=== PATIENT | female | born 1935 | race Caucasian/White ===

== ENCOUNTER → 2016-11-03 | Outpatient (CLI) | payer MEDICARE, OTHER ==
[~2016-11-03] MED LIST: /WARF2TA OR; /WARF2TA PO; ABIL2TAB PO; ABIL5TAB OR; ABIL5TAB5 PO; ACET65TA PO; ALLO100T PO; ALLO10TA PO; AMLO10TA2 PO; AMOX875T2 PO; ATEN100T PO; ATEN25TA PO; AZIT250T3 PO; CLAR5CHW PO; COLA100C2 OR; COLA100C2 PO; COLC0.6T PO; COUM2TAB10 PO; DEME300T OR; DICY10CA13 PO; DIGO0.12 PO; DIGO0.257 OR; FERR325T PO; GLUC500T PO; LEVA750T OR; LEVO25TA5 PO; LISI10TA4 OR; LISI10TA4 PO; LOPR50TA OR; MAGN250T2 PO; MAGN500T2 OR; MEGA40SU OR; MELO15TA4 PO; METF500T PO; MILKSUS OR; MUCI600T34 PO; NEPHTA PO; NITR4TASL SL; OMEP20CA3 PO; PARO20TA2 PO; PAXI20TA PO; SENO8.6T5 OR; SIMV20TA2 PO; SITA50TAB PO; SODIUM CHLORIDE TAB PO; SYNT100T PO; TENO100T OR; VITA-130 PO; VITA500T53 PO; WARF-58 PO; ZANT150T PO; ZOCO40TA PO; ZYLO100T OR; [UNRECOGNIZED DRUG - OTHER]; [UNRECOGNIZED DRUG - OTHER] TOP; citrucel PO
--- NOTE | 2016-11-04 11:23 | REP ---
PA and lateral chest: Comparisons are the portable chest of 09/30/2016. Portable chest of 07/01/2011. There is cardiomegaly, unchanged from 09/30/2016. There is a dual-chamber pacemaker, unchanged from both prior studies. Lung redmond are clear. The tamara, mediastinum, bony thorax are unremarkable. Impression: Cardiomegaly. Signed by Jac Telles MD 11/03/2016 02:53 P
== END ==
LOC: M LRY 14:21
PROVIDERS: ATTEND Nurse Practitioner Family
DX: I51.7 Cardiomegaly (principal)

== ENCOUNTER 2016-12-31 10:48 | Emergency (ER) | payer MEDICARE, OTHER ==
[~2016-12-31] VITALS: Ht 157.5 cm; Wt 54.9 kg
[2016-12-31 10:48] VITALS: BP 156/70
[~2016-12-31 10:48] MED LIST changes: -PARO20TA2 PO; +PARO20TA3 PO
[2016-12-31] MEDS ORDERED: COUM1TAB19 PO (11:17)
[2016-12-31] MEDS ORDERED: VALA500T PO (11:17)
[2016-12-31] MEDS ORDERED: NORCO, ANEXSIA 5/325MG TABLET (HYDROcodone/ACETAMINOPHEN) PO ONE (12:00)
[2016-12-31] MEDS ORDERED: VICO5TAB16 PO (12:03)
== END 2016-12-31 12:25 | disposition home or self-care (01) ==
LOC: M ED 11:42
DX: B34.9 Viral infection, unspecified (principal); B02.9 Zoster without complications; I10 Essential (primary) hypertension; E03.9 Hypothyroidism, unspecified; E11.9 Type 2 diabetes mellitus without complications; M54.30 Sciatica, unspecified side; K58.9 Irritable bowel syndrome, unspecified; Z95.0 Presence of cardiac pacemaker; Z79.899 Other long term (current) drug therapy; Z79.84 Long term (current) use of oral hypoglycemic drugs; Z79.01 Long term (current) use of anticoagulants

== ENCOUNTER 2017-01-07 11:20 | Emergency (ER) | payer MEDICARE, OTHER ==
[~2017-01-07] VITALS: Ht 152.4 cm; Wt 45.4 kg
[~2017-01-07 11:20] MED LIST changes: +COUM1TAB19 PO; +VALA500T PO; +VICO5TAB16 PO
[2017-01-07] MEDS ORDERED: NS 500 ML IV ONE (13:45)
[2017-01-07 14:50] LABS: BASO % 0.2 % (0.0-1.0); EOS # 0.1 K/mm3 (0.0-0.50); EOS % 1.8 % (0.0-3.0); LARGE UNSTAINED CELL # 0.1 K/mm3 (0.0-0.4); LARGE UNSTAINED CELL % 1.1 % (0.0-4.0); LYMPH # 1.2 K/mm3 (1.5-4.5); LYMPH % 14.3 % (24.0-44.0); MEAN CORPUSCULAR HEMOGLOBIN 28.2 pg (27.0-33.0); MEAN CORPUSCULAR HGB CONC 32.6 g/dl (32.0-36.5); MEAN CORPUSCULAR VOLUME 86.4 fl (80.0-96.0); MONO # 0.5 K/mm3 (0.0-0.8); MONO % 6.1 % (0.0-5.0); NEUTROPHILS # 5.8 K/mm3 (1.8-7.7); NEUTROPHILS % 76.6 % (36.0-66.0); PLATELET COUNT, AUTOMATED 286 k/mm3 (150-450); RED CELL DISTRIBUTION WIDTH 16.8 % (11.5-14.5); WHITE BLOOD COUNT 7.6 K/mm3 (4.0-10.0)
[2017-01-07 14:51] LABS: INR 2.78
[2017-01-07] MEDS: MORPHINE 2 MG/ML 1ML SYRINGE IV PRN ×2 (15:04→16:50)
[2017-01-07 15:07] LABS: ERYTHROCYTE SEDIMENTATION RATE 69 mm/hr (0-30)
[2017-01-07 15:12] LABS: ALBUMIN 3.3 GM/DL (3.2-5.2); ALBUMIN/GLOBULIN RATIO 0.77 (1.00-1.93); ALKALINE PHOSPHATASE 83 U/L (45-117); ALT/SGPT 62 U/L (12-78); ANION GAP 5 MEQ/L (8-16); AST/SGOT 38 U/L (15-37); BILIRUBIN,DIRECT < 0.1 MG/DL (0.0-0.2); BILIRUBIN,TOTAL 0.1 MG/DL (0.2-1.0); BLOOD UREA NITROGEN 18 MG/DL (7-18); CALCIUM LEVEL 8.8 MG/DL (8.8-10.2); CARBON DIOXIDE LEVEL 28 MEQ/L (21-32); CHLORIDE LEVEL 98 MEQ/L (98-107); CREATININE FOR GFR 0.97 MG/DL (0.55-1.02); GLOMERULAR FILTRATION RATE 58.4 (>32); GLUCOSE, FASTING 120 MG/DL (83-110); POTASSIUM SERUM 4.5 MEQ/L (3.5-5.1); SODIUM LEVEL 131 MEQ/L (136-145); TOTAL PROTEIN 7.6 GM/DL (6.4-8.2)
[2017-01-07] MEDS ORDERED: MACR100C3 PO (17:10)
[2017-01-07] MEDS ORDERED: LIDO5DIS36 TD (17:10)
[2017-01-07] MEDS ORDERED: ACET-71 PO ×2 (17:10→17:11)
[2017-01-07] MEDS ORDERED: ACETAMINOPH W/CODEINE #3 TAB UD PO ONE (18:00)
[2017-01-07 18:09] VITALS: BP 122/77
--- NOTE | 2017-01-08 21:37 | ECGEPIP ---
Stationary ECG Study 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
--- NOTE | 2017-01-08 21:40 | ECGEPIP ---
Stationary ECG Study [facility] - ED Test Date: 2017-01-07 Pat Name: TREVOR HERNÁNDEZ Department: Room: - Gender: F Poster: bennett BENITOB: 1935 Requested By: Cesar Davis PA-C Order Number: [id number] Reading MD: Estela Gar Measurements Intervals [place] Rate: 61 P: [place]: 0 QRS: 19 QRSD: 89 T: -60 QT: 424 QTc: 430 Interpretive Statements ATRIAL FIBRILLATION ST DEVIATION AND MODERATE T-WAVE ABNORMALITY, CONSIDER ANTEROLATERAL ISCHEMIA SIMILAR 01/07/17 13:55 Electronically Signed On 01-08-2017 21:40:53 EDT by Estela Gar
== END 2017-01-07 19:08 | disposition home or self-care (01) ==
LOC: M ED 14:16
DX: B02.29 Other postherpetic nervous system involvement (principal); R07.9 Chest pain, unspecified; M54.2 Cervicalgia; I48.91 Unspecified atrial fibrillation; R94.31 Abnormal electrocardiogram [ECG] [EKG]; Z79.899 Other long term (current) drug therapy; Z79.01 Long term (current) use of anticoagulants; Z79.84 Long term (current) use of oral hypoglycemic drugs

== ENCOUNTER → 2017-03-31 | Outpatient (CLI) | payer MEDICARE, OTHER ==
[~2017-03-31] MED LIST changes: +ACET-71 PO; +LIDO5DIS36 TD; +MACR100C3 PO
[2017-03-31 16:30] LABS: INR 2.36
== END ==
LOC: M LAB 16:01
PROVIDERS: ATTEND Family Medicine
DX: Z79.01 Long term (current) use of anticoagulants (principal); I48.2 Chronic atrial fibrillation

== ENCOUNTER → 2017-04-14 | Outpatient (CLI) | payer MEDICARE, OTHER ==
[~2017-04-14] MED LIST changes: +ABIL1TAB11 PO; -ABIL5TAB5 PO; -ACET-71 PO; +ACET1TAB16 PO; +AZIT-12 PO; -AZIT250T3 PO; -COUM2TAB10 PO; +COUM2TAB22 PO; +FERR1TAB8 PO; -FERR325T PO; -LIDO5DIS36 TD; +LIDO5DIS41 TD; -MACR100C3 PO; +MACR100C43 PO; -MAGN250T2 PO; +MAGN250T7 PO; -METF500T PO; +METF500T13 PO; -MUCI600T34 PO; +MUCI600T37 PO; -VALA500T PO; +VALA500T2 PO; -VITA-130 PO; +VITA500T PO
[2017-04-14 12:46] LABS: INR 1.72
== END ==
LOC: M LAB 11:39
PROVIDERS: ATTEND Family Medicine
DX: Z79.01 Long term (current) use of anticoagulants (principal); I48.2 Chronic atrial fibrillation

== ENCOUNTER → 2017-04-21 | Outpatient (CLI) | payer MEDICARE, OTHER ==
[2017-04-21 15:03] LABS: INR 2.43
== END ==
LOC: M LAB 14:06
PROVIDERS: ATTEND Family Medicine
DX: Z79.01 Long term (current) use of anticoagulants (principal); I48.2 Chronic atrial fibrillation

== ENCOUNTER → 2017-04-28 | Outpatient (CLI) | payer MEDICARE, OTHER ==
[2017-04-28 13:04] LABS: INR 2.39
== END ==
LOC: M LAB 11:54
PROVIDERS: ATTEND Family Medicine
DX: Z79.01 Long term (current) use of anticoagulants (principal); I48.2 Chronic atrial fibrillation

== ENCOUNTER → 2017-05-12 | Outpatient (CLI) | payer OTHER ==
[2017-05-12 13:16] LABS: INR 2.33
== END ==
LOC: M LAB 12:03
PROVIDERS: ATTEND Family Medicine
DX: Z51.81 Encounter for therapeutic drug level monitoring (principal); Z79.01 Long term (current) use of anticoagulants

== ENCOUNTER → 2017-05-26 | Outpatient (CLI) | payer OTHER ==
[2017-05-26 13:24] LABS: INR 1.99
== END ==
LOC: M LAB 12:37
PROVIDERS: ATTEND Family Medicine
DX: Z79.01 Long term (current) use of anticoagulants (principal)

== ENCOUNTER → 2017-06-02 | Outpatient (CLI) | payer OTHER ==
[2017-06-02 15:40] LABS: INR 2.35
== END ==
LOC: M LAB 15:05
PROVIDERS: ATTEND Family Medicine
DX: Z79.01 Long term (current) use of anticoagulants (principal)

== ENCOUNTER → 2017-06-16 | Outpatient (CLI) | payer OTHER ==
[2017-06-16 14:10] LABS: INR 1.84
== END ==
LOC: M LAB 13:20
PROVIDERS: ATTEND Family Medicine
DX: Z79.01 Long term (current) use of anticoagulants (principal); I48.1 Persistent atrial fibrillation

== ENCOUNTER → 2017-06-23 | Outpatient (CLI) | payer OTHER ==
[2017-06-23 15:41] LABS: INR 2.63
== END ==
LOC: M LAB 15:02
PROVIDERS: ATTEND Family Medicine
DX: Z79.01 Long term (current) use of anticoagulants (principal)

== ENCOUNTER → 2017-07-08 | Outpatient (CLI) | payer OTHER | LOC: M LAB 14:36 | PROVIDERS: ATTEND Family Medicine | DX: Z79.01 Long term (current) use of anticoagulants (principal); I48.2 Chronic atrial fibrillation ==

== ENCOUNTER → 2017-07-15 | Outpatient (CLI) | payer OTHER ==
[2017-07-15 15:32] LABS: INR 2.51
== END ==
LOC: M LAB 14:57
PROVIDERS: ATTEND Family Medicine
DX: Z79.01 Long term (current) use of anticoagulants (principal)

== ENCOUNTER → 2017-07-29 | Outpatient (CLI) | payer OTHER ==
[2017-07-29 14:08] LABS: INR 2.05
== END ==
LOC: M LAB 12:45
PROVIDERS: ATTEND Family Medicine
DX: Z79.01 Long term (current) use of anticoagulants (principal)

== ENCOUNTER → 2017-08-13 | Outpatient (CLI) | payer OTHER ==
[2017-08-13 14:24] LABS: INR 1.42
== END ==
LOC: M LAB 13:08
PROVIDERS: ATTEND Family Medicine
DX: Z51.81 Encounter for therapeutic drug level monitoring (principal); Z79.01 Long term (current) use of anticoagulants; I48.91 Unspecified atrial fibrillation

== ENCOUNTER → 2017-08-19 | Outpatient (CLI) | payer OTHER ==
[2017-08-19 16:47] LABS: INR 1.9
== END ==
LOC: M LAB 15:50
PROVIDERS: ATTEND Family Medicine
DX: Z79.01 Long term (current) use of anticoagulants (principal)

== ENCOUNTER → 2017-08-26 | Outpatient (CLI) | payer OTHER ==
[2017-08-26 15:19] LABS: INR 2.59
== END ==
LOC: M LAB 14:32
PROVIDERS: ATTEND Family Medicine
DX: I48.91 Unspecified atrial fibrillation (principal); Z79.01 Long term (current) use of anticoagulants

== ENCOUNTER → 2017-09-02 | Outpatient (CLI) | payer OTHER ==
[2017-09-02 16:51] LABS: INR 2.16
== END ==
LOC: M LAB 15:28
PROVIDERS: ATTEND Family Medicine
DX: Z79.01 Long term (current) use of anticoagulants (principal); I48.91 Unspecified atrial fibrillation

== ENCOUNTER → 2017-09-15 | Outpatient (CLI) | payer OTHER ==
[2017-09-15 11:57] LABS: BASO % 0.1 % (0.0-1.0); EOS # 0.2 10^3/uL (0.0-0.50); IMMATURE GRANULOCYTE % 0.5 % (0-0); LYMPH # 1.2 10^3/uL (1.5-4.5); LYMPH % 14.5 % (24.0-44.0); MEAN CORPUSCULAR HGB CONC 31.3 g/dl (32.0-36.5); MEAN CORPUSCULAR VOLUME 82.9 fl (80.0-96.0); MONO # 0.6 10^3/uL (0.0-0.8); MONO % 7.4 % (0.0-5.0); NEUTROPHILS # 6.2 10^3/uL (1.8-7.7); NEUTROPHILS % 75.5 % (36.0-66.0); PLATELET COUNT, AUTOMATED 287 10^3/uL (150-450); RED CELL DISTRIBUTION WIDTH 16.4 % (11.5-14.5); WHITE BLOOD COUNT 8.2 10^3/uL (4.0-10.0)
[2017-09-15 12:11] LABS: INR 1.87
[2017-09-15 12:36] LABS: ALBUMIN 3.3 GM/DL (3.2-5.2); ALKALINE PHOSPHATASE 74 U/L (45-117); ALT/SGPT 40 U/L (12-78); ANION GAP 9 MEQ/L (8-16); AST/SGOT 26 U/L (7-37); BILIRUBIN,TOTAL 0.2 MG/DL (0.2-1.0); BLOOD UREA NITROGEN 23 MG/DL (7-18); CALCIUM LEVEL 9.4 MG/DL (8.8-10.2); CARBON DIOXIDE LEVEL 27 MEQ/L (21-32); CHLORIDE LEVEL 102 MEQ/L (98-107); CHOLESTEROL LEVEL 110 MG/DL (<200); CREATININE FOR GFR 0.99 MG/DL (0.55-1.02); FREE T4 0.91 NG/DL (0.76-1.46); GLOMERULAR FILTRATION RATE 56.9 (>32); GLUCOSE, FASTING 191 MG/DL (83-110); POTASSIUM SERUM 4.1 MEQ/L (3.5-5.1); SODIUM LEVEL 138 MEQ/L (136-145); TOTAL PROTEIN 7.4 GM/DL (6.4-8.2); TRIGLYCERIDES LEVEL 228 MG/DL (<150)
[2017-09-15 12:45] LABS: VITAMIN B12 LEVEL > 2000 PG/ML (247-911)
[2017-09-15 12:46] LABS: FOLATE > 24.0 NG/ML (>5.4)
== END ==
LOC: M LAB 11:26
PROVIDERS: ATTEND Family Medicine
DX: E11.9 Type 2 diabetes mellitus without complications (principal); E03.9 Hypothyroidism, unspecified; E78.5 Hyperlipidemia, unspecified; D64.9 Anemia, unspecified; I48.91 Unspecified atrial fibrillation

== ENCOUNTER → 2017-09-22 | Outpatient (CLI) | payer OTHER ==
[2017-09-22 11:36] LABS: INR 2.26
== END ==
LOC: M LAB 10:59
PROVIDERS: ATTEND Family Medicine
DX: Z51.81 Encounter for therapeutic drug level monitoring (principal); Z79.01 Long term (current) use of anticoagulants; I48.91 Unspecified atrial fibrillation

== ENCOUNTER → 2017-09-30 | Outpatient (CLI) | payer OTHER ==
[2017-09-30 11:50] LABS: INR 2.8
== END ==
LOC: M LAB 11:12
PROVIDERS: ATTEND Family Medicine
DX: Z79.01 Long term (current) use of anticoagulants (principal); I48.91 Unspecified atrial fibrillation

== ENCOUNTER → 2017-10-07 | Outpatient (CLI) | payer OTHER ==
[2017-10-07 11:09] LABS: INR 1.86
== END ==
LOC: M LAB 10:25
DX: Z51.81 Encounter for therapeutic drug level monitoring (principal); Z79.01 Long term (current) use of anticoagulants; I48.91 Unspecified atrial fibrillation
CPT/HCPCS: 85610

== ENCOUNTER → 2017-10-13 | Outpatient (CLI) | payer OTHER ==
[2017-10-13 13:05] LABS: INR 2.12; PROTHROMBIN TIME 24.5 SECONDS (12.4-14.5)
== END ==
LOC: M LAB 11:43
DX: Z79.01 Long term (current) use of anticoagulants (principal)
CPT/HCPCS: 85610

== ENCOUNTER → 2017-10-20 | Outpatient (CLI) | payer OTHER ==
[2017-10-20 14:01] LABS: INR 2.02; PROTHROMBIN TIME 23.6 SECONDS (12.4-14.5)
== END ==
LOC: M LAB 13:10
DX: Z51.81 Encounter for therapeutic drug level monitoring (principal); Z79.01 Long term (current) use of anticoagulants; I48.91 Unspecified atrial fibrillation
CPT/HCPCS: 85610

== ENCOUNTER → 2017-10-28 | Outpatient (CLI) | payer OTHER ==
[2017-10-28 14:13] LABS: INR 2.17
== END ==
LOC: M LAB 13:22
DX: Z51.81 Encounter for therapeutic drug level monitoring (principal); Z79.01 Long term (current) use of anticoagulants; I48.91 Unspecified atrial fibrillation
CPT/HCPCS: 85610

== ENCOUNTER → 2017-11-05 | Outpatient (CLI) | payer OTHER ==
[2017-11-05 13:30] LABS: INR 2.14; PROTHROMBIN TIME 24.7 SECONDS (12.4-14.5)
== END ==
LOC: M LAB 12:13
DX: I48.91 Unspecified atrial fibrillation (principal)
CPT/HCPCS: 85610

== ENCOUNTER → 2017-11-18 | Outpatient (CLI) | payer OTHER ==
[2017-11-18 14:44] LABS: INR 2.39
== END ==
LOC: M LAB 14:03
DX: Z79.01 Long term (current) use of anticoagulants (principal)
CPT/HCPCS: 85610

== ENCOUNTER → 2017-12-02 | Outpatient (CLI) | payer OTHER ==
[2017-12-02 10:52] LABS: INR 3.13; PROTHROMBIN TIME 33.6 SECONDS (12.4-14.5)
== END ==
LOC: M LAB 10:25
DX: I48.91 Unspecified atrial fibrillation (principal)
CPT/HCPCS: 85610

== ENCOUNTER → 2017-12-10 | Outpatient (CLI) | payer OTHER ==
[2017-12-10 11:05] LABS: INR 2.02; PROTHROMBIN TIME 23.6 SECONDS (12.4-14.5)
[2017-12-10 11:35] LABS: FREE T4 1.04 NG/DL (0.76-1.46)
== END ==
LOC: M LAB 10:31
DX: I48.91 Unspecified atrial fibrillation (principal)
CPT/HCPCS: 84443

== ENCOUNTER → 2017-12-18 | Outpatient (CLI) | payer OTHER ==
[2017-12-18 17:12] LABS: INR 2.33; PROTHROMBIN TIME 26.5 SECONDS (12.4-14.5)
== END ==
LOC: M LAB 16:23
DX: Z51.81 Encounter for therapeutic drug level monitoring (principal); Z79.01 Long term (current) use of anticoagulants; I48.91 Unspecified atrial fibrillation
CPT/HCPCS: 85610

== ENCOUNTER → 2017-12-24 | Outpatient (CLI) | payer OTHER ==
[2017-12-24 16:08] LABS: PROTHROMBIN TIME 28.9 SECONDS (12.4-14.5)
== END ==
LOC: M LAB 15:19
DX: Z51.81 Encounter for therapeutic drug level monitoring (principal); Z79.01 Long term (current) use of anticoagulants; I48.91 Unspecified atrial fibrillation
CPT/HCPCS: 85610

== ENCOUNTER → 2018-01-05 | Outpatient (CLI) | payer OTHER ==
[2018-01-05 11:15] LABS: INR 2.21; PROTHROMBIN TIME 25.3 SECONDS (12.4-14.5)
== END ==
LOC: M LAB 10:26
DX: Z51.81 Encounter for therapeutic drug level monitoring (principal); Z79.01 Long term (current) use of anticoagulants; I48.91 Unspecified atrial fibrillation
CPT/HCPCS: 85610

== ENCOUNTER → 2018-01-20 | Outpatient (CLI) | payer OTHER ==
[2018-01-20 12:52] LABS: INR 2.05; PROTHROMBIN TIME 23.8 SECONDS (12.4-14.5)
== END ==
LOC: M LAB 12:03
DX: Z51.81 Encounter for therapeutic drug level monitoring (principal); Z79.01 Long term (current) use of anticoagulants; I48.91 Unspecified atrial fibrillation
CPT/HCPCS: 85610

== ENCOUNTER 2018-01-27 10:23 | Emergency (ER) | payer OTHER ==
[2018-01-27 12:38] LABS: BASO % 0.2 % (0.0-1.0); EOS # 0.1 10^3/uL (0.0-0.50); EOS % 1.6 % (0.0-3.0); HEMATOCRIT 30.9 % (36.0-47.0); HEMOGLOBIN 9.6 g/dl (12.0-15.5); IMMATURE GRANULOCYTE % 0.6 % (0-3.0); LYMPH # 0.9 10^3/uL (1.5-4.5); LYMPH % 11.7 % (24.0-44.0); MEAN CORPUSCULAR HEMOGLOBIN 25.9 pg (27.0-33.0); MEAN CORPUSCULAR HGB CONC 31.1 g/dl (32.0-36.5); MEAN CORPUSCULAR VOLUME 83.3 fl (80.0-96.0); MONO # 0.6 10^3/uL (0.0-0.8); MONO % 7.7 % (0.0-5.0); NEUTROPHILS # 6.3 10^3/uL (1.8-7.7); NEUTROPHILS % 78.2 % (36.0-66.0); PLATELET COUNT, AUTOMATED 280 10^3/uL (150-450); RED BLOOD COUNT 3.71 10^6/uL (4.00-5.40); RED CELL DISTRIBUTION WIDTH 18.6 % (11.5-14.5); WHITE BLOOD COUNT 8.1 10^3/uL (4.0-10.0)
[2018-01-27 12:49] LABS: ALBUMIN 3.4 GM/DL (3.2-5.2); ALBUMIN/GLOBULIN RATIO 0.69 (1.00-1.93); ALKALINE PHOSPHATASE 59 U/L (45-117); ALT/SGPT 22 U/L (12-78); ANION GAP 8 MEQ/L (8-16); AST/SGOT 16 U/L (7-37); BILIRUBIN,DIRECT < 0.1 MG/DL (0.0-0.2); BILIRUBIN,TOTAL 0.2 MG/DL (0.2-1.0); BLOOD UREA NITROGEN 27 MG/DL (7-18); CALCIUM LEVEL 9.1 MG/DL (8.8-10.2); CARBON DIOXIDE LEVEL 24 MEQ/L (21-32); CHLORIDE LEVEL 107 MEQ/L (98-107); CK-MB VALUE MASS 1.2 NG/ML (<3.6); CPK CREATINE PHOSPHOKINASE 58 U/L (26-192); GLOMERULAR FILTRATION RATE 50.4 (>32); GLUCOSE, FASTING 149 MG/DL (70-100); MB/CK RELATIVE INDEX 2.06 (< OR =4); POTASSIUM SERUM 4.1 MEQ/L (3.5-5.1); SODIUM LEVEL 139 MEQ/L (136-145); TOTAL PROTEIN 8.3 GM/DL (6.4-8.2); TROPONIN I 0.02 NG/ML (< 0.10)
[2018-01-27 14:15] LABS: AMMONIA 31 uMOL/L (<32)
[2018-01-27 14:27] LABS: LACTIC ACID SEPSIS PROTOCOL 2.3 MMOL/L (0.4-2.0)
[2018-01-27] MEDS: NS 500 ML IV (14:45)
[2018-01-27 16:15] LABS: KETONE, URINE AUTO RFX NEGATIVE (NEGATIVE); MUCUS, URINE RFX SMALL (NEGATIVE); NITRITE, URINE AUTO RFX NEGATIVE (NEGATIVE); RBC, URINE AUTO RFX 2 /HPF (0-3); SPECIFIC GRAVITY UR AUTO RFX 1.017 (1.002-1.035); SQUAM EPITHELIAL CELL UR AURFX 5 /HPF (0-6)
[2018-01-27 16:16] LABS: LEUKOCYTE ESTERASE UR AUTO RFX 2+ (NEGATIVE); WBC, URINE AUTO RFX 19 /HPF (0-3)
[2018-01-27] MEDS: NITROFURANTOIN (MACROBID) 100 MG CAP PO (17:11)
== END 2018-01-27 17:44 | disposition home or self-care (01) ==
LOC: M ED 10:23
DX: N39.0 Urinary tract infection, site not specified (principal); R53.1 Weakness; I48.91 Unspecified atrial fibrillation; Z51.81 Encounter for therapeutic drug level monitoring; Z79.01 Long term (current) use of anticoagulants; Z95.0 Presence of cardiac pacemaker; E11.9 Type 2 diabetes mellitus without complications; I10 Essential (primary) hypertension; E78.5 Hyperlipidemia, unspecified; F03.90 Unspecified dementia, unspecified severity, without behavioral disturbance, psychotic disturbance, mood disturbance, and anxiety; K21.9 Gastro-esophageal reflux disease without esophagitis; E03.9 Hypothyroidism, unspecified; K57.90 Diverticulosis of intestine, part unspecified, without perforation or abscess without bleeding; M54.30 Sciatica, unspecified side; G43.909 Migraine, unspecified, not intractable, without status migrainosus; F20.9 Schizophrenia, unspecified; F41.9 Anxiety disorder, unspecified; F32.9 Major depressive disorder, single episode, unspecified; Z87.891 Personal history of nicotine dependence; Z87.01 Personal history of pneumonia (recurrent); I51.7 Cardiomegaly; Z79.899 Other long term (current) drug therapy
CPT/HCPCS: 71045

== ENCOUNTER → 2018-01-27 | Outpatient (CLI) | payer OTHER ==
[2018-01-27 10:52] LABS: INR 2.28
== END ==
LOC: M LAB 09:58
DX: I48.91 Unspecified atrial fibrillation (principal); Z51.81 Encounter for therapeutic drug level monitoring; Z79.01 Long term (current) use of anticoagulants

== ENCOUNTER → 2018-02-12 | Outpatient (CLI) | payer OTHER ==
[2018-02-12 11:11] LABS: INR 1.85; PROTHROMBIN TIME 21.9 SECONDS (12.4-14.5)
== END ==
LOC: M LAB 10:11
DX: Z51.81 Encounter for therapeutic drug level monitoring (principal); Z79.01 Long term (current) use of anticoagulants; I48.91 Unspecified atrial fibrillation
CPT/HCPCS: 85610

== ENCOUNTER → 2018-02-26 | Outpatient (CLI) | payer OTHER ==
[2018-02-26 13:56] LABS: INR 2.24; PROTHROMBIN TIME 25.6 SECONDS (12.4-14.5)
[2018-02-26 13:57] LABS: PARTIAL THROMBOPLASTIN TIME 43.4 SECONDS (26.8-37.9)
== END ==
LOC: M LAB 13:21
DX: I48.91 Unspecified atrial fibrillation (principal)
CPT/HCPCS: 85610

== ENCOUNTER → 2018-03-26 | Outpatient (CLI) | payer OTHER ==
[2018-03-26 11:33] LABS: INR 2.25; PROTHROMBIN TIME 25.7 SECONDS (12.4-14.5)
[2018-03-26 11:34] LABS: PARTIAL THROMBOPLASTIN TIME 45.2 SECONDS (26.8-37.9)
== END ==
LOC: M LAB 10:36
DX: I48.91 Unspecified atrial fibrillation (principal)
CPT/HCPCS: 85610

== ENCOUNTER → 2018-04-09 | Outpatient (CLI) | payer OTHER ==
[2018-04-09 14:10] LABS: INR 1.85; PROTHROMBIN TIME 21.7 SECONDS (12.1-14.4)
[2018-04-09 14:11] LABS: PARTIAL THROMBOPLASTIN TIME 38.5 SECONDS (25.4-37.6)
== END ==
LOC: M LAB 12:40
DX: I48.91 Unspecified atrial fibrillation (principal)
CPT/HCPCS: 85610

== ENCOUNTER → 2018-04-16 | Outpatient (CLI) | payer OTHER ==
[2018-04-16 11:21] LABS: INR 1.67
== END ==
LOC: M LAB 10:24
DX: I48.91 Unspecified atrial fibrillation (principal)
CPT/HCPCS: 85610

== ENCOUNTER → 2018-04-23 | Outpatient (CLI) | payer OTHER ==
[2018-04-23 13:52] LABS: INR 1.72; PROTHROMBIN TIME 20.5 SECONDS (12.1-14.4)
[2018-04-23 13:53] LABS: PARTIAL THROMBOPLASTIN TIME 34.8 SECONDS (25.4-37.6)
== END ==
LOC: M LAB 13:00
DX: I48.91 Unspecified atrial fibrillation (principal)
CPT/HCPCS: 85610

== ENCOUNTER → 2018-04-30 | Outpatient (CLI) | payer OTHER ==
[2018-04-30 14:48] LABS: INR 2.28; PROTHROMBIN TIME 25.6 SECONDS (12.1-14.4)
[2018-04-30 14:49] LABS: PARTIAL THROMBOPLASTIN TIME 49.2 SECONDS (25.4-37.6)
== END ==
LOC: M LAB 13:56
DX: I48.91 Unspecified atrial fibrillation (principal)
CPT/HCPCS: 85610

== ENCOUNTER → 2018-05-18 | Outpatient (CLI) | payer OTHER ==
[2018-05-18 15:37] LABS: PARTIAL THROMBOPLASTIN TIME 46.1 SECONDS (25.4-37.6); PROTHROMBIN TIME 27.5 SECONDS (12.1-14.4)
== END ==
LOC: M LAB 14:39
DX: I48.91 Unspecified atrial fibrillation (principal)
CPT/HCPCS: 85610

== ENCOUNTER → 2018-06-01 | Outpatient (CLI) | payer OTHER ==
[2018-06-01 16:47] LABS: PROTHROMBIN TIME 25.4 SECONDS (12.1-14.4)
[2018-06-01 16:48] LABS: PARTIAL THROMBOPLASTIN TIME 44.9 SECONDS (25.4-37.6)
[2018-06-01 16:49] LABS: INR 2.26
== END ==
LOC: M LAB 15:12
DX: I48.91 Unspecified atrial fibrillation (principal)
CPT/HCPCS: 85610

== ENCOUNTER → 2018-06-16 | Outpatient (CLI) | payer OTHER ==
[2018-06-16 14:19] LABS: INR 1.62; PARTIAL THROMBOPLASTIN TIME 35.4 SECONDS (25.4-37.6); PROTHROMBIN TIME 19.5 SECONDS (12.1-14.4)
== END ==
LOC: M LAB 13:16
DX: I48.91 Unspecified atrial fibrillation (principal)
CPT/HCPCS: 85610

== ENCOUNTER → 2018-06-25 | Outpatient (CLI) | payer OTHER ==
[2018-06-25 11:26] LABS: PARTIAL THROMBOPLASTIN TIME 51.3 SECONDS (25.4-37.6)
[2018-06-25 11:54] LABS: INR 2.71; PROTHROMBIN TIME 29.4 SECONDS (12.1-14.4)
== END ==
LOC: M LAB 10:30
DX: I48.91 Unspecified atrial fibrillation (principal)
CPT/HCPCS: 85610

== ENCOUNTER → 2018-07-02 | Outpatient (CLI) | payer OTHER ==
[2018-07-02 16:01] LABS: INR 2.29; PROTHROMBIN TIME 25.7 SECONDS (12.1-14.4)
[2018-07-02 16:02] LABS: PARTIAL THROMBOPLASTIN TIME 47.3 SECONDS (25.4-37.6)
== END ==
LOC: M LAB 15:12
DX: I48.91 Unspecified atrial fibrillation (principal)
CPT/HCPCS: 85610

== ENCOUNTER → 2018-07-09 | Outpatient (CLI) | payer OTHER ==
[2018-07-09 11:32] LABS: INR 2.14; PROTHROMBIN TIME 24.3 SECONDS (12.1-14.4)
[2018-07-09 11:33] LABS: PARTIAL THROMBOPLASTIN TIME 41.4 SECONDS (25.4-37.6)
== END ==
LOC: M LAB 10:48
DX: I48.91 Unspecified atrial fibrillation (principal)
CPT/HCPCS: 85610

== ENCOUNTER → 2018-07-16 | Outpatient (CLI) | payer OTHER ==
[2018-07-16 11:03] LABS: INR 2.42; PROTHROMBIN TIME 26.8 SECONDS (12.1-14.4)
== END ==
LOC: M LAB 10:13
DX: I48.91 Unspecified atrial fibrillation (principal)
CPT/HCPCS: 85610

== ENCOUNTER → 2018-07-23 | Outpatient (CLI) | payer OTHER ==
[2018-07-23 13:21] LABS: INR 2.94; PROTHROMBIN TIME 31.3 SECONDS (12.1-14.4)
[2018-07-23 13:22] LABS: PARTIAL THROMBOPLASTIN TIME 58.7 SECONDS (25.4-37.6)
== END ==
LOC: M LAB 11:58
DX: I48.91 Unspecified atrial fibrillation (principal)
CPT/HCPCS: 85610

== ENCOUNTER → 2018-07-30 | Outpatient (CLI) | payer OTHER ==
[2018-07-30 13:56] LABS: INR 2.82; PROTHROMBIN TIME 30.3 SECONDS (12.1-14.4)
[2018-07-30 13:57] LABS: PARTIAL THROMBOPLASTIN TIME 53.8 SECONDS (25.4-37.6)
== END ==
LOC: M LAB 13:23
DX: I48.91 Unspecified atrial fibrillation (principal)
CPT/HCPCS: 85610

== ENCOUNTER → 2018-08-06 | Outpatient (CLI) | payer OTHER ==
[2018-08-06 11:43] LABS: INR 2.85; PROTHROMBIN TIME 30.6 SECONDS (12.1-14.4)
== END ==
LOC: M LAB 10:38
DX: I48.91 Unspecified atrial fibrillation (principal); Z51.81 Encounter for therapeutic drug level monitoring; Z79.01 Long term (current) use of anticoagulants
CPT/HCPCS: 85610

== ENCOUNTER → 2018-08-13 | Outpatient (CLI) | payer OTHER ==
[2018-08-13 15:49] LABS: PARTIAL THROMBOPLASTIN TIME 35.5 SECONDS (25.4-37.6)
[2018-08-13 15:59] LABS: INR 2.02; PROTHROMBIN TIME 23.2 SECONDS (12.1-14.4)
== END ==
LOC: M LAB 15:17
DX: I48.91 Unspecified atrial fibrillation (principal)
CPT/HCPCS: 85610

== ENCOUNTER → 2018-08-20 | Outpatient (CLI) | payer OTHER ==
[2018-08-20 11:17] LABS: INR 2.03; PROTHROMBIN TIME 23.4 SECONDS (12.1-14.4)
[2018-08-20 11:18] LABS: PARTIAL THROMBOPLASTIN TIME 38.8 SECONDS (25.4-37.6)
== END ==
LOC: M LAB 10:31
DX: I48.91 Unspecified atrial fibrillation (principal)
CPT/HCPCS: 85610

== ENCOUNTER → 2018-09-03 | Outpatient (CLI) | payer OTHER ==
[2018-09-03 12:16] LABS: INR 2.85; PROTHROMBIN TIME 30.6 SECONDS (12.1-14.4)
== END ==
LOC: M LAB 11:06
DX: I48.91 Unspecified atrial fibrillation (principal)
CPT/HCPCS: 85610

== ENCOUNTER → 2018-09-16 | Outpatient (CLI) | payer OTHER ==
[2018-09-16 10:15] LABS: APPEARANCE, URINE HAZY (CLEAR); BACTERIA, URINE AUTO NEGATIVE (NEGATIVE); BILIRUBIN, URINE AUTO NEGATIVE (NEGATIVE); BLOOD, URINE BLOOD NEGATIVE (NEGATIVE); COLOR, URINE YELLOW (YELLOW); GLUCOSE, URINE (UA) AUTO NEGATIVE (NEGATIVE); KETONE, URINE AUTO NEGATIVE (NEGATIVE); LEUKOCYTE ESTERASE, URINE AUTO 1+ (NEGATIVE); NITRITE, URINE AUTO NEGATIVE (NEGATIVE); PROTEIN, URINE AUTO NEGATIVE (NEGATIVE); RBC, URINE AUTO 4 /HPF (0-3); SPECIFIC GRAVITY URINE AUTO 1.014 (1.002-1.035); SQUAMOUS EPITHELIAL CELL UR AU 1 /HPF (0-6); UROBILINOGEN, URINE AUTO 0.2 mg/dL (0.0-2.0); WBC, URINE AUTO 4 /HPF (0-3)
[2018-09-16 10:17] LABS: BASO % 0.3 % (0.0-1.0); EOS # 0.2 10^3/uL (0.0-0.50); EOS % 3.4 % (0.0-3.0); IMMATURE GRANULOCYTE % 0.5 % (0-3.0); LYMPH # 1.4 10^3/uL (1.5-4.5); LYMPH % 21.3 % (24.0-44.0); MEAN CORPUSCULAR HEMOGLOBIN 25.6 pg (27.0-33.0); MEAN CORPUSCULAR VOLUME 82.6 fl (80.0-96.0); MONO # 0.5 10^3/uL (0.0-0.8); MONO % 8.3 % (0.0-5.0); NEUTROPHILS # 4.2 10^3/uL (1.8-7.7); NEUTROPHILS % 66.2 % (36.0-66.0); PLATELET COUNT, AUTOMATED 274 10^3/uL (150-450); RED BLOOD COUNT 3.51 10^6/uL (4.00-5.40); RED CELL DISTRIBUTION WIDTH 18.1 % (11.5-14.5); WHITE BLOOD COUNT 6.4 10^3/uL (4.0-10.0)
[2018-09-16 10:30] LABS: INR 3.21; PROTHROMBIN TIME 33.5 SECONDS (12.1-14.4)
[2018-09-16 10:31] LABS: PARTIAL THROMBOPLASTIN TIME 52.8 SECONDS (25.4-37.6)
[2018-09-16 10:57] LABS: ALBUMIN 3.1 GM/DL (3.2-5.2); ALBUMIN/GLOBULIN RATIO 0.72 (1.00-1.93); ALKALINE PHOSPHATASE 70 U/L (45-117); ALT/SGPT 24 U/L (12-78); ANION GAP 9 MEQ/L (8-16); AST/SGOT 16 U/L (7-37); BILIRUBIN,TOTAL 0.2 MG/DL (0.2-1.0); BLOOD UREA NITROGEN 20 MG/DL (7-18); CALCIUM LEVEL 8.6 MG/DL (8.8-10.2); CARBON DIOXIDE LEVEL 23 MEQ/L (21-32); CHLORIDE LEVEL 108 MEQ/L (98-107); CHOLESTEROL LEVEL 100 MG/DL (<200); CHOLESTEROL RISK RATIO 2.127 (<5); CREATININE FOR GFR 0.95 MG/DL (0.55-1.30); GLOMERULAR FILTRATION RATE 59.5 (>32); GLUCOSE, FASTING 83 MG/DL (70-100); HDL CHOLESTEROL 47 MG/DL (>40); LDL CHOLESTEROL 23 MG/DL (<100); NON-HDL-C 53 MG/DL; POTASSIUM SERUM 4.5 MEQ/L (3.5-5.1); SODIUM LEVEL 140 MEQ/L (136-145); TOTAL PROTEIN 7.4 GM/DL (6.4-8.2); TRIGLYCERIDES LEVEL 148 MG/DL (<150)
[2018-09-16 11:01] LABS: MALB URINE SIEMENS 19.2 MG/L; MAU/CREAT RATIO 19.7 MCG/MG (0.0-30.0)
[2018-09-16 17:31] LABS: ESTIMATED AVERAGE GLUCOSE 146 MG/DL (60-110); HEMOGLOBIN A1c 6.7 %
== END ==
LOC: M LAB 09:37
DX: E11.9 Type 2 diabetes mellitus without complications (principal); I10 Essential (primary) hypertension; E03.9 Hypothyroidism, unspecified; E78.5 Hyperlipidemia, unspecified; D64.9 Anemia, unspecified; I48.91 Unspecified atrial fibrillation; Z51.81 Encounter for therapeutic drug level monitoring; Z79.01 Long term (current) use of anticoagulants
CPT/HCPCS: 84443

== ENCOUNTER → 2018-09-21 | Outpatient (CLI) | payer OTHER ==
[~2018-09-21] MED LIST changes: -AMLO10TA2 PO; +AMLO10TA4 PO; +MELO15TA28 PO; -MELO15TA4 PO; -VALA500T2 PO; +VALA500T4 PO
[2018-09-21 12:57] LABS: BASO % 0.1 % (0.0-1.0); EOS # 0.3 10^3/uL (0.0-0.50); EOS % 3.8 % (0.0-3.0); HEMATOCRIT 26.6 % (36.0-47.0); HEMOGLOBIN 8.3 g/dl (12.0-15.5); LYMPH # 1.5 10^3/uL (1.5-4.5); LYMPH % 21.8 % (24.0-44.0); MEAN CORPUSCULAR HEMOGLOBIN 25.9 pg (27.0-33.0); MEAN CORPUSCULAR HGB CONC 31.2 g/dl (32.0-36.5); MEAN CORPUSCULAR VOLUME 83.1 fl (80.0-96.0); MONO # 0.5 10^3/uL (0.0-0.8); MONO % 7.6 % (0.0-5.0); NEUTROPHILS # 4.5 10^3/uL (1.8-7.7); NEUTROPHILS % 66.3 % (36.0-66.0); PLATELET COUNT, AUTOMATED 257 10^3/uL (150-450); WHITE BLOOD COUNT 6.8 10^3/uL (4.0-10.0)
[2018-09-21 13:10] LABS: INR 2.39; PROTHROMBIN TIME 26.6 SECONDS (12.1-14.4)
== END ==
LOC: M LAB 12:30
PROVIDERS: ATTEND Family Medicine
DX: D64.9 Anemia, unspecified (principal); Z79.01 Long term (current) use of anticoagulants

== ENCOUNTER → 2018-09-28 | Outpatient (CLI) | payer OTHER ==
[~2018-09-28] MED LIST changes: -AMLO10TA4 PO; +AMLO10TA5 PO; -VALA500T4 PO; +VALA500T5 PO
[2018-09-28 15:25] LABS: BASO % 0.1 % (0.0-1.0); EOS # 0.3 10^3/uL (0.0-0.50); EOS % 3.2 % (0.0-3.0); HEMATOCRIT 28.2 % (36.0-47.0); HEMOGLOBIN 8.8 g/dl (12.0-15.5); LYMPH # 1.7 10^3/uL (1.5-4.5); LYMPH % 22.3 % (24.0-44.0); MEAN CORPUSCULAR HGB CONC 31.2 g/dl (32.0-36.5); MEAN CORPUSCULAR VOLUME 83.4 fl (80.0-96.0); MONO # 0.6 10^3/uL (0.0-0.8); MONO % 7.5 % (0.0-5.0); NEUTROPHILS # 5.2 10^3/uL (1.8-7.7); NEUTROPHILS % 66.4 % (36.0-66.0); PLATELET COUNT, AUTOMATED 284 10^3/uL (150-450); RED BLOOD COUNT 3.38 10^6/uL (4.00-5.40); WHITE BLOOD COUNT 7.8 10^3/uL (4.0-10.0)
[2018-09-28 15:37] LABS: INR 2.6; PROTHROMBIN TIME 28.4 SECONDS (12.1-14.4)
== END ==
LOC: M LAB 14:28
PROVIDERS: ATTEND Family Medicine
DX: I48.91 Unspecified atrial fibrillation (principal); Z51.81 Encounter for therapeutic drug level monitoring; Z79.01 Long term (current) use of anticoagulants; D64.9 Anemia, unspecified

== ENCOUNTER → 2018-10-07 | Outpatient (CLI) | payer OTHER ==
[2018-10-07 15:11] LABS: BASO % 0.2 % (0.0-1.0); EOS # 0.2 10^3/uL (0.0-0.50); EOS % 3.6 % (0.0-3.0); HEMATOCRIT 27.1 % (36.0-47.0); HEMOGLOBIN 8.3 g/dl (12.0-15.5); LYMPH # 1.6 10^3/uL (1.5-4.5); LYMPH % 24.4 % (24.0-44.0); MEAN CORPUSCULAR HEMOGLOBIN 25.7 pg (27.0-33.0); MEAN CORPUSCULAR HGB CONC 30.6 g/dl (32.0-36.5); MEAN CORPUSCULAR VOLUME 83.9 fl (80.0-96.0); MONO # 0.6 10^3/uL (0.0-0.8); MONO % 9.2 % (0.0-5.0); NEUTROPHILS # 4.1 10^3/uL (1.8-7.7); NEUTROPHILS % 62.1 % (36.0-66.0); PLATELET COUNT, AUTOMATED 251 10^3/uL (150-450); RED BLOOD COUNT 3.23 10^6/uL (4.00-5.40); WHITE BLOOD COUNT 6.6 10^3/uL (4.0-10.0)
[2018-10-07 15:35] LABS: INR 2.19; PROTHROMBIN TIME 24.8 SECONDS (12.1-14.4)
== END ==
LOC: M LAB 14:20
PROVIDERS: ATTEND Family Medicine
DX: I48.91 Unspecified atrial fibrillation (principal); Z79.01 Long term (current) use of anticoagulants

== ENCOUNTER → 2018-10-20 | Outpatient (CLI) | payer OTHER ==
[2018-10-20 15:13] LABS: APPEARANCE, URINE HAZY (CLEAR); BACTERIA, URINE AUTO 1+ (NEGATIVE); BILIRUBIN, URINE AUTO NEGATIVE (NEGATIVE); BLOOD, URINE BLOOD NEGATIVE (NEGATIVE); COLOR, URINE YELLOW (YELLOW); GLUCOSE, URINE (UA) AUTO NEGATIVE (NEGATIVE); KETONE, URINE AUTO NEGATIVE (NEGATIVE); LEUKOCYTE ESTERASE, URINE AUTO 2+ (NEGATIVE); MUCUS, URINE SMALL (NEGATIVE); NITRITE, URINE AUTO NEGATIVE (NEGATIVE); PROTEIN, URINE AUTO NEGATIVE (NEGATIVE); RBC, URINE AUTO 5 /HPF (0-3); SPECIFIC GRAVITY URINE AUTO 1.012 (1.002-1.035); SQUAMOUS EPITHELIAL CELL UR AU 1 /HPF (0-6); UROBILINOGEN, URINE AUTO 0.2 mg/dL (0.0-2.0); WBC, URINE AUTO 21 /HPF (0-3)
[2018-10-20 15:15] LABS: HEMATOCRIT 28.1 % (36.0-47.0); HEMOGLOBIN 8.8 g/dl (12.0-15.5); MEAN CORPUSCULAR HEMOGLOBIN 26.2 pg (27.0-33.0); MEAN CORPUSCULAR HGB CONC 31.3 g/dl (32.0-36.5); MEAN CORPUSCULAR VOLUME 83.6 fl (80.0-96.0); PLATELET COUNT, AUTOMATED 292 10^3/uL (150-450); RED BLOOD COUNT 3.36 10^6/uL (4.00-5.40); WHITE BLOOD COUNT 7.4 10^3/uL (4.0-10.0)
[2018-10-20 15:27] LABS: INR 2.54; PROTHROMBIN TIME 27.8 SECONDS (12.1-14.4)
[2018-10-20 15:28] LABS: PARTIAL THROMBOPLASTIN TIME 47.9 SECONDS (25.4-37.6)
[2018-10-20 15:40] LABS: ALBUMIN 3.2 GM/DL (3.2-5.2); BILIRUBIN,TOTAL 0.3 MG/DL (0.2-1.0); CALCIUM LEVEL 8.7 MG/DL (8.8-10.2); GLOMERULAR FILTRATION RATE 56.1 (>32); POTASSIUM SERUM 4.3 MEQ/L (3.5-5.1); TOTAL PROTEIN 7.4 GM/DL (6.4-8.2)
== END ==
LOC: M LAB 14:12
PROVIDERS: ATTEND Family Medicine
DX: R30.0 Dysuria (principal)

== ENCOUNTER → 2018-11-02 | Outpatient (CLI) | payer OTHER ==
[2018-11-02 14:01] LABS: BASO % 0.3 % (0.0-1.0); EOS # 0.3 10^3/uL (0.0-0.50); EOS % 3.8 % (0.0-3.0); HEMATOCRIT 28.4 % (36.0-47.0); HEMOGLOBIN 8.8 g/dl (12.0-15.5); LYMPH # 1.5 10^3/uL (1.5-4.5); LYMPH % 18.9 % (24.0-44.0); MEAN CORPUSCULAR HEMOGLOBIN 26.5 pg (27.0-33.0); MEAN CORPUSCULAR VOLUME 85.5 fl (80.0-96.0); MONO # 0.7 10^3/uL (0.0-0.8); MONO % 9.3 % (0.0-5.0); NEUTROPHILS # 5.2 10^3/uL (1.8-7.7); NEUTROPHILS % 67.1 % (36.0-66.0); PLATELET COUNT, AUTOMATED 277 10^3/uL (150-450); RED BLOOD COUNT 3.32 10^6/uL (4.00-5.40); WHITE BLOOD COUNT 7.7 10^3/uL (4.0-10.0)
[2018-11-02 14:18] LABS: INR 1.76; PROTHROMBIN TIME 20.8 SECONDS (12.1-14.4)
== END ==
LOC: M LAB 13:14
PROVIDERS: ATTEND Family Medicine
DX: D64.9 Anemia, unspecified (principal); Z79.01 Long term (current) use of anticoagulants

== ENCOUNTER → 2018-11-23 | Outpatient (CLI) | payer OTHER ==
[2018-11-23 11:10] LABS: HEMATOCRIT 25.7 % (36.0-47.0); MEAN CORPUSCULAR HEMOGLOBIN 26.3 pg (27.0-33.0); MEAN CORPUSCULAR HGB CONC 31.1 g/dl (32.0-36.5); MEAN CORPUSCULAR VOLUME 84.5 fl (80.0-96.0); PLATELET COUNT, AUTOMATED 254 10^3/uL (150-450); RED BLOOD COUNT 3.04 10^6/uL (4.00-5.40); WHITE BLOOD COUNT 8.1 10^3/uL (4.0-10.0)
[2018-11-23 11:22] LABS: INR 2.37; PROTHROMBIN TIME 26.4 SECONDS (12.1-14.4)
== END ==
LOC: M LAB 10:28
PROVIDERS: ATTEND Family Medicine
DX: D64.9 Anemia, unspecified (principal)

== ENCOUNTER → 2018-11-25 | Outpatient (CLI) | payer OTHER ==
[2018-11-25 14:47] LABS: HEMATOCRIT 26.1 % (36.0-47.0); HEMOGLOBIN 8.1 g/dl (12.0-15.5)
[2018-11-25 15:06] LABS: INR 2.1
== END ==
LOC: M LAB 14:27
PROVIDERS: ATTEND Family Medicine
DX: D64.9 Anemia, unspecified (principal)

== ENCOUNTER → 2018-12-09 | Outpatient (CLI) | payer OTHER ==
[2018-12-09 15:33] LABS: HEMATOCRIT 25.2 % (36.0-47.0); HEMOGLOBIN 7.8 g/dl (12.0-15.5)
[2018-12-09 16:03] LABS: INR 2.55
== END ==
LOC: M LAB 14:41
PROVIDERS: ATTEND Family Medicine
DX: D64.9 Anemia, unspecified (principal); Z79.01 Long term (current) use of anticoagulants; I48.91 Unspecified atrial fibrillation

== ENCOUNTER → 2018-12-17 | Outpatient (CLI) | payer OTHER ==
[2018-12-17 13:29] LABS: HEMATOCRIT 26.9 % (36.0-47.0); HEMOGLOBIN 8.3 g/dl (12.0-15.5); MEAN CORPUSCULAR HEMOGLOBIN 25.7 pg (27.0-33.0); MEAN CORPUSCULAR HGB CONC 30.9 g/dl (32.0-36.5); MEAN CORPUSCULAR VOLUME 83.3 fl (80.0-96.0); PLATELET COUNT, AUTOMATED 294 10^3/uL (150-450); RED BLOOD COUNT 3.23 10^6/uL (4.00-5.40); WHITE BLOOD COUNT 8.2 10^3/uL (4.0-10.0)
[2018-12-17 13:42] LABS: INR 1.67
== END ==
LOC: M LAB 12:57
PROVIDERS: ATTEND Physician Assistant
DX: I48.2 Chronic atrial fibrillation (principal)

== ENCOUNTER → 2019-01-05 | Outpatient (CLI) | payer OTHER ==
[~2019-01-05] MED LIST changes: -/WARF2TA OR; -/WARF2TA PO; +B CO1CAP2 PO; +COUM1TAB16 OR; +COUM1TAB16 PO; -NEPHTA PO
[2019-01-05 14:25] LABS: HEMATOCRIT 28.2 % (36.0-47.0); HEMOGLOBIN 8.8 g/dl (12.0-15.5); MEAN CORPUSCULAR HEMOGLOBIN 25.8 pg (27.0-33.0); MEAN CORPUSCULAR HGB CONC 31.2 g/dl (32.0-36.5); MEAN CORPUSCULAR VOLUME 82.7 fl (80.0-96.0); PLATELET COUNT, AUTOMATED 271 10^3/uL (150-450); RED BLOOD COUNT 3.41 10^6/uL (4.00-5.40); WHITE BLOOD COUNT 7.1 10^3/uL (4.0-10.0)
== END ==
LOC: M LAB 13:41
PROVIDERS: ATTEND Physician Assistant
DX: I48.2 Chronic atrial fibrillation (principal)

== ENCOUNTER 2019-06-22 10:26 | Observation (INO) | payer OTHER ==
[~2019-06-22] VITALS: Ht 152.4 cm; Wt 49.5 kg
[~2019-06-22 10:26] MED LIST changes: +ACET-683 PO; -B CO1CAP2 PO; +CHOL100029 PO; +DIGO0.123 PO; +ELIQ2.5T PO; +IRON65TA2 PO; +MULTCAP PO; +NEPH5CAP PO; +OMEP1CAP73 PO; -OMEP20CA3 PO; +PAXI20TA29 PO; +RA B1TAB7 PO; +REME15TA2 PO; -SIMV20TA2 PO; +SIMV20TA22 PO; -VICO5TAB16 PO; +VICO5TAB17 PO; +VITA500T17 PO; -VITA500T53 PO; +[UNRECOGNIZED DRUG - CODE] PO
[2019-06-22] MEDS ORDERED: WARF4TAB51 PO (11:20)
[2019-06-22 11:45] LABS: VENOUS BASE EXCESS -5.1 (-2.0-2.0); VENOUS HCO3 18.4 MEQ/L (23.0-27.0); VENOUS PARTIAL PRESSURE CO2 28.8 mmHg (38.0-50.0); VENOUS PARTIAL PRESSURE O2 40.2 mmHg (30.0-50.0); VENOUS PH 7.424 UNITS (7.330-7.430); VENOUS STANDARD HCO3 19.9 MEQ/L; VENOUS TOTAL CO2 19.3 MEQ/L (24.0-28.0)
[2019-06-22 11:47] LABS: BASO % 0.1 % (0.0-1.0); EOS # 0.1 10^3/uL (0.0-0.5); EOS % 1.3 % (0.0-3.0); HEMATOCRIT 25.6 % (36.0-47.0); HEMOGLOBIN 8.3 g/dl (12.0-15.5); LYMPH % 13.3 % (24.0-44.0); MEAN CORPUSCULAR HEMOGLOBIN 26.9 pg (27.0-33.0); MEAN CORPUSCULAR HGB CONC 32.4 g/dl (32.0-36.5); MEAN CORPUSCULAR VOLUME 82.8 fl (80.0-96.0); MONO # 0.6 10^3/uL (0.0-0.8); MONO % 7.2 % (0.0-5.0); NEUTROPHILS # 6.1 10^3/uL (1.5-8.5); NEUTROPHILS % 77.7 % (36.0-66.0); PLATELET COUNT, AUTOMATED 251 10^3/uL (150-450); RED BLOOD COUNT 3.09 10^6/uL (4.00-5.40); WHITE BLOOD COUNT 7.8 10^3/uL (4.0-10.0)
[2019-06-22 11:49] LABS: OSMOLALITY SERUM 308 MOSM/KG (280-301)
[2019-06-22 12:15] LABS: ALBUMIN 2.9 GM/DL (3.2-5.2); ALT/SGPT 23 U/L (12-78); BILIRUBIN,DIRECT 0.1 MG/DL (0.0-0.2); BILIRUBIN,TOTAL 0.3 MG/DL (0.2-1.0); BLOOD UREA NITROGEN 25 MG/DL (7-18); CALCIUM LEVEL 8.9 MG/DL (8.8-10.2); CARBON DIOXIDE LEVEL 20 MEQ/L (21-32); CHLORIDE LEVEL 105 MEQ/L (98-107); CREATININE FOR GFR 1.08 MG/DL (0.55-1.30); GLOMERULAR FILTRATION RATE 51.2 (>32); GLUCOSE, FASTING 124 MG/DL (70-100); POTASSIUM SERUM 3.9 MEQ/L (3.5-5.1); SODIUM LEVEL 137 MEQ/L (136-145); TOTAL PROTEIN 6.7 GM/DL (6.4-8.2)
--- NOTE | 2019-06-22 12:35 | ECGEPIP ---
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
[2019-06-22 13:00] LABS: CK-MB VALUE MASS < 1.0 NG/ML (<3.6); CPK CREATINE PHOSPHOKINASE 44 U/L (26-192); MB/CK RELATIVE INDEX 2.27 (< OR =4); TROPONIN I 0.02 NG/ML (< 0.10)
--- NOTE | 2019-06-22 13:06 | REP ---
Portable chest, single AP view with the patient sitting: Comparisons are the PA and lateral chest dated 11/03/2016 and the portable chest dated 2017. The lung redmond are clear. Cardiac size is chronically enlarged, unchanged. There is a dual-chamber pacemaker entering from left, unchanged. The tamara, mediastinum, skeletal structures are unremarkable. Impression: No acute cardiopulmonary findings. Chronic cardiomegaly. Dual chamber pacemaker, unchanged. Electronically Signed by Jac Telles MD 06/22/2019 12:57 P
[2019-06-22] MEDS: NS 1,000 ML IV SCH ×2 (13:10→19:38)
[2019-06-22 13:17] LABS: INR 1.62
[2019-06-22 13:18] LABS: PARTIAL THROMBOPLASTIN TIME 38.4 SECONDS (25.0-38.4)
[2019-06-22] MEDS ORDERED: CETI10TA4 PO (14:47)
[2019-06-22] MEDS ORDERED: ARIP1TAB10 PO (14:47)
[2019-06-22] MEDS ORDERED: JANU25TA PO (14:47)
[2019-06-22] MEDS ORDERED: SIMV40TA20 PO (14:47)
[2019-06-22] MEDS ORDERED: PATIENT COMMENT (14:47)
[2019-06-22] MEDS ORDERED: DICY1CAP8 PO (14:47)
[2019-06-22] MEDS ORDERED: CALC500T38 PO (14:47)
[2019-06-22] MEDS ORDERED: ACETAMINOPHEN TAB 650MG DOSE (2X325MG) PO PRN (16:00)
[2019-06-22] MEDS ORDERED: VITA100T14 PO (18:43)
[2019-06-22] MEDS ORDERED: ELIQ2.5T PO (18:43)
[2019-06-22] MEDS ORDERED: PILL CUTTER 1 EACH XX PRN (19:30)
[2019-06-22 20:39] VITALS: BP 112/69
[2019-06-22] MEDS ORDERED: LEVOTHYROXINE 25MCG TABLET (0.025MG) PO SCH (21:00)
[2019-06-22] MEDS ORDERED: atenoloL 50 MG TAB PO SCH (21:00)
[2019-06-22] MEDS ORDERED: OMEPRAZOLE 20 MG CAP PO SCH (21:00)
[2019-06-22] MEDS ORDERED: ARIPiprazole 15 MG TAB (AbiLIFY) PO SCH (21:00)
[2019-06-22] MEDS ORDERED: SIMVASTATIN 40 MG TAB PO SCH (21:00)
[2019-06-22 21:19] VITALS: BP 112/69
[2019-06-22] MEDS: DOCUSATE SODIUM 100 MG CAP PO SCH (21:19)
[2019-06-22] MEDS: APIXABAN 2.5 MG TAB (ELIQUIS) PO SCH (21:19)
[2019-06-22] MEDS: ASCORBIC ACID 500 MG TAB PO SCH (21:19)
[2019-06-22] MEDS: FERROUS SULFATE 325MG TAB PO SCH (21:19)
[2019-06-23 06:00] VITALS: BP 134/70
[2019-06-23 07:23] LABS: ALBUMIN 2.8 GM/DL (3.2-5.2); ALT/SGPT 23 U/L (12-78); BILIRUBIN,TOTAL 0.3 MG/DL (0.2-1.0); BLOOD UREA NITROGEN 18 MG/DL (7-18); CALCIUM LEVEL 8.8 MG/DL (8.8-10.2); CARBON DIOXIDE LEVEL 21 MEQ/L (21-32); CHLORIDE LEVEL 111 MEQ/L (98-107); CREATININE FOR GFR 0.83 MG/DL (0.55-1.30); GLOMERULAR FILTRATION RATE > 60.0 (>32); GLUCOSE, FASTING 92 MG/DL (70-100); POTASSIUM SERUM 3.8 MEQ/L (3.5-5.1); SODIUM LEVEL 142 MEQ/L (136-145); TOTAL PROTEIN 7.2 GM/DL (6.4-8.2)
[2019-06-23] MEDS ORDERED: metFORMIN (GLUCOPHAGE) 500 MG TAB PO SCH (08:00)
[2019-06-23] MEDS ORDERED: PARoxetine 20 MG TAB PO SCH (09:00)
[2019-06-23] MEDS ORDERED: ENOXAPARIN 40 MG/0.4 ML SYRINGE (J1650) SC SCH (09:00)
[2019-06-23] MEDS: FERROUS SULFATE 325MG TAB PO SCH (09:14)
[2019-06-23] MEDS: DOCUSATE SODIUM 100 MG CAP PO SCH (09:14)
[2019-06-23] MEDS: NS 1,000 ML IV SCH (09:14)
[2019-06-23] MEDS: APIXABAN 2.5 MG TAB (ELIQUIS) PO SCH (09:14)
[2019-06-23] MEDS: ASCORBIC ACID 500 MG TAB PO SCH (09:14)
--- NOTE | 2019-06-23 10:37 | HPE ---
DATE OF ADMISSION: 06/22/2019 PRIMARY CARE PHYSICIAN: Dr. Shaffer CHIEF COMPLAINT: Generalized weakness for the last 3 days. HISTORY OF PRESENT ILLNESS: Mrs. Duarte is an 81-year-old woman who resides at home. She has a history of dementia unspecified, chronic atrial fibrillation for which she is on Eliquis in addition to hypothyroidism and non-insulin dependent diabetes mellitus. The patient for the past several days has not been eating very much secondary to issues with her teeth and complaints of jaw pain and subjective face swelling. In addition she has developed some diarrhea and presented to the ER today where she was found to be afebrile with normal hemodynamics. Clinically the ER physician suspected that she was dehydrated and this was confirmed with her elevated BUN. She received IV fluids in the ER however she was not back to her normal baseline and therefore was admitted to the hospitalist service for further treatment and evaluation of adult failure to thrive. When I saw her a few hours later the patient was doing much better and still complaining of her oral issues associated, she is hard of hearing and has dementia, so history is limited. No family members were available when I went to see her to verify the events of the medical story. ALLERGIES: No known drug allergies. PAST MEDICAL HISTORY: Notable for chronic atrial fibrillation. She is on Eliquis anticoagulation. She has a history of dementia unspecified, hyperlipidemia, osteoarthritis, gout, non-insulin dependant diabetes mellitus type 2, GERD, asthma as well as hypothyroidism. She has a history of pacemaker placement. PAST SURGICAL HISTORY: Notable for cholecystectomy, cataract surgery. SOCIAL HISTORY: Patient resides at home with her family. She is a ex-smoker more than 30+ pack year history. She does not use any drugs or alcohol. Code status could not be obtained at this time secondary to patient underlying dementia. Her daughter is her medical decision marker. REVIEW OF SYSTEMS: Limited secondary to the patient's underlying dementia. PHYSICAL EXAMINATION: The patient is alert. She is aware that she is in the hospital and oriented to self but not to event. Her heart rate is 49 and her blood pressure is 164/72, pulse ox 100% on room air. Temperature 97.7. Generally the patient is an elderly female who appears her stated age. She is in no acute distress. Her head is atraumatic normocephalic. Her pupils are reactive to light and accommodation. Extraocular movements are full in all directions. She had no sclera icterus. Oropharynx reveals poor dentition with ill-fitting dentures. Tympanic membranes visualized bilaterally without any erythema or discharge. Her nares are patent without any nasal discharge or visible polyps. Her neck is supple without palpable adenopathy. No goiter. She had no thyroid gland tenderness. Lung sounds are appreciated. No rales or rhonchi. Heart S1, S2. She appears to be in a regular rhythm on pulse check. No audible murmurs rubs, or gallops are appreciated. Her abdomen is scaphoid in appearance, nontender and nondistended. Her extremities are without any significant cyanosis, clubbing or edema. Neurologic exam, cranial nerves II through XII appear to be grossly intact. Her speech is fluent. She has no facial asymmetry. She is moving all four extremities in a coordinated and purposeful manner when directed to do so. PERTINENT LABS: Chest x-ray shows no acute anterior thoracic pathology. EKG shows chronic atrial fibrillation which is rate controlled. Blood cultures as well as urine cultures that have been drawn are pending. White count 7.8, hemoglobin 8.3, hematocrit 25.6, platelet count 251,000. PT is 19, INR 1.62, sodium 137, potassium 3.9, chloride 109, bicarbonate 20, anion gap 12, BUN 25, creatinine 1, glucose 124, calcium 8.9, total bilirubin 0.3, direct bilirubin 0.1, AST 15, ALT 23, alkaline phos 78, CPK 44, albumin 2.9, TSH 2.77. IMPRESSION: 1. Adult failure to thrive likely secondary to poor ill-fitting dentures. 2. Chronic atrial fibrillation which is rate controlled. 3. Mild dehydration. 4. Non-insulin dependant diabetes mellitus times 2. 5. Hypothyroidism. 6. Hyperlipidemia. 7. GERD. 8. History of dementia. PLAN: The patient will be admitted to an observation status. She will be continued on her Eliquis. We will monitor her bradycardia for now and hold her atenolol. Patient will be continued on her Synthroid. She will be continued on her metformin. We will hold her Januvia. We will discuss with the family in the morning to determine what their goals of treatment are. We will await the results of blood and urine cultures and if they are stable tomorrow from my standpoint she can be discharged home. BLOSSOM
[2019-06-23 14:00] VITALS: BP 97/54
[2019-06-23] MEDS ORDERED: ATEN50TA2 PO (15:31)
--- NOTE | 2019-06-23 15:45 | IPNPDOC ---
Subjective Date Seen The patient was seen on 06/23/19. Subjective Chief Complaint/HPI doing fine this afternoon. tolerating pureed diet. daughter at bedside. Objective Physical Examination General Exam: Positive: Alert Eye Exam: Positive: Conjunctiva & lids normal ENT Exam: Positive: Atraumatic, Mucous membr. moist/pink, Other ENT (poor d entition, no signs of swelling or ulcers ) Neck Exam: Positive: Supple Chest Exam: Positive: Clear to auscultation Heart Exam: Positive: Irregular Rhythm Telemetry: Positive: No significant arrhythmia Abdomen Exam: Positive: Normal bowel sounds Extremity Exam: Positive: Clubbing; Negative: Cyanosis, Edema, Normal pulses, Tenderness, Swelling, Other Skin Exam: Positive: Nl turgor and temperature; Negative: Rash, Breakdown Assessment /Plan Assessment 1. Adult failure to thrive likely secondary to poor ill-fitting dentures. 2. Chronic atrial fibrillation which is rate controlled. 3. Mild dehydration. 4. Non-insulin dependant diabetes mellitus times 2. 5. Hypothyroidism. 6. Hyperlipidemia. 7. GERD. 8. History of dementia. 9. Bradycardia Plan: - May discharge home today - discontinue PIV - reduce atenolol 50 mg daily due to bradycardia and soft BP - Pureed diet at discharge - D/w daughter, family plans to see PCP for referral to [facility] to have remainder of her teeth removed, and then refit for dentures. - resume home meds, monitor BG levels while on metformin and januvia Plan/VTE VTE Prophylaxis Ordered?: No VTE Exclusion Mechanical Proph: Other (patient on eliquis) VS, I&O, 24H, Fishbone Vital Signs/I&O Vital Signs Date Time Temp Pulse Resp B/P (MAP) Pulse Ox O2 Delivery O2 Flow Rate FiO2 06/23/19 14:00 98.1 50 18 97/54 (68) 100 06/22/19 10:26 Room Air I&O- Last 24 Hours up to 6 AM 06/23/19 06:00 Intake Total 1672 ml Output Total 1000 ml Balance 672 ml Laboratory Data 24H LABS Laboratory Tests 2 06/23/19 05:32: Anion Gap 10, Glomerular Filtration Rate > 60.0, Blood Urea Nitrogen 18, Creatinine 0.83, Sodium Level 142, Potassium Level 3.8, Chloride Level 111H, Carbon Dioxide Level 21, Calcium Level 8.8, Aspartate Amino Transf (AST/SGOT) 17, Alanine Aminotransferase (ALT/SGPT) 23, Alkaline Phosphatase 77, Total Bilirubin 0.3, Total Protein 7.2, Albumin 2.8L, Albumin/Globulin Ratio 0.64L 06/23/19 08:24: Bedside Glucose (Misc Panel) 89 CBC/BMP Laboratory Tests 06/23/19 05:32 Calcium Level 8.8, Aspartate Amino Transf (AST/SGOT) 17, Alanine Aminotransferase (ALT/SGPT) 23, Alkaline Phosphatase 77, Total Bilirubin 0.3, Total Protein 7.2, Albumin 2.8 L Microbiology Microbiology 06/22/19 Blood Culture - Preliminary, Resulted No growth after 24 hours . All specim... 06/22/19 Blood Culture - Preliminary, Resulted No growth after 24 hours . All specim... 06/22/19 Urine Culture - Final, Complete AMOS ATKINSON MD Jun 23, 2019 15:45
--- NOTE | 2019-06-28 23:53 | DSES ---
DATE OF ADMISSION: 06/22/2019 DATE OF DISCHARGE: 06/23/2019 DISCHARGE DIAGNOSES: 1. Adult failure to thrive secondary to dehydration. 2. Poor dentition. 3. Chronic atrial fibrillation, which is rate controlled. 4. Dehydration. 5. Yrz-juxjvnt-nsjnvuhuy diabetes mellitus, type 2. 6. Hypothyroidism. 7. The patient was experiencing sinus bradycardia during this hospitalization, and therefore, her atenolol was reduced from 100 to 50 mg at bedtime. PROCEDURES PERFORMED DURING THIS HOSPITALIZATION: None. CONSULTANTS ON THE CASE: Speech therapy for swallow evaluation and diet recommendations. DISPOSITION: The patient is discharged home to the care of her family. DISCHARGE INSTRUCTIONS: The patient was instructed to take a mechanical soft pureed diet and to followup with her primary care provider (PCP) for referral to oral maxillofacial referral in order to have her teeth removed so she can be evaluated for dentures that fit and will allow her to eat comfortably. CONDITION AT DISCHARGE: Stable and improved from admission. IMAGING STUDIES DONE DURING THIS HOSPITALIZATION INCLUDED: A chest x-ray which was otherwise unremarkable, not showing any acute pathology. PRELIMINARY LABS DONE IN THE EMERGENCY ROOM (ER) DEPARTMENT: Showed a white count of 7.8, hemoglobin 8.3, hematocrit 25.6, platelet count is 251. PT of 19, INR of 1.62. Sodium 137, potassium 3.9, chloride 101, bicarbonate is 21, anion gap is 10, BUN was 25 on admission, 18 by the time she was discharged. Glucose was 92. Total bilirubin was 0.3, calcium was 8.8, AST was 17, ALT was 23, alkaline phosphatase was 77, total protein 7.2, albumin was 2.8, TSH was 2.77. Urinalysis was otherwise unremarkable. DISCHARGE MEDICATIONS ARE THE FOLLOWING: - atenolol 50 mg at bedtime - Tylenol 500 mg at bedtime - Eliquis 2.5 mg twice a day - Abilify 7.5 mg at bedtime - ascorbic acid 500 mg twice a day - cetirizine 10 mg daily as needed - vitamin B12 lozenge 1000 mg daily - dicyclomine 10 mg twice a day - digoxin 125 mcg daily - ferrous sulfate 325 mg twice a day - Synthroid 25 mcg at bedtime - metformin 500 mg twice a day - Remeron 15 mg at bedtime - multivitamin one capsule daily - omeprazole 20 mg at bedtime - paroxetine 20 mg daily - pyridoxine 100 mg daily - simvastatin 40 mg at bedtime - Januvia 25 mg by mouth daily - vitamin D3 1000 units at bedtime HOSPITAL COURSE: Danica is a woman who resides at home. She has poor dentition and previously had dentures but lost weight and her dentures no longer fit. She is attempting to eat with her teeth, but was complaining that they were hurting her, and she was having swelling. She has a history of dementia as well as chronic atrial fibrillation and is on Eliquis. In addition to non-insulin dependent diabetes mellitus type 2. She presented to the hospital with her family secondary to her not eating for 3 days. She was found to be clinically dehydrated in the ER department, elevated BUN. She was admitted to an observation status to the medical service. She was hydrated with IV fluids. Speech pathology was consulted. The patient was transitioned to a pureed mechanical soft tissue, which she actually tolerated quite well in the hospital. The patient was hydrated with IV fluids. She was stable. She was discharged home in stable condition to the care of her family members. At the time of discharge, the patient's temperature is 98.1, pulse is 50, respirations 18, blood pressure is 97/54, oxygen saturation is 100% on room air. General: The patient is alert. She is not oriented to place or time. She appears to be in no acute distress. Her skin is intact and warm to touch. No jaundice seen and no skin turgor. She appears hydrated. Her head is atraumatic. Her pupils are symmetric and react to light. She has no scleral icterus. Oropharynx shows moist oral mucosa, poor dentition. Tongue is midline. She has no facial asymmetry. Her speech is fluent . Lungs are clear without any audible rales, wheeze or rhonchi. Heart: S1, S2. She is currently in an irregular rhythm. She has a left anterior chest wall pacemaker. She has no precordial tenderness to palpation of her chest wall. Abdomen is scaphoid, nontender, nondistended without any palpable masses. Extremities without any cyanosis, clubbing or edema. MTDD
== END 2019-06-23 17:01 | disposition home or self-care (01) ==
LOC: M ED 10:26 → M ED INP 10:27 → M MSPAV 20:39
PROVIDERS: ADMIT Internal Medicine; ATTEND Internal Medicine
DX: R62.7 Adult failure to thrive (principal); E86.0 Dehydration; K08.9 Disorder of teeth and supporting structures, unspecified; I48.2 Chronic atrial fibrillation; E11.9 Type 2 diabetes mellitus without complications; E03.9 Hypothyroidism, unspecified; R00.1 Bradycardia, unspecified; Z95.0 Presence of cardiac pacemaker; Z79.01 Long term (current) use of anticoagulants; Z79.899 Other long term (current) drug therapy; F03.90 Unspecified dementia, unspecified severity, without behavioral disturbance, psychotic disturbance, mood disturbance, and anxiety; E78.49 Other hyperlipidemia; M10.9 Gout, unspecified; K21.9 Gastro-esophageal reflux disease without esophagitis; J45.909 Unspecified asthma, uncomplicated; Z87.891 Personal history of nicotine dependence
CPT/HCPCS: 36415; 71046; 80048; 80053; 80076; 81001; 82140; 82550; 82553; 82803; 83930; 84443; 84484; 85025; 85610; 85730; 87040; 87086; 92526; 92610; 93005; 93041; 96360; 96361; 99285; G0378

== ENCOUNTER → 2019-08-11 | Outpatient (CLI) | payer OTHER ==
[~2019-08-11] MED LIST changes: +ARIP1TAB10 PO; +ATEN50TA2 PO; +CALC500T38 PO; +CETI10TA4 PO; +DICY1CAP8 PO; -DIGO0.123 PO; +JANU25TA PO; -OMEP1CAP73 PO; +OMEP20CA4 PO; +PATIENT COMMENT; +SIMV20TA2 PO; -SIMV20TA22 PO; +SIMV40TA2 PO; +VITA100T14 PO; +WARF4TAB51 PO
[2019-08-11 11:10] LABS: APPEARANCE, URINE CLEAR (CLEAR); BACTERIA, URINE AUTO NEGATIVE (NEGATIVE); BILIRUBIN, URINE AUTO NEGATIVE (NEGATIVE); BLOOD, URINE BLOOD NEGATIVE (NEGATIVE); COLOR, URINE YELLOW (YELLOW); GLUCOSE, URINE (UA) AUTO NEGATIVE (NEGATIVE); KETONE, URINE AUTO NEGATIVE (NEGATIVE); LEUKOCYTE ESTERASE, URINE AUTO NEGATIVE (NEGATIVE); NITRITE, URINE AUTO NEGATIVE (NEGATIVE); PROTEIN, URINE AUTO NEGATIVE (NEGATIVE); RBC, URINE AUTO 2 /HPF (0-3); SPECIFIC GRAVITY URINE AUTO 1.014 (1.002-1.035); SQUAMOUS EPITHELIAL CELL UR AU 1 /HPF (0-6); UROBILINOGEN, URINE AUTO 0.2 mg/dL (0.0-2.0); WBC, URINE AUTO 1 /HPF (0-3)
[2019-08-11 11:17] LABS: BASO % 0.1 % (0.0-1.0); EOS # 0.1 10^3/uL (0.0-0.5); EOS % 1.6 % (0.0-3.0); HEMATOCRIT 28.9 % (36.0-47.0); HEMOGLOBIN 8.8 g/dl (12.0-15.5); LYMPH # 1.6 10^3/uL (1.5-5.0); LYMPH % 21.1 % (24.0-44.0); MEAN CORPUSCULAR HEMOGLOBIN 25.5 pg (27.0-33.0); MEAN CORPUSCULAR HGB CONC 30.4 g/dl (32.0-36.5); MEAN CORPUSCULAR VOLUME 83.8 fl (80.0-96.0); MONO # 0.7 10^3/uL (0.0-0.8); MONO % 9.6 % (0.0-5.0); NEUTROPHILS # 5.2 10^3/uL (1.5-8.5); PLATELET COUNT, AUTOMATED 347 10^3/uL (150-450); RED BLOOD COUNT 3.45 10^6/uL (4.00-5.40); WHITE BLOOD COUNT 7.7 10^3/uL (4.0-10.0)
[2019-08-11 11:30] LABS: INR 1.46; PROTHROMBIN TIME 17.5 SECONDS (11.8-14.0)
[2019-08-11 11:31] LABS: PARTIAL THROMBOPLASTIN TIME 35.3 SECONDS (25.0-38.4)
[2019-08-11 11:40] LABS: HEMOGLOBIN A1c 5.7 %
[2019-08-11 11:51] LABS: ALT/SGPT 20 U/L (12-78); BILIRUBIN,TOTAL 0.2 MG/DL (0.2-1.0); BLOOD UREA NITROGEN 23 MG/DL (7-18); CALCIUM LEVEL 9.2 MG/DL (8.8-10.2); CARBON DIOXIDE LEVEL 27 MEQ/L (21-32); CHLORIDE LEVEL 105 MEQ/L (98-107); CHOLESTEROL LEVEL 112 MG/DL (<200); CHOLESTEROL RISK RATIO 2.545 (<5); CREATININE FOR GFR 0.87 MG/DL (0.55-1.30); FREE T4 1.03 NG/DL (0.76-1.46); GLOMERULAR FILTRATION RATE > 60.0 (>32); GLUCOSE, FASTING 99 MG/DL (70-100); HDL CHOLESTEROL 44 MG/DL (>40); LDL CHOLESTEROL 40 MG/DL (<100); NON-HDL-C 68 MG/DL; POTASSIUM SERUM 4.4 MEQ/L (3.5-5.1); SODIUM LEVEL 139 MEQ/L (136-145); TOTAL PROTEIN 7.6 GM/DL (6.4-8.2); TRIGLYCERIDES LEVEL 139 MG/DL (<150)
[2019-08-11 11:56] LABS: CREATININE, URINE 80.4 MG/DL; MALB URINE SIEMENS 30.7 MG/L; MAU/CREAT RATIO 38.1 MCG/MG (0.0-30.0)
== END ==
LOC: M LAB 09:54
PROVIDERS: ATTEND Family Medicine
DX: E11.9 Type 2 diabetes mellitus without complications (principal); Z79.01 Long term (current) use of anticoagulants

== ENCOUNTER 2019-11-02 10:01 | Outpatient (CLI) | payer OTHER ==
[~2019-11-02] VITALS: Ht 154.9 cm; Wt 50.2 kg
[2019-11-02] VITALS (9 sets, daily range): BP systolic 142–170; BP diastolic 65–80
[~2019-11-02 10:01] MED LIST changes: +ARIP1TAB4 PO; +DIGO0.123 PO; +OMEP1CAP73 PO; -OMEP20CA4 PO; -SIMV20TA2 PO; +SIMV20TA22 PO; -SIMV40TA2 PO; +SIMV40TA20 PO; +diphenhydrAMINE 25 MG CAP PO SCH
[2019-11-02] MEDS: ACETAMINOPHEN TAB 650MG DOSE (2X325MG) PO SCH ×2 (10:40→13:40)
== END 2019-11-02 15:45 | disposition home or self-care (01) ==
LOC: M INFU 10:01
PROVIDERS: ATTEND Internal Medicine Medical Oncology
DX: D46.4 Refractory anemia, unspecified (principal)
CPT/HCPCS: 36430; P9016

== ENCOUNTER 2020-05-26 09:59 | Inpatient (IN) | payer OTHER, MEDICARE ==
[~2020-05-26] VITALS: Ht 152.4 cm; Wt 48.8 kg
[2020-05-26] MEDS: NS 1,000 ML IV SCH (00:20)
[~2020-05-26 09:59] MED LIST changes: -AMLO10TA5 PO; +AMLO1TAB25 PO; +VITA-243 PO; -VITA500T PO; -diphenhydrAMINE 25 MG CAP PO SCH
[2020-05-26] MEDS ORDERED: NS 1,000 ML IV SCH (10:30)
--- NOTE | 2020-05-26 10:59 | REPVR ---
PROCEDURE INFORMATION: Exam: XR Chest, 1 View Exam date and time: 05/26/2020 10:27 AM Age: 85 years old Clinical indication: Screening exam; Other screening TECHNIQUE: Imaging protocol: XR of the chest Views: 1 view. COMPARISON: CR PORTABLE CHEST X-RAY 01/27/2018 12:41 PM FINDINGS: Tubes, catheters and devices: Atrioventricular pacemaker. Lungs: Emphysematous change and interstitial prominence. Pleural space: No significant pleural effusion. Heart/Mediastinum: Cardiac silhouette upper limits of normal in size. Vasculature: Aortic and tracheobronchial calcification. Bones/joints: Osteopenia and degenerative change. When correlating with the previous study, no significant interval changes are present. IMPRESSION: Stable appearance of the chest, not significantly changed from 01/27/18. Electronically signed by: Eliezer Fermin On 05/26/2020 11:00:01 AM
--- NOTE | 2020-05-26 11:05 | REPVR ---
PROCEDURE INFORMATION: Exam: CT Abdomen And Pelvis Without Contrast Exam date and time: 05/26/2020 10:28 AM Age: 85 years old Clinical indication: Abdominal pain TECHNIQUE: Imaging protocol: Computed tomography of the abdomen and pelvis without contrast. Radiation optimization: All CT scans at this facility use at least one of these dose optimization techniques: automated exposure control; mA and/or kV adjustment per patient size (includes targeted exams where dose is matched to clinical indication); or iterative reconstruction. COMPARISON: No relevant prior studies available. FINDINGS: Detailed evaluation of the abdominal and pelvic viscera is somewhat limited in the absence of intravenous contrast. Inferior thorax: Interstitial prominence and chronic granulomatous disease. Borderline cardiomegaly with coronary artery calcification and small pericardial effusion. Indwelling pacemaker. Liver: No focal hepatic mass. Gallbladder and bile ducts: Status post cholecystectomy. Pancreas: No pancreatic mass or ductal dilatation. Spleen: No splenomegaly. Adrenals: Unremarkable adrenals. Kidneys and ureters: 1 mm nonobstructing right renal calculus. Bilateral dilatation of the extrarenal pelves, without significant ureteral dilatation. Stomach and bowel: Wall thickening in the nondistended stomach. Combined small bowel and colonic dilatation along with prominent stool. Appendix: Appendix not visualized. Intraperitoneal space: No significant free fluid. Vasculature: Prominent vascular calcification. No abdominal aortic aneurysm. Lymph nodes: Mildly enlarged bilateral inguinal lymph nodes, presumably reactive in nature. Bladder: Bladder wall thickening. Reproductive: Unremarkable as visualized. Bones/joints: Osteopenia. Lumbar levoscoliosis, degenerative change, and disc bulging. IMPRESSION: 1. 1 mm nonobstructing right renal calculus. Bilateral dilatation of the extrarenal pelves, without significant ureteral dilatation. 2. Bladder wall thickening. 3. Wall thickening in the nondistended stomach. 4. Additional findings as described above. Electronically signed by: Eliezer Fermin On 05/26/2020 11:05:46 AM
--- NOTE | 2020-05-26 11:07 | REPVR ---
PROCEDURE INFORMATION: Exam: CT Head Without Contrast Exam date and time: 05/26/2020 10:28 AM Age: 85 years old Clinical indication: Altered mental status/memory loss TECHNIQUE: Imaging protocol: Computed tomography of the head without contrast. Radiation optimization: All CT scans at this facility use at least one of these dose optimization techniques: automated exposure control; mA and/or kV adjustment per patient size (includes targeted exams where dose is matched to clinical indication); or iterative reconstruction. COMPARISON: No relevant prior studies available. FINDINGS: Brain: There is no acute intracranial hemorrhage. There is lucency in the cerebral white matter, likely microvascular disease although non-specific. Gallegos white differentiation is intact. There are no extra-axial fluid collections. No evidence of mass. There is no mass effect or midline shift. Ventricles: The ventricles and sulci are enlarged, consistent with volume loss / atrophy. No hydrocephalus. Bones/joints: No acute fracture. Sinuses: There is a partially visualized left maxillary sinus retention cyst or polyp. Mastoid air cells: No significant mastoid effusion. Orbits: There have been bilateral intraocular lens replacements likely related to cataract surgery. Vasculature: There is vascular calcification. Soft tissues: Unremarkable as visualized. IMPRESSION: 1. No evidence of acute intracranial abnormality. No evidence of acute infarction, hemorrhage, or mass. 2. Atrophy and microvascular disease. Electronically signed by: Eli Nunn On 05/26/2020 11:07:34 AM
[2020-05-26 11:28] LABS: VENOUS BASE EXCESS 1.2 (-2.0-2.0); VENOUS HCO3 25.7 MEQ/L (23.0-27.0); VENOUS O2 SATURATION 95.7 % (60.0-80.0); VENOUS PARTIAL PRESSURE CO2 40.4 mmHg (38.0-50.0); VENOUS PARTIAL PRESSURE O2 79.2 mmHg (30.0-50.0); VENOUS PH 7.422 UNITS (7.330-7.430)
[2020-05-26 11:36] LABS: BASO % 0.1 % (0.0-1.0); EOS # 0.1 10^3/uL (0.0-0.5); EOS % 1.9 % (0.0-3.0); HEMATOCRIT 25.6 % (36.0-47.0); HEMOGLOBIN 8.2 g/dl (12.0-15.5); LYMPH # 0.9 10^3/uL (1.5-5.0); LYMPH % 12.5 % (24.0-44.0); MEAN CORPUSCULAR HEMOGLOBIN 26.1 pg (27.0-33.0); MEAN CORPUSCULAR VOLUME 81.5 fl (80.0-96.0); MONO # 0.5 10^3/uL (0.0-0.8); MONO % 6.8 % (0.0-5.0); NEUTROPHILS # 5.5 10^3/uL (1.5-8.5); NEUTROPHILS % 78.3 % (36.0-66.0); PLATELET COUNT, AUTOMATED 258 10^3/uL (150-450); RED BLOOD COUNT 3.14 10^6/uL (4.00-5.40)
[2020-05-26 11:47] LABS: INR 1.37; PROTHROMBIN TIME 17.2 SECONDS (11.8-14.0)
[2020-05-26] MEDS ORDERED: ATEN50TA2 PO (12:12)
[2020-05-26] MEDS ORDERED: ACE65ERTAB PO (12:12)
[2020-05-26 12:37] LABS: ALBUMIN 3.1 GM/DL (3.2-5.2); ALT/SGPT 15 U/L (12-78); BILIRUBIN,DIRECT < 0.1 MG/DL (0.0-0.2); BILIRUBIN,TOTAL 0.3 MG/DL (0.2-1.0); BLOOD UREA NITROGEN 18 MG/DL (7-18); CALCIUM LEVEL 8.7 MG/DL (8.8-10.2); CARBON DIOXIDE LEVEL 26 MEQ/L (21-32); CHLORIDE LEVEL 103 MEQ/L (98-107); CK-MB VALUE MASS < 1.0 NG/ML (<3.6); CPK CREATINE PHOSPHOKINASE 71 U/L (26-192); CREATININE FOR GFR 0.77 MG/DL (0.55-1.30); GLOMERULAR FILTRATION RATE > 60.0 (>32); GLUCOSE, FASTING 100 MG/DL (70-100); MB/CK RELATIVE INDEX 1.41 (< OR =4); POTASSIUM SERUM 4.6 MEQ/L (3.5-5.1); SODIUM LEVEL 132 MEQ/L (136-145); TOTAL PROTEIN 7.4 GM/DL (6.4-8.2); TROPONIN I 0.02 NG/ML (< 0.10)
[2020-05-26 13:01] LABS: OSMOLALITY SERUM 283 MOSM/KG (280-301)
--- NOTE | 2020-05-26 15:10 | HPEPDOC ---
General Date of Admission May 26, 2020 at 13:55 Date of Service: May 26, 2020 Chief Complaint The patient is a 85-year-old female admitted with a reason for visit of Altered Mental Status. History of Present Illness Ms. Duarte is a 85 year old woman with known history of dementia, lives at home, brought to hospital due to confusion and not eating or drinking. History obtained from what ED has gathered from EMS. I called two numbers for daughters, listed on admission facesheet but however no call back. patient is lethargic, opens eyes when called but not able to give further history. Patient was hypertensive on arrival,with BP 195 systolic and HR was 40s. Patient has known afib. base on her medication review. She has diabetes, afib on anticoagulation. Patient underwent CT head and CXR and abdominal ct - no acute findings. Noted bladder wall thickening. patient given IV fluids. When I saw patient, lethargic, very dry. Unclear about code status. No family at bedside. No answer when called. Home Medications Scheduled Acetaminophen (Acetaminophen) 500 Mg Tablet, 500 MG PO BID, (Reported) MORNING AND AT NIGHT Acetaminophen (Acetaminophen ER) 650 Mg Tablet.er, 650 MG PO DAILY, (Reported) TAKES AT NOON Apixaban (Eliquis) 2.5 Mg Tablet, 2.5 MG PO BID, (Reported) Aripiprazole (Aripiprazole) 2 Mg Tablet, 2 MG PO QHS, (Reported) Ascorbate Calcium (Vitamin C) 500 Mg Tablet, 500 MG PO BID, (Reported) Atenolol (Atenolol) 50 Mg Tablet, 50 MG PO DAILY, (Reported) Dicyclomine HCl (Dicyclomine HCl) 10 Mg Capsule, 10 MG PO BID, (Reported) Digoxin (Digoxin) 125 Mcg Tablet, 125 MCG PO DAILY, (Reported) Ferrous Sulfate (Iron) 325 Mg Tablet, 325 MG PO BID, (Reported) Levothyroxine Sodium (Levothyroxine Sodium) 25 Mcg Tab, 25 MCG PO QHS, (Reported) Metformin HCl (Metformin HCl) 500 Mg Tab, 500 MG PO BID, (Reported) Mirtazapine (Remeron) 15 Mg Tab.rapdis, 15 MG PO QHS, (Reported) Multivitamin (Multivitamins) 1 Each Capsule, 1 CAP PO DAILY, (Reported) Omeprazole (Omeprazole) 20 Mg Cap, 20 MG PO DAILY, (Reported) Paroxetine HCl (Paxil) 20 Mg Tablet, 20 MG PO DAILY, (Reported) Simvastatin (Simvastatin) 40 Mg Tablet, 20 MG PO QHS, (Reported) Scheduled PRN Cetirizine HCl (Cetirizine HCl) 10 Mg Tablet, 10 MG PO DAILY PRN for ALLERGIES, (Reported) Allergies Coded Allergies: No Known Allergies (Unverified , 02/02/19) Past Medical History Medical History past medical history: Diabetes Mellitus type II Hypertension hyperlipidemia afib past surgical history: unknown at this time A-FIB/CHADSVASC A-FIB History Current/History of A-Fib/PAF?: Yes Current PO Anticoag Therapy: Yes Review of Systems Other systems cannot be obtained due to patient's mental status Vital Signs Vital Signs Date Time Temp Pulse Resp B/P (MAP) Pulse Ox O2 Delivery O2 Flow Rate FiO2 05/26/20 10:10 99.1 49 20 195/82 100 lethargic elderly woman, not in any distress, can be heard moaning, but not able to converse or follow commands. HEENT: anicteric sclerae, PERRLA, no nasal discharges, no throat exudates, very dry mouth NECK: supple, no cervical tenderness, no bruits, no striodr Chest: diminished breath sounds, no rales or wheezing noted CVS: s1 and s2 distinct,irregular, slow rate, bradycardic, 50s, no murmurs heard Abdomen: soft, no tenderness, no feeding tube, no rigidity or guarding noted. Extremities: No edema, no calf tenderness, no rigidity noted. atrophic arms and legs REGISTERED PRIVATE DUTY NURSE: lethargic, not able to follow commands Skin: senile turgor psych: cannot be determine, due to her lethargic Laboratory Data Labs 24H Laboratory Tests 2 05/26/20 10:24: Prothrombin Time 17.2H, Prothromb Time International Ratio 1.37 05/26/20 11:00: Immature Granulocyte % (Auto) 0.4, Neutrophils (%) (Auto) 78.3H, Lymphocytes (%) (Auto) 12.5L, Monocytes (%) (Auto) 6.8H, Eosinophils (%) (Auto) 1.9, Basophils (%) (Auto) 0.1, Neutrophils # (Auto) 5.5, Lymphocytes # (Auto) 0.9L, Monocytes # (Auto) 0.5, Eosinophils # (Auto) 0.1, Basophils # (Auto) 0.0, Nucleated Red Blood Cells % (auto) 0.0, Venous Blood pH 7.422, Venous Blood Partial Pressure CO2 40.4, Venous Blood Partial Pressure O2 79.2H, Venous Blood Total Carbon Dioxide 27.0, Venous Blood HCO3 25.7, Venous Blood Oxygen Saturation 95.7H, Venous Blood Base Excess 1.2, Anion Gap 3L, Glomerular Filtration Rate > 60.0, Osmolality 283, Lactic Acid Level 1.4, Calcium Level 8.7L, Total Bilirubin 0.3, Direct Bilirubin < 0.1, Aspartate Amino Transf (AST/SGOT) 24, Alanine Aminotransferase (ALT/SGPT) 15, Alkaline Phosphatase 76, Ammonia 21, Total Creatine Kinase 71, Creatine Kinase MB < 1.0, Creatine Kinase MB Relative Index 1.41, Troponin I 0.02, Total Protein 7.4, Albumin 3.1L, Albumin/Globulin Ratio 0.7L, Thyroid Stimulating Hormone (TSH) 4.550H 05/26/20 11:25: Urine Color YELLOW, Urine Appearance CLEAR, Urine pH 8.0, Urine Specific [place] 1.008, Urine Protein 1+H, Urine Glucose (UA) NEGATIVE, Urine Ketones NEGATIVE, Urine Blood NEGATIVE, Urine Nitrite NEGATIVE, Urine Bilirubin NEGATIVE, Urine Urobilinogen 0.2, Urine Leukocyte Esterase NEGATIVE, Urine WBC (Auto) 1, Urine RBC (Auto) 1, Urine Hyaline Casts (Auto) 0, Urine Bacteria (Auto) NEGATIVE, Urine Squamous Epithelial Cells 0, Urine Sperm (Auto) CBC/BMP Laboratory Tests 05/26/20 11:00 Microbiology Microbiology 05/26/20 Blood Culture, Received Pending 05/26/20 Blood Culture, Received Pending Assessment/Plan EKG reviewed noted st depression on the lateral leads, negative troponin ASSESSMENT: 1. Acute metabolic encephalopathy, with underlying dementia 2. Afib with slow ventricular response 3. Hypertensive emergency 4. Elevated TSH, 5. Bladder wall thickening, suspected UTI 6. Chronic anticoagulation with eliquis. 7. St depression on EKG, rule out ACS PLANS: * Admit patient to PCU. * IV fluids, as patient is quite dry, give IV hydralazine now. No bleeding in brain, no stroke noted. * MRI may be needed to determine if stroke may have occurred. She does have afib which place her at risk for stroke. * V rocephin empirically due to bladder wall thickening noted in CT, check urinalysis and culture. * No nuchal rigidity. B12, folic, b1, vitamin D, esr, procalcitonin. * Trend troponin due to st depression. * I called two daughters' phone number, to discuss patient's care, condition and code status. No MOLTS form attached. * FULL CODE for now, until verified. * She is acutely ill. * aspiration precautions * NPO. * High risk for decompensation Plan / VTE VTE Prophylaxis Ordered?: Yes GRUPO WHITE MD May 26, 2020 15:10
[2020-05-26] MEDS: cefTRIAXone SOD 1 GM in D5W MINI-BAG PLUS 50 ML IV SCH (15:57)
[2020-05-26 18:23] LABS: FOLATE 20.7 NG/ML (>5.4); TROPONIN I 0.02 NG/ML (< 0.10)
[2020-05-26 20:32] LABS: FREE T4 1.18 NG/DL (0.76-1.46)
[2020-05-26 21:00] VITALS: BP_SYST 102; BP_SYST 202; BP_DIAS 80
[2020-05-26] MEDS: hydrALAZINE 20MG/ML 1ML VIAL (J0360 PER 20MG) IV PRN (21:22)
[2020-05-26 22:10] VITALS: BP 182/68
[2020-05-27] VITALS (7 sets, daily range): BP systolic 116–214; BP diastolic 54–90
[2020-05-27] MEDS ORDERED: ACETAMINOPHEN TAB 650MG DOSE (2X325MG) PO PRN (00:15)
[2020-05-27] MEDS: NS 1,000 ML IV SCH ×2 (00:21→08:28)
[2020-05-27 05:58] LABS: HEMATOCRIT 26.1 % (36.0-47.0); HEMOGLOBIN 8.1 g/dl (12.0-15.5); MEAN CORPUSCULAR HEMOGLOBIN 25.8 pg (27.0-33.0); MEAN CORPUSCULAR VOLUME 83.1 fl (80.0-96.0); PLATELET COUNT, AUTOMATED 247 10^3/uL (150-450); RED BLOOD COUNT 3.14 10^6/uL (4.00-5.40); WHITE BLOOD COUNT 6.4 10^3/uL (4.0-10.0)
[2020-05-27 06:29] LABS: ALBUMIN 2.8 GM/DL (3.2-5.2); ALT/SGPT 14 U/L (12-78); BILIRUBIN,TOTAL 0.4 MG/DL (0.2-1.0); BLOOD UREA NITROGEN 18 MG/DL (7-18); CALCIUM LEVEL 8.1 MG/DL (8.8-10.2); CARBON DIOXIDE LEVEL 26 MEQ/L (21-32); CHLORIDE LEVEL 106 MEQ/L (98-107); GLOMERULAR FILTRATION RATE > 60.0 (>32); GLUCOSE, FASTING 106 MG/DL (70-100); MAGNESIUM LEVEL 1.8 MG/DL (1.8-2.4); POTASSIUM SERUM 3.7 MEQ/L (3.5-5.1); SODIUM LEVEL 137 MEQ/L (136-145); TOTAL PROTEIN 6.9 GM/DL (6.4-8.2)
[2020-05-27] MEDS: ENOXAPARIN 40MG/0.4ML SYRINGE (J1650 PER 10MG) SC SCH (08:28)
--- NOTE | 2020-05-27 09:38 | IPNPDOC ---
Text Note Date of Service The patient was seen on 05/27/20. NOTE noted events overnight. had high grade fever. BP slightly improved. Patient seen at bedside this morning. She is quite hard of hearing. She is more awake, able to answer questions now. She told me her name. she does not follow commands much, unclear if because she is just hard of hearing. She request that she wanted to urinate first, she feels hungry. \ denies any pain, no headache, no nuchal rigidity noted Vital Sign - Last 24 Hours 05/26/20 05/26/20 05/26/20 05/26/20 10:10 20:36 21:00 21:22 Temp 99.1 98.2 98.1 Pulse 49 59 Resp 20 18 B/P (MAP) 195/82 202/80 (120) 200/80 Pulse Ox 100 95 O2 Delivery Room Air 05/26/20 05/27/20 05/27/20 05/27/20 22:10 00:00 01:23 04:00 Temp 102.6 100.8 97.5 Pulse 74 67 Resp 16 16 B/P (MAP) 182/68 (106) 158/54 (88) 154/64 (94) Pulse Ox 98 100 O2 Delivery Room Air Room Air 05/27/20 08:00 Temp 97.2 Pulse 52 Resp 16 B/P (MAP) 149/70 (96) Pulse Ox 100 O2 Delivery Room Air more awake today, oriented to self only, elderly woman, not in any distress, HEENT: anicteric sclerae, PERRLA, no nasal discharges, no throat exudates, poor dentition, mouth is less dry NECK: supple, no cervical tenderness, no bruits, no striodr Chest: diminished breath sounds, no rales or wheezing noted CVS: s1 and s2 distinct,irregular, slow rate, bradycardic, 50s, no murmurs heard Abdomen: soft, no tenderness, no feeding tube, no rigidity or guarding noted. Extremities: No edema, no calf tenderness, no rigidity noted. atrophic arms and legs TECHNOLOGY CONSULTANT: more awake, spontaneously move all extremities, but not able to follow much commands Skin: senile turgor psych: cannot be determine, does not answer much questions Microbiology 05/26/20 Blood Culture, Received Pending 05/26/20 Blood Culture, Received Pending \ Laboratory Tests 05/26/20 11:00 05/27/20 05:06 Assessment/Plan EKG reviewed noted st depression on the lateral leads, negative troponin ASSESSMENT: 1. Acute metabolic encephalopathy, with underlying dementia 2. Afib with slow ventricular response, improved, 3. Hypertensive emergency, improved 4. Elevated TSH, 5. Bladder wall thickening, suspected UTI 6. Chronic anticoagulation with eliquis. 7. St depression on EKG, ACSruled out 8. Fever PLANS * noted urinalysis is negative for pyuria. noted bladder wall thickening in CT scan. Will continue with IV rocephin empirically for now, awaiting blood cultures. * She was quite dehydrated when she came it, which can cause fever, however, since its high grade, we need to rule out active infection. * She is more awake today, unclear if this is her baseline, she does have baseline dementia. * advance diet: pureed diet for now, until evaluated by Speech therapist. * PT consult as well. * Free t4 normal. * will resume some of her oral home meds if able to tolerate. \ * keep Hydralazine IV PRN for severe hypertension. * Will update patient's POA and daughter, Kim. * again as previously documented, discussed with p[temi's daughter yesterday, DNR DNI. MOLTS form to be signed when she gets here. * high risk for decompensation VS,Fishbone, I+O VS, Fishbone, I+O Laboratory Tests 05/26/20 11:00 05/27/20 05:06 Vital Signs Date Time Temp Pulse Resp B/P (MAP) Pulse Ox O2 Delivery O2 Flow Rate FiO2 05/27/20 08:00 97.2 52 16 149/70 (96) 100 Room Air I&O- Last 24 Hours up to 6 AM 05/27/20 06:00 Intake Total 1600 ml Balance 1600 ml GRUPO WHITE MD May 27, 2020 09:38
[2020-05-27] MEDS: cefTRIAXone SOD 1 GM in D5W MINI-BAG PLUS 50 ML IV SCH (16:31)
[2020-05-27] MEDS: D5W/0.45% SODIUM CHLORIDE 1,000 ML IV SCH (17:47)
[2020-05-27] MEDS: hydrALAZINE 20MG/ML 1ML VIAL (J0360 PER 20MG) IV PRN (20:16)
[2020-05-28] VITALS (8 sets, daily range): BP systolic 140–180; BP diastolic 58–86
[2020-05-28] MEDS: ACETAMINOPHEN 650 MG SUPP PR PRN (00:53)
[2020-05-28] MEDS: D5W/0.45% SODIUM CHLORIDE 1,000 ML IV SCH ×2 (04:10→14:55)
[2020-05-28] MEDS: hydrALAZINE 20MG/ML 1ML VIAL (J0360 PER 20MG) IV PRN (04:16)
[2020-05-28 08:50] LABS: HEMATOCRIT 22.2 % (36.0-47.0); MEAN CORPUSCULAR HEMOGLOBIN 25.7 pg (27.0-33.0); MEAN CORPUSCULAR HGB CONC 31.1 g/dl (32.0-36.5); MEAN CORPUSCULAR VOLUME 82.8 fl (80.0-96.0); PLATELET COUNT, AUTOMATED 215 10^3/uL (150-450); RED BLOOD COUNT 2.68 10^6/uL (4.00-5.40); WHITE BLOOD COUNT 4.1 10^3/uL (4.0-10.0)
[2020-05-28 09:01] LABS: HEMOGLOBIN 6.9 g/dl (12.0-15.5)
[2020-05-28 09:09] LABS: ALBUMIN 2.2 GM/DL (3.2-5.2); ALT/SGPT 13 U/L (12-78); BILIRUBIN,TOTAL 0.2 MG/DL (0.2-1.0); BLOOD UREA NITROGEN 13 MG/DL (7-18); CALCIUM LEVEL 6.8 MG/DL (8.8-10.2); CARBON DIOXIDE LEVEL 19 MEQ/L (21-32); CHLORIDE LEVEL 105 MEQ/L (98-107); CREATININE FOR GFR 0.87 MG/DL (0.55-1.30); GLOMERULAR FILTRATION RATE > 60.0 (>32); GLUCOSE, FASTING 865 MG/DL (70-100); POTASSIUM SERUM 2.7 MEQ/L (3.5-5.1); SODIUM LEVEL 134 MEQ/L (136-145); TOTAL PROTEIN 5.4 GM/DL (6.4-8.2)
[2020-05-28] MEDS: ENOXAPARIN 40MG/0.4ML SYRINGE (J1650 PER 10MG) SC SCH (09:28)
[2020-05-28] MEDS: PIPERACILLIN/TAZOBACTAM SOD 3.375 GM in D5W MINI-BAG PLUS 50 ML IV SCH ×3 (09:28→21:49)
[2020-05-28 10:01] LABS: HEMATOCRIT 23.4 % (36.0-47.0); HEMOGLOBIN 7.2 g/dl (12.0-15.5); MEAN CORPUSCULAR HEMOGLOBIN 25.5 pg (27.0-33.0); MEAN CORPUSCULAR HGB CONC 30.8 g/dl (32.0-36.5); PLATELET COUNT, AUTOMATED 225 10^3/uL (150-450); RED BLOOD COUNT 2.82 10^6/uL (4.00-5.40); WHITE BLOOD COUNT 4.7 10^3/uL (4.0-10.0)
[2020-05-28 10:18] LABS: ALBUMIN 2.7 GM/DL (3.2-5.2); ALT/SGPT 17 U/L (12-78); BILIRUBIN,TOTAL 0.2 MG/DL (0.2-1.0); BLOOD UREA NITROGEN 14 MG/DL (7-18); CARBON DIOXIDE LEVEL 22 MEQ/L (21-32); CHLORIDE LEVEL 110 MEQ/L (98-107); CREATININE FOR GFR 0.71 MG/DL (0.55-1.30); GLOMERULAR FILTRATION RATE > 60.0 (>32); GLUCOSE, FASTING 182 MG/DL (70-100); POTASSIUM SERUM 3.4 MEQ/L (3.5-5.1); SODIUM LEVEL 142 MEQ/L (136-145); TOTAL PROTEIN 6.6 GM/DL (6.4-8.2)
--- NOTE | 2020-05-28 14:11 | IPNPDOC ---
Text Note Date of Service The patient was seen on 05/28/20. NOTE Noted fever 101.7 at midnight. No fever this morning. patient denies any chest pain, no coughing, she feels thirsty she said, no choking sensation, although nurse mentioned to me that patient's daughter had mentioned to her that patient had episodes of choking/coughing after eating at home. No dyspnea. No abdominal pain, ,no chest pain Vital Sign - Last 24 Hours 05/27/20 05/27/20 05/27/20 05/27/20 16:00 20:00 20:16 20:30 Temp 98.9 98.7 Pulse 60 71 Resp 20 18 B/P (MAP) 155/76 (102) 214/90 (131) 214/90 178/68 (104) Pulse Ox 96 100 O2 Delivery Room Air Room Air 05/28/20 05/28/20 05/28/20 05/28/20 00:00 02:00 04:00 04:15 Temp 101.7 100.0 98.4 Pulse 84 73 Resp 16 16 B/P (MAP) 160/62 (94) 176/80 (112) 176/80 (112) Pulse Ox 99 100 O2 Delivery Room Air Room Air 05/28/20 05/28/20 05/28/20 05/28/20 04:16 04:40 08:00 12:00 Temp 98.1 98.5 Pulse 59 78 Resp 18 20 B/P (MAP) 176/80 148/58 (88) 150/72 (98) 148/86 (106) Pulse Ox 100 93 O2 Delivery Room Air Room Air more awake today, oriented to self only, elderly woman, not in any distress, very hard of hearing HEENT: anicteric sclerae, PERRLA, no nasal discharges, no throat exudates, poor dentition, mouth is less dry poor dentition NECK: supple, no cervical tenderness, no bruits, no striodr Chest: diminished breath sounds, no rales or wheezing noted CVS: s1 and s2 distinct,irregular, slow rate, bradycardic, 50s, no murmurs heard Abdomen: soft, no tenderness, no feeding tube, no rigidity or guarding noted. Extremities: No edema, no calf tenderness, no rigidity noted. atrophic arms and legs CARRY OUT CLERK AND SHELF STOCKER: more awake, spontaneously move all extremities, but not able to follow much commands, severe hearing deficits, Skin: senile turgor psych: cannot be determine, does not answer much questions Laboratory Tests 05/28/20 07:50 05/28/20 09:31 ASSESSMENT: 1. Acute metabolic encephalopathy, with underlying dementia 2. Atrial fibrillation with slow ventricular response, improved, 3. Hypertensive emergency, improved 4. Elevated TSH, 5. Bladder wall thickening, suspected UTI 6. Chronic anticoagulation with eliquis. 7. St depression on EKG, ACS ruled out 8. Fever 9. Dysphagia PLANS: CT chest to evaluate any aspiration pneumonia. Noted recurrence of fever. Will escalate antibiotic for anarobic coverage, blood cultures no growth so far. Holding off on eliquis for now as she has been noted to aspirate on thin liquids, will await for speech evaluation in the meantime continue IV fluids, with d5. Code status discussed with patient's daughter, Kim, yesterday, MOLTS updated. DNR/DNI. No feeding tube. VS,Fishbone, I+O VS, Fishbone, I+O Laboratory Tests 05/28/20 07:50 05/28/20 09:31 Vital Signs Date Time Temp Pulse Resp B/P (MAP) Pulse Ox O2 Delivery O2 Flow Rate FiO2 05/28/20 12:00 98.5 78 20 148/86 (106) 93 Room Air I&O- Last 24 Hours up to 6 AM 05/28/20 06:00 Intake Total 1350 ml Output Total 600 ml Balance 750 ml GRUPO WHITE MD May 28, 2020 14:11
[2020-05-28] MEDS: METOPROLOL 5 MG/5 ML VIAL IV SCH ×2 (18:43→23:44)
[2020-05-29] VITALS: BP 190/80
[2020-05-29] MEDS: PIPERACILLIN/TAZOBACTAM SOD 3.375 GM in D5W MINI-BAG PLUS 50 ML IV SCH ×4 (03:51→20:48)
[2020-05-29 04:00] VITALS: BP 177/70
[2020-05-29] MEDS: METOPROLOL 5 MG/5 ML VIAL IV SCH (05:21)
[2020-05-29 06:16] LABS: HEMATOCRIT 25.7 % (36.0-47.0); HEMOGLOBIN 7.8 g/dl (12.0-15.5); MEAN CORPUSCULAR HEMOGLOBIN 25.8 pg (27.0-33.0); MEAN CORPUSCULAR HGB CONC 30.4 g/dl (32.0-36.5); MEAN CORPUSCULAR VOLUME 85.1 fl (80.0-96.0); PLATELET COUNT, AUTOMATED 228 10^3/uL (150-450); RED BLOOD COUNT 3.02 10^6/uL (4.00-5.40); WHITE BLOOD COUNT 6.3 10^3/uL (4.0-10.0)
[2020-05-29 06:33] LABS: BLOOD UREA NITROGEN 9 MG/DL (7-18); CARBON DIOXIDE LEVEL 22 MEQ/L (21-32); CHLORIDE LEVEL 108 MEQ/L (98-107); CREATININE FOR GFR 0.89 MG/DL (0.55-1.30); GLOMERULAR FILTRATION RATE > 60.0 (>32); GLUCOSE, FASTING 126 MG/DL (70-100); MAGNESIUM LEVEL 1.6 MG/DL (1.8-2.4); POTASSIUM SERUM 3.2 MEQ/L (3.5-5.1); SODIUM LEVEL 140 MEQ/L (136-145)
[2020-05-29] MEDS ORDERED: MAG SULF 1GM/100ML (MAG RUN) 1 GM in IV 1 EA IV ONE (07:00)
[2020-05-29] MEDS ORDERED: POTASSIUM CHLORIDE 10 MEQ SR TABLET PO ONE (07:00)
[2020-05-29 08:00] VITALS: BP 192/70
[2020-05-29] MEDS: hydrALAZINE 20MG/ML 1ML VIAL (J0360 PER 20MG) IV PRN (08:23)
[2020-05-29] MEDS ORDERED: OMEPRAZOLE 20 MG CAP PO SCH (09:00)
[2020-05-29] MEDS: ENOXAPARIN 40MG/0.4ML SYRINGE (J1650 PER 10MG) SC SCH (09:45)
[2020-05-29] MEDS: DIGOXIN 0.125 MG TAB PO SCH (11:09)
[2020-05-29] MEDS: amLODIPine 5 MG TAB PO SCH (11:10)
[2020-05-29] MEDS: KCL 10MEQ/100ML SWI (KRUN) 10 MEQ in IV 1 EA IV SCH ×3 (11:11→13:51)
[2020-05-29] MEDS: OMEPRAZOLE 20 MG CAP PO SCH (11:12)
[2020-05-29 11:58] VITALS: BP 150/70
[2020-05-29 12:54] LABS: FERRITIN 116 NG/ML (8-252); IRON (FE) 18 UG/DL (50-170); PERCENT SATURATION 8.5 % (13.2-45.0); TOTAL IRON BINDING CAPACITY 213 UG/DL (250-450)
[2020-05-29] MEDS ORDERED: KCL 10MEQ IN STERILE WATER 100ML As Ordered ONE (13:48)
--- NOTE | 2020-05-29 15:32 | IPNPDOC ---
Text Note Date of Service The patient was seen on 05/29/20. NOTE Hospital course: 85 year old woman lives at home with family, daughter ajay is her POA. is also quite weak. Patient has known dementia, and admitted due to worsening confusion, not eating and drinking for some time prior to admission. concerns f or possible aspiration. CT abdomen negative,except for bladder wall thickening. but ua is negative. CT chest done due to possible pneumonia, still pending. had uncontrolled HTN and nonsustained v tach. meds just resumed now that cleared by speech therapist patient is quite hard of hearing., doing ok, not in any distress. no complaints, ,no chest pain. no dizziness. speech evaluated patient, doing well, tolerated thin liquids. BP somewhat elevated this morning Vital Sign - Last 24 Hours 05/28/20 05/28/20 05/28/20 05/28/20 16:00 18:43 20:00 23:44 Temp 99.2 98.7 Pulse 62 62 87 98 Resp 20 18 B/P (MAP) 140/82 (101) 140/82 180/62 (101) 190/80 Pulse Ox 100 100 O2 Delivery Room Air Room Air 05/29/20 05/29/20 05/29/20 05/29/20 00:00 04:00 05:21 08:00 Temp 99.0 99.6 99.7 Pulse 98 74 83 76 Resp 16 24 28 B/P (MAP) 190/80 (116) 177/70 (105) 177/70 192/70 (110) Pulse Ox 95 98 97 O2 Delivery Room Air Room Air Room Air 05/29/20 05/29/20 05/29/20 05/29/20 08:23 11:09 11:10 11:58 Temp 99.4 Pulse 87 87 91 Resp 26 B/P (MAP) 192/70 158/64 150/70 (96) Pulse Ox 99 O2 Delivery Room Air more awake today, oriented to self only, elderly woman, not in any distress, very hard of hearing HEENT: anicteric sclerae, PERRLA, no nasal discharges, no throat exudates, poor dentition, mouth is less dry poor dentition NECK: supple, no cervical tenderness, no bruits, no stridoe Chest: diminished breath sounds, no rales or wheezing noted CVS: s1 and s2 distinct,irregular, slow rate, bradycardic, 50s, no murmurs heard Abdomen: soft, no tenderness, no feeding tube, no rigidity or guarding noted. Extremities: No edema, no calf tenderness, no rigidity noted. atrophic arms and legs DIAGRAMMER AND SEAMER: more awake, spontaneously move all extremities, but not able to follow much commands, severe hearing deficits, Skin: senile turgor psych: cannot be determine, does not answer much questions Laboratory Tests 05/28/20 07:50 05/28/20 09:31 Laboratory Tests 05/29/20 05:56 ASSESSMENT: 1. Acute metabolic encephalopathy, with underlying dementia 2. Atrial fibrillation with slow ventricular response, improved, 3. Hypertensive emergency, improved 4. Elevated TSH, 5. Bladder wall thickening, suspected UTI 6. Chronic anticoagulation with eliquis. 7. St depression on EKG, ACS ruled out 8. Fever 9. Dysphagia PLANS: no more high grade fever. Unable to view CT images, willl follow up on report. Prelim report showed pacemake, no pneumonia, noted small pleural effusion, and small pericardial effusion Added amlodipine, and metoprolol PO due to nonsustained v tach. BP much improved now. Continue on zosyn. resume eliquis. Speech therapy done: pureed and thin liquids. aspiration precautions PT and OT consult. Moderate risk d/c IV fluids CODE: DNR DNI No feeding tube. All discussed with patient's daughter Misael BENITEZ, I+O VSMisael, I+O Laboratory Tests 05/29/20 05:56 Vital Signs Date Time Temp Pulse Resp B/P (MAP) Pulse Ox O2 Delivery O2 Flow Rate FiO2 05/29/20 08:23 192/70 05/29/20 08:00 99.7 76 28 97 Room Air I&O- Last 24 Hours up to 6 AM 05/29/20 05:59 Intake Total 600 ml Output Total 100 ml Balance 500 ml GRUPO WHITE MD May 29, 2020 10:43
[2020-05-29 15:51] LABS: HEMOGLOBIN A1c 6.3 %
[2020-05-29 16:00] VITALS: BP 123/59
[2020-05-29 20:00] VITALS: BP 162/70
[2020-05-29] MEDS: APIXABAN 2.5 MG TAB (ELIQUIS) PO SCH (20:48)
[2020-05-29] MEDS: MIRTAZAPINE 15 MG TAB PO SCH (20:52)
[2020-05-29] MEDS: METOPROLOL TART 25 MG TABLET PO SCH (20:52)
[2020-05-30] VITALS (7 sets, daily range): BP systolic 144–176; BP diastolic 62–110
[2020-05-30] MEDS: PIPERACILLIN/TAZOBACTAM SOD 3.375 GM in D5W MINI-BAG PLUS 50 ML IV SCH ×4 (03:40→21:20)
[2020-05-30] MEDS: LEVOTHYROXINE 25MCG TABLET (0.025MG) PO SCH (05:04)
[2020-05-30] MEDS: ACETAMINOPHEN 650 MG SUPP PR PRN (05:04)
[2020-05-30 06:15] LABS: BLOOD UREA NITROGEN 8 MG/DL (7-18); CALCIUM LEVEL 8.3 MG/DL (8.8-10.2); CARBON DIOXIDE LEVEL 21 MEQ/L (21-32); CHLORIDE LEVEL 111 MEQ/L (98-107); CREATININE FOR GFR 0.88 MG/DL (0.55-1.30); GLOMERULAR FILTRATION RATE > 60.0 (>32); GLUCOSE, FASTING 111 MG/DL (70-100); POTASSIUM SERUM 3.6 MEQ/L (3.5-5.1); SODIUM LEVEL 142 MEQ/L (136-145)
[2020-05-30] MEDS: DIGOXIN 0.125 MG TAB PO SCH (09:02)
[2020-05-30] MEDS: OMEPRAZOLE 20 MG CAP PO SCH (09:02)
[2020-05-30] MEDS: amLODIPine 5 MG TAB PO SCH (09:02)
[2020-05-30] MEDS: METOPROLOL TART 25 MG TABLET PO SCH ×2 (09:02→21:20)
[2020-05-30] MEDS: APIXABAN 2.5 MG TAB (ELIQUIS) PO SCH ×2 (09:03→21:20)
[2020-05-30] MEDS ORDERED: ACETAMINOPHEN TAB 650MG DOSE (2X325MG) PO PRN (15:00)
--- NOTE | 2020-05-30 15:14 | IPNPDOC ---
Date Seen The patient was seen on 05/30/20. Progress Note SUBJECTIVE: Awake, sitting up in bedside chair. Febrile this AM 100.4 F, UA ordered. Denies chest pain, n/v/d but pleasantly confused. OBJECTIVE: PHYSICAL EXAMINATION: VITAL SIGNS: Please see below. GENERAL: more awake today, oriented to self only, elderly woman, not in any distress, very hard of hearing HEENT: anicteric sclerae, PERRLA, no nasal discharges, no throat exudates, poor dentition, mouth is less dry poor dentition NECK: supple, no cervical tenderness, no bruits, no stridoe Chest: CTAB , no w/r/r CVS: S1S2 +, no m/r/g Abdomen: soft, no tenderness, no feeding tube, no rigidity or guarding noted. Extremities: No edema, no calf tenderness, no rigidity noted. atrophic arms and legs KILN FIREMAN: CN 2-12 in tact, no sensory or motor deficits Skin: bnormal skin turgor psych: awake, alert but confused, pleasant CURRENT MEDICATIONS: See below. LABORATORY DATA, IMAGING STUDIES, MICROBIOLOGY: Please see below. ASSESSMENT: 85 y/o F admitted for fever, increased confused, hypertensive emergency, atrial fib with NSVT. PLAN: 1. Acute metabolic encephalopathy, with underlying dementia. Improving slowly; however, still febrile this AM. F/u w/u below, eating well. PT/OT, may require placement per family. 2. Dysphagia. per s/s, thin liquids, pureed diet. Ate 100% of breakfast, no concern for aspiration pna on CT chest. 3. Fever, r/o source. Bcx NG thus far. Has been on zosyn since admission so unusual that she is still spiking fevers while on abx. CT chest- no infiltrates, UA pending- suspect bladder source with abnormal findings on CT abd/pelvis from 05/26/20. 4. Pericardial effusion. With fever, will order echocardiogram, f/u results. On RA, denies chest pain. 5. Bilateral pleural effusions likely 2/2 to atrial fibrillation uncontrolled. On RA, saturating well on Ra. consider low dose lasix, f/u echocardiogram. Add incentive spirometer. 6. Atrial fibrillation with slow ventricular response with NSVT- no events overnight. currently rate controlled with BB, CCB, eliquis, digoxin. 7. HTN. Resolved. hypertensive emergency. C/w current treatment . 8. Hypothyroidism. C/w levothyroxine. 9. Bladder wall thickening, b/l dilated renal pelvises. F/u UA, consider urology consult. 10. St depression on EKG, ACS ruled out. Tele. 11. GI px. PPI 12. DVT px. Eliquis. DISPOSITION: Currently inpatient. Plan is likely placement, PT/OT today. DNR/DNI. VS, I&O, 24H, Fishbone Vital Signs/I&O Vital Signs Date Time Temp Pulse Resp B/P (MAP) Pulse Ox O2 Delivery O2 Flow Rate FiO2 05/30/20 11:53 98.6 63 18 158/63 (94) 99 Room Air I&O- Last 24 Hours up to 6 AM 05/30/20 06:00 Intake Total 600 ml Output Total 850 ml Balance -250 ml Laboratory Data 24H LABS Laboratory Tests 2 05/30/20 05:21: Anion Gap 10, Glomerular Filtration Rate > 60.0, Calcium Level 8.3L, Magnesium Level 2.0 CBC/BMP Laboratory Tests 05/30/20 05:21 Microbiology Microbiology 05/26/20 Blood Culture - Preliminary, Resulted No Growth after 72 hours. All specime... 05/26/20 Blood Culture - Preliminary, Resulted No Growth after 72 hours. All specime... Current Medications Current Medications Medications (Trade) Dose Ordered Sig/Pako Route PRN Reason Start Time Stop Time Status Last Admin Dose Admin Acetaminophen (Tylenol Suppository) 650 mg Q6HP PRN NC PAIN / FEVER 05/27/20 07:30 05/30/20 05:04 Acetaminophen (Tylenol Tab) 650 mg Q8HP PRN PO PAIN / FEVER 05/27/20 00:15 05/27/20 07:29 DC 05/27/20 00:24 Amlodipine Besylate (Norvasc) 5 mg DAILY PO 05/29/20 10:45 05/30/20 09:02 Apixaban (Eliquis) 2.5 mg BID PO 05/29/20 21:00 05/30/20 09:03 Ceftriaxone Sodium 1 gm/ Dextrose 50 ml @ 100 mls/hr Q24H IV 05/26/20 15:00 05/28/20 08:41 DC 05/27/20 16:31 Dextrose/Sodium Chloride 1,000 ml @ 100 mls/hr Q10H IV 05/27/20 17:45 05/29/20 10:39 DC 05/28/20 14:55 Digoxin (Lanoxin) 0.125 mg DAILY PO 05/29/20 09:00 05/30/20 09:02 Enoxaparin Sodium (Lovenox) 40 mg DAILY SC 05/27/20 09:00 05/29/20 10:42 DC 05/29/20 09:45 Home Med (Med Rec Complete!) ASDIRECTED XX 05/26/20 12:15 05/26/20 12:15 DC Hydralazine HCl (Apresoline) 10 mg Q6HP PRN IV SBP >160 DBp>100 05/26/20 21:00 05/29/20 08:23 Levothyroxine Sodium (Synthroid) 25 mcg DAILY@06 PO 05/30/20 06:00 05/30/20 05:04 Metoprolol Tartrate (Lopressor) 5 mg Q6H IV 05/28/20 18:00 05/29/20 10:39 DC 05/29/20 05:21 Metoprolol Tartrate (Lopressor) 25 mg BID PO 05/29/20 21:00 05/30/20 09:02 Mirtazapine (Remeron) 15 mg QHS PO 05/29/20 21:00 05/29/20 20:52 Omeprazole (PriLOSEC) 20 mg DAILY PO 05/29/20 09:00 05/30/20 09:02 Omeprazole (PriLOSEC) 40 mg DAILY PO 05/29/20 09:00 05/29/20 11:02 DC Piperacillin Sod/ Tazobactam Sod 3.375 gm/Dextrose 50 ml @ 50 mls/hr Q6H IV 05/28/20 09:00 05/30/20 09:01 Potassium Chloride 10 meq/ IV Miscellaneous Supplies 100 ml @ 100 mls/hr Q1H IV 05/29/20 08:00 05/29/20 10:59 DC 05/29/20 13:51 Sodium Chloride 1,000 ml @ 100 mls/hr Q10H IV 05/26/20 14:07 05/27/20 17:35 DC 05/27/20 08:28 Sodium Chloride 1,000 ml @ 150 mls/hr Q6H40M IV 05/26/20 10:30 05/26/20 14:08 DC 05/26/20 11:33 Allergies Coded Allergies: No Known Allergies (Unverified , 02/02/19) Brittany Tillman MD May 30, 2020 15:14
[2020-05-30] MEDS: MIRTAZAPINE 15 MG TAB PO SCH (21:20)
[2020-05-31] VITALS (7 sets, daily range): BP systolic 145–161; BP diastolic 70–78
[2020-05-31] MEDS: PIPERACILLIN/TAZOBACTAM SOD 3.375 GM in D5W MINI-BAG PLUS 50 ML IV SCH (02:36)
[2020-05-31 05:52] LABS: EOS # 0.2 10^3/uL (0.0-0.5); EOS % 3.3 % (0.0-3.0); HEMATOCRIT 22.5 % (36.0-47.0); HEMOGLOBIN 7.1 g/dl (12.0-15.5); LYMPH # 0.8 10^3/uL (1.5-5.0); LYMPH % 15.9 % (24.0-44.0); MEAN CORPUSCULAR HEMOGLOBIN 26.1 pg (27.0-33.0); MEAN CORPUSCULAR HGB CONC 31.6 g/dl (32.0-36.5); MEAN CORPUSCULAR VOLUME 82.7 fl (80.0-96.0); MONO # 0.3 10^3/uL (0.0-0.8); MONO % 6.8 % (0.0-5.0); NEUTROPHILS # 3.6 10^3/uL (1.5-8.5); NEUTROPHILS % 73.6 % (36.0-66.0); PLATELET COUNT, AUTOMATED 184 10^3/uL (150-450); RED BLOOD COUNT 2.72 10^6/uL (4.00-5.40); WHITE BLOOD COUNT 4.8 10^3/uL (4.0-10.0)
[2020-05-31] MEDS: LEVOTHYROXINE 25MCG TABLET (0.025MG) PO SCH (06:02)
[2020-05-31 06:24] LABS: ALBUMIN 2.7 GM/DL (3.2-5.2); ALT/SGPT 18 U/L (12-78); BILIRUBIN,TOTAL 0.4 MG/DL (0.2-1.0); BLOOD UREA NITROGEN 8 MG/DL (7-18); CALCIUM LEVEL 8.5 MG/DL (8.8-10.2); CARBON DIOXIDE LEVEL 22 MEQ/L (21-32); CHLORIDE LEVEL 110 MEQ/L (98-107); CREATININE FOR GFR 0.91 MG/DL (0.55-1.30); GLOMERULAR FILTRATION RATE > 60.0 (>32); GLUCOSE, FASTING 93 MG/DL (70-100); MAGNESIUM LEVEL 2.1 MG/DL (1.8-2.4); POTASSIUM SERUM 3.5 MEQ/L (3.5-5.1); SODIUM LEVEL 140 MEQ/L (136-145); TOTAL PROTEIN 7.3 GM/DL (6.4-8.2)
[2020-05-31] MEDS: cefTRIAXone SOD 1 GM in D5W MINI-BAG PLUS 50 ML IV SCH (09:05)
[2020-05-31] MEDS: APIXABAN 2.5 MG TAB (ELIQUIS) PO SCH ×2 (09:05→21:36)
[2020-05-31] MEDS: OMEPRAZOLE 20 MG CAP PO SCH (09:06)
[2020-05-31] MEDS: amLODIPine 5 MG TAB PO SCH (09:06)
[2020-05-31] MEDS: DIGOXIN 0.125 MG TAB PO SCH (09:06)
[2020-05-31] MEDS: METOPROLOL TART 25 MG TABLET PO SCH ×2 (09:07→21:36)
[2020-05-31] MEDS: IRON SUCROSE 200 MG in NS 100 ML OVER 1 HR IV SCH (11:32)
--- NOTE | 2020-05-31 16:22 | IPNPDOC ---
Date Seen The patient was seen on 05/31/20. Progress Note SUBJECTIVE: Awake, sitting up in bedside chair. Afebrile for over 24 hours. UA +, UCx pending and on changed to ceftriaxone, d/ricardo zosyn. Starting venofer for iron deficiency anemia today (total of three doses). Denies chest pain, n/v/d but pleasantly confused. OBJECTIVE: PHYSICAL EXAMINATION: VITAL SIGNS: Please see below. GENERAL: Oriented to self only, elderly woman, not in any distress, very hard of hearing HEENT: anicteric sclerae, PERRLA, no nasal discharges, no throat exudates, poor dentition, poor dentition NECK: supple, no cervical tenderness, no bruits, no stridoe Chest: CTAB , no w/r/r CVS: S1S2 +, no m/r/g Abdomen: soft, no tenderness, no feeding tube, no rigidity or guarding noted. Extremities: No edema, no calf tenderness, no rigidity noted. 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 LABORATORY DATA, IMAGING STUDIES, MICROBIOLOGY: Please see below. ASSESSMENT: 85 y/o F admitted for fever, increased confused, hypertensive emergency, atrial fib with NSVT. PLAN: 1. Acute metabolic encephalopathy, with underlying dementia. Afebrile and pleasantly confused, believed to be close to baseline. Eating well. PT/OT. 2. Dysphagia. Stable and tolerating thin liquids, pureed diet. No concern for aspiration pna on CT chest. 3. UTI, likely source of fever. UCx pending, Bcx NG thus far. D/ricardo zosyn, on ceftriaxone (Day 2) 4. Pericardial effusion. Results for echocardiogram pending. On RA, denies chest pain. 5. Bilateral pleural effusions likely 2/2 to atrial fibrillation uncontrolled. On RA, saturating well on Ra. consider low dose lasix, f/u echocardiogram. C/w incentive spirometer. 6. Atrial fibrillation with slow ventricular response with NSVT. Nonsustained VT today, 12 beats but patient was asymptomatic. Currently rate controlled with BB, CCB, eliquis, digoxin. 7. HTN. C/w current treatment . 8. Hypothyroidism. C/w levothyroxine. 9. Bladder wall thickening, b/l dilated renal pelvises. UA + and likely 2/2 to this. C/w ceftriaxone. 10. St depression on EKG, ACS ruled out. Tele. 11. GI px. PPI 12. DVT px. Eliquis. DISPOSITION: Currently inpatient. Plan is placement, PT/OT continued. DNR/DNI. VS, I&O, 24H, Fishbone Vital Signs/I&O Vital Signs Date Time Temp Pulse Resp B/P (MAP) Pulse Ox O2 Delivery O2 Flow Rate FiO2 05/31/20 15:44 97.1 83 18 145/76 (99) 100 Room Air I&O- Last 24 Hours up to 6 AM 05/31/20 06:00 Intake Total 820 ml Output Total 400 ml Balance 420 ml Laboratory Data 24H LABS Laboratory Tests 2 05/30/20 16:30: Urine Color YELLOW, Urine Appearance CLEAR, Urine pH 6.0, Urine Specific [place] 1.011, Urine Protein 1+H, Urine Glucose (UA) NEGATIVE, Urine Ketones NEGATIVE, Urine Blood 2+H, Urine Nitrite NEGATIVE, Urine Bilirubin NEGATIVE, Urine Urobilinogen 0.2, Urine Leukocyte Esterase 1+H, Urine WBC (Auto) 1, Urine RBC (Auto) 2, Urine Hyaline Casts (Auto) 0, Urine Bacteria (Auto) 1+H, Urine Squamous Epithelial Cells 1, Urine Mucus (Auto) SMALL, Urine Sperm (Auto) 05/31/20 05:30: Immature Granulocyte % (Auto) 0.4, Neutrophils (%) (Auto) 73.6H, Lymphocytes (%) (Auto) 15.9L, Monocytes (%) (Auto) 6.8H, Eosinophils (%) (Auto) 3.3H, Basophils (%) (Auto) 0.0, Neutrophils # (Auto) 3.6, Lymphocytes # (Auto) 0.8L, Monocytes # (Auto) 0.3, Eosinophils # (Auto) 0.2, Basophils # (Auto) 0.0, Nucleated Red Blood Cells % (auto) 0.0, Anion Gap 8, Glomerular Filtration Rate > 60.0, Calciu m Level 8.5L, Magnesium Level 2.1, Total Bilirubin 0.4#, Aspartate Amino Transf (AST/SGOT) 12, Alanine Aminotransferase (ALT/SGPT) 18, Alkaline Phosphatase 80, Total Protein 7.3, Albumin 2.7L, Albumin/Globulin Ratio 0.6L CBC/BMP Laboratory Tests 05/31/20 05:30 Microbiology Microbiology 05/30/20 Urine Culture, Received Pending 05/26/20 Blood Culture - Final, Complete NO GROWTH AFTER 5 DAYS 05/26/20 Blood Culture - Final, Complete NO GROWTH AFTER 5 DAYS Current Medications Current Medications Medications (Trade) Dose Ordered Sig/Pako Route PRN Reason Start Time Stop Time Status Last Admin Dose Admin Acetaminophen (Tylenol Suppository) 650 mg Q6HP PRN [place] PAIN / FEVER 05/27/20 07:30 05/30/20 14:49 DC 05/30/20 05:04 Acetaminophen (Tylenol Tab) 650 mg Q6HP PRN PO PAIN / FEVER 05/30/20 15:00 Acetaminophen (Tylenol Tab) 650 mg Q8HP PRN PO PAIN / FEVER 05/27/20 00:15 05/27/20 07:29 DC 05/27/20 00:24 Amlodipine Besylate (Norvasc) 5 mg DAILY PO 05/29/20 10:45 05/31/20 07:59 DC 05/30/20 09:02 Amlodipine Besylate (Norvasc) 10 mg DAILY PO 05/31/20 09:00 05/31/20 09:06 Apixaban (Eliquis) 2.5 mg BID PO 05/29/20 21:00 05/31/20 09:05 Ceftriaxone Sodium 1 gm/ Dextrose 50 ml @ 100 mls/hr Q24H IV 05/26/20 15:00 05/28/20 08:41 DC 05/27/20 16:31 Ceftriaxone Sodium 1 gm/ Dextrose 50 ml @ 100 mls/hr Q24H IV 05/31/20 08:00 05/31/20 09:05 Dextrose/Sodium Chloride 1,000 ml @ 100 mls/hr Q10H IV 05/27/20 17:45 05/29/20 10:39 DC 05/28/20 14:55 Digoxin (Lanoxin) 0.125 mg DAILY PO 05/29/20 09:00 05/31/20 09:06 Enoxaparin Sodium (Lovenox) 40 mg DAILY SC 05/27/20 09:00 05/29/20 10:42 DC 05/29/20 09:45 Home Med (Med Rec Complete!) ASDIRECTED XX 05/26/20 12:15 05/26/20 12:15 DC Hydralazine HCl (Apresoline) 10 mg Q6HP PRN IV SBP >160 DBp>100 05/26/20 21:00 05/30/20 14:49 DC 05/29/20 08:23 Iron 200 mg/ Sodium Chloride 110 ml @ 110 mls/hr DAILY@1000 IV 05/31/20 10:00 06/01/20 10:59 05/31/20 11:32 Levothyroxine Sodium (Synthroid) 25 mcg DAILY@06 PO 05/30/20 06:00 05/31/20 06:02 Metoprolol Tartrate (Lopressor) 5 mg Q6H IV 05/28/20 18:00 05/29/20 10:39 DC 05/29/20 05:21 Metoprolol Tartrate (Lopressor) 25 mg BID PO 05/29/20 21:00 05/31/20 09:07 Mirtazapine (Remeron) 15 mg QHS PO 05/29/20 21:00 05/30/20 21:20 Omeprazole (PriLOSEC) 20 mg DAILY PO 05/29/20 09:00 05/31/20 09:06 Omeprazole (PriLOSEC) 40 mg DAILY PO 05/29/20 09:00 05/29/20 11:02 DC Piperacillin Sod/ Tazobactam Sod 3.375 gm/Dextrose 50 ml @ 50 mls/hr Q6H IV 05/28/20 09:00 05/31/20 07:57 DC 05/31/20 02:36 Potassium Chloride 10 meq/ IV Miscellaneous Supplies 100 ml @ 100 mls/hr Q1H IV 05/29/20 08:00 05/29/20 10:59 DC 05/29/20 13:51 Sodium Chloride 1,000 ml @ 100 mls/hr Q10H IV 05/26/20 14:07 05/27/20 17:35 DC 05/27/20 08:28 Sodium Chloride 1,000 ml @ 150 mls/hr Q6H40M IV 05/26/20 10:30 05/26/20 14:08 DC 05/26/20 11:33 Allergies Coded Allergies: No Known Allergies (Unverified , 02/02/19) Brittany Tillman MD May 31, 2020 16:22
[2020-05-31] MEDS: MIRTAZAPINE 15 MG TAB PO SCH (21:36)
[2020-06-01] VITALS (7 sets, daily range): BP systolic 130–170; BP diastolic 58–92
[2020-06-01] MEDS: LEVOTHYROXINE 25MCG TABLET (0.025MG) PO SCH (05:14)
[2020-06-01 06:39] LABS: BASO % 0.2 % (0.0-1.0); EOS # 0.2 10^3/uL (0.0-0.5); EOS % 3.5 % (0.0-3.0); HEMATOCRIT 26.2 % (36.0-47.0); HEMOGLOBIN 8.4 g/dl (12.0-15.5); LYMPH # 0.9 10^3/uL (1.5-5.0); LYMPH % 19.1 % (24.0-44.0); MEAN CORPUSCULAR HEMOGLOBIN 26.3 pg (27.0-33.0); MEAN CORPUSCULAR HGB CONC 32.1 g/dl (32.0-36.5); MEAN CORPUSCULAR VOLUME 82.1 fl (80.0-96.0); MONO # 0.3 10^3/uL (0.0-0.8); MONO % 7.1 % (0.0-5.0); NEUTROPHILS # 3.4 10^3/uL (1.5-8.5); NEUTROPHILS % 69.9 % (36.0-66.0); PLATELET COUNT, AUTOMATED 215 10^3/uL (150-450); RED BLOOD COUNT 3.19 10^6/uL (4.00-5.40); WHITE BLOOD COUNT 4.8 10^3/uL (4.0-10.0)
[2020-06-01 07:06] LABS: ALBUMIN 3.1 GM/DL (3.2-5.2); ALT/SGPT 19 U/L (12-78); BILIRUBIN,TOTAL 0.3 MG/DL (0.2-1.0); BLOOD UREA NITROGEN 8 MG/DL (7-18); CALCIUM LEVEL 8.8 MG/DL (8.8-10.2); CARBON DIOXIDE LEVEL 22 MEQ/L (21-32); CHLORIDE LEVEL 111 MEQ/L (98-107); CREATININE FOR GFR 0.79 MG/DL (0.55-1.30); GLOMERULAR FILTRATION RATE > 60.0 (>32); GLUCOSE, FASTING 92 MG/DL (70-100); MAGNESIUM LEVEL 2.2 MG/DL (1.8-2.4); POTASSIUM SERUM 3.8 MEQ/L (3.5-5.1); SODIUM LEVEL 142 MEQ/L (136-145); TOTAL PROTEIN 7.4 GM/DL (6.4-8.2)
[2020-06-01] MEDS ORDERED: FUROSEMIDE 10MG PER 1/2 TABLET PO SCH (09:00)
[2020-06-01] MEDS: cefTRIAXone SOD 1 GM in D5W MINI-BAG PLUS 50 ML IV SCH (09:09)
[2020-06-01] MEDS: METOPROLOL TART 25 MG TABLET PO SCH ×2 (09:10→20:05)
[2020-06-01] MEDS: DIGOXIN 0.125 MG TAB PO SCH (09:10)
[2020-06-01] MEDS: OMEPRAZOLE 20 MG CAP PO SCH (09:11)
[2020-06-01] MEDS: APIXABAN 2.5 MG TAB (ELIQUIS) PO SCH ×2 (09:11→20:03)
[2020-06-01] MEDS: amLODIPine 5 MG TAB PO SCH (09:11)
[2020-06-01] MEDS: IRON SUCROSE 200 MG in NS 100 ML OVER 1 HR IV SCH (10:23)
--- NOTE | 2020-06-01 13:09 | IPNPDOC ---
Date Seen The patient was seen on 06/01/20. Progress Note SUBJECTIVE: Walked 750 ft with PT this AM, remains afebrile. Day 2 venofer. Hoping for discharge to SNF before the weekend. She remains pleasantly confused and denies chest pain, n/v/d, fevers, chills, shortness of breath. OBJECTIVE: PHYSICAL EXAMINATION: VITAL SIGNS: Please see below. GENERAL: Oriented to self only, elderly woman, not in any distress. Hard of hearing HEENT: anicteric sclerae, PERRLA, no nasal discharges, no throat exudates, poor dentition, poor dentition NECK: supple, no cervical tenderness, no bruits, no stridoe Chest: CTAB , no w/r/r CVS: S1S2 +, no m/r/g Abdomen: soft, no tenderness, no feeding tube, no rigidity or guarding noted. Extremities: No edema, no calf tenderness, no rigidity noted. 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 LABORATORY DATA, IMAGING STUDIES, MICROBIOLOGY: Please see below. Echocardiogram results pending ASSESSMENT: 85 y/o F admitted for fever, increased confused, hypertensive emergency, atrial fib with NSVT. PLAN: 1. Acute metabolic encephalopathy, with underlying dementia.- Resolved acute encephalopathy. Pleasantly confused, believed to be at baseline. Eating well. PT/OT. 2. Dysphagia. Stable and tolerating thin liquids, pureed diet. No concern for aspiration pna on CT chest. 3. UTI, likely source of fever. UCx NG but will complete 3 days of Ceftriaxone 06/02/20. Bcx NG thus far. 4. Pericardial effusion. Results for echocardiogram pending. On RA, denies chest pain. 5. Bilateral pleural effusions likely 2/2 to atrial fibrillation uncontrolled. On RA, saturating well on RA. F/u echocardiogram. C/w incentive spirometer. 6. Atrial fibrillation with slow ventricular response with NSVT. Stable on telemetry. Currently rate controlled with BB, CCB, eliquis, digoxin. 7. HTN. C/w current treatment 8. Hypothyroidism. C/w levothyroxine. 9. Bladder wall thickening, b/l dilated renal pelvises. UCx NG, no dysuria, urgency to urinate. C/w ceftriaxone until 06/02/[address] depression on EKG, ACS ruled out. Tele. 11. GI px. PPI 12. DVT px. Eliquis. DISPOSITION: Currently inpatient. Plan is placement possibly before the weekend. Doing well with PT/OT. DNR/DNI. VS, I&O, 24H, Fishbone Vital Signs/I&O Vital Signs Date Time Temp Pulse Resp B/P (MAP) Pulse Ox O2 Delivery O2 Flow Rate FiO2 06/01/20 12:00 98.7 75 17 155/65 (95) 100 Room Air I&O- Last 24 Hours up to 6 AM 06/01/20 06:00 Intake Total 1280 ml Output Total 0 ml Balance 1280 ml Laboratory Data 24H LABS Laboratory Tests 2 06/01/20 06:13: Immature Granulocyte % (Auto) 0.2, Neutrophils (%) (Auto) 69.9H, Lymphocytes (%) (Auto) 19.1L, Monocytes (%) (Auto) 7.1H, Eosinophils (%) (Auto) 3.5H, Basophils (%) (Auto) 0.2, Neutrophils # (Auto) 3.4, Lymphocytes # (Auto) 0.9L, Monocytes # (Auto) 0.3, Eosinophils # (Auto) 0.2, Basophils # (Auto) 0.0, Nucleated Red Blood Cells % (auto) 0.0, Anion Gap 9, Glomerular Filtration Rate > 60.0, Gilbert cium Level 8.8, Magnesium Level 2.2, Total Bilirubin 0.3, Aspartate Amino Transf (AST/SGOT) 8, Alanine Aminotransferase (ALT/SGPT) 19, Alkaline Phosphatase 86, Total Protein 7.4, Albumin 3.1L, Albumin/Globulin Ratio 0.7L CBC/BMP Laboratory Tests 06/01/20 06:13 Microbiology Microbiology 05/30/20 Urine Culture - Final, Complete 05/26/20 Blood Culture - Final, Complete NO GROWTH AFTER 5 DAYS 05/26/20 Blood Culture - Final, Complete NO GROWTH AFTER 5 DAYS Current Medications Current Medications Medications (Trade) Dose Ordered Sig/Pako Route PRN Reason Start Time Stop Time Status Last Admin Dose Admin Acetaminophen (Tylenol Suppository) 650 mg Q6HP PRN [place] PAIN / FEVER 05/27/20 07:30 05/30/20 14:49 DC 05/30/20 05:04 Acetaminophen (Tylenol Tab) 650 mg Q6HP PRN PO PAIN / FEVER 05/30/20 15:00 Acetaminophen (Tylenol Tab) 650 mg Q8HP PRN PO PAIN / FEVER 05/27/20 00:15 05/27/20 07:29 DC 05/27/20 00:24 Amlodipine Besylate (Norvasc) 5 mg DAILY PO 05/29/20 10:45 05/31/20 07:59 DC 05/30/20 09:02 Amlodipine Besylate (Norvasc) 10 mg DAILY PO 05/31/20 09:00 06/01/20 09:11 Apixaban (Eliquis) 2.5 mg BID PO 05/29/20 21:00 06/01/20 09:11 Ceftriaxone Sodium 1 gm/ Dextrose 50 ml @ 100 mls/hr Q24H IV 05/26/20 15:00 05/28/20 08:41 DC 05/27/20 16:31 Ceftriaxone Sodium 1 gm/ Dextrose 50 ml @ 100 mls/hr Q24H IV 05/31/20 08:00 06/02/20 08:00 06/01/20 09:09 Dextrose/Sodium Chloride 1,000 ml @ 100 mls/hr Q10H IV 05/27/20 17:45 05/29/20 10:39 DC 05/28/20 14:55 Digoxin (Lanoxin) 0.125 mg DAILY PO 05/29/20 09:00 06/01/20 09:10 Enoxaparin Sodium (Lovenox) 40 mg DAILY SC 05/27/20 09:00 05/29/20 10:42 DC 05/29/20 09:45 Home Med (Med Rec Complete!) ASDIRECTED XX 05/26/20 12:15 05/26/20 12:15 DC Hydralazine HCl (Apresoline) 10 mg Q6HP PRN IV SBP >160 DBp>100 05/26/20 21:00 05/30/20 14:49 DC 05/29/20 08:23 Iron 200 mg/ Sodium Chloride 110 ml @ 110 mls/hr DAILY@1000 IV 05/31/20 10:00 06/01/20 10:59 DC 06/01/20 10:23 Levothyroxine Sodium (Synthroid) 25 mcg DAILY@06 PO 05/30/20 06:00 06/01/20 05:14 Metoprolol Tartrate (Lopressor) 5 mg Q6H IV 05/28/20 18:00 05/29/20 10:39 DC 05/29/20 05:21 Metoprolol Tartrate (Lopressor) 25 mg BID PO 05/29/20 21:00 06/01/20 09:10 Mirtazapine (Remeron) 15 mg QHS PO 05/29/20 21:00 05/31/20 21:36 Omeprazole (PriLOSEC) 20 mg DAILY PO 05/29/20 09:00 06/01/20 09:11 Omeprazole (PriLOSEC) 40 mg DAILY PO 05/29/20 09:00 05/29/20 11:02 DC Piperacillin Sod/ Tazobactam Sod 3.375 gm/Dextrose 50 ml @ 50 mls/hr Q6H IV 05/28/20 09:00 05/31/20 07:57 DC 05/31/20 02:36 Potassium Chloride 10 meq/ IV Miscellaneous Supplies 100 ml @ 100 mls/hr Q1H IV 05/29/20 08:00 05/29/20 10:59 DC 05/29/20 13:51 Sodium Chloride 1,000 ml @ 100 mls/hr Q10H IV 05/26/20 14:07 05/27/20 17:35 DC 05/27/20 08:28 Sodium Chloride 1,000 ml @ 150 mls/hr Q6H40M IV 05/26/20 10:30 05/26/20 14:08 DC 05/26/20 11:33 Allergies Coded Allergies: No Known Allergies (Unverified , 02/02/19) Brittany Tillman MD Jun 01, 2020 13:09
[2020-06-01] MEDS: MIRTAZAPINE 15 MG TAB PO SCH (20:03)
[2020-06-02 04:00] VITALS: BP 158/72
[2020-06-02 06:13] LABS: BASO % 0.2 % (0.0-1.0); EOS # 0.2 10^3/uL (0.0-0.5); EOS % 3.2 % (0.0-3.0); HEMATOCRIT 27.4 % (36.0-47.0); HEMOGLOBIN 8.6 g/dl (12.0-15.5); LYMPH # 0.8 10^3/uL (1.5-5.0); MEAN CORPUSCULAR HEMOGLOBIN 25.9 pg (27.0-33.0); MEAN CORPUSCULAR HGB CONC 31.4 g/dl (32.0-36.5); MEAN CORPUSCULAR VOLUME 82.5 fl (80.0-96.0); MONO # 0.4 10^3/uL (0.0-0.8); NEUTROPHILS # 4.1 10^3/uL (1.5-8.5); NEUTROPHILS % 74.2 % (36.0-66.0); PLATELET COUNT, AUTOMATED 249 10^3/uL (150-450); RED BLOOD COUNT 3.32 10^6/uL (4.00-5.40); WHITE BLOOD COUNT 5.6 10^3/uL (4.0-10.0)
[2020-06-02] MEDS: LEVOTHYROXINE 25MCG TABLET (0.025MG) PO SCH (06:17)
[2020-06-02 06:22] LABS: ALBUMIN 3.2 GM/DL (3.2-5.2); ALT/SGPT 17 U/L (12-78); BILIRUBIN,TOTAL 0.2 MG/DL (0.2-1.0); BLOOD UREA NITROGEN 9 MG/DL (7-18); CALCIUM LEVEL 8.8 MG/DL (8.8-10.2); CARBON DIOXIDE LEVEL 23 MEQ/L (21-32); CHLORIDE LEVEL 108 MEQ/L (98-107); CREATININE FOR GFR 0.84 MG/DL (0.55-1.30); GLOMERULAR FILTRATION RATE > 60.0 (>32); GLUCOSE, FASTING 95 MG/DL (70-100); MAGNESIUM LEVEL 2.2 MG/DL (1.8-2.4); POTASSIUM SERUM 3.9 MEQ/L (3.5-5.1); SODIUM LEVEL 140 MEQ/L (136-145); TOTAL PROTEIN 7.9 GM/DL (6.4-8.2)
[2020-06-02] MEDS ORDERED: METO1TAB87 PO (07:26)
[2020-06-02] MEDS ORDERED: AMLO1TAB24 PO (07:26)
[2020-06-02] MEDS ORDERED: FURO20TA2 PO (07:26)
[2020-06-02] MEDS: cefTRIAXone SOD 1 GM in D5W MINI-BAG PLUS 50 ML IV SCH (08:34)
[2020-06-02] MEDS ORDERED: FUROSEMIDE 20 MG TAB PO SCH (09:00)
[2020-06-02 09:12] VITALS: BP 151/63
[2020-06-02 09:22] VITALS: BP 151/63
[2020-06-02] MEDS: OMEPRAZOLE 20 MG CAP PO SCH (09:22)
[2020-06-02] MEDS: amLODIPine 5 MG TAB PO SCH (09:22)
[2020-06-02] MEDS: METOPROLOL TART 25 MG TABLET PO SCH (09:22)
[2020-06-02] MEDS: APIXABAN 2.5 MG TAB (ELIQUIS) PO SCH (09:23)
[2020-06-02] MEDS: DIGOXIN 0.125 MG TAB PO SCH (09:23)
[2020-06-02] MEDS ORDERED: IRON SUCROSE 100 MG in NS 100 ML OVER 1 HR IV ONE (10:00)
[2020-06-02 11:37] VITALS: BP 135/65
--- NOTE | 2020-06-02 15:17 | DS.PDOC ---
Discharge Summary General Date of Admission May 26, 2020 at 13:55 Date of Discharge 06/02/20 Discharge Summary HPI: Ms. Duarte is a 85 year old woman with known history of dementia, lives at home, brought to hospital due to confusion and not eating or drinking. History obtained from what ED has gathered from EMS. I called two numbers for daughters, listed on admission facesheet but however no call back. patient is lethargic, opens eyes when called but not able to give further history. Patient was hype rtensive on arrival,with BP 195 systolic and HR was 40s. Patient has known afib. base on her medication review. She has diabetes, afib on anticoagulation. Patient underwent CT head and CXR and abdominal ct - no acute findings. Noted bladder wall thickening. Patient given IV fluids. When I saw patient, lethargic, very dry. Unclear about code status. No family at bedside. No answer when called. Admitted with diagnosis of altered mental status, HOSPITAL COURSE: Patient's acute metabolic encephalopathy improved with treatment of UTI, optimization of nutrition and correction of atrial fibrillation with NSVT. Dysphagia was addressed and she tolerates thin liquids, pureed diet. PT/OT evaluated her and she walked 750 ft with assistance. She remained pleasantly confused on day of discharge on 06/02/20 to [facility]. Ucx ultimately had NG and she was not discharged with antibiotics. At the time of discharge, patient denied chest pain, fever, chills, n/v/d, shortness of breath. ROS: Negative except for what is mentioned above. PMH: Diabetes Mellitus type II Hypertension Hyperlipidemia Afib PSurg Hx: Patient has dementia, poor historian, unknown Social Hx: previously lived at home with family. Discharging to [facility] Allergies: Please see below Family History: Patient has dementia, poor historian, unknown PHYSICAL EXAMINATION: VITAL SIGNS: Please see below. GENERAL: Oriented to self only, elderly woman, not in any distress. Hard of hearing HEENT: anicteric sclerae, PERRLA, no nasal discharges, no throat exudates, poor dentition, poor dentition NECK: supple, no cervical tenderness, no bruits, no stridoe Chest: CTAB , no w/r/r CVS: S1S2 +, no m/r/g Abdomen: soft, no tenderness, no feeding tube, no rigidity or guarding noted. Extremities: No edema, no calf tenderness, no rigidity noted. 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 LABORATORY DATA, IMAGING STUDIES, MICROBIOLOGY: Please see below. ASSESSMENT: 85 y/o F admitted for fever, increased confused, hypertensive emergency, atrial fib with NSVT. PLAN: 1. Acute metabolic encephalopathy, with underlying dementia.- Resolved acute encephalopathy. Pleasantly confused, believed to be at baseline. Eating well. 2. Dysphagia. Stable and tolerating thin liquids, pureed diet. No concern for aspiration pna on CT chest. 3. UTI, likely source of fever. UCx NG, completed 3 days of ceftriaxone 06/02/20. Bcx NG 4. Pericardial effusion. Results for echocardiogram pending. On RA, denies chest pain. Lasix 5. Bilateral pleural effusions likely 2/2 to atrial fibrillation uncontrolled. On RA, saturating well on RA. Echo done. Lasix 6. Atrial fibrillation with slow ventricular response with NSVT. Stable on telemetry. Currently rate controlled with BB, CCB, eliquis, digoxin. 7. HTN. C/w current treatment 8. Hypothyroidism. C/w levothyroxine. 9. Bladder wall thickening, b/l dilated renal pelvises. UCx NG, no dysuria, urgency to urinate. C/w ceftriaxone until 06/02/[address] depression on EKG, ACS ruled out. Tele. 11. GI px. PPI 12. DVT px. Eliquis. DISPOSITION: Discharged to [facility] today. TIME SPENT ON DISCHARGE: Greater than 35 minutes. Vital Signs/I&Os Vital Signs Date Time Temp Pulse Resp B/P (MAP) Pulse Ox O2 Delivery O2 Flow Rate FiO2 06/02/20 11:37 98.9 80 32 135/65 (88) 99 Room Air I&O- Last 24 Hours up to 6 AM 06/02/20 06:00 Intake Total 1020 ml Output Total 400 ml Balance 620 ml Laboratory Data Labs 24H Laboratory Tests 2 06/01/20 17:00: Coronavirus (COVID-19)(PCR) NEGATIVE 06/02/20 05:13: Immature Granulocyte % (Auto) 0.4, Neutrophils (%) (Auto) 74.2H, Lymphocytes (%) (Auto) 15.0L, Monocytes (%) (Auto) 7.0H, Eosinophils (%) (Auto) 3.2H, Basophils (%) (Auto) 0.2, Neutrophils # (Auto) 4.1, Lymphocytes # (Auto) 0.8L, Monocytes # (Auto) 0.4, Eosinophils # (Auto) 0.2, Basophils # (Auto) 0.0, Nucleated Red Blood Cells % (auto) 0.0, Anion Gap 9, Glomerular Filtration Rate > 60.0, Calcium Level 8.8, Magnesium Level 2.2, Total Bilirubin 0.2, Aspartate Amino Transf (AST/SGOT) 8, Alanine Aminotransferase (ALT/SGPT) 17, Alkaline Phosphatase 97, Total Protein 7.9, Albumin 3.2, Albumin/Globulin Ratio 0.7L CBC/BMP Laboratory Tests 06/02/20 05:13 Microbiology Microbiology 05/30/20 Urine Culture - Final, Complete 05/26/20 Blood Culture - Final, Complete NO GROWTH AFTER 5 DAYS 05/26/20 Blood Culture - Final, Complete NO GROWTH AFTER 5 DAYS Discharge Medications Scheduled Acetaminophen (Acetaminophen) 500 Mg Tablet, 500 MG PO BID, (Reported) MORNING AND AT NIGHT Acetaminophen (Acetaminophen ER) 650 Mg Tablet.er, 650 MG PO DAILY, (Reported) TAKES AT NOON Amlodipine Besylate (Amlodipine Besylate) 5 Mg Tablet, 10 MG PO DAILY Apixaban (Eliquis) 2.5 Mg Tablet, 2.5 MG PO BID, (Reported) Aripiprazole (Aripiprazole) 2 Mg Tablet, 2 MG PO QHS, (Reported) Ascorbate Calcium (Vitamin C) 500 Mg Tablet, 500 MG PO BID, (Reported) Dicyclomine HCl (Dicyclomine HCl) 10 Mg Capsule, 10 MG PO BID, (Reported) Digoxin (Digoxin) 125 Mcg Tablet, 125 MCG PO DAILY, (Reported) Ferrous Sulfate (Iron) 325 Mg Tablet, 325 MG PO BID, (Reported) Furosemide (Furosemide) 20 Mg Tablet, 20 MG PO DAILY Levothyroxine Sodium (Levothyroxine Sodium) 25 Mcg Tab, 25 MCG PO QHS, (Reported) Metformin HCl (Metformin HCl) 500 Mg Tab, 500 MG PO BID, (Reported) Metoprolol Tartrate (Metoprolol Tartrate) 25 Mg Tablet, 25 MG PO BID Mirtazapine (Remeron) 15 Mg Tab.rapdis, 15 MG PO QHS, (Reported) Multivitamin (Multivitamins) 1 Each Capsule, 1 CAP PO DAILY, (Reported) Omeprazole (Omeprazole) 20 Mg Cap, 20 MG PO DAILY, (Reported) Paroxetine HCl (Paxil) 20 Mg Tablet, 20 MG PO DAILY, (Reported) Simvastatin (Simvastatin) 40 Mg Tablet, 20 MG PO QHS, (Reported) Scheduled PRN Cetirizine HCl (Cetirizine HCl) 10 Mg Tablet, 10 MG PO DAILY PRN for ALLERGIES, (Reported) Allergies Coded Allergies: No Known Allergies (Unverified , 02/02/19) Current Medications Current Medications Medications (Trade) Dose Ordered Sig/Pako Route PRN Reason Start Time Stop Time Status Last Admin Dose Admin Acetaminophen (Tylenol Suppository) 650 mg Q6HP PRN [place] PAIN / FEVER 05/27/20 07:30 05/30/20 14:49 DC 05/30/20 05:04 Acetaminophen (Tylenol Tab) 650 mg Q6HP PRN PO PAIN / FEVER 05/30/20 15:00 06/02/20 14:14 DC Acetaminophen (Tylenol Tab) 650 mg Q8HP PRN PO PAIN / FEVER 05/27/20 00:15 05/27/20 07:29 DC 05/27/20 00:24 Amlodipine Besylate (Norvasc) 5 mg DAILY PO 05/29/20 10:45 05/31/20 07:59 DC 05/30/20 09:02 Amlodipine Besylate (Norvasc) 10 mg DAILY PO 05/31/20 09:00 06/02/20 14:14 DC 06/02/20 09:22 Apixaban (Eliquis) 2.5 mg BID PO 05/29/20 21:00 06/02/20 14:14 DC 06/02/20 09:23 Ceftriaxone Sodium 1 gm/ Dextrose 50 ml @ 100 mls/hr Q24H IV 05/26/20 15:00 05/28/20 08:41 DC 05/27/20 16:31 Ceftriaxone Sodium 1 gm/ Dextrose 50 ml @ 100 mls/hr Q24H IV 05/31/20 08:00 06/02/20 08:00 DC 06/02/20 08:34 Dextrose/Sodium Chloride 1,000 ml @ 100 mls/hr Q10H IV 05/27/20 17:45 8/24/20 10:39 DC 05/28/20 14:55 Digoxin (Lanoxin) 0.125 mg DAILY PO 05/29/20 09:00 06/02/20 14:14 DC 06/02/20 09:23 Enoxaparin Sodium (Lovenox) 40 mg DAILY SC 05/27/20 09:00 05/29/20 10:42 DC 05/29/20 09:45 Furosemide (Lasix) 10 mg DAILY PO 06/01/20 09:00 06/02/20 07:23 DC 06/01/20 15:36 Furosemide (Lasix) 20 mg DAILY PO 06/02/20 09:00 06/02/20 14:14 DC 06/02/20 09:23 Home Med (Med Rec Complete!) ASDIRECTED XX 05/26/20 12:15 05/26/20 12:15 DC Hydralazine HCl (Apresoline) 10 mg Q6HP PRN IV SBP >160 DBp>100 05/26/20 21:00 05/30/20 14:49 DC 05/29/20 08:23 Iron 200 mg/ Sodium Chloride 110 ml @ 110 mls/hr DAILY@1000 IV 05/31/20 10:00 06/01/20 10:59 DC 06/01/20 10:23 Levothyroxine Sodium (Synthroid) 25 mcg DAILY@06 PO 05/30/20 06:00 06/02/20 14:14 DC 06/02/20 06:17 Metoprolol Tartrate (Lopressor) 5 mg Q6H IV 05/28/20 18:00 05/29/20 10:39 DC 05/29/20 05:21 Metoprolol Tartrate (Lopressor) 25 mg BID PO 05/29/20 21:00 06/02/20 14:14 DC 06/02/20 09:22 Mirtazapine (Remeron) 15 mg QHS PO 05/29/20 21:00 06/02/20 14:14 DC 06/01/20 20:03 Omeprazole (PriLOSEC) 20 mg DAILY PO 05/29/20 09:00 06/02/20 14:14 DC 06/02/20 09:22 Omeprazole (PriLOSEC) 40 mg DAILY PO 05/29/20 09:00 05/29/20 11:02 DC Piperacillin Sod/ Tazobactam Sod 3.375 gm/Dextrose 50 ml @ 50 mls/hr Q6H IV 05/28/20 09:00 05/31/20 07:57 DC 05/31/20 02:36 Potassium Chloride 10 meq/ IV Miscellaneous Supplies 100 ml @ 100 mls/hr Q1H IV 05/29/20 08:00 05/29/20 10:59 DC 05/29/20 13:51 Sodium Chloride 1,000 ml @ 100 mls/hr Q10H IV 05/26/20 14:07 05/27/20 17:35 DC 05/27/20 08:28 Sodium Chloride 1,000 ml @ 150 mls/hr Q6H40M IV 05/26/20 10:30 05/26/20 14:08 DC 05/26/20 11:33 Brittany Tillman MD Jun 02, 2020 15:17
--- NOTE | 2020-06-15 10:15 | ECGEPIP ---
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
--- NOTE | 2020-06-22 13:54 | ECGEPIP ---
[facility] Test Date: 2020-05-27 Pat Name: TREVOR HERNÁNDEZ Department: Room: [place] [address] Gender: Female Copy Coordinator: NARCISO BENITOB: 1935 Requested By: KIN Sandhu Order Number: [id number] Reading MD: Sukh Min Measurements Intervals [place] Rate: 87 P: ME: 0 QRS: -24 QRSD: 98 T: -48 QT: 368 QTc: 444 Interpretive Statements ATRIAL FIBRILLATION BORDERLINE LEFT AXIS DEVIATION ST DEVIATION AND MODERATE T-WAVE ABNORMALITY, CONSIDER ANTEROLATERAL ISCHEMIA ABNORMAL ECG SEE SCANNED DOWNTIME REPORT
--- NOTE | 2020-06-30 07:12 | REP ---
CT OF THE CHEST WITHOUT CONTRAST: HISTORY: Fever. Suspected aspiration pneumonia. COMPARISON: Chest x-ray from 05/26/20. FINDINGS: Preliminary [employer] radiograph demonstrates cardiomyopathy and bipolar pacemaker. There are very small bilateral pleural effusions. A small quantity of pericardial effusion is present. No focal infiltrate is seen in the lung [place]. No pulmonary mass lesion or significant pulmonary nodule is appreciated. There are scattered normal size mediastinal and axillary lymph nodes. There is mild wedging of one of the mid-thoracic vertebrae. This is unchanged from a comparison lateral chest view of 06/22/19. No acute bony abnormality is appreciated. Normal adrenal glands are seen. The visualized upper abdominal structures are unremarkable. IMPRESSION: Cardiomegaly with pacemaker. Very small bilateral pleural effusions and small pericardial effusion. No infiltrate. MTDD
== END 2020-06-02 13:51 | DRG 71 ==
LOC: EDBD 09:59 → M ED 09:59 → M ED INP 13:55 → ENRESERV 17:47 → M PCU 20:50 → M MSPAV 06-02 09:02
PROVIDERS: ADMIT Internal Medicine; ATTEND Internal Medicine
DX: G93.41 Metabolic encephalopathy (principal); I16.1 Hypertensive emergency; N39.0 Urinary tract infection, site not specified; I47.2 Ventricular tachycardia; J90 Pleural effusion, not elsewhere classified; I31.3 Pericardial effusion (noninflammatory); F03.90 Unspecified dementia, unspecified severity, without behavioral disturbance, psychotic disturbance, mood disturbance, and anxiety; E11.9 Type 2 diabetes mellitus without complications; I10 Essential (primary) hypertension; E78.5 Hyperlipidemia, unspecified; R13.10 Dysphagia, unspecified; Z66 Do not resuscitate; R50.9 Fever, unspecified; E03.9 Hypothyroidism, unspecified; I48.91 Unspecified atrial fibrillation; H91.93 Unspecified hearing loss, bilateral; Z79.84 Long term (current) use of oral hypoglycemic drugs; Z79.01 Long term (current) use of anticoagulants; Z79.899 Other long term (current) drug therapy

== ENCOUNTER → 2020-06-05 | Outpatient (REF) ==
[~2020-06-05] MED LIST changes: +ACE65ERTAB PO; +AMLO1TAB24 PO; +FURO20TA2 PO; +METO1TAB87 PO
== END ==
LOC: SKLAB6 07:50
DX: Z51.81 Encounter for therapeutic drug level monitoring (principal)

== ENCOUNTER → 2020-06-08 | Outpatient (REF) | payer OTHER, MEDICARE | LOC: SKLAB6 07:00 | DX: R70.0 Elevated erythrocyte sedimentation rate (principal) ==

== ENCOUNTER → 2020-06-08 | Outpatient (REF) | payer OTHER, MEDICARE ==
[2020-06-08 16:27] LABS: C REACTIVE PROTEIN QUANTITATIV 2.11 MG/DL (0.00-0.30); TOTAL PROTEIN 7.7 GM/DL (6.4-8.2)
[2020-06-10 16:07] LABS: ANTINUCLEAR ANTIBODIES DIRECT Negative (Negative)
[2020-06-13 12:27] LABS: ALBUMIN 3.64 GM/DL (3.29-5.55); ALBUMIN % 47.3 % (55.8-66.1); ALPHA-1-GLOBULIN % 6.1 % (2.9-4.9); ALPHA-1-GLOBULINS 0.47 GM/DL (0.17-0.41); ALPHA-2-GLOBULINS 1.12 GM/DL (0.42-0.99); ALPHA-2-GLOBULINS % 14.5 % (7.1-11.8); BETA-1-GLOBULINS 0.41 GM/DL (0.28-0.60); BETA-1-GLOBULINS % 5.3 % (4.7-7.2); BETA-2-GLOBULINS 0.34 GM/DL (0.19-0.55); BETA-2-GLOBULINS % 4.4 % (3.2-6.5)
[2020-06-13 12:28] LABS: GAMMA GLOBULIN % 22.4 % (11.1-18.8); GAMMA GLOBULINS 1.72 GM/DL (0.65-1.58)
== END ==
LOC: SKLAB6 07:00
DX: R70.0 Elevated erythrocyte sedimentation rate (principal)

== ENCOUNTER → 2020-06-13 | Outpatient (REF) | payer OTHER, MEDICARE ==
[2020-06-13 14:18] LABS: VITAMIN B12 LEVEL 253 PG/ML (247-911)
== END ==
LOC: SKLAB6 10:50
DX: F03.90 Unspecified dementia, unspecified severity, without behavioral disturbance, psychotic disturbance, mood disturbance, and anxiety (principal); E53.8 Deficiency of other specified B group vitamins

== ENCOUNTER → 2020-06-19 | Outpatient (REF) | payer OTHER, MEDICARE ==
[2020-06-19 09:53] LABS: ALBUMIN 3.1 GM/DL (3.2-5.2); ALT/SGPT 16 U/L (12-78); BILIRUBIN,TOTAL 0.2 MG/DL (0.2-1.0); BLOOD UREA NITROGEN 28 MG/DL (7-18); CALCIUM LEVEL 9.4 MG/DL (8.8-10.2); CARBON DIOXIDE LEVEL 25 MEQ/L (21-32); CHLORIDE LEVEL 102 MEQ/L (98-107); CHOLESTEROL LEVEL 183 MG/DL (< 200); CPK CREATINE PHOSPHOKINASE 27 U/L (26-192); CREATININE FOR GFR 0.94 MG/DL (0.55-1.30); GLUCOSE, FASTING 84 MG/DL (70-100); LDH LACTATE DEHYDROGENASE 172 U/L (84-246); PHOSPHORUS LEVEL 4.6 MG/DL (2.5-4.9); POTASSIUM SERUM 4.9 MEQ/L (3.5-5.1); SODIUM LEVEL 135 MEQ/L (136-145); TOTAL PROTEIN 7.5 GM/DL (6.4-8.2); TRIGLYCERIDES LEVEL 113 MG/DL (<150)
[2020-06-19 10:14] LABS: HEPATITIS B SURFACE ANTIGEN NEGATIVE (NEGATIVE)
[2020-06-19 10:41] LABS: HEPATITIS C VIRUS ABY INDEX 0.2 INDEX (<0.8)
[2020-06-19 10:44] LABS: HEPATITIS A ANTIBODY IGM NEGATIVE (NEGATIVE)
[2020-06-19 11:25] LABS: HEPATITIS B CORE ANTIBODY IGM POSITIVE (NEGATIVE)
[2020-06-20 13:15] LABS: ALBUMIN 3.59 GM/DL (3.29-5.55); ALBUMIN % 47.8 % (55.8-66.1); ALPHA-1-GLOBULIN % 5.7 % (2.9-4.9); ALPHA-1-GLOBULINS 0.43 GM/DL (0.17-0.41); ALPHA-2-GLOBULINS 1.13 GM/DL (0.42-0.99); BETA-1-GLOBULINS 0.38 GM/DL (0.28-0.60); BETA-1-GLOBULINS % 5.1 % (4.7-7.2); BETA-2-GLOBULINS 0.35 GM/DL (0.19-0.55); BETA-2-GLOBULINS % 4.6 % (3.2-6.5); GAMMA GLOBULIN % 21.8 % (11.1-18.8); GAMMA GLOBULINS 1.64 GM/DL (0.65-1.58)
--- NOTE | 2020-07-07 09:41 | REP ---
BILATERAL HAND SERIES: 4-VIEWS HISTORY: Increased CCP. FINDINGS: AP and lateral views of each hand demonstrate advanced diffuse osteoporosis. There are erosive arthritic changes involving the carpometacarpal and intercarpal joints moderate in degree. There is some associated soft tissue swelling about the carpus. No fracture is seen. No other erosive changes are appreciated. IMPRESSION: Erosive arthropathy involving the wrists bilaterally moderate in degree. There are osteoarthritic changes of some of the distal interphalangeal (DIP) joints and interphalangeal (IP) joints. There is advanced diffuse osteopenia. MTDD
--- NOTE | 2020-07-07 09:42 | REP ---
SKULL SERIES: 5-VIEWS HISTORY: Increased CCP. FINDINGS: Five views of the calvarium demonstrate no bony destructive lesion or fracture. The maxilla is edentulous. Paranasal sinuses are clear. Orbital margins are intact. IMPRESSION: Negative skull radiographs. MTDD
--- NOTE | 2020-07-07 09:43 | REP ---
AP PELVIS: SINGLE VIEW HISTORY: Increased CCP. FINDINGS: Bony pelvic ring is intact. No fracture or bony destructive lesion is seen. There are mild osteoarthritic changes of the hips bilaterally. Vascular calcification is noted in the pelvis. The bowel gas pattern is unremarkable. IMPRESSION: No acute abnormality. MTDD
== END ==
LOC: SKLAB6 07:00
DX: M12.9 Arthropathy, unspecified (principal); E78.5 Hyperlipidemia, unspecified

== ENCOUNTER → 2020-06-19 | Outpatient (CLI) | payer OTHER | LOC: M RAD 12:27 | DX: Z53.9 Procedure and treatment not carried out, unspecified reason (principal) ==

== ENCOUNTER → 2020-06-29 | Outpatient (REF) | payer OTHER ==
[2020-06-29 10:37] LABS: BASO % 0.2 % (0.0-1.0); EOS # 0.3 10^3/uL (0.0-0.5); EOS % 4.5 % (0.0-3.0); HEMOGLOBIN 8.5 g/dl (12.0-15.5); LYMPH # 0.6 10^3/uL (1.5-5.0); LYMPH % 10.3 % (24.0-44.0); MEAN CORPUSCULAR HEMOGLOBIN 26.7 pg (27.0-33.0); MEAN CORPUSCULAR HGB CONC 31.5 g/dl (32.0-36.5); MEAN CORPUSCULAR VOLUME 84.9 fl (80.0-96.0); MONO # 0.4 10^3/uL (0.0-0.8); MONO % 7.3 % (0.0-5.0); NEUTROPHILS # 4.6 10^3/uL (1.5-8.5); PLATELET COUNT, AUTOMATED 278 10^3/uL (150-450); RED BLOOD COUNT 3.18 10^6/uL (4.00-5.40)
[2020-06-29 11:25] LABS: ERYTHROCYTE SEDIMENTATION RATE 80 mm/hr (0-30)
== END ==
LOC: SKLAB6 07:00
DX: R70.0 Elevated erythrocyte sedimentation rate (principal)

== ENCOUNTER → 2020-07-02 | Outpatient (REF) | payer OTHER | LOC: SKLAB6 05:15 | DX: K31.89 Other diseases of stomach and duodenum (principal) ==

== ENCOUNTER → 2020-07-02 | Outpatient (REF) | payer OTHER | LOC: SKLAB6 11:31 | DX: K31.9 Disease of stomach and duodenum, unspecified (principal) ==

== ENCOUNTER → 2020-07-13 | Outpatient (REF) | payer OTHER ==
[2020-07-13 09:29] LABS: THYROID STIMULATING HORMONE 4.88 uIU/ML (0.358-3.740)
[2020-07-13 10:36] LABS: HEMOGLOBIN A1c 5.9 %
== END ==
LOC: SKLAB6 07:00
DX: D64.9 Anemia, unspecified (principal); E11.9 Type 2 diabetes mellitus without complications

== ENCOUNTER → 2020-08-01 | Outpatient (REF) | payer OTHER, MEDICARE ==
[2020-08-01 08:21] LABS: BASO % 0.2 % (0.0-1.0); EOS # 0.3 10^3/uL (0.0-0.5); HEMATOCRIT 26.6 % (36.0-47.0); HEMOGLOBIN 8.3 g/dl (12.0-15.5); LYMPH # 1.2 10^3/uL (1.5-5.0); LYMPH % 18.2 % (24.0-44.0); MEAN CORPUSCULAR HEMOGLOBIN 27.8 pg (27.0-33.0); MEAN CORPUSCULAR HGB CONC 31.2 g/dl (32.0-36.5); MONO # 0.6 10^3/uL (0.0-0.8); MONO % 8.6 % (0.0-5.0); NEUTROPHILS # 4.4 10^3/uL (1.5-8.5); NEUTROPHILS % 67.6 % (36.0-66.0); PLATELET COUNT, AUTOMATED 295 10^3/uL (150-450); RED BLOOD COUNT 2.99 10^6/uL (4.00-5.40); WHITE BLOOD COUNT 6.5 10^3/uL (4.0-10.0)
[2020-08-01 08:47] LABS: ERYTHROCYTE SEDIMENTATION RATE 89 mm/hr (0-30)
[2020-08-01 08:49] LABS: ALBUMIN 3.4 GM/DL (3.2-5.2); ALT/SGPT 65 U/L (12-78); BILIRUBIN,TOTAL 0.2 MG/DL (0.2-1.0); BLOOD UREA NITROGEN 36 MG/DL (7-18); CALCIUM LEVEL 9.1 MG/DL (8.8-10.2); CARBON DIOXIDE LEVEL 26 MEQ/L (21-32); CHLORIDE LEVEL 104 MEQ/L (98-107); CHOLESTEROL LEVEL 139 MG/DL (< 200); CPK CREATINE PHOSPHOKINASE 41 U/L (26-192); CREATININE FOR GFR 1.18 MG/DL (0.55-1.30); GLOMERULAR FILTRATION RATE 46.1 (>32); GLUCOSE, FASTING 87 MG/DL (70-100); LDH LACTATE DEHYDROGENASE 198 U/L (84-246); PHOSPHORUS LEVEL 4.9 MG/DL (2.5-4.9); POTASSIUM SERUM 4.7 MEQ/L (3.5-5.1); SODIUM LEVEL 138 MEQ/L (136-145); TOTAL PROTEIN 7.8 GM/DL (6.4-8.2); TRIGLYCERIDES LEVEL 63 MG/DL (<150)
[2020-08-01 11:32] LABS: HEPATITIS B SURFACE ANTIGEN NEGATIVE (NEGATIVE)
[2020-08-01 12:00] LABS: HEP C VIRUS AB INDEX SOURCE PT 0.1 INDEX (0.0-0.8)
[2020-08-01 12:19] LABS: HIV SCREEN CENTAUR SOURCE NEGATIVE (NEGATIVE)
== END ==
LOC: SKLAB6 07:00
DX: D64.9 Anemia, unspecified (principal); Z11.4 Encounter for screening for human immunodeficiency virus [HIV]; Z79.899 Other long term (current) drug therapy

== ENCOUNTER → 2020-08-23 | Outpatient (REF) | payer MEDICARE, OTHER ==
[~2020-08-23] MED LIST changes: +ACET1TAB55 PO; +B-12100010 PO; +BENA25CA4 PO; +BISA10SU4 PR; +DOK1CAP7 PO; +ENEMENE PR; +FERR325T18 PO; +FOLI1TAB11 PO; +LEVO50TA5 PO; +LISI10TA22 PO; +METH2.5T48 PO; +METO50TA7 PO; +MOM30SS PO; +MYLASSUD PO; +PERCOCET PO; +SENN18TA PO; +SERT25TA21 PO; +THERTAB20 PO
== END ==
LOC: SKLAB6 08-22 12:50 → EDSTATUS 09-27 11:55
DX: Z20.828 Contact with and (suspected) exposure to other viral communicable diseases (principal)

== ENCOUNTER → 2020-08-30 | Outpatient (REF) | payer MEDICARE, OTHER | LOC: SKLAB6 08:00 | PROVIDERS: ATTEND Internal Medicine | DX: Z20.828 Contact with and (suspected) exposure to other viral communicable diseases (principal) ==

== ENCOUNTER → 2020-09-06 | Outpatient (REF) | payer MEDICARE, OTHER ==
[2020-09-06 16:03] LABS: INFLUENZA A AMPLIFICATION NEGATIVE (NEGATIVE); INFLUENZA B AMPLIFICATION NEGATIVE (NEGATIVE)
== END ==
LOC: SKLAB6 08:00
PROVIDERS: ATTEND Internal Medicine
DX: Z20.828 Contact with and (suspected) exposure to other viral communicable diseases (principal)
CPT/HCPCS: 87502; U0003

== ENCOUNTER → 2020-09-13 | Outpatient (REF) | payer MEDICARE, OTHER ==
[~2020-09-13] MED LIST changes: -ACET1TAB55 PO; -B-12100010 PO; -BENA25CA4 PO; -BISA10SU4 PR; -DOK1CAP7 PO; -ENEMENE PR; -FERR325T18 PO; -FOLI1TAB11 PO; -LEVO50TA5 PO; -LISI10TA22 PO; -METH2.5T48 PO; -METO50TA7 PO; -MOM30SS PO; -MYLASSUD PO; -PERCOCET PO; -SENN18TA PO; -SERT25TA21 PO; -THERTAB20 PO
== END ==
LOC: SKLAB6 10:00
DX: Z20.828 Contact with and (suspected) exposure to other viral communicable diseases (principal)

== ENCOUNTER → 2020-09-14 | Outpatient (REF) | payer MEDICARE, OTHER ==
[2020-09-14 09:08] LABS: HEMATOCRIT 29.8 % (36.0-47.0); HEMOGLOBIN 9.3 g/dl (12.0-15.5); MEAN CORPUSCULAR HEMOGLOBIN 29.3 pg (27.0-33.0); MEAN CORPUSCULAR HGB CONC 31.2 g/dl (32.0-36.5); PLATELET COUNT, AUTOMATED 246 10^3/uL (150-450); RED BLOOD COUNT 3.17 10^6/uL (4.00-5.40); WHITE BLOOD COUNT 4.9 10^3/uL (4.0-10.0)
== END ==
LOC: SKLAB6 07:00
DX: I48.91 Unspecified atrial fibrillation (principal)

== ENCOUNTER → 2020-09-20 | Outpatient (REF) | payer MEDICARE, OTHER ==
[2020-09-20 11:59] LABS: INFLUENZA A AMPLIFICATION NEGATIVE (NEGATIVE); INFLUENZA B AMPLIFICATION NEGATIVE (NEGATIVE)
== END ==
LOC: SKLAB6 12:22
DX: Z20.828 Contact with and (suspected) exposure to other viral communicable diseases (principal)
CPT/HCPCS: 87502; U0003

== ENCOUNTER → 2020-09-27 | Outpatient (REF) | payer MEDICARE, OTHER | LOC: SKLAB6 09:00 | DX: Z20.828 Contact with and (suspected) exposure to other viral communicable diseases (principal) ==

== ENCOUNTER → 2020-10-04 | Outpatient (REF) | payer MEDICARE, OTHER | LOC: SKLAB6 10:00 | DX: Z20.828 Contact with and (suspected) exposure to other viral communicable diseases (principal) ==

== ENCOUNTER → 2020-10-11 | Outpatient (REF) | payer MEDICARE, OTHER | LOC: SKLAB6 10:00 | PROVIDERS: ATTEND Internal Medicine | DX: Z11.52 Encounter for screening for COVID-19 (principal) ==

== ENCOUNTER → 2020-10-18 | Outpatient (REF) | payer MEDICARE, OTHER | LOC: SKLAB6 10:00 | PROVIDERS: ATTEND Internal Medicine | DX: Z20.822 Contact with and (suspected) exposure to COVID-19 (principal) ==

== ENCOUNTER → 2020-10-19 | Outpatient (REF) | payer MEDICARE, OTHER ==
[2020-10-19 08:06] LABS: HEMATOCRIT 29.8 % (36.0-47.0); HEMOGLOBIN 9.2 g/dl (12.0-15.5); MEAN CORPUSCULAR HEMOGLOBIN 29.2 pg (27.0-33.0); MEAN CORPUSCULAR HGB CONC 30.9 g/dl (32.0-36.5); MEAN CORPUSCULAR VOLUME 94.6 fl (80.0-96.0); PLATELET COUNT, AUTOMATED 206 10^3/uL (150-450); RED BLOOD COUNT 3.15 10^6/uL (4.00-5.40)
[2020-10-19 08:37] LABS: ALBUMIN 3.6 GM/DL (3.2-5.2); ALT/SGPT 27 U/L (12-78); BILIRUBIN,DIRECT < 0.1 MG/DL (0.0-0.2); BILIRUBIN,TOTAL 0.3 MG/DL (0.2-1.0); BLOOD UREA NITROGEN 23 MG/DL (7-18); CALCIUM LEVEL 8.8 MG/DL (8.8-10.2); CARBON DIOXIDE LEVEL 26 MEQ/L (21-32); CHLORIDE LEVEL 106 MEQ/L (98-107); CREATININE FOR GFR 1.01 MG/DL (0.55-1.30); GLOMERULAR FILTRATION RATE 55.2 (>32); GLUCOSE, FASTING 98 MG/DL (70-100); IRON (FE) 67 UG/DL (50-170); POTASSIUM SERUM 4.4 MEQ/L (3.5-5.1); SODIUM LEVEL 138 MEQ/L (136-145); THYROXINE (T4) 8.9 UG/DL (4.5-12.0); TOTAL PROTEIN 7.4 GM/DL (6.4-8.2)
== END ==
LOC: SKLAB6 07:00
DX: D64.9 Anemia, unspecified (principal)

== ENCOUNTER → 2020-10-25 | Outpatient (REF) | payer MEDICARE, OTHER ==
[~2020-10-25] MED LIST changes: +ACET1TAB55 PO; +B-12100010 PO; +BENA25CA4 PO; +BISA10SU4 PR; +DOK1CAP7 PO; +ENEMENE PR; +FERR325T18 PO; +FOLI1TAB11 PO; +LEVO50TA5 PO; +LISI10TA22 PO; +METH2.5T48 PO; +METO50TA7 PO; +MOM30SS PO; +MYLASSUD PO; +PERCOCET PO; +SENN18TA PO; +SERT25TA21 PO; +THERTAB20 PO
== END ==
LOC: SKLAB6 09:00
PROVIDERS: ATTEND Internal Medicine
DX: Z20.822 Contact with and (suspected) exposure to COVID-19 (principal)

== ENCOUNTER 2020-10-27 22:49 | Inpatient (IN) | payer MEDICARE, OTHER ==
[~2020-10-27] VITALS: Ht 157.5 cm; Wt 65.7 kg
[~2020-10-27 22:49] MED LIST changes: -ACET1TAB55 PO; -B-12100010 PO; -BENA25CA4 PO; -BISA10SU4 PR; -DOK1CAP7 PO; -ENEMENE PR; -FERR325T18 PO; -FOLI1TAB11 PO; -LEVO50TA5 PO; -LISI10TA22 PO; -METH2.5T48 PO; -METO50TA7 PO; -MOM30SS PO; -MYLASSUD PO; -PERCOCET PO; -SENN18TA PO; -SERT25TA21 PO; -THERTAB20 PO
--- NOTE | 2020-10-27 23:33 | REPVR ---
PROCEDURE INFORMATION: Exam: XR Right Shoulder Exam date and time: 10/27/2020 10:57 PM Age: 85 years old Clinical indication: Pain; Shoulder; Right; Additional info: Trauma TECHNIQUE: Imaging protocol: XR Right shoulder. Views: 2 or more views. COMPARISON: No relevant prior studies available. FINDINGS: Bones/joints: Fracture of the right humeral neck with moderate displacement of the distal fragment and mild angulation. Degenerative remodeling of the humeral head. Osteopenia. Soft tissues: Subcutaneous edema about the shoulder. IMPRESSION: 1. Displaced and angulated fracture of the right humeral neck. 2. Subcutaneous edema about the shoulder. 3. Osteopenia. Electronically signed by: Royal Recinos On 10/27/2020 23:33:38 PM
--- NOTE | 2020-10-27 23:36 | REPVR ---
PROCEDURE INFORMATION: Exam: XR Right Elbow Exam date and time: 10/27/2020 11:05 PM Age: 85 years old Clinical indication: Pain; Elbow; Right; Additional info: Trauma TECHNIQUE: Imaging protocol: XR Right elbow. Views: 3 or more views. COMPARISON: No relevant prior studies available. FINDINGS: Bones/joints: Osteopenia. No gross fracture. Suboptimally projected lateral view with question of joint effusion. Soft tissues: Normal. IMPRESSION: 1. Osteopenia. 2. Suboptimally projected lateral view with question of joint effusion. 3. No corresponding fracture is identified. Electronically signed by: Royal Recinos On 10/27/2020 23:35:42 PM
--- NOTE | 2020-10-28 00:22 | REPVR ---
PROCEDURE INFORMATION: Exam: XR Bilateral Hips with Pelvis when Performed Exam date and time: 10/27/2020 12:08 AM Age: 85 years old Clinical indication: Injury or trauma; Fall; Sprain or strain; Right; Hip; Additional info: Pain TECHNIQUE: Imaging protocol: XR bilateral hips with pelvis when performed. Views: 2 views. COMPARISON: CT ABD PELVIS W/O CONTRAST 05/26/2020 10:28 AM FINDINGS: Bones/joints: Lower lumbar levoscoliosis. Degenerative lumbar interspace narrowing and spurring. Fracture of the right femoral neck with cephalad migration of the distal fragment. The bony ring of the pelvis is intact. Early degenerative changes are noted in the left hip joint. Soft tissues: Unremarkable. IMPRESSION: 1. Fracture of the right femoral neck with cephalad migration of the distal fragment. 2. Early degenerative change in an otherwise negative left hip. 3. Lower lumbar degenerative disc changes with spurring. Electronically signed by: Royal Recinos On 10/28/2020 00:22:24 AM
[2020-10-28 01:03] LABS: BASO % 0.2 % (0.0-1.0); EOS % 0.3 % (0.0-3.0); HEMATOCRIT 26.1 % (36.0-47.0); HEMOGLOBIN 8.5 g/dl (12.0-15.5); LYMPH # 0.9 10^3/uL (1.5-5.0); LYMPH % 6.6 % (24.0-44.0); MEAN CORPUSCULAR HEMOGLOBIN 30.2 pg (27.0-33.0); MEAN CORPUSCULAR HGB CONC 32.6 g/dl (32.0-36.5); MEAN CORPUSCULAR VOLUME 92.9 fl (80.0-96.0); MONO # 0.9 10^3/uL (0.0-0.8); MONO % 6.6 % (0.0-5.0); NEUTROPHILS # 11.2 10^3/uL (1.5-8.5); NEUTROPHILS % 85.6 % (36.0-66.0); PLATELET COUNT, AUTOMATED 210 10^3/uL (150-450); RED BLOOD COUNT 2.81 10^6/uL (4.00-5.40); WHITE BLOOD COUNT 13.1 10^3/uL (4.0-10.0)
[2020-10-28 01:14] LABS: INR 1.31; PROTHROMBIN TIME 16.6 SECONDS (12.5-14.3)
[2020-10-28 01:27] LABS: BLOOD UREA NITROGEN 33 MG/DL (7-18); CALCIUM LEVEL 9.1 MG/DL (8.8-10.2); CARBON DIOXIDE LEVEL 24 MEQ/L (21-32); CHLORIDE LEVEL 104 MEQ/L (98-107); CREATININE FOR GFR 1.12 MG/DL (0.55-1.30); GLUCOSE, FASTING 179 MG/DL (70-100); POTASSIUM SERUM 4.7 MEQ/L (3.5-5.1); SODIUM LEVEL 137 MEQ/L (136-145)
--- NOTE | 2020-10-28 01:44 | HPEPDOC ---
[facility] Medical History & Physical Date of Admission Oct 28, 2020 Date of Service: Oct 28, 2020 Attending Physician: AMAURI CAI MD History and Physical TIME OF SERVICE: 145am CHIEF COMPLAINT: fall HISTORY OF PRESENT ILLNESS: This 85 yr old F tripped and fell while walking [place]. She denies feeling dizzy, having dyspnea, having chest pain, n/v/d or any other acute c/o prior to the fall. She has a fx of her humerus and femur; discussed the case with . REVIEW OF SYSTEMS: 12-point review of systems negative except as listed in HPI PAST MEDICAL/ SURGICAL HISTORY: NIDDM2 Osteopenia Afib Severe Pulm HTN Severe TR Hx of Microcytic anemia Advanced Dementia Hearing loss DLP Cholecystectomy Pacemaker SOCIAL HISTORY: Lives with Former smoker 30 pack yr habit FAMILY HISTORY: Bowel & pancreatic Cancer ALLERGIES: Please see below. HOME MEDICATIONS: Please see below. PHYSICAL EXAMINATION: Vital Signs Date Time Temp Pulse Resp B/P (MAP) Pulse Ox O2 Delivery O2 Flow Rate FiO2 10/27/20 23:01 158/70 (99) 10/27/20 23:04 77 100 10/27/20 23:06 98.5 24 Room Air GENERAL APPEARANCE: well nourished /appears to be in pain HEENT: EOMI / MMM&P /has hearing aide CARDIOVASCULAR: RRR/NMRG LUNGS: CTAB on RA ABDOMEN: soft & NT MUSCULOSKELETAL: not moving right arm and right leg PSYCHIATRIC: alert LABORATORY DATA: Laboratory Tests 10/28/20 00:46 Immature Granulocyte % (Auto) 0.7, Neutrophils (%) (Auto) 85.6H, Lymphocytes (%) (Auto) 6.6L, Monocytes (%) (Auto) 6.6H, Eosinophils (%) (Auto) 0.3, Basophils (%) (Auto) 0.2, Neutrophils # (Auto) 11.2H, Lymphocytes # (Auto) 0.9L, Monocytes # (Auto) 0.9H, Eosinophils # (Auto) 0.0, Basophils # (Auto) 0.0, Nucleated Red Blood Cells % (auto) 0.0, Prothrombin Time 16.6H, Prothromb Time International Ratio 1.31, Anion Gap 9, Glomerular Filtration Rate 49.0, Calcium Level 9.1 IMAGING: Shoulder xray IMPRESSION: 1. Displaced and angulated fracture of the right humeral neck. 2. Subcutaneous edema about the shoulder. 3. Osteopenia. Right elbow fx IMPRESSION: 1. Osteopenia. 2. Suboptimally projected lateral view with question of joint effusion. 3. No corresponding fracture is identified. Xray hips IMPRESSION: 1. Fracture of the right femoral neck with cephalad migration of the distal fragment. 2. Early degenerative change in an otherwise negative left hip. 3. Lower lumbar degenerative disc changes with spurring. MICROBIOLOGY: see below ASSESSMENT: is an 85 yr old with osteopenia, hearing loss, A fib and cognitive impairment that is admitted for management of right humerus and femur fractures. PLAN: 1 Right humerus and femur fractures 2/2 osteoporosis Plan: admit to medical floor / NPO pending ortho eval / Dilaudid for pain / f/u with PCP for work up for osteoporosis on an outpatient basis 2. Perioperative eval Plan: She has a hx of severe pulmonary HTN & TR and her last Echo was in 2010 therefore she should get another Echo, whos results should be shared with Anesthesia prior to proceeding with surgery / She is on a Eliquis at home which we will hold for now /the day time team may consider consulting Cardio for assistance with perioperative clearance 3. SIRS Likely reactive Plan: f/u lactic acid & monitor vitals 4. NIDDM2 Plan: diabetic diet / f/u accuchecks / hypoglycemia protocol / sliding scale insulin / hold oral anti-glycemic / f/u A1C 5. Afib CHADSVASC is 3 Plan: metoprolol 6. Hypothyroidism Plan; levothyroxine 7. Dementia / Hearing loss Plan: HPOA is her daughter 8.Chronic MTX use Plan: the day time team may consider contacting the patient's PCP for additional hx, but this med doesn't need to be held prior to surgery DVT Px SCDs Dispo: home after more than 2 midnights stay Home Medications Scheduled Acetaminophen (Acetaminophen) 500 Mg Tablet, 500 MG PO BID MORNING AND AT NIGHT Acetaminophen (Acetaminophen ER) 650 Mg Tablet.er, 650 MG PO DAILY TAKES AT NOON Apixaban (Eliquis) 2.5 Mg Tablet, 2.5 MG PO BID Aripiprazole (Aripiprazole) 2 Mg Tablet, 2 MG PO QHS Ascorbate Calcium (Vitamin C) 500 Mg Tablet, 500 MG PO BID Cyanocobalamin (Vitamin B-12) (Vitamin B-12) 1,000 Mcg Capsule, 1,000 MCG PO DAILY Ferrous Sulfate (Iron) 325 Mg Tablet, 325 MG PO DAILY Folic Acid (Folic Acid) 1 Mg Tablet, 5 MG PO QWEEK friday Levothyroxine Sodium (Levothyroxine Sodium) 50 Mcg Tablet, 50 MCG PO QAM Methotrexate Sodium (Methotrexate) 2.5 Mg Tablet, 7.5 MG PO QWEEK FRIDAY Metoprolol Tartrate (Metoprolol Tartrate) 50 Mg Tablet, 50 MG PO BID Multivit,Calc,Mins/Iron/Folic (Thera-M Tablet) 1 Each Tablet, 1 TAB PO DAILY Sertraline HCl (Sertraline HCl) 25 Mg Tablet, 25 MG PO DAILY Scheduled PRN Bisacodyl (Bisacodyl) 10 Mg Supp.rect, 10 MG CA DAILY PRN for CONSTIPATION Diphenhydramine HCl (Benadryl) 25 Mg Capsule, 25 MG PO DAILY PRN for allergic reaction Milk Of Magnesia (Milk of Magnesia) 2,400 Mg/10 Ml Oral.susp, 10 ML PO DAILY PRN for CONSTIPATION Sodium Phosphate,Davidson-Dibasic (Enema) 133 Ml Enema, 1 DANIELLA CA DAILY PRN for CONSTIPATION Allergies Coded Allergies: No Known Allergies (Unverified , 02/02/19) A-FIB/CHADSVASC A-FIB History Current/History of A-Fib/PAF?: No Current PO Anticoag Therapy: No AMAURI CAI MD Oct 28, 2020 01:44
[2020-10-28] MEDS ORDERED: HYDROMORPHONE HCL 0.5 MG/ 0.5 ML SYRINGE (J1170 PER 1) IV PRN (01:45)
[2020-10-28] MEDS ORDERED: MAALOX 30 ML SUSP *UDC PO PRN (01:45)
[2020-10-28] MEDS ORDERED: MOM 30ML SUSPENSION UDC PO PRN ×2 (01:45→03:45)
[2020-10-28] MEDS ORDERED: LR 1,000 ML IV SCH (01:45)
[2020-10-28 01:55] LABS: RSV AMPLIFICATION NEGATIVE (NEGATIVE)
[2020-10-28] MEDS ORDERED: GLUCOSE 4GM CHEW TABLET PO PRN (02:00)
[2020-10-28] MEDS ORDERED: GLUCAGON INJ 1MG VIAL SC PRN (02:00)
[2020-10-28] MEDS ORDERED: DEXTROSE 50% 50 ML SYRINGE IV PRN (02:00)
[2020-10-28] MEDS: HYDROMORPHONE HCL 0.5 MG/ 0.5 ML SYRINGE (J1170 PER 1) IV PRN ×4 (02:16→18:29)
[2020-10-28] MEDS ORDERED: METO50TA7 PO (02:28)
[2020-10-28] MEDS ORDERED: LEVO50TA5 PO (02:28)
[2020-10-28] MEDS ORDERED: THERTAB20 PO (02:28)
[2020-10-28] MEDS ORDERED: METH2.5T48 PO (02:35)
[2020-10-28] MEDS ORDERED: MOM30SS PO (02:35)
[2020-10-28] MEDS ORDERED: ENEMENE PR (02:35)
[2020-10-28] MEDS ORDERED: BISA10SU4 PR (02:35)
[2020-10-28] MEDS ORDERED: B-12100010 PO (02:35)
[2020-10-28] MEDS ORDERED: FOLI1TAB11 PO (02:35)
[2020-10-28] MEDS ORDERED: BENA25CA4 PO (02:35)
[2020-10-28] MEDS ORDERED: SERT25TA21 PO (02:35)
[2020-10-28 02:50] LABS: FERRITIN 142 NG/ML (8-252); IRON (FE) 38 UG/DL (50-170); NT-PRO BNP 2420 PG/ML (<450); PERCENT SATURATION 12.3 % (13.2-45.0); TOTAL IRON BINDING CAPACITY 308 UG/DL (250-450); TROPONIN I < 0.02 NG/ML (< 0.10)
[2020-10-28 03:03] VITALS: BP 145/76
[2020-10-28] MEDS: ARIPiprazole 2 MG TAB PO SCH ×2 (03:45→21:33)
[2020-10-28] MEDS ORDERED: BISACODYL 10 MG SUPP PR PRN (03:45)
[2020-10-28] MEDS ORDERED: ceFAZolin SOD 2 GM in IV 1 EA IV ONE (06:00)
--- NOTE | 2020-10-28 06:22 | ECGEPIP ---
[facility] Test Date: 2020-10-28 Pat Name: TREVOR HERNÁNDEZ Department: Room: - Gender: Female Mold Dumper: DIANDRA BENITOB: [id number] Requested By: AMAURI CAI Order Number: [id number] Reading MD: Trista Mueller Measurements Intervals [place] Rate: 98 P: ME: 0 QRS: -37 QRSD: 98 T: 30 QT: 392 QTc: 501 Interpretive Statements ATRIAL FIBRILLATION LEFT AXIS DEVIATION INCOMPLETE RIGHT BUNDLE BRANCH BLOCK ST DEPRESSION NOTED PRIOR//MARKED T WAVE ABN SEEN 05/27/20 IMPROVED Electronically Signed on 10-28-2020 6:22:14 EST by Trista Mueller
[2020-10-28] MEDS: LEVOTHYROXINE 50MCG TABLET (0.05MG) PO SCH (06:48)
[2020-10-28] MEDS: HumaLOG INSULIN (NovoLOG) PER UNIT SC SCH ×4 (07:30→20:52)
[2020-10-28 07:33] LABS: HEMATOCRIT 26.6 % (36.0-47.0); HEMOGLOBIN 8.5 g/dl (12.0-15.5); MEAN CORPUSCULAR HEMOGLOBIN 29.8 pg (27.0-33.0); MEAN CORPUSCULAR VOLUME 93.3 fl (80.0-96.0); PLATELET COUNT, AUTOMATED 183 10^3/uL (150-450); RED BLOOD COUNT 2.85 10^6/uL (4.00-5.40); WHITE BLOOD COUNT 9.1 10^3/uL (4.0-10.0)
[2020-10-28 08:03] LABS: BLOOD UREA NITROGEN 31 MG/DL (7-18); CALCIUM LEVEL 8.9 MG/DL (8.8-10.2); CARBON DIOXIDE LEVEL 24 MEQ/L (21-32); CHLORIDE LEVEL 103 MEQ/L (98-107); CREATININE FOR GFR 1.12 MG/DL (0.55-1.30); GLUCOSE, FASTING 159 MG/DL (70-100); POTASSIUM SERUM 4.9 MEQ/L (3.5-5.1); SODIUM LEVEL 136 MEQ/L (136-145); TROPONIN I < 0.02 NG/ML (< 0.10)
[2020-10-28] MEDS: FERROUS SULFATE 325MG TAB PO SCH (09:29)
[2020-10-28] MEDS: MULTIVITAMINS/MINERALS THERAP 1 TAB PO SCH (09:29)
[2020-10-28] MEDS: SERTRALINE HCL 25 MG TABLET PO SCH (09:30)
[2020-10-28] MEDS: METOPROLOL TART 50 MG TAB PO SCH ×2 (09:30→21:34)
[2020-10-28] MEDS: ENOXAPARIN 30MG/0.3ML SYRINGE (J1650 PER 10MG) SC SCH (09:30)
[2020-10-28] MEDS: CYANOCOBALAMIN 500 MCG TAB PO SCH (09:30)
[2020-10-28 14:00] VITALS: BP 133/64
[2020-10-28 22:00] VITALS: BP 133/67
[2020-10-29] VITALS (12 sets, daily range): BP systolic 110–150; BP diastolic 59–84
[2020-10-29] MEDS: LEVOTHYROXINE 50MCG TABLET (0.05MG) PO SCH (05:54)
[2020-10-29] MEDS: HYDROMORPHONE HCL 0.5 MG/ 0.5 ML SYRINGE (J1170 PER 1) IV PRN (05:55)
[2020-10-29 07:30] LABS: MEAN CORPUSCULAR HEMOGLOBIN 30.2 pg (27.0-33.0); MEAN CORPUSCULAR HGB CONC 32.5 g/dl (32.0-36.5); MEAN CORPUSCULAR VOLUME 92.9 fl (80.0-96.0); PLATELET COUNT, AUTOMATED 154 10^3/uL (150-450); RED BLOOD COUNT 2.12 10^6/uL (4.00-5.40); WHITE BLOOD COUNT 10.2 10^3/uL (4.0-10.0)
[2020-10-29 07:36] LABS: HEMATOCRIT 19.7 % (36.0-47.0); HEMOGLOBIN 6.4 g/dl (12.0-15.5)
[2020-10-29 07:58] LABS: BLOOD UREA NITROGEN 43 MG/DL (7-18); CALCIUM LEVEL 8.4 MG/DL (8.8-10.2); CARBON DIOXIDE LEVEL 23 MEQ/L (21-32); CHLORIDE LEVEL 101 MEQ/L (98-107); CREATININE FOR GFR 1.42 MG/DL (0.55-1.30); GLOMERULAR FILTRATION RATE 37.3 (>32); GLUCOSE, FASTING 173 MG/DL (70-100); POTASSIUM SERUM 4.6 MEQ/L (3.5-5.1); SODIUM LEVEL 134 MEQ/L (136-145); TROPONIN I < 0.02 NG/ML (< 0.10)
[2020-10-29] MEDS: CYANOCOBALAMIN 500 MCG TAB PO SCH (08:39)
[2020-10-29] MEDS: FERROUS SULFATE 325MG TAB PO SCH (08:39)
[2020-10-29] MEDS: METOPROLOL TART 50 MG TAB PO SCH ×2 (08:39→20:33)
[2020-10-29] MEDS: SERTRALINE HCL 25 MG TABLET PO SCH (08:39)
[2020-10-29] MEDS: HumaLOG INSULIN (NovoLOG) PER UNIT SC SCH ×4 (08:39→20:15)
[2020-10-29] MEDS: ENOXAPARIN 30MG/0.3ML SYRINGE (J1650 PER 10MG) SC SCH (08:39)
[2020-10-29] MEDS: MULTIVITAMINS/MINERALS THERAP 1 TAB PO SCH (08:39)
--- NOTE | 2020-10-29 08:58 | IPN ---
PROGRESS NOTE DATE: 10/29/2020 SUBJECTIVE: Danica is seen on [facility]. She was admitted with right humerus and femur fracture, will have surgery once she has safely passed her anticoagulation window from her Eliquis. She has a history of Type 2 diabetes, atrial fibrillation, severe pulmonary hypertension, hyperlipidemia, microcytic anemia and she has a pacemaker. PHYSICAL EXAMINATION: VITAL SIGNS: Blood pressure 142/68, pulse of 100, respiratory rate 18, 99% O2 saturation. GENERAL: Alert and conversant. LUNGS: Clear. HEART: Regular rate and rhythm. ABDOMEN: Soft and nontender. EXTREMITIES: Trace peripheral edema. LABORATORY DATA: White count is 10.2, hemoglobin 6.4, platelets 154,000. Sodium 134, potassium 4.5, BUN 43, creatinine 1.4, glucose 173. IMPRESSION: 1. Fall with fracture. Plan: Surgery on 10/31/2020, Eliquis will be washed out by then. 2. Anemia, acute blood loss secondary to fracture. Two units of packed red blood cells have been ordered with a dose of furosemide in between. 3. Diabetes, sliding scale of insulin coverage ordered. 4. Hypothyroidism, continue levothyroxine. 5. History of depression. Continue her Zoloft to avoid SSRI withdrawal syndrome.
[2020-10-29] MEDS ORDERED: FUROSEMIDE 20MG/2ML VIAL (J1940) IV ONE (11:00)
[2020-10-29] MEDS: ARIPiprazole 2 MG TAB PO SCH (20:33)
[2020-10-30] MEDS: LEVOTHYROXINE 50MCG TABLET (0.05MG) PO SCH (05:38)
[2020-10-30 06:00] VITALS: BP 131/66
[2020-10-30 06:47] LABS: MEAN CORPUSCULAR HGB CONC 32.5 g/dl (32.0-36.5); MEAN CORPUSCULAR VOLUME 92.2 fl (80.0-96.0); PLATELET COUNT, AUTOMATED 127 10^3/uL (150-450); RED BLOOD COUNT 3.47 10^6/uL (4.00-5.40); WHITE BLOOD COUNT 10.8 10^3/uL (4.0-10.0)
[2020-10-30 06:48] LABS: HEMOGLOBIN 10.4 g/dl (12.0-15.5)
[2020-10-30] MEDS: HumaLOG INSULIN (NovoLOG) PER UNIT SC SCH ×4 (07:17→21:00)
--- NOTE | 2020-10-30 08:43 | IPN ---
PROGRESS NOTE DATE: 10/30/2020 SUBJECTIVE: Danica is seen on [facility] still washing out her Eliquis. Anticipation for OR tomorrow. She was transfused yesterday and hemoglobin has improved. No chest pain. No shortness of breath. OBJECTIVE: VITAL SIGNS: Blood pressure 103/65, afebrile. GENERAL APPEARANCE: Alert, in no distress. LUNGS: Clear. HEART: Regular rate and rhythm. ABDOMEN: Soft and nontender. EXTREMITIES: Trace peripheral edema. LABORATORY DATA: White count 10.8, hemoglobin 10.4 up from 6.4 yesterday, platelets 127,000. Electrolytes are pending. IMPRESSION: 1. Anemia due to acute blood loss around fracture site. Hemoglobin is improved with transfusion. 2. Atrial fibrillation. Rate is controlled. Anticoagulation is on hold. 3. Fall with fractures. Plan is for OR on 10/31. Discussed with Beth Estes from orthopedic group today. 4. Diabetes. Continue sliding scale insulin with coverage. 5. Hypothyroidism. Continue levothyroxine. 6. History of depression. Continue Zoloft to avoid SSRI withdrawal syndrome.
[2020-10-30] MEDS: FERROUS SULFATE 325MG TAB PO SCH (09:22)
[2020-10-30] MEDS: SERTRALINE HCL 25 MG TABLET PO SCH (09:22)
[2020-10-30] MEDS: CYANOCOBALAMIN 500 MCG TAB PO SCH (09:22)
[2020-10-30] MEDS: MULTIVITAMINS/MINERALS THERAP 1 TAB PO SCH (09:22)
--- NOTE | 2020-10-30 09:22 | ECHO ---
DATE OF PROCEDURE: 10/28/2020 Age: 85 Gender: Female REFERRING PHYSICIAN: Martha Solorzano MD REASON FOR STUDY: Shortness of breath. 2D MEASUREMENTS: IVS 0.9 cm LV 5.4 cm LVPW 0.9 cm LA 4.1 cm Aorta 3.3 cm RV 2.8 cm Ascending aorta 3.4 cm IVC 1.9 cm DOPPLER MEASUREMENT Peak velocity across the aortic valve 1.6 m/s Peak velocity across the LVOT 1.0 m/s Mitral E 1.1 Maximum tricuspid valve velocity 3.2 m/s 2D COMMENTS: 1. Normal left ventricular size, wall thickness, and low normal global left ventricular systolic function. The estimated left ventricular systolic ejection fraction is 50% to 55%. 2. Mildly enlarged left atrium. The right atrium appeared to be mildly enlarged in limited views. Normal right ventricle in limited views. 3. The atrial septum appeared to be normal without evidence of defect or shunt. 4. Normal aortic root. 5. Trace pericardial effusion noted. No evidence of cardiac tamponade. 6. Mildly calcified aortic valve with normal leaflet excursion. Mildly calcified mitral annulus with normal anterior mitral valve leaflet motion. The tricuspid valve appeared to be normal in limited views. The pulmonic valve appeared to be normal. The proximal pulmonary artery branches were not well visualized. 7. The inferior vena cava was normal in size, central venous pressure is probably normal. DOPPLER: It detects trace aortic regurgitation, trace mitral regurgitation, trace pulmonic regurgitation, and moderate tricuspid regurgitation. The calculated pulmonary artery systolic pressure varies between 40 to 50 mmHg. Assessment of the left ventricular diastolic function was limited in view of the underlying arrhythmias, the patient was in atrial fibrillation during the test. IMPRESSION: 1. Low normal global left ventricular systolic function. Assessment of the left ventricular diastolic function was limited in view of the underlying arrhythmias. 2. Aortic valve sclerosis with trace aortic regurgitation, but no aortic stenosis. 3. Mitral annular calcification with a mildly enlarged left atrium and trace mitral regurgitation. 4. Moderate tricuspid regurgitation with moderate pulmonary hypertension and dilated right atrium. 5. Trace pericardial effusion, no evidence of cardiac tamponade. MTDD
[2020-10-30] MEDS: METOPROLOL TART 50 MG TAB PO SCH ×2 (09:23→20:44)
[2020-10-30] MEDS: ENOXAPARIN 30MG/0.3ML SYRINGE (J1650 PER 10MG) SC SCH (09:23)
[2020-10-30] MEDS: HYDROMORPHONE HCL 0.5 MG/ 0.5 ML SYRINGE (J1170 PER 1) IV PRN ×2 (09:35→17:44)
[2020-10-30 10:36] LABS: VITAMIN B12 LEVEL 724 PG/ML (247-911)
[2020-10-30 10:59] LABS: FOLATE > 24.0 NG/ML (>5.4)
[2020-10-30 14:00] VITALS: BP 151/85
[2020-10-30] MEDS: ARIPiprazole 2 MG TAB PO SCH (20:43)
[2020-10-30 22:00] VITALS: BP 145/76
[2020-10-31] MEDS: LEVOTHYROXINE 50MCG TABLET (0.05MG) PO SCH (05:31)
[2020-10-31 06:00] VITALS: BP 144/67
[2020-10-31] MEDS ORDERED: ceFAZolin SOD 2 GM in IV 1 EA IV ONE (06:00)
[2020-10-31] MEDS: HumaLOG INSULIN (NovoLOG) PER UNIT SC SCH ×4 (07:30→21:00)
[2020-10-31 08:10] LABS: HEMATOCRIT 32.2 % (36.0-47.0); HEMOGLOBIN 10.6 g/dl (12.0-15.5); MEAN CORPUSCULAR HEMOGLOBIN 30.3 pg (27.0-33.0); MEAN CORPUSCULAR HGB CONC 32.9 g/dl (32.0-36.5); PLATELET COUNT, AUTOMATED 125 10^3/uL (150-450); WHITE BLOOD COUNT 9.2 10^3/uL (4.0-10.0)
[2020-10-31 08:46] LABS: BLOOD UREA NITROGEN 35 MG/DL (7-18); CALCIUM LEVEL 8.6 MG/DL (8.8-10.2); CARBON DIOXIDE LEVEL 23 MEQ/L (21-32); CHLORIDE LEVEL 102 MEQ/L (98-107); CREATININE FOR GFR 0.93 MG/DL (0.55-1.30); GLOMERULAR FILTRATION RATE > 60.0 (>32); GLUCOSE, FASTING 102 MG/DL (70-100); POTASSIUM SERUM 4.8 MEQ/L (3.5-5.1); SODIUM LEVEL 135 MEQ/L (136-145)
[2020-10-31] MEDS ORDERED: METHOTREXATE 2.5 MG TAB (J8610 PER 2.5MG) PO SCH (09:00)
[2020-10-31] MEDS: SERTRALINE HCL 25 MG TABLET PO SCH ×2 (09:00→13:38)
[2020-10-31] MEDS: FERROUS SULFATE 325MG TAB PO SCH ×2 (09:00→13:38)
[2020-10-31] MEDS: CYANOCOBALAMIN 500 MCG TAB PO SCH ×2 (09:00→13:37)
[2020-10-31] MEDS: MULTIVITAMINS/MINERALS THERAP 1 TAB PO SCH ×2 (09:00→13:37)
[2020-10-31] MEDS ORDERED: propofoL 200 MG/20 ML VIAL As Ordered ONE (09:52)
[2020-10-31] MEDS ORDERED: LIDOCAINE 2% 100MG/5ML SDV (FOR ANES.) As Ordered ONE (09:52)
[2020-10-31] MEDS: METOPROLOL TART 50 MG TAB PO SCH ×2 (09:52→21:20)
[2020-10-31] MEDS ORDERED: TRANEXAMIC ACID 100 MG/ML 10ML VIAL As Ordered ONE (10:50)
[2020-10-31] MEDS ORDERED: BUPIVACAINE/EPIN 0.25% 30 ML VIAL As Ordered ONE (10:50)
[2020-10-31] MEDS ORDERED: ceFAZolin 1GM VIAL (J0690 PER 500MG) As Ordered ONE (10:51)
[2020-10-31] MEDS ORDERED: EPINEPHrine INJ 1 MG/ML 1ML AMP As Ordered ONE (10:51)
[2020-10-31] MEDS: ENOXAPARIN 30MG/0.3ML SYRINGE (J1650 PER 10MG) SC SCH (13:37)
[2020-10-31 14:00] VITALS: BP 121/75
[2020-10-31] MEDS: ACETAMINOPHEN TAB 650MG DOSE (2X325MG) PO PRN ×2 (15:31→21:18)
--- NOTE | 2020-10-31 19:53 | IPNPDOC ---
Date Seen The patient was seen on 10/31/20. Progress Note SUBJECTIVE: Abnormal echo discussed with Dr. Min who states patient is high risk for surgery. OR made aware, surgery cancelled for today while patient's family notified. They discussed risk and would like to proceed with surgery. Updated Ortho and they will discuss putting her on OR schedule in next 24-48 hrs. Patient denies increased pain. OBJECTIVE: PHYSICAL EXAM: VS: Please see below GENERAL APPEARANCE: well nourished /appears to be in pain / hard of hearing and slightly confused HEENT: EOMI / MMM&P /has hearing aide CARDIOVASCULAR: RRR/NMRG LUNGS: CTAB on RA ABDOMEN: soft & NT MUSCULOSKELETAL: not moving right arm and right leg, RUE in arm brace LABORATORY DATA: Please see below. IMAGING: Echocardiogram 10/28/20: EF 50-55% Low normal global left ventricular systolic function. Assessment of the left ventricular diastolic function was limited in view of the underlying arrhythmias. Aortic valve sclerosis with trace aortic regurgitation, but no aortic stenosis. Mitral annular calcification with a mildly enlarged left atrium and trace mitral regurgitation. Moderate tricuspid regurgitation with moderate pulmonary hypertension and dilated right atrium. Trace pericardial effusion, no evidence of cardiac tamponade. Shoulder xray: 1. Displaced and angulated fracture of the right humeral neck. 2. Subcutaneous edema about the shoulder. 3. Osteopenia. Right elbow XR: 1. Osteopenia. 2. Suboptimally projected lateral view with question of joint effusion. 3. No corresponding fracture is identified. Xray hips: 1. Fracture of the right femoral neck with cephalad migration of the distal fragment. 2. Early degenerative change in an otherwise negative left hip. 3. Lower lumbar degenerative disc changes with spurring. ASSESSMENT: is an 85 yr old with osteopenia, hearing loss, A fib and cognitive impairment that is admitted for management of right humerus and femur fractures. PLAN: Right humerus and femur fractures 2/2 osteoporosis -RUE in brace -C/w pain management, xarelto being held and on lovenox -Ortho following, perioperative eval below. Perioperative eval -Per cardiology, high risk for intermediate-risk surgery with preexisting hx of severe pulmonary HTN & TR, atrial fib, CHF. -RCRI score: Class IV risk -Most recent echo above discussed with cardiology. -Discussed with both HCP's of patient and orthopedic surgeon NIDDM2 -BS controlled -C/w consistent carb, f/u accuchecks / hypoglycemia protocol / sliding scale insulin / hold oral anti-glycemic / f/u A1C Afib -CHADSVASC is 3 - C/w metoprolol Hypothyroidism -C/w levothyroxine Dementia / Hearing loss -Appears to be at baseline per family -Redirect wheneer possible DVT -lovenox DISPOSITION: Now that risk was discussed with patient's HCP, decision to proceed with surgery left up to ortho and family. Will TB with them in the AM. VS, I&O, 24H, Fishbone Vital Signs/I&O Vital Signs Date Time Temp Pulse Resp B/P (MAP) Pulse Ox O2 Delivery O2 Flow Rate FiO2 10/31/20 14:00 98.0 62 18 121/75 (90) 85 Room Air 10/29/20 14:40 18.0 I&O- Last 24 Hours up to 6 AM 10/31/20 06:00 Intake Total 650 ml Output Total 4200 ml Balance -3550 ml Laboratory Data 24H LABS Laboratory Tests 2 10/30/20 20:38: Bedside Glucose (Misc Panel) 139H 10/31/20 07:57: Nucleated Red Blood Cells % (auto) 0.0, Anion Gap 10, Glomerular Filtration Rate > 60.0, Calcium Level 8.6L 10/31/20 08:55: Lactic Acid Level 2.0 10/31/20 12:51: Bedside Glucose (Misc Panel) 84 10/31/20 17:02: Bedside Glucose (Misc Panel) 107 CBC/BMP Laboratory Tests 10/31/20 07:57 Current Medications Current Medications Medications (Trade) Dose Ordered Sig/Pako Route PRN Reason Start Time Stop Time Status Last Admin Dose Admin Acetaminophen (Tylenol Tab) 650 mg Q4H PRN PO PAIN OR FEVER 10/28/20 01:45 10/31/20 15:31 Al Hydrox/Mg Hydrox/Simethicone (Mylanta) 30 ml DAILY PRN PO DYSPEPSIA 10/28/20 01:45 Aripiprazole (AbiLIFY) 2 mg QHS PO 10/28/20 03:45 10/30/20 20:43 Bisacodyl (Dulcolax Suppository) 10 mg DAILY PRN DE CONSTIPATION 10/28/20 03:45 Cyanocobalamin (Vitamin B12) 1,000 mcg DAILY PO 10/28/20 09:00 10/31/20 13:37 Dextrose (Dextrose 50%) 25 ml ASDIRECTED PRN IV SEE LABEL COMMENTS 10/28/20 02:00 Enoxaparin Sodium (Lovenox) 30 mg DAILY SC 10/28/20 09:00 10/31/20 13:37 Ferrous Sulfate (Ferrous Sulfate) 325 mg DAILY PO 10/28/20 09:00 10/31/20 13:38 Folic Acid (Folic Acid) 5 mg We PO 11/01/20 09:00 Glucagon (Glucagon) 1 mg ASDIRECTED PRN SC SEE LABEL COMMENTS 10/28/20 02:00 Glucose (Glucose) 16 GM ASDIRECTED PRN PO SEE LABEL COMMENTS 10/28/20 02:00 Home Med (Med Rec Complete!) ASDIRECTED XX 10/28/20 02:45 10/28/20 02:56 DC Hydromorphone HCl (Dilaudid) 0.2 mg Q3HP PRN IV MILD PAIN (PS 1-4) 10/28/20 01:45 10/30/20 17:44 Hydromorphone HCl (Dilaudid) 0.4 mg Q3HP PRN IV MODERATE PAIN (PS 5-7) 10/28/20 01:45 Insulin Human Lispro (HumaLOG INSULIN) See Protocol Table AC SC 10/28/20 07:30 10/30/20 17:44 Insulin Human Lispro (HumaLOG INSULIN) See Protocol Table QHS SC 10/28/20 21:00 Lactated Ringer's 1,000 ml @ 60 mls/hr [id number] IV 10/28/20 01:45 10/28/20 07:51 DC 10/28/20 02:16 Levothyroxine Sodium (Synthroid) 50 mcg DAILY@0600 PO 10/28/20 06:00 10/31/20 05:31 Magnesium Hydroxide (Milk Of Magnesia) 10 ml DAILY PRN PO CONSTIPATION 10/28/20 03:45 10/28/20 03:48 DC Magnesium Hydroxide (Milk Of Magnesia) 30 ml DAILY PRN PO CONSTIPATION 10/28/20 01:45 Methotrexate (Folex) 7.5 mg Tu PO 10/31/20 09:00 10/31/20 13:39 Metoprolol Tartrate (Lopressor) 50 mg BID PO 10/28/20 09:00 10/31/20 09:52 Multivitamins (Theragram-M) 1 tab DAILY PO 10/28/20 09:00 10/31/20 13:37 Sertraline HCl (Zoloft) 25 mg DAILY PO 10/28/20 09:00 10/31/20 13:38 Allergies Coded Allergies: No Known Allergies (Unverified , 02/02/19) Brittany Tillman MD Oct 31, 2020 19:53
[2020-10-31] MEDS: ARIPiprazole 2 MG TAB PO SCH (21:19)
[2020-10-31 22:00] VITALS: BP 112/63
[2020-11-01] VITALS (9 sets, daily range): BP systolic 90–166; BP diastolic 56–80
[2020-11-01] MEDS: LEVOTHYROXINE 50MCG TABLET (0.05MG) PO SCH (05:30)
[2020-11-01] MEDS: ACETAMINOPHEN TAB 650MG DOSE (2X325MG) PO PRN ×2 (05:31→19:43)
[2020-11-01 08:53] LABS: HEMATOCRIT 30.8 % (36.0-47.0); MEAN CORPUSCULAR HEMOGLOBIN 29.8 pg (27.0-33.0); MEAN CORPUSCULAR HGB CONC 32.5 g/dl (32.0-36.5); MEAN CORPUSCULAR VOLUME 91.7 fl (80.0-96.0); PLATELET COUNT, AUTOMATED 171 10^3/uL (150-450); RED BLOOD COUNT 3.36 10^6/uL (4.00-5.40); WHITE BLOOD COUNT 6.9 10^3/uL (4.0-10.0)
[2020-11-01] MEDS ORDERED: FOLIC ACID 1 MG TAB PO SCH (09:00)
[2020-11-01] MEDS: FERROUS SULFATE 325MG TAB PO SCH (09:00)
[2020-11-01] MEDS: MULTIVITAMINS/MINERALS THERAP 1 TAB PO SCH (09:00)
[2020-11-01] MEDS: SERTRALINE HCL 25 MG TABLET PO SCH (09:00)
[2020-11-01] MEDS: CYANOCOBALAMIN 500 MCG TAB PO SCH (09:00)
[2020-11-01] MEDS: METAMUCIL (PSYLLIUM) PACKET PO SCH (09:00)
[2020-11-01] MEDS: HumaLOG INSULIN (NovoLOG) PER UNIT SC SCH ×4 (09:01→21:00)
[2020-11-01 09:11] LABS: BLOOD UREA NITROGEN 38 MG/DL (7-18); CREATININE FOR GFR 0.91 MG/DL (0.55-1.30); GLUCOSE, FASTING 117 MG/DL (70-100)
[2020-11-01 09:12] LABS: CALCIUM LEVEL 8.6 MG/DL (8.8-10.2); CARBON DIOXIDE LEVEL 24 MEQ/L (21-32); CHLORIDE LEVEL 102 MEQ/L (98-107); GLOMERULAR FILTRATION RATE > 60.0 (>32); POTASSIUM SERUM 4.2 MEQ/L (3.5-5.1); SODIUM LEVEL 136 MEQ/L (136-145)
[2020-11-01] MEDS: METOPROLOL TART 50 MG TAB PO SCH ×2 (09:19→21:20)
[2020-11-01] MEDS ORDERED: ceFAZolin 1GM VIAL (J0690 PER 500MG) As Ordered ONE (15:03)
[2020-11-01] MEDS ORDERED: EPINEPHrine INJ 1 MG/ML 1ML AMP As Ordered ONE ×2 (15:05→16:16)
[2020-11-01] MEDS ORDERED: TRANEXAMIC ACID 100 MG/ML 10ML VIAL As Ordered ONE (15:05)
--- NOTE | 2020-11-01 15:32 | IPNPDOC ---
Date Seen The patient was seen on 11/01/20. Progress Note SUBJECTIVE: OR today per surgery. No acute events overnight. OBJECTIVE: PHYSICAL EXAM: VS: Please see below GENERAL APPEARANCE: well nourished /appears to be in pain / hard of hearing and slightly confused HEENT: EOMI / MMM&P /has hearing aide CARDIOVASCULAR: RRR/NMRG LUNGS: CTAB on RA ABDOMEN: soft & NT MUSCULOSKELETAL: not moving right arm and right leg, RUE in arm brace NEURO: no focal deficits, CN 2-12 intact LABORATORY DATA: Please see below. IMAGING: Echocardiogram 10/28/20: EF 50-55% Low normal global left ventricular systolic function. Assessment of the left ventricular diastolic function was limited in view of the underlying arrhythmias. Aortic valve sclerosis with trace aortic regurgitation, but no aortic stenosis. Mitral annular calcification with a mildly enlarged left atrium and trace mitral regurgitation. Moderate tricuspid regurgitation with moderate pulmonary hypertension and dilated right atrium. Trace pericardial effusion, no evidence of cardiac tamponade. Shoulder xray: 1. Displaced and angulated fracture of the right humeral neck. 2. Subcutaneous edema about the shoulder. 3. Osteopenia. Right elbow XR: 1. Osteopenia. 2. Suboptimally projected lateral view with question of joint effusion. 3. No corresponding fracture is identified. Xray hips: 1. Fracture of the right femoral neck with cephalad migration of the distal fragment. 2. Early degenerative change in an otherwise negative left hip. 3. Lower lumbar degenerative disc changes with spurring. ASSESSMENT: is an 85 yr old with osteopenia, hearing loss, A fib and cognitive impairment that is admitted for management of right humerus and femur fractures. PLAN: Right humerus and femur fractures 2/2 osteoporosis -RUE in brace -C/w pain management, xarelto being held and on lovenox -Ortho following, perioperative eval below. -OR today Perioperative eval -Per cardiology, high risk for intermediate-risk surgery with preexisting hx of severe pulmonary HTN & TR, atrial fib, CHF. -RCRI score: Class IV risk -Most recent echo above discussed with cardiology. -Discussed with both HCP's of patient and orthopedic surgeon NIDDM2 -BS controlled -NPO after midnight but will c/w consistent carb after surgery , f/u accuchecks / hypoglycemia protocol / sliding scale insulin / hold oral anti-glycemic / f/u A1C Afib -CHADSVASC is 3 - C/w metoprolol Hypothyroidism -C/w levothyroxine Dementia / Hearing loss -Appears to be at baseline per family -Redirect whenever possible DVT -lovenox Resolved issues: YULISSA likely prerenal DISPOSITION: OR today. Plan is return back to prior living situation when medically appropriate. VS, I&O, 24H, Fishbone Vital Signs/I&O Vital Signs Date Time Temp Pulse Resp B/P (MAP) Pulse Ox O2 Delivery O2 Flow Rate FiO2 11/01/20 14:00 98.3 97 19 139/68 (91) 100 Room Air 10/29/20 14:40 18.0 I&O- Last 24 Hours up to 6 AM 11/01/20 06:00 Intake Total 1210 ml Output Total 850 ml Balance 360 ml Laboratory Data 24H LABS Laboratory Tests 2 10/31/20 17:02: Bedside Glucose (Misc Panel) 107 10/31/20 20:20: Bedside Glucose (Misc Panel) 113H 11/01/20 08:32: Nucleated Red Blood Cells % (auto) 0.0, Anion Gap 10, Glomerular Filtration Rate > 60.0, Calcium Level 8.6L 11/01/20 11:17: Bedside Glucose (Misc Panel) 80L CBC/BMP Laboratory Tests 11/01/20 08:32 Current Medications Current Medications Medications (Trade) Dose Ordered Sig/Pako Route PRN Reason Start Time Stop Time Status Last Admin Dose Admin Acetaminophen (Tylenol Tab) 650 mg Q4H PRN PO PAIN OR FEVER 10/28/20 01:45 11/01/20 05:31 Al Hydrox/Mg Hydrox/Simethicone (Mylanta) 30 ml DAILY PRN PO DYSPEPSIA 10/28/20 01:45 Aripiprazole (AbiLIFY) 2 mg QHS PO 10/28/20 03:45 10/31/20 21:19 Bisacodyl (Dulcolax Suppository) 10 mg DAILY PRN [place] CONSTIPATION 10/28/20 03:45 Cyanocobalamin (Vitamin B12) 1,000 mcg DAILY PO 10/28/20 09:00 10/31/20 13:37 Dextrose (Dextrose 50%) 25 ml ASDIRECTED PRN IV SEE LABEL COMMENTS 10/28/20 02:00 Enoxaparin Sodium (Lovenox) 30 mg DAILY SC 10/28/20 09:00 11/01/20 05:49 DC 10/31/20 13:37 Ferrous Sulfate (Ferrous Sulfate) 325 mg DAILY PO 10/28/20 09:00 10/31/20 13:38 Folic Acid (Folic Acid) 5 mg We PO 11/01/20 09:00 Glucagon (Glucagon) 1 mg ASDIRECTED PRN SC SEE LABEL COMMENTS 10/28/20 02:00 Glucose (Glucose) 16 GM ASDIRECTED PRN PO SEE LABEL COMMENTS 10/28/20 02:00 Home Med (Med Rec Complete!) ASDIRECTED XX 10/28/20 02:45 10/28/20 02:56 DC Hydromorphone HCl (Dilaudid) 0.2 mg Q3HP PRN IV MILD PAIN (PS 1-4) 10/28/20 01:45 10/30/20 17:44 Hydromorphone HCl (Dilaudid) 0.4 mg Q3HP PRN IV MODERATE PAIN (PS 5-7) 10/28/20 01:45 Insulin Human Lispro (HumaLOG INSULIN) See Protocol Table AC SC 10/28/20 07:30 10/30/20 17:44 Insulin Human Lispro (HumaLOG INSULIN) See Protocol Table QHS SC 10/28/20 21:00 Lactated Ringer's 1,000 ml @ 60 mls/hr [id number] IV 10/28/20 01:45 10/28/20 07:51 DC 10/28/20 02:16 Levothyroxine Sodium (Synthroid) 50 mcg DAILY@0600 PO 10/28/20 06:00 11/01/20 05:30 Magnesium Hydroxide (Milk Of Magnesia) 10 ml DAILY PRN PO CONSTIPATION 10/28/20 03:45 10/28/20 03:48 DC Magnesium Hydroxide (Milk Of Magnesia) 30 ml DAILY PRN PO CONSTIPATION 10/28/20 01:45 Methotrexate (Folex) 7.5 mg Tu PO 10/31/20 09:00 10/31/20 13:39 Metoprolol Tartrate (Lopressor) 50 mg BID PO 10/28/20 09:00 11/01/20 09:19 Multivitamins (Theragram-M) 1 tab DAILY PO 10/28/20 09:00 10/31/20 13:37 Sertraline HCl (Zoloft) 25 mg DAILY PO 10/28/20 09:00 10/31/20 13:38 Allergies Coded Allergies: No Known Allergies (Unverified , 02/02/19) Brittany Tillman MD Nov 01, 2020 15:32
[2020-11-01] MEDS ORDERED: ceFAZolin 2 GM/D5W 50 ML IV BAG (J0690 PER 500MG) As Ordered ONE (16:16)
[2020-11-01] MEDS ORDERED: KETAMINE HCL 200 MG/20 ML VIAL As Ordered ONE (16:36)
[2020-11-01] MEDS ORDERED: LABETALOL 100MG/20ML VIAL As Ordered ONE (16:36)
[2020-11-01] MEDS ORDERED: propofoL 200 MG/20 ML VIAL As Ordered ONE ×2 (16:36→17:47)
[2020-11-01] MEDS ORDERED: ETOMIDATE INJ 20MG/10ML VIAL As Ordered ONE (16:36)
[2020-11-01] MEDS ORDERED: MIDAZOLAM INJ 2MG/2ML VIAL (J2250 PER 1MG) As Ordered ONE (16:36)
[2020-11-01] MEDS ORDERED: ESMOLOL INJ 100MG/10ML VIAL As Ordered ONE (16:36)
[2020-11-01] MEDS: BUPIVACAINE/EPIN 0.25% 30 ML VIAL As Ordered ONE ×2 (16:40→16:45)
[2020-11-01] MEDS ORDERED: PHENYLephrine 500MCG 5ML (100MCG/ML) SYRINGE As Ordered ONE (16:43)
--- NOTE | 2020-11-01 16:55 | IPN ---
PROGRESS NOTE DATE: 10/31/2020 I presented to the emergency room. We anticipated doing a right hip hemiarthroplasty. That was canceled by medicine, Dr. Tillman. Because of a needed further cardiac workup, the decision to cancel the surgery was made. I spoke with Dr. Tillman afterwards and we anticipate reconsidering for surgery in the future.
--- NOTE | 2020-11-01 17:03 | IPN ---
PROGRESS NOTE DATE: 11/01/2020 DECISION TO OPERATE: I discussed the patient's situation with the patient's daughter on the telephone. Family still wants to proceed with surgery. I had had discussed also the situation with medicine, Dr. Tillman, who felt the patient was high risk, but medically optimized as she was going to be for surgery. At this stage, we elect to proceed with her hemiarthroplasty, right hip.
[2020-11-01] MEDS ORDERED: METOCLOPRAMIDE INJ 10MG/2ML VIAL (J2765 PER 1) IV PRN (18:15)
[2020-11-01] MEDS ORDERED: LR 1,000 ML IV SCH (18:15)
[2020-11-01] MEDS ORDERED: oxyCODONE 5MG TAB PO PRN (18:15)
[2020-11-01] MEDS ORDERED: fentaNYL 100 MCG/2 ML INJECTION (J3010) IV PRN (18:15)
[2020-11-01] MEDS ORDERED: ONDANSETRON 4MG/2ML VIAL IV PRN ×2 (18:15→18:30)
[2020-11-01] MEDS ORDERED: MORPHINE 2 MG/ML 1ML VIAL (J2270) IV PRN (18:30)
[2020-11-01] MEDS ORDERED: PERCOCET 5MG/325MG TAB PO PRN (18:30)
--- NOTE | 2020-11-01 18:37 | REP ---
INDICATION: POST OP IN PACU. COMPARISON: Comparison radiographs 10/27/2020. TECHNIQUE: AP and cross-table lateral views are obtained. Three views presented. FINDINGS: Right femoral head is been replaced. Prosthetic femoral head is in good position relative to the proximal femur and the acetabulum. There is periarticular soft tissue emphysema adjacent. Some vascular calcification is noted. IMPRESSION: Status post right hip hemiarthroplasty. <Electronically signed by Alexis Levy > 11/01/20 [id number]
[2020-11-01] MEDS ORDERED: oxyCODONE 5MG TAB As Ordered ONE (18:43)
[2020-11-01] MEDS ORDERED: ceFAZolin SOD 2 GM in IV 1 EA IV ONE (21:00)
[2020-11-01] MEDS: LR 1,000 ML IV SCH (21:20)
[2020-11-01] MEDS: ARIPiprazole 2 MG TAB PO SCH (21:20)
[2020-11-02] MEDS ORDERED: NS 500 ML IV ONE
[2020-11-02 02:00] VITALS: BP 108/55
[2020-11-02] MEDS: ACETAMINOPHEN TAB 650MG DOSE (2X325MG) PO PRN (05:26)
[2020-11-02] MEDS: LEVOTHYROXINE 50MCG TABLET (0.05MG) PO SCH (05:26)
[2020-11-02 06:00] VITALS: BP 131/64
[2020-11-02] MEDS: LR 1,000 ML IV SCH (08:10)
[2020-11-02] MEDS: HumaLOG INSULIN (NovoLOG) PER UNIT SC SCH ×4 (08:10→20:45)
[2020-11-02] MEDS: METOPROLOL TART 50 MG TAB PO SCH ×2 (08:11→20:45)
[2020-11-02] MEDS: SERTRALINE HCL 25 MG TABLET PO SCH (08:11)
[2020-11-02] MEDS: APIXABAN 2.5 MG TAB (ELIQUIS) PO SCH ×2 (08:11→20:43)
[2020-11-02] MEDS: FERROUS SULFATE 325MG TAB PO SCH (08:11)
[2020-11-02] MEDS: CYANOCOBALAMIN 500 MCG TAB PO SCH (08:11)
[2020-11-02] MEDS: METAMUCIL (PSYLLIUM) PACKET PO SCH (08:11)
[2020-11-02] MEDS: MULTIVITAMINS/MINERALS THERAP 1 TAB PO SCH (08:11)
[2020-11-02 09:14] LABS: HEMATOCRIT 24.9 % (36.0-47.0); HEMOGLOBIN 8.2 g/dl (12.0-15.5); MEAN CORPUSCULAR HGB CONC 32.9 g/dl (32.0-36.5); MEAN CORPUSCULAR VOLUME 91.2 fl (80.0-96.0); PLATELET COUNT, AUTOMATED 175 10^3/uL (150-450); RED BLOOD COUNT 2.73 10^6/uL (4.00-5.40); WHITE BLOOD COUNT 7.3 10^3/uL (4.0-10.0)
[2020-11-02 09:25] LABS: CREATININE FOR GFR 1.05 MG/DL (0.55-1.30); GLOMERULAR FILTRATION RATE 52.8 (>32); POTASSIUM SERUM 3.9 MEQ/L (3.5-5.1)
--- NOTE | 2020-11-02 12:36 | RO ---
OPERATIVE NOTE DATE OF OPERATION: 11/01/2020 PREOPERATIVE DIAGNOSIS: Right femoral neck fracture. POSTOPERATIVE DIAGNOSIS: Right femoral neck fracture. PROCEDURE: Cemented right hemiarthroplasty. SURGEON: Eliezer Gardner MD REDUCING SYSTEM OPERATOR: QAMAR Gonzalez ANESTHESIA: Spinal. ESTIMATED BLOOD LOSS: Less than 100 mL replaced with Crystalloid. COMPLICATIONS: No complications. INDICATIONS: Fall, fracture right hip, femoral neck displaced. Consent was reviewed with the patient's daughter who is the power of associate director career services and included a lalo discussion of pathology involved, the procedure proposed, alternatives including doing nothing and risks including but not limited to , infection, need for more surgery, problems ambulating and other issues. The patient's daughter agrees to proceed. Components used include Tracab hemiarthroplasty system size 3, -3 size femoral component, -3 neck length, size 45 femoral head. Radiopaque bone cement. DESCRIPTION OF PROCEDURE: The patient was identified in the holding area. Side and site verified. She was brought to the operating room. Once anesthesia was administered, she was positioned on the Krishna frame for exposure of the right hip. Next, she was then sterilely prepped and draped in usual fashion. Time-out was accomplished. The line of the incision was infiltrated with 0.25% Marcaine with Epinephrine. A 10 cm incision was made over the right greater trochanter for modified Hardinge approach. The section was developed down to the lateral fascia. Lateral fascia was split with a Reyes scissor exposing the abductor mechanism. A split was created at the 2:00 position. Anterior abductor mechanism was able to be reflected off the greater trochanter leaving the cuff tissue for later repair. It was tagged with a stitch. Next, minimus and capsular tissues were split. Further release was accomplished of the vastus lateralis and capsule allowing me to retrieve the fractured femoral head ball with a cork screw. Once that was removed, I ensured the acetabulum was cleared of debris. Next, trochanteric retractor was placed and the hip was manipulated to expose the femoral neck. Canal opening reamer was utilized followed by the femoral neck cutting template. I freshened the cut in the femoral neck to the appropriate length approximately a finger breadth from the lesser trochanter. twill cutter was utilized followed by canal-finding reamer followed by lateralizing reamer followed by broaches through a size 3 was set appropriately. Next, the size 3 cement restrictor was placed in the femoral canal. Pulse lavage using the pulse lavage brush apparatus was accomplished. The canal was packed with epi-soaked vag pack. The public address technician prepared the bone cement while Eli Rodriguez helped position the proximal femur for cemented hemiarthroplasty. Once the cement was the appropriate condition, the cement was injected into the femoral canal in the usual fashion. Next, I installed the size 3 cemented component. Excess cement cleared with curetts. I held the cemented femoral component in place until the cement hardened. Next, we trialed with a +0 neck length which seemed slightly too long so then we converted to a -3 neck length nontrial which seemed to fit appropriately. The hip was reduced, placed through a range of motion, appeared to be quite stable. Next, pulse lavage irrigation was accomplished. Capsular tissue and minimus tissue reapproximated with interrupted stitch. Abductor mechanism approximated with interrupted stitch to the cuff tissue on the greater trochanter, vastus lateralis reapproximated with interrupted stitch. Lateral fascia was reapproximated with interrupted stitch in a running STRATAFIX stitch. The dermis was approximated with interrupted stitch and the Prineo dressing was placed. The patient was then able to be moved to the hospital bed and went to the recovery room in good condition. For further details please refer to the medical record.
[2020-11-02 14:00] VITALS: BP 159/66
--- NOTE | 2020-11-02 18:49 | IPNPDOC ---
Date Seen The patient was seen on 11/02/20. Progress Note SUBJECTIVE: Post-op day 1 right hip arthroplasty. Pain controlled. No acute events overnight. OBJECTIVE: PHYSICAL EXAM: VS: Please see below GENERAL APPEARANCE: well nourished /appears to be in pain / hard of hearing and slightly confused at times HEENT: EOMI / MMM&P /has hearing aide CARDIOVASCULAR: RRR/NMRG LUNGS: CTAB on RA ABDOMEN: soft & NT MUSCULOSKELETAL: Right hip inscisions appear well healing, no pain on palpation, ROM not tested. RUE in arm brace NEURO: no focal deficits, CN 2-12 intact LABORATORY DATA: Please see below. IMAGING: Right hip XR 11/01/20: Right femoral head is been replaced. Prosthetic femoral head is in good position relative to the proximal femur and the acetabulum. There is periarticular soft tissue emphysema adjacent. Some vascular calcification is noted. Echocardiogram 10/28/20: EF 50-55% Low normal global left ventricular systolic function. Assessment of the left ventricular diastolic function was limited in view of the underlying a rrhythmias. Aortic valve sclerosis with trace aortic regurgitation, but no aortic stenosis. Mitral annular calcification with a mildly enlarged left atrium and trace mitral regurgitation. Moderate tricuspid regurgitation with moderate pulmonary hypertension and dilated right atrium. Trace pericardial effusion, no evidence of cardiac tamponade. Shoulder xray: 1. Displaced and angulated fracture of the right humeral neck. 2. Subcutaneous edema about the shoulder. 3. Osteopenia. Right elbow XR: 1. Osteopenia. 2. Suboptimally projected lateral view with question of joint effusion. 3. No corresponding fracture is identified. Xray hips: 1. Fracture of the right femoral neck with cephalad migration of the distal fragment. 2. Early degenerative change in an otherwise negative left hip. 3. Lower lumbar degenerative disc changes with spurring. ASSESSMENT: is an 85 yr old with osteopenia, hearing loss, A fib and cognitive impairment that is admitted for management of right humerus and femur fractures. PLAN: Right humerus and femur fractures 2/2 osteoporosis -POD 1 right hip arthroplasty -no complications during or post-operatively -Pain is controlled for upper and lower ext -RUE in brace -C/w pain management, WBAT of LE, no weight, pulling or pushing of RUE. -Eliquis PO BID -Ortho following, perioperative eval below. -PT/OT while here -Plan is discharge back to long term on 11/03/20 NIDDM2 -BS controlled - c/w consistent carb , f/u accuchecks / hypoglycemia protocol / sliding scale insulin / hold oral anti-glycemic / f/u A1C Afib -CHADSVASC is 3 - C/w metoprolol, eliquis BID Hypothyroidism -C/w levothyroxine Dementia / Hearing loss -Appears to be at baseline per family DVT -Eliquis BID Resolved issues: YULISSA likely prerenal DISPOSITION: Plan is return back to [facility] on 11/03/20. VS, I&O, 24H, Fishbone Vital Signs/I&O Vital Signs Date Time Temp Pulse Resp B/P (MAP) Pulse Ox O2 Delivery O2 Flow Rate FiO2 11/02/20 14:00 99.5 86 19 159/66 (97) 98 Room Air 11/01/20 18:20 2 I&O- Last 24 Hours up to 6 AM 11/02/20 05:59 Intake Total 1200 ml Output Total 800 ml Balance 400 ml Laboratory Data 24H LABS Laboratory Tests 2 11/01/20 20:34: Bedside Glucose (Misc Panel) 152H 11/02/20 08:02: Bedside Glucose (Misc Panel) 192H 11/02/20 08:40: Nucleated Red Blood Cells % (auto) 0.0, Anion Gap 13, Glomerular Filtration Rate 52.8, Calcium Level 8.0L 11/02/20 12:00: Bedside Glucose (Misc Panel) 154H 11/02/20 16:38: Bedside Glucose (Misc Panel) 145H CBC/BMP Laboratory Tests 11/02/20 08:40 Current Medications Current Medications Medications (Trade) Dose Ordered Sig/Pako Route PRN Reason Start Time Stop Time Status Last Admin Dose Admin Acetaminophen (Tylenol Tab) 650 mg Q4H PRN PO MILD PAIN OR FEVER 10/28/20 01:45 11/02/20 05:26 Al Hydrox/Mg Hydrox/Simethicone (Mylanta) 30 ml DAILY PRN PO DYSPEPSIA 10/28/20 01:45 Apixaban (Eliquis) 2.5 mg BID PO 11/02/20 09:00 11/02/20 08:11 Aripiprazole (AbiLIFY) 2 mg QHS PO 10/28/20 03:45 11/01/20 21:20 Bisacodyl (Dulcolax Suppository) 10 mg DAILY PRN IN CONSTIPATION 10/28/20 03:45 Cyanocobalamin (Vitamin B12) 1,000 mcg DAILY PO 10/28/20 09:00 11/02/20 08:11 Dextrose (Dextrose 50%) 25 ml ASDIRECTED PRN IV SEE LABEL COMMENTS 10/28/20 02:00 Enoxaparin Sodium (Lovenox) 30 mg DAILY SC 10/28/20 09:00 11/01/20 05:49 DC 10/31/20 13:37 Fentanyl Citrate (Sublimaze) 25 mcg Q5MP PRN IV PAIN LEVEL 5-10 11/01/20 18:15 11/01/20 19:15 DC Ferrous Sulfate (Ferrous Sulfate) 325 mg DAILY PO 10/28/20 09:00 11/02/20 08:11 Folic Acid (Folic Acid) 5 mg We PO 11/01/20 09:00 Glucagon (Glucagon) 1 mg ASDIRECTED PRN SC SEE LABEL COMMENTS 10/28/20 02:00 Glucose (Glucose) 16 GM ASDIRECTED PRN PO SEE LABEL COMMENTS 10/28/20 02:00 Home Med (Med Rec Complete!) ASDIRECTED XX 10/28/20 02:45 10/28/20 02:56 DC Hydromorphone HCl (Dilaudid) 0.2 mg Q3HP PRN IV MILD PAIN (PS 1-4) 10/28/20 01:45 11/01/20 18:24 DC 10/30/20 17:44 Hydromorphone HCl (Dilaudid) 0.4 mg Q3HP PRN IV MODERATE PAIN (PS 5-7) 10/28/20 01:45 11/01/20 18:24 DC Insulin Human Lispro (HumaLOG INSULIN) See Protocol Table AC SC 10/28/20 07:30 11/02/20 17:50 Insulin Human Lispro (HumaLOG INSULIN) See Protocol Table QHS SC 10/28/20 21:00 Lactated Ringer's 1,000 ml @ 60 mls/hr [id number] IV 10/28/20 01:45 10/28/20 07:51 DC 10/28/20 02:16 Lactated Ringer's 1,000 ml @ 80 mls/hr [id number] IV 11/01/20 18:30 11/02/20 08:10 Lactated Ringer's 1,000 ml @ 100 mls/hr Q10H IV 11/01/20 18:15 11/01/20 19:15 DC Levothyroxine Sodium (Synthroid) 50 mcg DAILY@0600 PO 10/28/20 06:00 11/02/20 05:26 Magnesium Hydroxide (Milk Of Magnesia) 10 ml DAILY PRN PO CONSTIPATION 10/28/20 03:45 10/28/20 03:48 DC Magnesium Hydroxide (Milk Of Magnesia) 30 ml DAILY PRN PO CONSTIPATION 10/28/20 01:45 Methotrexate (Folex) 7.5 mg Tu PO 10/31/20 09:00 10/31/20 13:39 Metoclopramide HCl (REGLAN INJection) 10 mg Q6HP PRN IV NAUSEA OR VOMITING 11/01/20 18:15 11/01/20 19:15 DC Metoprolol Tartrate (Lopressor) 50 mg BID PO 10/28/20 09:00 11/02/20 08:11 Morphine Sulfate (Morphine Sulfate Inj) 2 mg Q2H PRN IV SEVERE PAIN (PS 8-10) 11/01/20 18:30 11/02/20 06:06 DC Multivitamins (Theragram-M) 1 tab DAILY PO 10/28/20 09:00 11/02/20 08:11 Ondansetron HCl (ZOFRAN INJection) 4 mg Q4HP PRN IV NAUSEA OR VOMITING 11/01/20 18:15 11/01/20 19:15 DC Ondansetron HCl (ZOFRAN INJection) 4 mg Q6H PRN IV NAUSEA 11/01/20 18:30 Oxycodone HCl (Roxicodone, Oxyir) 5 mg ASDIRECTED PRN PO PAIN LEVEL 1-4 11/01/20 18:15 11/01/20 19:15 DC 11/01/20 18:46 Oxycodone/ Acetaminophen (Percocet 5mg/ 325mg Tablet) 1 tab Q4H PRN PO MODERATE PAIN (PS 5-7) 11/01/20 18:30 Psyllium Hydrophilic Mucilloid (Metamucil) 1 pkt DAILY PO 11/01/20 09:00 11/02/20 08:11 Sertraline HCl (Zoloft) 25 mg DAILY PO 10/28/20 09:00 11/02/20 08:11 Allergies Coded Allergies: No Known Allergies (Unverified , 02/02/19) Brittany Tillman MD Nov 02, 2020 18:49
[2020-11-02 19:57] VITALS: BP 147/65
[2020-11-02] MEDS: ARIPiprazole 2 MG TAB PO SCH (20:45)
[2020-11-03] VITALS (11 sets, daily range): BP systolic 105–147; BP diastolic 54–80
[2020-11-03] MEDS: LR 1,000 ML IV SCH (01:29)
[2020-11-03] MEDS: LEVOTHYROXINE 50MCG TABLET (0.05MG) PO SCH (06:00)
[2020-11-03 07:00] LABS: HEMATOCRIT 22.1 % (36.0-47.0); HEMOGLOBIN 7.3 g/dl (12.0-15.5); MEAN CORPUSCULAR VOLUME 90.9 fl (80.0-96.0); PLATELET COUNT, AUTOMATED 178 10^3/uL (150-450); RED BLOOD COUNT 2.43 10^6/uL (4.00-5.40); WHITE BLOOD COUNT 9.1 10^3/uL (4.0-10.0)
[2020-11-03 07:27] LABS: BLOOD UREA NITROGEN 25 MG/DL (7-18); CALCIUM LEVEL 7.8 MG/DL (8.8-10.2); CARBON DIOXIDE LEVEL 22 MEQ/L (21-32); CHLORIDE LEVEL 103 MEQ/L (98-107); CREATININE FOR GFR 0.83 MG/DL (0.55-1.30); GLOMERULAR FILTRATION RATE > 60.0 (>32); GLUCOSE, FASTING 115 MG/DL (70-100); POTASSIUM SERUM 3.8 MEQ/L (3.5-5.1); SODIUM LEVEL 135 MEQ/L (136-145)
[2020-11-03] MEDS: HumaLOG INSULIN (NovoLOG) PER UNIT SC SCH ×4 (07:30→20:16)
[2020-11-03] MEDS: APIXABAN 2.5 MG TAB (ELIQUIS) PO SCH ×2 (09:00→12:40)
[2020-11-03] MEDS: SERTRALINE HCL 25 MG TABLET PO SCH (09:21)
[2020-11-03] MEDS: FERROUS SULFATE 325MG TAB PO SCH ×2 (09:22→20:20)
[2020-11-03] MEDS: MULTIVITAMINS/MINERALS THERAP 1 TAB PO SCH (09:22)
[2020-11-03] MEDS: CYANOCOBALAMIN 500 MCG TAB PO SCH (09:22)
[2020-11-03] MEDS: METAMUCIL (PSYLLIUM) PACKET PO SCH (09:22)
[2020-11-03] MEDS: METOPROLOL TART 50 MG TAB PO SCH ×2 (09:22→20:21)
--- NOTE | 2020-11-03 11:47 | CR ---
ORTHPEDIC CONSULTATION DATE: 10/28/2020 CHIEF COMPLAINT: Right shoulder and right hip pain. HISTORY OF PRESENT ILLNESS: The patient is an 85-year-old female who lives in the [facility]. The patient is significantly demented. I did contact the patient's daughter and power of district attorney/healthcare who assisted me in the history of present illness as well as history. The patient lived in the [facility] since May of 2020. She was ambulatory around the care home with the use of a walker. She sustained a fall while walking in the hallway. The patient fell to her right side and was transferred over to the [facility] emergency room where she was evaluated by ___ and I was consulted as I was covering for Dr. Eliezer Gardner of the [facility]. The patient has multiple medical comorbidities which will be listed below. The patient per her daughter, however, was able to get around with a walker and was able to comfortably transfer from place to place prior to this. The patient does have significant dementia with moments of lucency where she is more communicative. However, on my examination of her this morning, the patient is minimally communicative though she is able to follow extremely basic commands. PAST MEDICAL HISTORY: Type 2 diabetes, osteopenia, A fib, severe pulmonary hypertension, severe TR, history of microcytic anemia, advanced dementia, hearing loss, questionable history of rheumatoid arthritis. PAST SURGICAL HISTORY: Pacemaker and cholecystectomy. SOCIAL HISTORY: The patient lives in the [facility]. The patient is a former smoker. The patient's is still alive and lives at home. The patient, however, lives in a care home. FAMILY HISTORY: Bowel and pancreatic cancer. MEDICATIONS: 1. Acetaminophen. 2. Eliquis. 3. Vitamin C. 4. Aripiprazole. 5. Vitamin B12. 6. Ferrous sulfate. 7. Folic acid. 8. Levothyroxine. 9. Methotrexate. 10. Metoprolol. 11. Sertraline. ALLERGIES: None. PHYSICAL EXAMINATION: INSERT PHYSICAL EXAM TEMPLATE . The patient is lying in the hospital bed. The patient opens her eyes when I walk into the room. However, the patient does not communicate back with me. The patient appears to respond slightly to my commands. When I ask her if her right shoulder hurts, she is able to nod yes. If I point to her right shoulder and I ask if it hurts, she nods yes. If I point to the patient's left shoulder and ask if that hurts, she shakes her head, say no. The patient verbalized one thing to me which is right leg pain. Clearly with all this, the patient's exam is rather blunted. Her bilateral shoulders were evaluated. There was some swelling around the right shoulder. There were no lacerations, abrasions, signs of open fracture, palpation or any attempts of range of motion on the patient's right shoulder to reproduce pain. I am able to gently rotate the patient's left shoulder without any discomfort. The patient denies any pain on palpation of her bilateral elbows or with isolated elbow flexion and extension. The patient does shake her head yes when I ask her if she has sensation and I touch her thumb, middle finger and pinky finger. Radial pulses are present. The patient's neck appears to be supple. Palpation of her cervical spine does not elicit any pain. The patient's bilateral lower extremities were then evaluated. The patient's right leg is held in external rotation though no significant shortening is seen. Leg roll of the right does elicit pain. Leg roll of the leg hip does not elicit any pain. Palpation of the femur, knees, tib-fibs do not appear to elicit significant pain. The patient does not respond to me, asking her to wiggle her toes. BP pulses are, however, present. There is no edema distally. IMAGING: Imaging which was obtained in the emergency room was reviewed. This included x-rays of the patient's AP pelvis, left hip, right hip, right elbow and right shoulder. The patient has a right proximal humerus fracture at the level of the surgical neck. Additionally, the patient has a right displaced femoral neck fracture, Garden III/IV. The patient does not appear to have any fractures or dislocations around her right elbow or her left hip on x-rays. ASSESSMENT: I am seeing the patient in an inpatient consult setting for a right proximal humerus fracture and a right femoral neck fracture. This is the patient's initial orthopedic evaluation for these injuries. Both are closed. PLAN: 1. Right proximal humerus fracture. The patient will be placed in a shoulder immobilizer. The patient is nonweightbearing. I did discuss with ___ last night and ___ states that he did attempt a mild reduction of her right shoulder. I will obtain new x-rays with the patient in an upright position and an upright seated position of her right shoulder. Potentially if needed, a reduction of the shoulder may be considered when the patient is under an operative anesthetic for her right hip surgery. 2. In terms of the patient's right femoral neck fracture, I did reach out to both Dr. Eliezer Gardner, I also discussed the patient's situation with the hospitalist service and I contacted the patient's daughter/health care proxy/POA whose name is Maya Finn at [phone]. I discussed the morbidity and mortality rates of operative and nonoperative treatments as well as the operative options. The patient's healthcare proxy and POA states that she is interested in surgical management of this fracture. After discussion with the hospitalist service, the patient is currently on Eliquis and requires medical clearance which likely will not occur today. The patient's Eliquis will be discontinued and the patient will be placed on Lovenox for DVT prophylaxis. Surgical intervention is current pending medical/cardiac clearance. Up until that point, the patient will be nonweightbearing on her right lower extremity. I did reach out to Dr. Eliezer Gardner with whom I had a conversation. Dr. Eliezer Gardner will be assuming the orthopedic care of this patient as I am here on a locum capacity.
--- NOTE | 2020-11-03 12:09 | REP ---
INDICATION: RUE swelling, worsene d, r/o DVT. Fracture neck of humerus right upper extremity swelling. COMPARISON: None. TECHNIQUE: Right upper extremity duplex venous ultrasound. Exam is technically difficult. Patient was in an arm brace. Diffuse edema. FINDINGS: The right internal jugular, axillary, brachial, basilic, and cephalic veins are anechoic and compressible in the right upper extremity. Color flow imaging is homogeneous. Spectral Doppler interrogation is unremarkable. There is no evidence of right upper extremity venous thrombosis. IMPRESSION: Negative right upper extremity duplex venous ultrasound. No evidence of venous thrombosis. <Electronically signed by Alexis Levy > 11/03/20 1115
--- NOTE | 2020-11-03 14:55 | IPNPDOC ---
Date Seen The patient was seen on 11/03/20. Progress Note SUBJECTIVE: Post-op day 2 right hip arthroplasty. Pain controlled. RUE doppler: neg for DVT. H/H continues to drop, stopped gentle IVFs, transfusing 2 units PRBC, ADITYA so may also consider venofer infusion. No acute events overnight. OBJECTIVE: PHYSICAL EXAM: VS: Please see below GENERAL APPEARANCE: well nourished / comfortable, very hard of hearing HEENT: EOMI / MMM&P /has hearing aide CARDIOVASCULAR: RRR/NMRG LUNGS: CTAB on RA ABDOMEN: soft & NT MUSCULOSKELETAL: Right hip incisions appear well healing, no pain on palpation, ROM not tested. RUE in arm brace NEURO: no focal deficits, CN 2-12 intact LABORATORY DATA: Please see below. IMAGING: Right hip XR 11/01/20: Right femoral head is been replaced. Prosthetic femoral head is in good position relative to the proximal femur and the acetabulum. There is periarticular soft tissue emphysema adjacent. Some vascular calcification is noted. Echocardiogram 10/28/20: EF 50-55% Low normal global left ventricular systolic function. Assessment of the left ventricular diastolic function was limited in view of the underlying arrhythmias. Aortic valve sclerosis with trace aortic regurgitation, but no aortic stenosis. Mitral annular calcification with a mildly enlarged left atrium and trace mitral regurgitation. Moderate tricuspid regurgitation with moderate pulmonary hypertension and dilated right atrium. Trace pericardial effusion, no evidence of cardiac tamponade. Shoulder xray: 1. Displaced and angulated fracture of the right humeral neck. 2. Subcutaneous edema about the shoulder. 3. Osteopenia. Right elbow XR: 1. Osteopenia. 2. Suboptimally projected lateral view with question of joint effusion. 3. No corresponding fracture is identified. Xray hips: 1. Fracture of the right femoral neck with cephalad migration of the distal fragment. 2. Early degenerative change in an otherwise negative left hip. 3. Lower lumbar degenerative disc changes with spurring. ASSESSMENT: is an 85 yr old with osteopenia, hearing loss, A fib and cognitive impairment that is admitted for management of right humerus and femur fractures. PLAN: Right humerus and femur fractures 2/2 osteoporosis -POD 2 right hip arthroplasty -no complications during or post-operatively -Per ortho, not suspecting bleed from surgery with decreasing H/H -Pain is controlled for upper and lower ext -RUE in brace -C/w pain management, WBAT of LE, no weight, pulling or pushing of RUE. -Eliquis PO BID -Ortho following, perioperative eval below. -PT/OT while here -Plan is discharge back to intermediate on 11/03/20 Acute on chronic anemia, r/o GI bleed vs. bleed elsewhere -Has required 2 units PRBC already this Admission, prior to surgery -H/H went from 10.6/32 on 10/31/20 --> 7.3/22 today. -No obvious s/s of bleeding -F/u occult blood -Holding eliquis for today until 11/04/20 per ortho -Transfusing 2 units today, f/u post transfusion CBC RUE swelling likely 2/2 to trauma, right humerus fracture -Doppler neg for DVT -C/w brace, pain control, limitations for activity per ortho NIDDM2 -BS controlled - c/w consistent carb , f/u accuchecks / hypoglycemia protocol / sliding scale insulin / hold oral anti-glycemic / f/u A1C Afib -CHADSVASC is 3 - C/w metoprolol, holding eliquis BID Hypothyroidism -C/w levothyroxine Dementia / Hearing loss -Appears to be at baseline per family DVT -HOlding Eliquis BID while ruling out bleed. SCDs, teds Resolved issues: YULISSA likely prerenal DISPOSITION: Plan is return back to [facility] likely after this coming weekend. C/w PT/OT here in mean time. VS, I&O, 24H, Fishbone Vital Signs/I&O Vital Signs Date Time Temp Pulse Resp B/P (MAP) Pulse Ox O2 Delivery O2 Flow Rate FiO2 11/03/20 14:33 98.6 88 17 126/62 100 Room Air 11/01/20 18:20 2 I&O- Last 24 Hours up to 6 AM 11/03/20 06:00 Intake Total 3060 ml Output Total 400 ml Balance 2660 ml Laboratory Data 24H LABS Laboratory Tests 2 11/02/20 16:38: Bedside Glucose (Misc Panel) 145H 11/02/20 20:01: Bedside Glucose (Misc Panel) 151H 11/03/20 06:48: Nucleated Red Blood Cells % (auto) 0.0, Anion Gap 10, Glomerular Filtration Rate > 60.0, Calcium Level 7.8L 11/03/20 12:19: Bedside Glucose (Misc Panel) 99 CBC/BMP Laboratory Tests 11/03/20 06:48 Current Medications Current Medications Medications (Trade) Dose Ordered Sig/Pako Route PRN Reason Start Time Stop Time Status Last Admin Dose Admin Acetaminophen (Tylenol Tab) 650 mg Q4H PRN PO MILD PAIN OR FEVER 10/28/20 01:45 11/02/20 05:26 Al Hydrox/Mg Hydrox/Simethicone (Mylanta) 30 ml DAILY PRN PO DYSPEPSIA 10/28/20 01:45 Apixaban (Eliquis) 2.5 mg BID PO 11/02/20 09:00 11/02/20 20:43 Aripiprazole (AbiLIFY) 2 mg QHS PO 10/28/20 03:45 11/02/20 20:45 Bisacodyl (Dulcolax Suppository) 10 mg DAILY PRN [place] CONSTIPATION 10/28/20 03:45 Cyanocobalamin (Vitamin B12) 1,000 mcg DAILY PO 10/28/20 09:00 11/03/20 09:22 Dextrose (Dextrose 50%) 25 ml ASDIRECTED PRN IV SEE LABEL COMMENTS 10/28/20 02:00 Enoxaparin Sodium (Lovenox) 30 mg DAILY SC 10/28/20 09:00 11/01/20 05:49 DC 10/31/20 13:37 Fentanyl Citrate (Sublimaze) 25 mcg Q5MP PRN IV PAIN LEVEL 5-10 11/01/20 18:15 11/01/20 19:15 DC Ferrous Sulfate (Ferrous Sulfate) 325 mg BID PO 11/03/20 09:00 11/03/20 09:22 Ferrous Sulfate (Ferrous Sulfate) 325 mg DAILY PO 10/28/20 09:00 11/03/20 08:07 DC 11/02/20 08:11 Folic Acid (Folic Acid) 5 mg We PO 11/01/20 09:00 Glucagon (Glucagon) 1 mg ASDIRECTED PRN SC SEE LABEL COMMENTS 10/28/20 02:00 Glucose (Glucose) 16 GM ASDIRECTED PRN PO SEE LABEL COMMENTS 10/28/20 02:00 Home Med (Med Rec Complete!) ASDIRECTED XX 10/28/20 02:45 10/28/20 02:56 DC Hydromorphone HCl (Dilaudid) 0.2 mg Q3HP PRN IV MILD PAIN (PS 1-4) 10/28/20 01:45 11/01/20 18:24 DC 10/30/20 17:44 Hydromorphone HCl (Dilaudid) 0.4 mg Q3HP PRN IV MODERATE PAIN (PS 5-7) 10/28/20 01:45 11/01/20 18:24 DC Insulin Human Lispro (HumaLOG INSULIN) See Protocol Table AC SC 10/28/20 07:30 11/02/20 17:50 Insulin Human Lispro (HumaLOG INSULIN) See Protocol Table QHS SC 10/28/20 21:00 Lactated Ringer's 1,000 ml @ 60 mls/hr [id number] IV 10/28/20 01:45 10/28/20 07:51 DC 10/28/20 02:16 Lactated Ringer's 1,000 ml @ 80 mls/hr [id number] IV 11/01/20 18:30 11/03/20 01:29 Lactated Ringer's 1,000 ml @ 100 mls/hr Q10H IV 11/01/20 18:15 11/01/20 19:15 DC Levothyroxine Sodium (Synthroid) 50 mcg DAILY@0600 PO 10/28/20 06:00 11/03/20 06:00 Magnesium Hydroxide (Milk Of Magnesia) 10 ml DAILY PRN PO CONSTIPATION 10/28/20 03:45 10/28/20 03:48 DC Magnesium Hydroxide (Milk Of Magnesia) 30 ml DAILY PRN PO CONSTIPATION 10/28/20 01:45 Methotrexate (Folex) 7.5 mg Tu PO 10/31/20 09:00 10/31/20 13:39 Metoclopramide HCl (REGLAN INJection) 10 mg Q6HP PRN IV NAUSEA OR VOMITING 11/01/20 18:15 11/01/20 19:15 DC Metoprolol Tartrate (Lopressor) 50 mg BID PO 10/28/20 09:00 11/03/20 09:22 Morphine Sulfate (Morphine Sulfate Inj) 2 mg Q2H PRN IV SEVERE PAIN (PS 8-10) 11/01/20 18:30 11/02/20 06:06 DC Multivitamins (Theragram-M) 1 tab DAILY PO 10/28/20 09:00 11/03/20 09:22 Ondansetron HCl (ZOFRAN INJection) 4 mg Q4HP PRN IV NAUSEA OR VOMITING 11/01/20 18:15 11/01/20 19:15 DC Ondansetron HCl (ZOFRAN INJection) 4 mg Q6H PRN IV NAUSEA 11/01/20 18:30 Oxycodone HCl (Roxicodone, Oxyir) 5 mg ASDIRECTED PRN PO PAIN LEVEL 1-4 11/01/20 18:15 11/01/20 19:15 DC 11/01/20 18:46 Oxycodone/ Acetaminophen (Percocet 5mg/ 325mg Tablet) 1 tab Q4H PRN PO MODERATE PAIN (PS 5-7) 11/01/20 18:30 11/03/20 06:01 Psyllium Hydrophilic Mucilloid (Metamucil) 1 pkt DAILY PO 11/01/20 09:00 11/03/20 09:22 Sertraline HCl (Zoloft) 25 mg DAILY PO 10/28/20 09:00 11/03/20 09:21 Allergies Coded Allergies: No Known Allergies (Unverified , 02/02/19) Brittany Tillman MD Nov 03, 2020 14:55
[2020-11-03 19:30] LABS: HEMATOCRIT 28.2 % (36.0-47.0); HEMOGLOBIN 9.6 g/dl (12.0-15.5); MEAN CORPUSCULAR HEMOGLOBIN 30.9 pg (27.0-33.0); MEAN CORPUSCULAR VOLUME 90.7 fl (80.0-96.0); PLATELET COUNT, AUTOMATED 198 10^3/uL (150-450); RED BLOOD COUNT 3.11 10^6/uL (4.00-5.40); WHITE BLOOD COUNT 10.1 10^3/uL (4.0-10.0)
[2020-11-03] MEDS: ARIPiprazole 2 MG TAB PO SCH (20:20)
[2020-11-04] MEDS: LEVOTHYROXINE 50MCG TABLET (0.05MG) PO SCH (05:21)
[2020-11-04 06:10] VITALS: BP 147/80
[2020-11-04] MEDS: HumaLOG INSULIN (NovoLOG) PER UNIT SC SCH ×4 (07:30→20:13)
[2020-11-04 08:10] LABS: HEMATOCRIT 29.6 % (36.0-47.0); HEMOGLOBIN 9.9 g/dl (12.0-15.5); MEAN CORPUSCULAR HEMOGLOBIN 30.3 pg (27.0-33.0); MEAN CORPUSCULAR HGB CONC 33.4 g/dl (32.0-36.5); MEAN CORPUSCULAR VOLUME 90.5 fl (80.0-96.0); PLATELET COUNT, AUTOMATED 214 10^3/uL (150-450); RED BLOOD COUNT 3.27 10^6/uL (4.00-5.40); WHITE BLOOD COUNT 8.6 10^3/uL (4.0-10.0)
[2020-11-04 08:30] LABS: BLOOD UREA NITROGEN 23 MG/DL (7-18); CALCIUM LEVEL 8.4 MG/DL (8.8-10.2); CARBON DIOXIDE LEVEL 22 MEQ/L (21-32); CHLORIDE LEVEL 101 MEQ/L (98-107); CREATININE FOR GFR 0.74 MG/DL (0.55-1.30); GLOMERULAR FILTRATION RATE > 60.0 (>32); GLUCOSE, FASTING 101 MG/DL (70-100); SODIUM LEVEL 134 MEQ/L (136-145)
[2020-11-04] MEDS: METAMUCIL (PSYLLIUM) PACKET PO SCH (09:13)
[2020-11-04] MEDS: FERROUS SULFATE 325MG TAB PO SCH ×2 (09:14→20:13)
[2020-11-04] MEDS: SERTRALINE HCL 25 MG TABLET PO SCH (09:14)
[2020-11-04] MEDS: CYANOCOBALAMIN 500 MCG TAB PO SCH (09:14)
[2020-11-04] MEDS: APIXABAN 2.5 MG TAB (ELIQUIS) PO SCH ×2 (09:14→20:13)
[2020-11-04] MEDS: MULTIVITAMINS/MINERALS THERAP 1 TAB PO SCH (09:14)
[2020-11-04] MEDS: METOPROLOL TART 50 MG TAB PO SCH ×2 (09:15→20:13)
[2020-11-04 14:00] VITALS: BP 152/88
--- NOTE | 2020-11-04 19:20 | IPNPDOC ---
Date Seen The patient was seen on 11/04/20. Progress Note SUBJECTIVE: Post-op day 3 right hip arthroplasty. S/p 2 units PRBC, H/H responded appropriately. No acute events overnight. OBJECTIVE: PHYSICAL EXAM: VS: Please see below GENERAL APPEARANCE: well nourished / comfortable, very hard of hearing HEENT: EOMI / MMM&P /has hearing aide CARDIOVASCULAR: RRR/NMRG LUNGS: CTAB on RA ABDOMEN: soft & NT MUSCULOSKELETAL: Right hip incisions appear well healing, no pain on palpation, ROM not tested. RUE in arm brace NEURO: no focal deficits, CN 2-12 intact LABORATORY DATA: Please see below. IMAGING: Right hip XR 11/01/20: Right femoral head is been replaced. Prosthetic femoral head is in good position relative to the proximal femur and the acetabulum. There is periarticular soft tissue emphysema adjacent. Some vascular calcification is noted. Echocardiogram 10/28/20: EF 50-55% Low normal global left ventricular systolic function. Assessment of the left ventricular diastolic function was limited in view of the underlying arrhy thmias. Aortic valve sclerosis with trace aortic regurgitation, but no aortic stenosis. Mitral annular calcification with a mildly enlarged left atrium and trace mitral regurgitation. Moderate tricuspid regurgitation with moderate pulmonary hypertension and dilated right atrium. Trace pericardial effusion, no evidence of cardiac tamponade. Shoulder xray: 1. Displaced and angulated fracture of the right humeral neck. 2. Subcutaneous edema about the shoulder. 3. Osteopenia. Right elbow XR: 1. Osteopenia. 2. Suboptimally projected lateral view with question of joint effusion. 3. No corresponding fracture is identified. Xray hips: 1. Fracture of the right femoral neck with cephalad migration of the distal fragment. 2. Early degenerative change in an otherwise negative left hip. 3. Lower lumbar degenerative disc changes with spurring. ASSESSMENT: is an 85 yr old with osteopenia, hearing loss, A fib and cognitive impairment that is admitted for management of right humerus and femur fractures. PLAN: Acute on chronic ADITYA, r/o concomitant GI bleed vs. bleed elsewhere -s/p 2 units PRBC overnight, toatl of 4 this admission -H/H incr appropriately -Low iron -No obvious s/s of bleeding -F/u occult blood -C/w eliquis -C/w iron supplementation, consider iron infusions after PRBCs this weekend Right humerus and femur fractures 2/2 osteoporosis -POD 3 right hip arthroplasty -no complications during or post-operatively -Per ortho, not suspecting bleed from surgery with decreasing H/H -Pain is controlled for upper and lower ext -RUE in brace -C/w pain management, WBAT of LE, no weight, pulling or pushing of RUE. -Eliquis PO BID -Ortho following, PT/OT while here -Plan is [facility] back [facility] after [facility]. RUE swelling likely 2/2 to trauma, right humerus fracture -Doppler neg for DVT -C/w brace, pain control, limitations for activity per ortho NIDDM2 -BS controlled - c/w consistent carb , f/u accuchecks / hypoglycemia protocol / sliding scale insulin / hold oral anti-glycemic / f/u A1C Afib -CHADSVASC is 3 - C/w metoprolol, holding eliquis BID Hypothyroidism -C/w levothyroxine Dementia / Hearing loss -Appears to be at baseline per family DVT -HOlding Eliquis BID while ruling out bleed. SCDs, teds Resolved issues: YULISSA likely prerenal DISPOSITION: Plan is return back to [facility] likely after this coming weeken d. C/w PT/OT here in mean time. VS, I&O, 24H, Fishbone Vital Signs/I&O Vital Signs Date Time Temp Pulse Resp B/P (MAP) Pulse Ox O2 Delivery O2 Flow Rate FiO2 11/04/20 14:00 98.5 83 18 152/88 (109) 99 Room Air 11/01/20 18:20 2 I&O- Last 24 Hours up to 6 AM 11/04/20 06:00 Intake Total 2556 ml Output Total 1000 ml Balance 1556 ml Laboratory Data 24H LABS Laboratory Tests 2 11/03/20 19:14: Nucleated Red Blood Cells % (auto) 0.0 11/03/20 20:09: Bedside Glucose (Misc Panel) 127H 11/04/20 07:38: Bedside Glucose (Misc Panel) 98 11/04/20 07:46: Nucleated Red Blood Cells % (auto) 0.0, Anion Gap 11, Glomerular Filtration Rate > 60.0, Calcium Level 8.4L 11/04/20 11:57: Bedside Glucose (Misc Panel) 147H 11/04/20 16:46: Bedside Glucose (Misc Panel) 82L CBC/BMP Laboratory Tests 11/03/20 19:14 11/04/20 07:46 Current Medications Current Medications Medications (Trade) Dose Ordered Sig/Pako Route PRN Reason Start Time Stop Time Status Last Admin Dose Admin Acetaminophen (Tylenol Tab) 650 mg Q4H PRN PO MILD PAIN OR FEVER 10/28/20 01:45 11/02/20 05:26 Al Hydrox/Mg Hydrox/Simethicone (Mylanta) 30 ml DAILY PRN PO DYSPEPSIA 10/28/20 01:45 Apixaban (Eliquis) 2.5 mg BID PO 11/02/20 09:00 11/04/20 09:14 Aripiprazole (AbiLIFY) 2 mg QHS PO 10/28/20 03:45 11/03/20 20:20 Bisacodyl (Dulcolax Suppository) 10 mg DAILY PRN [place] CONSTIPATION 10/28/20 03:45 Cyanocobalamin (Vitamin B12) 1,000 mcg DAILY PO 10/28/20 09:00 11/04/20 09:14 Dextrose (Dextrose 50%) 25 ml ASDIRECTED PRN IV SEE LABEL COMMENTS 10/28/20 02:00 Enoxaparin Sodium (Lovenox) 30 mg DAILY SC 10/28/20 09:00 11/01/20 05:49 DC 10/31/20 13:37 Fentanyl Citrate (Sublimaze) 25 mcg Q5MP PRN IV PAIN LEVEL 5-10 11/01/20 18:15 11/01/20 19:15 DC Ferrous Sulfate (Ferrous Sulfate) 325 mg BID PO 11/03/20 09:00 11/04/20 09:14 Ferrous Sulfate (Ferrous Sulfate) 325 mg DAILY PO 10/28/20 09:00 11/03/20 08:07 DC 11/02/20 08:11 Folic Acid (Folic Acid) 5 mg We PO 11/01/20 09:00 Glucagon (Glucagon) 1 mg ASDIRECTED PRN SC SEE LABEL COMMENTS 10/28/20 02:00 Glucose (Glucose) 16 GM ASDIRECTED PRN PO SEE LABEL COMMENTS 10/28/20 02:00 Home Med (Med Rec Complete!) ASDIRECTED XX 10/28/20 02:45 10/28/20 02:56 DC Hydromorphone HCl (Dilaudid) 0.2 mg Q3HP PRN IV MILD PAIN (PS 1-4) 10/28/20 01:45 11/01/20 18:24 DC 10/30/20 17:44 Hydromorphone HCl (Dilaudid) 0.4 mg Q3HP PRN IV MODERATE PAIN (PS 5-7) 10/28/20 01:45 11/01/20 18:24 DC Insulin Human Lispro (HumaLOG INSULIN) See Protocol Table AC SC 10/28/20 07:30 11/04/20 12:15 Insulin Human Lispro (HumaLOG INSULIN) See Protocol Table QHS SC 10/28/20 21:00 Lactated Ringer's 1,000 ml @ 60 mls/hr [id number] IV 10/28/20 01:45 10/28/20 07:51 DC 10/28/20 02:16 Lactated Ringer's 1,000 ml @ 80 mls/hr [id number] IV 11/01/20 18:30 11/03/20 14:40 DC 11/03/20 01:29 Lactated Ringer's 1,000 ml @ 100 mls/hr Q10H IV 11/01/20 18:15 11/01/20 19:15 DC Levothyroxine Sodium (Synthroid) 50 mcg DAILY@0600 PO 10/28/20 06:00 11/04/20 05:21 Magnesium Hydroxide (Milk Of Magnesia) 10 ml DAILY PRN PO CONSTIPATION 10/28/20 03:45 10/28/20 03:48 DC Magnesium Hydroxide (Milk Of Magnesia) 30 ml DAILY PRN PO CONSTIPATION 10/28/20 01:45 Methotrexate (Folex) 7.5 mg Tu PO 10/31/20 09:00 10/31/20 13:39 Metoclopramide HCl (REGLAN INJection) 10 mg Q6HP PRN IV NAUSEA OR VOMITING 11/01/20 18:15 11/01/20 19:15 DC Metoprolol Tartrate (Lopressor) 50 mg BID PO 10/28/20 09:00 11/04/20 09:15 Morphine Sulfate (Morphine Sulfate Inj) 2 mg Q2H PRN IV SEVERE PAIN (PS 8-10) 11/01/20 18:30 11/02/20 06:06 DC Multivitamins (Theragram-M) 1 tab DAILY PO 10/28/20 09:00 11/04/20 09:14 Ondansetron HCl (ZOFRAN INJection) 4 mg Q4HP PRN IV NAUSEA OR VOMITING 11/01/20 18:15 11/01/20 19:15 DC Ondansetron HCl (ZOFRAN INJection) 4 mg Q6H PRN IV NAUSEA 11/01/20 18:30 Oxycodone HCl (Roxicodone, Oxyir) 5 mg ASDIRECTED PRN PO PAIN LEVEL 1-4 11/01/20 18:15 11/01/20 19:15 DC 11/01/20 18:46 Oxycodone/ Acetaminophen (Percocet 5mg/ 325mg Tablet) 1 tab Q4H PRN PO MODERATE PAIN (PS 5-7) 11/01/20 18:30 11/03/20 06:01 Psyllium Hydrophilic Mucilloid (Metamucil) 1 pkt DAILY PO 11/01/20 09:00 11/04/20 09:13 Sertraline HCl (Zoloft) 25 mg DAILY PO 10/28/20 09:00 11/04/20 09:14 Allergies Coded Allergies: No Known Allergies (Unverified , 02/02/19) Brittany Tillman MD Nov 04, 2020 19:20
[2020-11-04 20:05] VITALS: BP 158/83
[2020-11-04] MEDS: ARIPiprazole 2 MG TAB PO SCH (20:13)
[2020-11-05] MEDS: LEVOTHYROXINE 50MCG TABLET (0.05MG) PO SCH (06:23)
[2020-11-05] MEDS: HumaLOG INSULIN (NovoLOG) PER UNIT SC SCH ×4 (07:30→20:29)
[2020-11-05 08:42] LABS: HEMATOCRIT 31.7 % (36.0-47.0); HEMOGLOBIN 10.3 g/dl (12.0-15.5); MEAN CORPUSCULAR HEMOGLOBIN 29.9 pg (27.0-33.0); MEAN CORPUSCULAR HGB CONC 32.5 g/dl (32.0-36.5); MEAN CORPUSCULAR VOLUME 91.9 fl (80.0-96.0); PLATELET COUNT, AUTOMATED 253 10^3/uL (150-450); RED BLOOD COUNT 3.45 10^6/uL (4.00-5.40); WHITE BLOOD COUNT 6.9 10^3/uL (4.0-10.0)
[2020-11-05 09:03] LABS: BLOOD UREA NITROGEN 21 MG/DL (7-18); CALCIUM LEVEL 8.5 MG/DL (8.8-10.2); CARBON DIOXIDE LEVEL 18 MEQ/L (21-32); CHLORIDE LEVEL 102 MEQ/L (98-107); CREATININE FOR GFR 0.71 MG/DL (0.55-1.30); GLOMERULAR FILTRATION RATE > 60.0 (>32); GLUCOSE, FASTING 95 MG/DL (70-100); POTASSIUM SERUM 4.3 MEQ/L (3.5-5.1); SODIUM LEVEL 134 MEQ/L (136-145)
[2020-11-05] MEDS: DOCUSATE SODIUM 100MG CAPSULE PO SCH ×2 (09:17→20:36)
[2020-11-05] MEDS: APIXABAN 2.5 MG TAB (ELIQUIS) PO SCH ×2 (09:17→20:36)
[2020-11-05] MEDS: MULTIVITAMINS/MINERALS THERAP 1 TAB PO SCH (09:18)
[2020-11-05] MEDS: CYANOCOBALAMIN 500 MCG TAB PO SCH (09:18)
[2020-11-05] MEDS: METOPROLOL TART 50 MG TAB PO SCH ×2 (09:18→20:36)
[2020-11-05] MEDS: METAMUCIL (PSYLLIUM) PACKET PO SCH (09:18)
[2020-11-05] MEDS: FERROUS SULFATE 325MG TAB PO SCH ×2 (09:18→20:36)
[2020-11-05] MEDS: SERTRALINE HCL 25 MG TABLET PO SCH (09:18)
[2020-11-05] MEDS ORDERED: LACTULOSE 20 GM/30 ML SYRUP UD PO ONE (10:00)
[2020-11-05 14:00] VITALS: BP 140/74
--- NOTE | 2020-11-05 16:15 | IPNPDOC ---
Date Seen The patient was seen on 11/05/20. Progress Note SUBJECTIVE: Post-op day 4 right hip arthroplasty. H/H stable. No acute events overnight. OBJECTIVE: PHYSICAL EXAM: VS: Please see below GENERAL APPEARANCE: well nourished / comfortable, very hard of hearing HEENT: EOMI / MMM&P /has hearing aide CARDIOVASCULAR: RRR/NMRG LUNGS: CTAB on RA ABDOMEN: soft & NT MUSCULOSKELETAL: Right hip incisions appear well healing, no pain on palpation, ROM not tested. RUE in arm brace NEURO: no focal deficits, CN 2-12 intact LABORATORY DATA: Please see below. IMAGING: Right hip XR 11/01/20: Right femoral head is been replaced. Prosthetic femoral head is in good position relative to the proximal femur and the acetabulum. There is periartic ular soft tissue emphysema adjacent. Some vascular calcification is noted. Echocardiogram 10/28/20: EF 50-55% Low normal global left ventricular systolic function. Assessment of the left ventricular diastolic function was limited in view of the underlying arrhythmias. Aortic valve sclerosis with trace aortic regurgitation, but no aortic stenosis. Mitral annular calcification with a mildly enlarged left atrium and trace mitral regurgitation. Moderate tricuspid regurgitation with moderate pulmonary hypertension and dilated right atrium. Trace pericardial effusion, no evidence of cardiac tamponade. Shoulder xray: 1. Displaced and angulated fracture of the right humeral neck. 2. Subcutaneous edema about the shoulder. 3. Osteopenia. Right elbow XR: 1. Osteopenia. 2. Suboptimally projected lateral view with question of joint effusion. 3. No corresponding fracture is identified. Xray hips: 1. Fracture of the right femoral neck with cephalad migration of the distal fragment. 2. Early degenerative change in an otherwise negative left hip. 3. Lower lumbar degenerative disc changes with spurring. ASSESSMENT: is an 85 yr old with osteopenia, hearing loss, A fib and cognitive impairment that is admitted for management of right humerus and femur fractures. PLAN: Acute on chronic ADITYA, r/o concomitant GI bleed vs. bleed elsewhere -H/H stable -s/p total of 4 PRBC this admission -Low iron -No obvious s/s of bleeding -F/u occult blood -C/w eliquis -C/w iron supplementation, consider iron infusions Right humerus and femur fractures 2/2 osteoporosis -POD 4 right hip arthroplasty -no complications during or post-operatively -Per ortho, not suspecting bleed from surgery with decreasing H/H -Pain is controlled for upper and lower ext -RUE in brace -C/w pain management, WBAT of LE, no weight, pulling or pushing of RUE. -Eliquis PO BID -Ortho following, PT/OT while here -Plan is discharge back to [facility] after weekend. RUE swelling likely 2/2 to trauma, right humerus fracture -Doppler neg for DVT -C/w brace, pain control, limitations for activity per ortho Constipation -Lactulose x 2 doses today, started on more aggressive BM -Send stool for occult blood when obtained -Encourage fluids Q2h while awake NIDDM2 -BS controlled - c/w consistent carb , f/u accuchecks / hypoglycemia protocol / sliding scale insulin / hold oral anti-glycemic / f/u A1C Afib -CHADSVASC is 3 - C/w metoprolol, eliquis BID Hypothyroidism -C/w levothyroxine Dementia / Hearing loss -Appears to be at baseline per family DVT -eliquis BID Resolved issues: YULISSA likely prerenal DISPOSITION: Plan is return back to [facility] likely after weekend. C/w PT/OT here in mean time. VS, I&O, 24H, Fishbone Vital Signs/I&O Vital Signs Date Time Temp Pulse Resp B/P (MAP) Pulse Ox O2 Delivery O2 Flow Rate FiO2 11/05/20 14:00 98.8 88 20 140/74 (96) 98 Room Air 11/01/20 18:20 2 I&O- Last 24 Hours up to 6 AM 11/05/20 05:59 Intake Total 1940 ml Output Total 2425 ml Balance -485 ml Laboratory Data 24H LABS Laboratory Tests 2 11/04/20 16:46: Bedside Glucose (Misc Panel) 82L 11/04/20 20:05: Bedside Glucose (Misc Panel) 102 11/05/20 08:14: Nucleated Red Blood Cells % (auto) 0.0, Anion Gap 14, Glomerular Filtration Rate > 60.0, Calcium Level 8.5L 11/05/20 11:37: Bedside Glucose (Misc Panel) 133H CBC/BMP Laboratory Tests 11/05/20 08:14 Current Medications Current Medications Medications (Trade) Dose Ordered Sig/Pako Route PRN Reason Start Time Stop Time Status Last Admin Dose Admin Acetaminophen (Tylenol Tab) 650 mg Q4H PRN PO MILD PAIN OR FEVER 10/28/20 01:45 11/02/20 05:26 Al Hydrox/Mg Hydrox/Simethicone (Mylanta) 30 ml DAILY PRN PO DYSPEPSIA 10/28/20 01:45 Apixaban (Eliquis) 2.5 mg BID PO 11/02/20 09:00 11/05/20 09:17 Aripiprazole (AbiLIFY) 2 mg QHS PO 10/28/20 03:45 11/04/20 20:13 Bisacodyl (Dulcolax Suppository) 10 mg DAILY PRN [place] CONSTIPATION 10/28/20 03:45 Cyanocobalamin (Vitamin B12) 1,000 mcg DAILY PO 10/28/20 09:00 11/05/20 09:18 Dextrose (Dextrose 50%) 25 ml ASDIRECTED PRN IV SEE LABEL COMMENTS 10/28/20 02:00 Docusate Sodium (Colace) 100 mg BID PO 11/05/20 09:00 11/05/20 09:17 Enoxaparin Sodium (Lovenox) 30 mg DAILY SC 10/28/20 09:00 11/01/20 05:49 DC 10/31/20 13:37 Fentanyl Citrate (Sublimaze) 25 mcg Q5MP PRN IV PAIN LEVEL 5-10 11/01/20 18:15 11/01/20 19:15 DC Ferrous Sulfate (Ferrous Sulfate) 325 mg BID PO 11/03/20 09:00 11/05/20 09:18 Ferrous Sulfate (Ferrous Sulfate) 325 mg DAILY PO 10/28/20 09:00 11/03/20 08:07 DC 11/02/20 08:11 Folic Acid (Folic Acid) 5 mg We PO 11/01/20 09:00 Glucagon (Glucagon) 1 mg ASDIRECTED PRN SC SEE LABEL COMMENTS 10/28/20 02:00 Glucose (Glucose) 16 GM ASDIRECTED PRN PO SEE LABEL COMMENTS 10/28/20 02:00 Home Med (Med Rec Complete!) ASDIRECTED XX 10/28/20 02:45 10/28/20 02:56 DC Hydromorphone HCl (Dilaudid) 0.2 mg Q3HP PRN IV MILD PAIN (PS 1-4) 10/28/20 01:45 11/01/20 18:24 DC 10/30/20 17:44 Hydromorphone HCl (Dilaudid) 0.4 mg Q3HP PRN IV MODERATE PAIN (PS 5-7) 10/28/20 01:45 11/01/20 18:24 DC Insulin Human Lispro (HumaLOG INSULIN) See Protocol Table AC SC 10/28/20 07:30 11/04/20 12:15 Insulin Human Lispro (HumaLOG INSULIN) See Protocol Table QHS SC 10/28/20 21:00 Lactated Ringer's 1,000 ml @ 60 mls/hr [id number] IV 10/28/20 01:45 10/28/20 07:51 DC 10/28/20 02:16 Lactated Ringer's 1,000 ml @ 80 mls/hr [id number] IV 11/01/20 18:30 11/03/20 14:40 DC 11/03/20 01:29 Lactated Ringer's 1,000 ml @ 100 mls/hr Q10H IV 11/01/20 18:15 11/01/20 19:15 DC Levothyroxine Sodium (Synthroid) 50 mcg DAILY@0600 PO 10/28/20 06:00 11/05/20 06:23 Magnesium Hydroxide (Milk Of Magnesia) 10 ml DAILY PRN PO CONSTIPATION 10/28/20 03:45 10/28/20 03:48 DC Magnesium Hydroxide (Milk Of Magnesia) 30 ml DAILY PRN PO CONSTIPATION 10/28/20 01:45 Methotrexate (Folex) 7.5 mg Tu PO 10/31/20 09:00 10/31/20 13:39 Metoclopramide HCl (REGLAN INJection) 10 mg Q6HP PRN IV NAUSEA OR VOMITING 11/01/20 18:15 11/01/20 19:15 DC Metoprolol Tartrate (Lopressor) 50 mg BID PO 10/28/20 09:00 11/05/20 09:18 Morphine Sulfate (Morphine Sulfate Inj) 2 mg Q2H PRN IV SEVERE PAIN (PS 8-10) 11/01/20 18:30 11/02/20 06:06 DC Multivitamins (Theragram-M) 1 tab DAILY PO 10/28/20 09:00 11/05/20 09:18 Ondansetron HCl (ZOFRAN INJection) 4 mg Q4HP PRN IV NAUSEA OR VOMITING 11/01/20 18:15 11/01/20 19:15 DC Ondansetron HCl (ZOFRAN INJection) 4 mg Q6H PRN IV NAUSEA 11/01/20 18:30 Oxycodone HCl (Roxicodone, Oxyir) 5 mg ASDIRECTED PRN PO PAIN LEVEL 1-4 11/01/20 18:15 11/01/20 19:15 DC 11/01/20 18:46 Oxycodone/ Acetaminophen (Percocet 5mg/ 325mg Tablet) 1 tab Q4H PRN PO MODERATE PAIN (PS 5-7) 11/01/20 18:30 11/03/20 06:01 Psyllium Hydrophilic Mucilloid (Metamucil) 1 pkt DAILY PO 11/01/20 09:00 11/05/20 09:18 Senna (Senokot) 2 tab QHS PO 11/05/20 21:00 Sertraline HCl (Zoloft) 25 mg DAILY PO 10/28/20 09:00 11/05/20 09:18 Allergies Coded Allergies: No Known Allergies (Unverified , 02/02/19) Brittany Tillman MD Nov 05, 2020 16:15
[2020-11-05] MEDS: LACTULOSE 20 GM/30 ML SYRUP UD PO ONE ×2 (17:03→17:22)
[2020-11-05 20:36] VITALS: BP 107/88
[2020-11-05] MEDS: ARIPiprazole 2 MG TAB PO SCH (20:36)
[2020-11-05] MEDS ORDERED: SENNA 8.6 MG TAB (SENOKOT) PO SCH (21:00)
[2020-11-05 22:00] VITALS: BP 167/88
[2020-11-06 06:00] VITALS: BP 163/90
[2020-11-06] MEDS: LEVOTHYROXINE 50MCG TABLET (0.05MG) PO SCH (06:07)
[2020-11-06] MEDS: HumaLOG INSULIN (NovoLOG) PER UNIT SC SCH ×2 (07:30→12:00)
[2020-11-06] MEDS ORDERED: FERR325T18 PO (08:08)
[2020-11-06] MEDS ORDERED: ACET1TAB55 PO (08:08)
[2020-11-06] MEDS ORDERED: MYLASSUD PO (08:08)
[2020-11-06] MEDS ORDERED: DOK1CAP7 PO (08:08)
[2020-11-06] MEDS ORDERED: SENN18TA PO (08:08)
[2020-11-06] MEDS ORDERED: PERCOCET PO (08:08)
[2020-11-06 08:36] LABS: BLOOD UREA NITROGEN 18 MG/DL (7-18); CALCIUM LEVEL 8.6 MG/DL (8.8-10.2); CARBON DIOXIDE LEVEL 22 MEQ/L (21-32); CHLORIDE LEVEL 101 MEQ/L (98-107); CREATININE FOR GFR 0.68 MG/DL (0.55-1.30); GLOMERULAR FILTRATION RATE > 60.0 (>32); GLUCOSE, FASTING 107 MG/DL (70-100); POTASSIUM SERUM 4.5 MEQ/L (3.5-5.1); SODIUM LEVEL 134 MEQ/L (136-145)
[2020-11-06 09:02] LABS: HEMATOCRIT 32.1 % (36.0-47.0); HEMOGLOBIN 10.8 g/dl (12.0-15.5); MEAN CORPUSCULAR HEMOGLOBIN 29.9 pg (27.0-33.0); MEAN CORPUSCULAR HGB CONC 33.6 g/dl (32.0-36.5); MEAN CORPUSCULAR VOLUME 88.9 fl (80.0-96.0); PLATELET COUNT, AUTOMATED 258 10^3/uL (150-450); RED BLOOD COUNT 3.61 10^6/uL (4.00-5.40); WHITE BLOOD COUNT 6.9 10^3/uL (4.0-10.0)
[2020-11-06] MEDS: FERROUS SULFATE 325MG TAB PO SCH (09:15)
[2020-11-06] MEDS: DOCUSATE SODIUM 100MG CAPSULE PO SCH (09:15)
[2020-11-06] MEDS: APIXABAN 2.5 MG TAB (ELIQUIS) PO SCH (09:15)
[2020-11-06] MEDS: MULTIVITAMINS/MINERALS THERAP 1 TAB PO SCH (09:15)
[2020-11-06] MEDS: SERTRALINE HCL 25 MG TABLET PO SCH (09:15)
[2020-11-06] MEDS: CYANOCOBALAMIN 500 MCG TAB PO SCH (09:15)
[2020-11-06] MEDS: METAMUCIL (PSYLLIUM) PACKET PO SCH (09:15)
[2020-11-06] MEDS: METOPROLOL TART 50 MG TAB PO SCH (09:16)
--- NOTE | 2020-11-06 18:28 | DS.PDOC ---
Discharge Summary General Date of Admission Oct 28, 2020 at 01:40 Date of Discharge 11/06/20 Attending Physician: Brittany Tillman MD Discharge Summary HISTORY OF PRESENT ILLNESS: This 85 yr old F tripped and fell while walking [place]. She denies feeling dizzy, having dyspnea, having chest pain, n/v/d or any other acute c/o prior to the fall. She has a fx of her humerus and femur; discussed the case with . HOSPITAL COURSE: On 11/01/20 patient underwent cemented right hemiarthroplasty for right femur fracture. There were no complications during or post-operatively. Pain remained controlled for upper and lower ext. RUE was placed in brace with no surgery being needed. She remained WBAT of LE, no weight, pulling or pushing of RUE. She was anticoagulated with Eliquis PO BID. She did have some acute on chronic ADITYA. No GI bleed was suspected; however, over this hospitalization she did require total of 4 PRBC. Iron was low and iron supplementation was started. She would be a good candidate for iron infusions as o/p. Other chronic issues remained stable. On 11/06/20 patient was discharged to [facility] for continued rehab. At time of discharge, patient denied any chest pain, SOB, fevers, chills, n/v/d. PAST MEDICAL/ SURGICAL HISTORY: NIDDM2 Osteopenia Afib Severe Pulm HTN Severe TR Hx of Microcytic anemia Advanced Dementia Hearing loss DLP Cholecystectomy Pacemaker SOCIAL HISTORY: Lives with Former smoker 30 pack yr habit ALLERGIES: Please see below. PHYSICAL EXAM: VS: Please see below GENERAL APPEARANCE: well nourished / comfortable, very hard of hearing HEENT: EOMI / MMM&P /has hearing aide CARDIOVASCULAR: RRR/NMRG LUNGS: CTAB on RA ABDOMEN: soft & NT MUSCULOSKELETAL: Right hip incisions appear well healing, no pain on palpation, ROM not tested. RUE in arm brace NEURO: no focal deficits, CN 2-12 intact LABORATORY DATA: Please see below. IMAGING: Right hip XR 11/01/20: Right femoral head is been replaced. Prosthetic femoral head is in good position relative to the proximal femur and the acetabulum. There is periarticular soft tissue emphysema adjacent. Some vascular calcification is noted. Echocardiogram 10/28/20: EF 50-55% Low normal global left ventricular systolic function. Assessment of the left ventricular diastolic function was limited in view of the underlying arrh ythmias. Aortic valve sclerosis with trace aortic regurgitation, but no aortic stenosis. Mitral annular calcification with a mildly enlarged left atrium and trace mitral regurgitation. Moderate tricuspid regurgitation with moderate pulmonary hypertension and dilated right atrium. Trace pericardial effusion, no evidence of cardiac tamponade. Shoulder xray: 1. Displaced and angulated fracture of the right humeral neck. 2. Subcutaneous edema about the shoulder. 3. Osteopenia. Right elbow XR: 1. Osteopenia. 2. Suboptimally projected lateral view with question of joint effusion. 3. No corresponding fracture is identified. Xray hips: 1. Fracture of the right femoral neck with cephalad migration of the distal fragment. 2. Early degenerative change in an otherwise negative left hip. 3. Lower lumbar degenerative disc changes with spurring. ASSESSMENT: is an 85 yr old with osteopenia, hearing loss, A fib and cognitive impairment that is admitted for management of right humerus and femur fractures. PLAN: Acute on chronic ADITYA. Not suspecting bleed as cause -H/H stable -s/p total of 4 PRBC this admission -Low iron -No obvious s/s of bleeding -C/w eliquis BID for AC -C/w iron supplementation, consider iron infusions as o/p Right humerus and femur fractures 2/2 osteoporosis -POD 5 right hip arthroplasty (11/01/20 ) -no complications during or post-operatively -Pain is controlled for upper and lower ext -RUE in brace -C/w pain management, WBAT of LE, no weight, pulling or pushing of RUE. -Eliquis PO BID -Ortho to f/u as o/p RUE swelling likely 2/2 to trauma, right humerus fracture -Doppler neg for DVT -C/w brace, pain control, limitations for activity per ortho Constipation -BR at discharge NIDDM2 -BS controlled - c/w consistent , home meds Afib -CHADSVASC is 3 - C/w metoprolol, eliquis BID Hypothyroidism -C/w levothyroxine Dementia / Hearing loss -Appears to be at baseline per family DVT -eliquis BID Resolved issues: YULISSA likely prerenal DISPOSITION: D/c to [facility] today with f/u by orthopedic surgery TIME SPENT ON DISCHARGE: Greater than 30 minutes. Vital Signs/I&Os Vital Signs Date Time Temp Pulse Resp B/P (MAP) Pulse Ox O2 Delivery O2 Flow Rate FiO2 11/06/20 06:00 99.0 99 18 163/90 (114) 98 Room Air 11/01/20 18:20 2 I&O- Last 24 Hours up to 6 AM 11/06/20 06:00 Intake Total 1370 ml Output Total 1000 ml Balance 370 ml Laboratory Data Labs 24H Laboratory Tests 2 11/05/20 20:00: Bedside Glucose (Misc Panel) 125H 11/06/20 07:43: Anion Gap 11, Glomerular Filtration Rate > 60.0, Calcium Level 8.6L 11/06/20 08:43: Nucleated Red Blood Cells % (auto) 0.0 11/06/20 11:16: Bedside Glucose (Misc Panel) 113H 11/06/20 11:20: Coronavirus (COVID-19)(PCR) NEGATIVE CBC/BMP Laboratory Tests 11/06/20 07:43 11/06/20 08:43 FSBS Laboratory Tests Test 11/05/20 20:00 11/06/20 11:16 Range/Units Bedside Glucose (Misc Panel) 125 113 83-110 MG/DL Discharge Medications Scheduled Apixaban (Eliquis) 2.5 Mg Tablet, 2.5 MG PO BID, (Reported) Aripiprazole (Aripiprazole) 2 Mg Tablet, 2 MG PO QHS, (Reported) Ascorbate Calcium (Vitamin C) 500 Mg Tablet, 500 MG PO BID, (Reported) Cyanocobalamin (Vitamin B-12) (Vitamin B-12) 1,000 Mcg Capsule, 1,000 MCG PO DAILY, (Reported) Docusate Sodium (Dok) 100 Mg Capsule, 100 MG PO BID Ferrous Sulfate (Ferrous Sulfate) 325 Mg Tablet, 325 MG PO BID Folic Acid (Folic Acid) 1 Mg Tablet, 5 MG PO QWEEK, (Reported) friday Levothyroxine Sodium (Levothyroxine Sodium) 50 Mcg Tablet, 50 MCG PO QAM, (Reported) Methotrexate Sodium (Methotrexate) 2.5 Mg Tablet, 7.5 MG PO QWEEK, (Reported) FRIDAY Metoprolol Tartrate (Metoprolol Tartrate) 50 Mg Tablet, 50 MG PO BID, (Reported) Multivit,Calc,Mins/Iron/Folic (Thera-M Tablet) 1 Each Tablet, 1 TAB PO DAILY, (Reported) Senna (Senna Lax) 8.6 Mg Tablet, 2 TAB PO QHS Sertraline HCl (Sertraline HCl) 25 Mg Tablet, 25 MG PO DAILY, (Reported) Scheduled PRN Acetaminophen (Acetaminophen) 325 Mg Tablet, 650 MG PO Q6HP PRN for MILD PAIN OR FEVER Aluminum/Magnesium/Simeth (Mag-Al Plus Suspension) 30 Ml Oral.susp, 30 ML PO DAILY PRN for DYSPEPSIA Bisacodyl (Bisacodyl) 10 Mg Supp.rect, 10 MG NM DAILY PRN for CONSTIPATION, (Reported) Milk Of Magnesia (Milk of Magnesia) 2,400 Mg/10 Ml Oral.susp, 10 ML PO DAILY PRN for CONSTIPATION, (Reported) Oxycodone/Acetaminophen (Oxycodone-Acetaminophen 5-325) 1 Each Tablet, 1 TAB PO Q6HP PRN for MODERATE PAIN (PS 5-7) Allergies Coded Allergies: No Known Allergies (Unverified , 02/02/19) Brittany Tillman MD Nov 06, 2020 18:28
== END 2020-11-06 12:50 | DRG 470 ==
LOC: M ED 22:49 → M ED INP 10-28 01:40 → M MS5PR 10-28 02:46
PROVIDERS: ADMIT Internal Medicine; ATTEND Internal Medicine
PROC: 30233N1 Transfusion of Nonautologous Red Blood Cells into Peripheral Vein, Percutaneous Approach (ICD-10-PCS; 2020-10-29)
PROC: 0SRR0J9 Replacement of Right Hip Joint, Femoral Surface with Synthetic Substitute, Cemented, Open Approach (ICD-10-PCS; principal; 2020-11-01 07:25)
DX: S72.001A Fracture of unspecified part of neck of right femur, initial encounter for closed fracture (principal); D62 Acute posthemorrhagic anemia; N17.9 Acute kidney failure, unspecified; K92.2 Gastrointestinal hemorrhage, unspecified; M80.051A Age-related osteoporosis with current pathological fracture, right femur, initial encounter for fracture; M80.021A Age-related osteoporosis with current pathological fracture, right humerus, initial encounter for fracture; S42.294A Other nondisplaced fracture of upper end of right humerus, initial encounter for closed fracture; E11.9 Type 2 diabetes mellitus without complications; I48.91 Unspecified atrial fibrillation; K59.00 Constipation, unspecified; Z66 Do not resuscitate; I27.20 Pulmonary hypertension, unspecified; F03.90 Unspecified dementia, unspecified severity, without behavioral disturbance, psychotic disturbance, mood disturbance, and anxiety; D50.9 Iron deficiency anemia, unspecified; H91.93 Unspecified hearing loss, bilateral; E78.5 Hyperlipidemia, unspecified; Z95.0 Presence of cardiac pacemaker; Z90.49 Acquired absence of other specified parts of digestive tract; Z87.891 Personal history of nicotine dependence; Z79.01 Long term (current) use of anticoagulants; Z79.899 Other long term (current) drug therapy; W18.30XA Fall on same level, unspecified, initial encounter; Y92.128 Other place in nursing home as the place of occurrence of the external cause

== ENCOUNTER → 2020-11-15 | Outpatient (REF) | payer MEDICARE, OTHER ==
[~2020-11-15] MED LIST changes: +ACET1TAB55 PO; +B-12100010 PO; +BENA25CA4 PO; +BISA10SU4 PR; +DOK1CAP7 PO; +ENEMENE PR; +FERR325T18 PO; +FOLI1TAB11 PO; +LEVO50TA5 PO; +LISI10TA22 PO; +METH2.5T48 PO; +METO50TA7 PO; +MOM30SS PO; +MYLASSUD PO; +PERCOCET PO; +SENN18TA PO; +SERT25TA21 PO; +THERTAB20 PO
== END ==
LOC: SKLAB6 09:00
PROVIDERS: ATTEND Internal Medicine
DX: Z20.822 Contact with and (suspected) exposure to COVID-19 (principal)

== ENCOUNTER → 2020-11-20 | Outpatient (REF) | payer MEDICARE, OTHER | LOC: SKLAB6 15:01 | DX: R30.0 Dysuria (principal) ==

== ENCOUNTER → 2020-11-20 | Outpatient (REF) | payer MEDICARE, OTHER | LOC: SKLAB6 14:47 | PROVIDERS: ATTEND Nurse Practitioner Adult Health | DX: R30.0 Dysuria (principal) ==

== ENCOUNTER → 2020-11-22 | Outpatient (REF) | payer MEDICARE, OTHER | LOC: SKLAB6 10:00 | PROVIDERS: ATTEND Internal Medicine | DX: Z11.52 Encounter for screening for COVID-19 (principal) ==

== ENCOUNTER → 2020-11-29 | Outpatient (REF) | payer MEDICARE, OTHER | LOC: SKLAB6 10:00 | PROVIDERS: ATTEND Internal Medicine | DX: Z20.822 Contact with and (suspected) exposure to COVID-19 (principal) ==

== ENCOUNTER → 2020-12-13 | Outpatient (REF) | payer MEDICARE, OTHER ==
[~2020-12-13] MED LIST changes: -THERTAB20 PO; +THERTAB21 PO
== END ==
LOC: SKLAB6 12:01
PROVIDERS: ATTEND Internal Medicine
DX: Z20.822 Contact with and (suspected) exposure to COVID-19 (principal)

== ENCOUNTER → 2020-12-14 | Outpatient (REF) | payer MEDICARE, OTHER ==
[2020-12-14 09:04] LABS: HEMATOCRIT 27.5 % (36.0-47.0); HEMOGLOBIN 8.9 g/dl (12.0-15.5); MEAN CORPUSCULAR HGB CONC 32.4 g/dl (32.0-36.5); MEAN CORPUSCULAR VOLUME 92.6 fl (80.0-96.0); PLATELET COUNT, AUTOMATED 294 10^3/uL (150-450); RED BLOOD COUNT 2.97 10^6/uL (4.00-5.40)
[2020-12-14 09:27] LABS: CALCIUM LEVEL 8.8 MG/DL (8.8-10.2); CREATININE FOR GFR 0.98 MG/DL (0.55-1.30); GLOMERULAR FILTRATION RATE 57.2 (>32); POTASSIUM SERUM 4.4 MEQ/L (3.5-5.1)
== END ==
LOC: SKLAB6 12-13 08:00
DX: D64.9 Anemia, unspecified (principal)

== ENCOUNTER → 2020-12-20 | Outpatient (REF) | payer MEDICARE, OTHER | LOC: SKLAB6 09:00 | PROVIDERS: ATTEND Internal Medicine | DX: Z20.822 Contact with and (suspected) exposure to COVID-19 (principal) ==

== ENCOUNTER → 2020-12-21 | Outpatient (REF) | payer MEDICARE, OTHER ==
[2020-12-21 08:36] LABS: HEMATOCRIT 27.8 % (36.0-47.0); HEMOGLOBIN 9.1 g/dl (12.0-15.5); MEAN CORPUSCULAR HEMOGLOBIN 30.5 pg (27.0-33.0); MEAN CORPUSCULAR HGB CONC 32.7 g/dl (32.0-36.5); MEAN CORPUSCULAR VOLUME 93.3 fl (80.0-96.0); PLATELET COUNT, AUTOMATED 289 10^3/uL (150-450); RED BLOOD COUNT 2.98 10^6/uL (4.00-5.40); WHITE BLOOD COUNT 6.5 10^3/uL (4.0-10.0)
== END ==
LOC: SKLAB6 11:30
DX: D64.9 Anemia, unspecified (principal)

== ENCOUNTER → 2021-01-05 | Outpatient (REF) | payer MEDICARE, OTHER | LOC: SKLAB6 10:00 | PROVIDERS: ATTEND Internal Medicine | DX: Z20.822 Contact with and (suspected) exposure to COVID-19 (principal) ==

== ENCOUNTER → 2021-01-11 | Outpatient (REF) | payer MEDICARE, OTHER ==
[2021-01-11 09:50] LABS: HEMATOCRIT 33.1 % (36.0-47.0); HEMOGLOBIN 10.4 g/dl (12.0-15.5); MEAN CORPUSCULAR HEMOGLOBIN 30.4 pg (27.0-33.0); MEAN CORPUSCULAR HGB CONC 31.4 g/dl (32.0-36.5); MEAN CORPUSCULAR VOLUME 96.8 fl (80.0-96.0); PLATELET COUNT, AUTOMATED 291 10^3/uL (150-450); RED BLOOD COUNT 3.42 10^6/uL (4.00-5.40); WHITE BLOOD COUNT 7.2 10^3/uL (4.0-10.0)
[2021-01-11 10:11] LABS: HEMOGLOBIN A1c 5.7 %
[2021-01-11 10:34] LABS: ALBUMIN 3.5 GM/DL (3.2-5.2); ALT/SGPT 29 U/L (12-78); BILIRUBIN,DIRECT < 0.1 MG/DL (0.0-0.2); BILIRUBIN,TOTAL 0.2 MG/DL (0.2-1.0); BLOOD UREA NITROGEN 22 MG/DL (7-18); CALCIUM LEVEL 9.4 MG/DL (8.8-10.2); CARBON DIOXIDE LEVEL 24 MEQ/L (21-32); CHLORIDE LEVEL 105 MEQ/L (98-107); CREATININE FOR GFR 0.85 MG/DL (0.55-1.30); GLOMERULAR FILTRATION RATE > 60.0 (>32); GLUCOSE, FASTING 122 MG/DL (70-100); POTASSIUM SERUM 4.9 MEQ/L (3.5-5.1); SODIUM LEVEL 136 MEQ/L (136-145); TOTAL PROTEIN 7.7 GM/DL (6.4-8.2)
== END ==
LOC: SKLAB6 07:00
DX: D64.9 Anemia, unspecified (principal); E03.9 Hypothyroidism, unspecified; Z79.899 Other long term (current) drug therapy

== ENCOUNTER → 2021-02-12 | Outpatient (REF) | payer MEDICARE, OTHER ==
[2021-02-12 12:52] LABS: ALBUMIN 3.7 GM/DL (3.2-5.2); ALT/SGPT 16 U/L (12-78); BILIRUBIN,TOTAL 0.3 MG/DL (0.2-1.0); BLOOD UREA NITROGEN 13 MG/DL (7-18); C REACTIVE PROTEIN QUANTITATIV 1.72 MG/DL (0.00-0.30); CALCIUM LEVEL 9.1 MG/DL (8.8-10.2); CARBON DIOXIDE LEVEL 22 MEQ/L (21-32); CHLORIDE LEVEL 100 MEQ/L (98-107); CHOLESTEROL LEVEL 185 MG/DL (< 200); CPK CREATINE PHOSPHOKINASE 71 U/L (26-192); CREATININE FOR GFR 0.74 MG/DL (0.55-1.30); GLOMERULAR FILTRATION RATE > 60.0 (>32); GLUCOSE, FASTING 97 MG/DL (70-100); LDH LACTATE DEHYDROGENASE 243 U/L (84-246); PHOSPHORUS LEVEL 3.6 MG/DL (2.5-4.9); POTASSIUM SERUM 4.5 MEQ/L (3.5-5.1); SODIUM LEVEL 130 MEQ/L (136-145); TOTAL PROTEIN 7.6 GM/DL (6.4-8.2); TRIGLYCERIDES LEVEL 139 MG/DL (<150)
[2021-02-13 14:04] LABS: ALBUMIN 4.03 GM/DL (3.29-5.55); ALPHA-1-GLOBULIN % 5.5 % (2.9-4.9); ALPHA-1-GLOBULINS 0.42 GM/DL (0.17-0.41); ALPHA-2-GLOBULINS 1.01 GM/DL (0.42-0.99); ALPHA-2-GLOBULINS % 13.3 % (7.1-11.8); BETA-1-GLOBULINS % 5.2 % (4.7-7.2); BETA-2-GLOBULINS 0.33 GM/DL (0.19-0.55); BETA-2-GLOBULINS % 4.4 % (3.2-6.5); GAMMA GLOBULIN % 18.6 % (11.1-18.8); GAMMA GLOBULINS 1.41 GM/DL (0.65-1.58)
== END ==
LOC: SKLAB6 07:00
DX: K31.89 Other diseases of stomach and duodenum (principal); Z79.899 Other long term (current) drug therapy

== ENCOUNTER → 2021-02-15 | Outpatient (REF) | payer MEDICARE ==
--- NOTE | 2021-02-15 15:25 | REP ---
INDICATION: ABD PAIN. COMPARISON: None. FINDINGS: KUB shows the intestinal gas pattern to be nonspecific. The organ silhouettes insofar as delineated are unremarkable. There is no evidence of free intraperitoneal air. IMPRESSION: Nonspecific. <Electronically signed by Ignacio Keys > 02/15/21 1520
== END ==
LOC: SKLAB6 13:50
DX: R10.9 Unspecified abdominal pain (principal)

== ENCOUNTER → 2021-02-16 | Outpatient (REF) | payer MEDICARE, OTHER ==
[2021-02-16 10:14] LABS: CALCIUM LEVEL 8.4 MG/DL (8.8-10.2); GLOMERULAR FILTRATION RATE 55.8 (>32); POTASSIUM SERUM 4.7 MEQ/L (3.5-5.1)
[2021-02-16 10:25] LABS: CORTISOL AM 22.8 UG/DL (4.3-22.4)
[2021-02-16 13:21] LABS: OSMOLALITY URINE 490 MOSM/KG (50-1400)
[2021-02-16 13:32] LABS: SODIUM,RANDOM URINE 20 MEQ/L
== END ==
LOC: SKLAB6 07:00
DX: E87.1 Hypo-osmolality and hyponatremia (principal)

== ENCOUNTER → 2021-02-19 | Outpatient (CLI) | payer MEDICARE, OTHER ==
[2021-02-19 16:35] LABS: HEMATOCRIT 27.6 % (36.0-47.0); MEAN CORPUSCULAR HGB CONC 32.6 g/dl (32.0-36.5); MEAN CORPUSCULAR VOLUME 95.2 fl (80.0-96.0); PLATELET COUNT, AUTOMATED 240 10^3/uL (150-450)
== END ==
LOC: SKLAB6 15:39
PROVIDERS: ATTEND Nurse Practitioner Family
DX: R10.9 Unspecified abdominal pain (principal)

== ENCOUNTER → 2021-02-23 | Outpatient (REF) | payer MEDICARE, OTHER ==
[2021-02-23 11:04] LABS: HEMOGLOBIN 10.3 g/dl (12.0-15.5); MEAN CORPUSCULAR HEMOGLOBIN 31.4 pg (27.0-33.0); MEAN CORPUSCULAR HGB CONC 34.3 g/dl (32.0-36.5); MEAN CORPUSCULAR VOLUME 91.5 fl (80.0-96.0); PLATELET COUNT, AUTOMATED 271 10^3/uL (150-450); RED BLOOD COUNT 3.28 10^6/uL (4.00-5.40); WHITE BLOOD COUNT 20.6 10^3/uL (4.0-10.0)
[2021-02-23 11:28] LABS: BLOOD UREA NITROGEN 9 MG/DL (7-18); CALCIUM LEVEL 8.1 MG/DL (8.8-10.2); CARBON DIOXIDE LEVEL 23 MEQ/L (21-32); CHLORIDE LEVEL 82 MEQ/L (98-107); CREATININE FOR GFR 0.71 MG/DL (0.55-1.30); GLOMERULAR FILTRATION RATE > 60.0 (>32); GLUCOSE, FASTING 129 MG/DL (70-100); SODIUM LEVEL 113 MEQ/L (136-145)
[2021-02-23 18:24] LABS: APPEARANCE, URINE CLEAR (CLEAR); BACTERIA, URINE AUTO NEGATIVE (NEGATIVE); BILIRUBIN, URINE AUTO NEGATIVE (NEGATIVE); BLOOD, URINE BLOOD NEGATIVE (NEGATIVE); COLOR, URINE YELLOW (YELLOW); GLUCOSE, URINE (UA) AUTO NEGATIVE (NEGATIVE); KETONE, URINE AUTO NEGATIVE (NEGATIVE); LEUKOCYTE ESTERASE, URINE AUTO NEGATIVE (NEGATIVE); NITRITE, URINE AUTO NEGATIVE (NEGATIVE); PROTEIN, URINE AUTO 2+ mg/dL (NEGATIVE); RBC, URINE AUTO 1 /HPF (0-3); SPECIFIC GRAVITY URINE AUTO 1.011 (1.002-1.035); SQUAMOUS EPITHELIAL CELL UR AU 0 /HPF (0-6); UROBILINOGEN, URINE AUTO 0.2 mg/dL (0.0-2.0); WBC, URINE AUTO 2 /HPF (0-3)
== END ==
LOC: SKLAB6 07:00
DX: D72.829 Elevated white blood cell count, unspecified (principal)

== ENCOUNTER → 2021-02-24 | Outpatient (REF) | payer MEDICARE, OTHER ==
[2021-02-24 08:50] LABS: HEMATOCRIT 29.8 % (36.0-47.0); MEAN CORPUSCULAR HEMOGLOBIN 31.5 pg (27.0-33.0); MEAN CORPUSCULAR HGB CONC 33.6 g/dl (32.0-36.5); PLATELET COUNT, AUTOMATED 211 10^3/uL (150-450); RED BLOOD COUNT 3.17 10^6/uL (4.00-5.40); WHITE BLOOD COUNT 14.4 10^3/uL (4.0-10.0)
[2021-02-24 09:05] LABS: BLOOD UREA NITROGEN 9 MG/DL (7-18); CALCIUM LEVEL 7.1 MG/DL (8.8-10.2); CARBON DIOXIDE LEVEL 16 MEQ/L (21-32); CHLORIDE LEVEL 98 MEQ/L (98-107); CREATININE FOR GFR 0.67 MG/DL (0.55-1.30); GLOMERULAR FILTRATION RATE > 60.0 (>32); GLUCOSE, FASTING 99 MG/DL (70-100); POTASSIUM SERUM 4.3 MEQ/L (3.5-5.1); SODIUM LEVEL 125 MEQ/L (136-145)
== END ==
LOC: SKLAB6 07:00
DX: E87.1 Hypo-osmolality and hyponatremia (principal)

== ENCOUNTER → 2021-02-25 | Outpatient (REF) | payer MEDICARE, OTHER ==
[2021-02-25 08:16] LABS: HEMATOCRIT 30.3 % (36.0-47.0); HEMOGLOBIN 10.2 g/dl (12.0-15.5); MEAN CORPUSCULAR HEMOGLOBIN 31.3 pg (27.0-33.0); MEAN CORPUSCULAR HGB CONC 33.7 g/dl (32.0-36.5); MEAN CORPUSCULAR VOLUME 92.9 fl (80.0-96.0); PLATELET COUNT, AUTOMATED 260 10^3/uL (150-450); RED BLOOD COUNT 3.26 10^6/uL (4.00-5.40); WHITE BLOOD COUNT 10.7 10^3/uL (4.0-10.0)
[2021-02-25 08:48] LABS: BLOOD UREA NITROGEN 6 MG/DL (7-18); CALCIUM LEVEL 8.3 MG/DL (8.8-10.2); CARBON DIOXIDE LEVEL 18 MEQ/L (21-32); CHLORIDE LEVEL 102 MEQ/L (98-107); CREATININE FOR GFR 0.65 MG/DL (0.55-1.30); GLOMERULAR FILTRATION RATE > 60.0 (>32); GLUCOSE, FASTING 140 MG/DL (70-100); POTASSIUM SERUM 3.9 MEQ/L (3.5-5.1); SODIUM LEVEL 132 MEQ/L (136-145)
== END ==
LOC: SKLAB6 07:00
DX: E87.1 Hypo-osmolality and hyponatremia (principal)

== ENCOUNTER → 2021-02-26 | Outpatient (REF) | payer MEDICARE, OTHER ==
[2021-02-26 13:26] LABS: HEMATOCRIT 28.4 % (36.0-47.0); HEMOGLOBIN 9.8 g/dl (12.0-15.5); MEAN CORPUSCULAR HEMOGLOBIN 31.5 pg (27.0-33.0); MEAN CORPUSCULAR HGB CONC 34.5 g/dl (32.0-36.5); MEAN CORPUSCULAR VOLUME 91.3 fl (80.0-96.0); PLATELET COUNT, AUTOMATED 255 10^3/uL (150-450); RED BLOOD COUNT 3.11 10^6/uL (4.00-5.40); WHITE BLOOD COUNT 10.1 10^3/uL (4.0-10.0)
[2021-02-26 13:50] LABS: BLOOD UREA NITROGEN 7 MG/DL (7-18); CALCIUM LEVEL 8.1 MG/DL (8.8-10.2); CARBON DIOXIDE LEVEL 21 MEQ/L (21-32); CHLORIDE LEVEL 98 MEQ/L (98-107); CREATININE FOR GFR 0.68 MG/DL (0.55-1.30); GLOMERULAR FILTRATION RATE > 60.0 (>32); GLUCOSE, FASTING 111 MG/DL (70-100); POTASSIUM SERUM 3.6 MEQ/L (3.5-5.1); SODIUM LEVEL 129 MEQ/L (136-145)
== END ==
LOC: SKLAB6 07:00
DX: E87.1 Hypo-osmolality and hyponatremia (principal)

== ENCOUNTER → 2021-02-26 | Outpatient (CLI) | payer MEDICARE, OTHER ==
[~2021-02-26] MED LIST changes: +ISOVUE-370 76% 100ML VIAL As Ordered ONE
--- NOTE | 2021-02-26 08:50 | REPVR ---
PROCEDURE INFORMATION: Exam: CT Abdomen And Pelvis With Contrast Exam date and time: 02/26/2021 8:22 AM Age: 85 years old Clinical indication: Abdominal pain; Generalized; Additional info: Abd pain and pelvic pain TECHNIQUE: Imaging protocol: Computed tomography of the abdomen and pelvis with contrast. Radiation optimization: All CT scans at this facility use at least one of these dose optimization techniques: automated exposure control; mA and/or kV adjustment per patient size (includes targeted exams where dose is matched to clinical indication); or iterative reconstruction. Contrast material: ISOVUE 370; Contrast volume: 100 ml; Contrast route: INTRAVENOUS (IV); COMPARISON: CT ABD PELVIS W/O CONTRAST 05/26/2020 10:28 AM FINDINGS: The examination performed is degraded by motion artifact. Inferior thorax: Interstitial prominence. Borderline cardiomegaly and mild left ventricular hypertrophy. Pacemaker. Liver: No focal hepatic mass. Gallbladder and bile ducts: Status post cholecystectomy. Pancreas: No pancreatic mass or ductal dilatation. Spleen: No splenomegaly. Adrenal glands: Unremarkable. Kidneys and ureters: Evaluation of the kidneys is limited by significant motion artifact. No hydronephrosis. Stomach and bowel: Wall thickening in the nondistended stomach. Combined small bowel and colonic dilatation without a transition zone. Diverticula, without pericolonic inflammation. Appendix: Poorly visualized appendix. Intraperitoneal space: No significant free fluid. Vasculature: Prominent vascular calcification. No abdominal aortic aneurysm. Lymph nodes: Subcentimeter lymph nodes. Urinary bladder: Nondistended bladder. Reproductive: Unremarkable as visualized. Bones/joints: Right hip arthroplasty. Degenerative change, disc bulging, and lumbar levoscoliosis. IMPRESSION: 1. Wall thickening in the nondistended stomach. 2. Combined small bowel and colonic dilatation without a transition zone. 3. Additional findings as described above. Electronically signed by: Eliezer Fermin On 02/26/2021 08:49:54 AM
== END ==
LOC: M RAD 07:50
PROVIDERS: ATTEND Nurse Practitioner Adult Health
DX: R10.2 Pelvic and perineal pain (principal)
CPT/HCPCS: 74177; Q9967

== ENCOUNTER → 2021-02-28 | Outpatient (REF) | payer MEDICARE, OTHER ==
[~2021-02-28] MED LIST changes: -ISOVUE-370 76% 100ML VIAL As Ordered ONE
[2021-02-28 09:33] LABS: BLOOD UREA NITROGEN 6 MG/DL (7-18); CALCIUM LEVEL 8.2 MG/DL (8.8-10.2); CARBON DIOXIDE LEVEL 21 MEQ/L (21-32); CHLORIDE LEVEL 98 MEQ/L (98-107); CREATININE FOR GFR 0.71 MG/DL (0.55-1.30); GLOMERULAR FILTRATION RATE > 60.0 (>32); GLUCOSE, FASTING 102 MG/DL (70-100); POTASSIUM SERUM 3.1 MEQ/L (3.5-5.1); SODIUM LEVEL 130 MEQ/L (136-145)
== END ==
LOC: SKLAB6 07:00
DX: E87.1 Hypo-osmolality and hyponatremia (principal)

== ENCOUNTER → 2021-03-01 | Outpatient (REF) | payer MEDICARE, OTHER ==
[2021-03-01 10:45] LABS: BLOOD UREA NITROGEN 6 MG/DL (7-18); CALCIUM LEVEL 8.4 MG/DL (8.8-10.2); CARBON DIOXIDE LEVEL 20 MEQ/L (21-32); CHLORIDE LEVEL 104 MEQ/L (98-107); CREATININE FOR GFR 0.84 MG/DL (0.55-1.30); GLOMERULAR FILTRATION RATE > 60.0 (>32); GLUCOSE, FASTING 129 MG/DL (70-100); POTASSIUM SERUM 3.8 MEQ/L (3.5-5.1); SODIUM LEVEL 134 MEQ/L (136-145)
== END ==
LOC: SKLAB6 07:00
DX: E87.1 Hypo-osmolality and hyponatremia (principal); E87.6 Hypokalemia

== ENCOUNTER → 2021-03-08 | Outpatient (REF) | payer MEDICARE, OTHER ==
[2021-03-08 09:48] LABS: CALCIUM LEVEL 8.4 MG/DL (8.8-10.2); CREATININE FOR GFR 1.22 MG/DL (0.55-1.30); GLOMERULAR FILTRATION RATE 44.4 (>32); POTASSIUM SERUM 4.1 MEQ/L (3.5-5.1)
== END ==
LOC: SKLAB6 03-06 07:00
DX: E87.1 Hypo-osmolality and hyponatremia (principal)

== ENCOUNTER → 2021-03-20 | Outpatient (REF) | payer MEDICARE, OTHER ==
[2021-03-20 14:29] LABS: HEMATOCRIT 36.9 % (36.0-47.0); HEMOGLOBIN 11.6 g/dl (12.0-15.5); MEAN CORPUSCULAR HEMOGLOBIN 30.6 pg (27.0-33.0); MEAN CORPUSCULAR HGB CONC 31.4 g/dl (32.0-36.5); MEAN CORPUSCULAR VOLUME 97.4 fl (80.0-96.0); PLATELET COUNT, AUTOMATED 273 10^3/uL (150-450); RED BLOOD COUNT 3.79 10^6/uL (4.00-5.40); WHITE BLOOD COUNT 3.9 10^3/uL (4.0-10.0)
[2021-03-20 15:14] LABS: ALBUMIN 3.1 GM/DL (3.2-5.2); ALT/SGPT 18 U/L (12-78); BILIRUBIN,TOTAL 0.2 MG/DL (0.2-1.0); BLOOD UREA NITROGEN 23 MG/DL (7-18); CALCIUM LEVEL 8.4 MG/DL (8.8-10.2); CARBON DIOXIDE LEVEL 19 MEQ/L (21-32); CHLORIDE LEVEL 112 MEQ/L (98-107); CREATININE FOR GFR 0.79 MG/DL (0.55-1.30); GLOMERULAR FILTRATION RATE > 60.0 (>32); GLUCOSE, FASTING 96 MG/DL (70-100); POTASSIUM SERUM 5.4 MEQ/L (3.5-5.1); SODIUM LEVEL 137 MEQ/L (136-145); TOTAL PROTEIN 6.9 GM/DL (6.4-8.2)
== END ==
LOC: SKLAB6 11:00
DX: N18.9 Chronic kidney disease, unspecified (principal); D64.9 Anemia, unspecified; E87.1 Hypo-osmolality and hyponatremia

== ENCOUNTER → 2021-04-12 | Outpatient (REF) | payer MEDICARE, OTHER ==
[~2021-04-12] MED LIST changes: +DOK1CAP4 PO; -DOK1CAP7 PO
[2021-04-12 11:30] LABS: HEMOGLOBIN 10.4 g/dl (12.0-15.5); MEAN CORPUSCULAR HEMOGLOBIN 30.7 pg (27.0-33.0); MEAN CORPUSCULAR HGB CONC 31.5 g/dl (32.0-36.5); MEAN CORPUSCULAR VOLUME 97.3 fl (80.0-96.0); PLATELET COUNT, AUTOMATED 235 10^3/uL (150-450); RED BLOOD COUNT 3.39 10^6/uL (4.00-5.40); WHITE BLOOD COUNT 3.9 10^3/uL (4.0-10.0)
[2021-04-12 12:01] LABS: BLOOD UREA NITROGEN 19 MG/DL (7-18); C REACTIVE PROTEIN QUANTITATIV 1.05 MG/DL (0.00-0.30); CALCIUM LEVEL 8.2 MG/DL (8.8-10.2); CARBON DIOXIDE LEVEL 24 MEQ/L (21-32); CHLORIDE LEVEL 109 MEQ/L (98-107); GLOMERULAR FILTRATION RATE > 60.0 (>32); GLUCOSE, FASTING 131 MG/DL (70-100); POTASSIUM SERUM 4.3 MEQ/L (3.5-5.1); SODIUM LEVEL 139 MEQ/L (136-145)
== END ==
LOC: SKLAB6 07:00
DX: M06.9 Rheumatoid arthritis, unspecified (principal); E87.5 Hyperkalemia

== ENCOUNTER → 2021-07-19 | Outpatient (REF) | payer MEDICARE, OTHER ==
[2021-07-19 13:44] LABS: HEMATOCRIT 29.5 % (36.0-47.0); HEMOGLOBIN 9.6 g/dl (12.0-15.5); MEAN CORPUSCULAR HEMOGLOBIN 30.8 pg (27.0-33.0); MEAN CORPUSCULAR HGB CONC 32.5 g/dl (32.0-36.5); MEAN CORPUSCULAR VOLUME 94.6 fl (80.0-96.0); PLATELET COUNT, AUTOMATED 237 10^3/uL (150-450); RED BLOOD COUNT 3.12 10^6/uL (4.00-5.40); WHITE BLOOD COUNT 5.3 10^3/uL (4.0-10.0)
[2021-07-19 14:19] LABS: HEMOGLOBIN A1c 6.1 %
[2021-07-19 14:29] LABS: ALBUMIN 2.2 GM/DL (3.2-5.2); ALT/SGPT 19 U/L (12-78); BILIRUBIN,DIRECT < 0.1 MG/DL (0.0-0.2); BILIRUBIN,TOTAL 0.3 MG/DL (0.2-1.0); BLOOD UREA NITROGEN 26 MG/DL (7-18); CALCIUM LEVEL 8.9 MG/DL (8.8-10.2); CARBON DIOXIDE LEVEL 26 MEQ/L (21-32); CHLORIDE LEVEL 98 MEQ/L (98-107); GLOMERULAR FILTRATION RATE 49.9 (>32); GLUCOSE, FASTING 129 MG/DL (70-100); POTASSIUM SERUM 4.9 MEQ/L (3.5-5.1); SODIUM LEVEL 130 MEQ/L (136-145); TOTAL PROTEIN 7.4 GM/DL (6.4-8.2)
== END ==
LOC: SKLAB6 07:00
PROVIDERS: ATTEND Internal Medicine
DX: E03.9 Hypothyroidism, unspecified (principal); D64.9 Anemia, unspecified; Z79.899 Other long term (current) drug therapy

== ENCOUNTER → 2021-07-26 | Outpatient (REF) | payer MEDICARE, OTHER | LOC: SKLAB6 09:14 | PROVIDERS: ATTEND Internal Medicine | DX: Z20.822 Contact with and (suspected) exposure to COVID-19 (principal) ==

== ENCOUNTER 2022-05-30 13:33 | Inpatient (IN) | payer MEDICARE, MEDICAID ==
[~2022-05-30] VITALS: Ht 152.4 cm; Wt 62.7 kg
[~2022-05-30 13:33] MED LIST changes: -ACET1TAB16 PO; +ACET300T48 PO
[2022-05-30] MEDS ORDERED: LIDOCAINE 2% 5ML JELLY UROJET TOP ONE (15:50)
[2022-05-30] MEDS: NS 1,000 ML IV SCH ×3 (15:50→19:50)
[2022-05-30] MEDS ORDERED: ACETAMINOPHEN 325 MG TAB PO ONE (15:55)
[2022-05-30 16:00] LABS: BASO % 0.1 % (0.0-1.0); HEMATOCRIT 28.5 % (36.0-47.0); HEMOGLOBIN 9.1 g/dl (12.0-15.5); LYMPH # 0.5 10^3/uL (1.5-5.0); LYMPH % 4.4 % (24.0-44.0); MEAN CORPUSCULAR HEMOGLOBIN 28.2 pg (27.0-33.0); MEAN CORPUSCULAR HGB CONC 31.9 g/dl (32.0-36.5); MEAN CORPUSCULAR VOLUME 88.2 fl (80.0-96.0); MONO # 0.7 10^3/uL (0.0-0.8); NEUTROPHILS # 10.4 10^3/uL (1.5-8.5); PLATELET COUNT, AUTOMATED 243 10^3/uL (150-450); RED BLOOD COUNT 3.23 10^6/uL (4.00-5.40); WHITE BLOOD COUNT 11.7 10^3/uL (4.0-10.0)
[2022-05-30 16:38] LABS: ALBUMIN 2.7 GM/DL (3.2-5.2); BILIRUBIN,DIRECT 0.5 MG/DL (0.0-0.2); BILIRUBIN,TOTAL 0.8 MG/DL (0.2-1.0); CALCIUM LEVEL 8.4 MG/DL (8.8-10.2); CREATININE FOR GFR 2.15 MG/DL (0.55-1.30); POTASSIUM SERUM 4.2 MEQ/L (3.5-5.1); RSV AMPLIFICATION NEGATIVE (NEGATIVE); TOTAL PROTEIN 7.6 GM/DL (6.4-8.2)
[2022-05-30] MEDS ORDERED: CIPROFLOXACIN 400 MG in IV 1 EA IV ONE (17:25)
[2022-05-30] MEDS: METOPROLOL 5 MG/5 ML VIAL IV SCH ×3 (18:02→18:23)
[2022-05-30 18:35] LABS: AMORPHOUS SEDIMENT, URINE SMALL AMOUNT (NEGATIVE); BACTERIA, URINE NONE SEEN; HYALINE CAST, URINE NONE SEEN /lpf (0-1); RBC, URINE 0-1 /hpf (0-3); SQUAMOUS EPITHELIAL CELL URINE SMALL AMOUNT /hpf (SMALL AMT)
[2022-05-30] MEDS ORDERED: ACETAMINOPHEN TAB 650MG DOSE (2X325MG) PO PRN (18:40)
[2022-05-30] MEDS ORDERED: GLUCAGON INJ 1MG VIAL SC PRN (18:40)
[2022-05-30] MEDS ORDERED: GLUCOSE 4GM CHEW TABLET PO PRN (18:40)
[2022-05-30] MEDS ORDERED: DEXTROSE 50% 50 ML SYRINGE IV PRN (18:40)
[2022-05-30] MEDS ORDERED: ERGO500029 PO (19:03)
[2022-05-30] MEDS ORDERED: META28.32 PO (19:03)
[2022-05-30] MEDS ORDERED: MIRT-60 PO (19:03)
[2022-05-30] MEDS ORDERED: PROL60SO SC (19:03)
[2022-05-30] MEDS ORDERED: BUPR75TA5 PO (19:03)
[2022-05-30] MEDS ORDERED: SENN8.6T28 PO (19:03)
[2022-05-30] MEDS ORDERED: ACET500T15 PO (19:03)
[2022-05-30] MEDS ORDERED: ALPR0.25 PO (19:03)
[2022-05-30] MEDS ORDERED: HOME MED LIST COMPLETE! XX SCH (19:05)
[2022-05-30] MEDS ORDERED: cefTRIAXone SOD 1 GM in D5W MINI-BAG PLUS 50 ML IV SCH (20:00)
[2022-05-30 20:44] LABS: INR 2.14; PROTHROMBIN TIME 24.3 SECONDS (12.7-14.5)
[2022-05-30 20:45] LABS: PARTIAL THROMBOPLASTIN TIME 46.9 SECONDS (25.9-37.0)
[2022-05-30] MEDS ORDERED: APIXABAN 2.5 MG TAB (ELIQUIS) PO SCH (21:00)
[2022-05-30] MEDS: buPROPion 75 MG TAB PO SCH (21:00)
[2022-05-30] MEDS ORDERED: INSULIN LISPRO (NovoLOG) PER UNIT SC SCH (21:00)
[2022-05-30] MEDS ORDERED: MOM 30ML SUSPENSION UDC PO PRN (21:15)
[2022-05-30] MEDS ORDERED: BISACODYL 5 MG TAB PO ONE (21:15)
[2022-05-30 21:24] LABS: FREE T4 1.53 NG/DL (0.76-1.46); MAGNESIUM LEVEL 2.1 MG/DL (1.8-2.4); THYROID STIMULATING HORMONE 1.37 uIU/ML (0.358-3.740)
[2022-05-31] MEDS: ARIPiprazole 2 MG TAB PO SCH ×2 (00:36→20:56)
[2022-05-31] MEDS: MIRTAZAPINE 15 MG TAB PO SCH ×2 (00:36→20:56)
[2022-05-31] MEDS: METOPROLOL TART 25 MG TABLET PO SCH ×3 (00:36→20:56)
[2022-05-31] MEDS ORDERED: PIPERACILLIN/TAZOBACTAM SOD 3.375 GM in D5W MINI-BAG PLUS 50 ML IV SCH (01:00)
[2022-05-31] MEDS: PIPERACILLIN/TAZOBACTAM SOD 2.25 GM in D5W MINI-BAG PLUS 50 ML IV SCH ×2 (02:00→08:33)
[2022-05-31] MEDS ORDERED: NS 1,000 ML IV ONE ×3 (02:00→19:00)
[2022-05-31] MEDS: NS 1,000 ML IV SCH ×3 (02:54→20:15)
[2022-05-31] MEDS: LEVOTHYROXINE 50MCG TABLET (0.05MG) PO SCH (05:39)
[2022-05-31 06:24] LABS: HEMATOCRIT 24.9 % (36.0-47.0); HEMOGLOBIN 7.8 g/dl (12.0-15.5); MEAN CORPUSCULAR HEMOGLOBIN 28.3 pg (27.0-33.0); MEAN CORPUSCULAR HGB CONC 31.3 g/dl (32.0-36.5); MEAN CORPUSCULAR VOLUME 90.2 fl (80.0-96.0); PLATELET COUNT, AUTOMATED 169 10^3/uL (150-450); RED BLOOD COUNT 2.76 10^6/uL (4.00-5.40); WHITE BLOOD COUNT 12.4 10^3/uL (4.0-10.0)
[2022-05-31 06:38] LABS: INR 2.46; PROTHROMBIN TIME 27.1 SECONDS (12.7-14.5)
[2022-05-31 06:39] LABS: PARTIAL THROMBOPLASTIN TIME 48.6 SECONDS (25.9-37.0)
[2022-05-31 06:57] LABS: ALBUMIN 2.1 GM/DL (3.2-5.2); BILIRUBIN,TOTAL 0.8 MG/DL (0.2-1.0); CALCIUM LEVEL 7.8 MG/DL (8.8-10.2); CREATININE FOR GFR 2.05 MG/DL (0.55-1.30); GLOMERULAR FILTRATION RATE 24.3 (>32); MAGNESIUM LEVEL 2.1 MG/DL (1.8-2.4); POTASSIUM SERUM 3.7 MEQ/L (3.5-5.1); TOTAL PROTEIN 6.8 GM/DL (6.4-8.2)
[2022-05-31] MEDS: METOPROLOL 5 MG/5 ML VIAL IV SCH (07:24)
[2022-05-31] MEDS: INSULIN LISPRO (NovoLOG) PER UNIT SC SCH ×3 (07:28→17:08)
[2022-05-31 07:31] LABS: HEMOGLOBIN A1c 6.2 %
[2022-05-31] MEDS: MIRALAX *UNIT DOSE* 17GM PACKET PO SCH (09:00)
[2022-05-31] MEDS: DOCUSATE SODIUM 100MG CAPSULE PO SCH ×2 (09:00→20:56)
[2022-05-31] MEDS: buPROPion 75 MG TAB PO SCH ×2 (09:00→20:57)
[2022-05-31] MEDS: CYANOCOBALAMIN 500 MCG TAB PO SCH (09:00)
[2022-05-31] MEDS: SENNA 8.6 MG TAB (SENOKOT) PO SCH ×2 (09:00→20:56)
[2022-05-31] MEDS: LACTOBACILLUS ACIDOPHILUS CAP (BACID) PO SCH (09:00)
[2022-05-31] MEDS: ACETAMINOPHEN 650 MG SUPP PR PRN (12:34)
[2022-05-31 14:23] VITALS: BP 120/86
[2022-05-31] MEDS ORDERED: ACETAMINOPHEN 1000MG 100ML IV BTL (OFIRMEV) (J0131 PER 10MG) IV ONE (14:45)
[2022-05-31] MEDS: cefTRIAXone SOD 2 GM in D5W MINI-BAG PLUS 50 ML IV SCH (15:57)
[2022-05-31] MEDS ORDERED: METOCLOPRAMIDE INJ 10MG/2ML VIAL (J2765 PER 1) IV SCH (18:55)
[2022-05-31 18:59] VITALS: BP 89/56
[2022-05-31 19:12] VITALS: BP 99/54
[2022-05-31 19:30] VITALS: BP 101/53
[2022-05-31] MEDS ORDERED: AMIODARONE HCL 150 MG in IV 1 EA IV ONE (20:00)
[2022-05-31 20:10] VITALS: BP 102/63
[2022-05-31] MEDS ORDERED: AMIODARONE HCL 360 MG in IV 1 EA IV SCH (21:00)
[2022-05-31 21:30] VITALS: BP 121/67
[2022-06-01] VITALS (7 sets, daily range): BP systolic 130–167; BP diastolic 59–99
[2022-06-01] MEDS: NS 1,000 ML IV SCH ×2 (01:09→14:10)
[2022-06-01] MEDS: AMIODARONE HCL 360 MG in IV 1 EA IV SCH ×2 (03:37→13:34)
[2022-06-01] MEDS: LEVOTHYROXINE 50MCG TABLET (0.05MG) PO SCH (04:50)
[2022-06-01] MEDS: INSULIN LISPRO (NovoLOG) PER UNIT SC SCH ×4 (06:00→18:00)
[2022-06-01 06:08] LABS: HEMATOCRIT 23.2 % (36.0-47.0); HEMOGLOBIN 7.6 g/dl (12.0-15.5); MEAN CORPUSCULAR HEMOGLOBIN 28.9 pg (27.0-33.0); MEAN CORPUSCULAR HGB CONC 32.8 g/dl (32.0-36.5); MEAN CORPUSCULAR VOLUME 88.2 fl (80.0-96.0); PLATELET COUNT, AUTOMATED 172 10^3/uL (150-450); RED BLOOD COUNT 2.63 10^6/uL (4.00-5.40); WHITE BLOOD COUNT 12.3 10^3/uL (4.0-10.0)
[2022-06-01 06:19] LABS: INR 2.05; PROTHROMBIN TIME 23.6 SECONDS (12.7-14.5)
[2022-06-01 06:20] LABS: PARTIAL THROMBOPLASTIN TIME 41.7 SECONDS (25.9-37.0)
[2022-06-01 06:44] LABS: ALBUMIN 2.3 GM/DL (3.2-5.2); BILIRUBIN,TOTAL 0.4 MG/DL (0.2-1.0); CALCIUM LEVEL 7.6 MG/DL (8.8-10.2); CREATININE FOR GFR 1.66 MG/DL (0.55-1.30); POTASSIUM SERUM 3.6 MEQ/L (3.5-5.1); TOTAL PROTEIN 6.4 GM/DL (6.4-8.2)
[2022-06-01] MEDS ORDERED: PILL CUTTER 1 EACH XX PRN (08:10)
[2022-06-01] MEDS: CYANOCOBALAMIN 500 MCG TAB PO SCH (08:19)
[2022-06-01] MEDS: DOCUSATE SODIUM 100MG CAPSULE PO SCH ×2 (08:19→20:48)
[2022-06-01] MEDS: LACTOBACILLUS ACIDOPHILUS CAP (BACID) PO SCH (08:19)
[2022-06-01] MEDS: MIRALAX *UNIT DOSE* 17GM PACKET PO SCH (08:20)
[2022-06-01] MEDS: traMADol 50 MG TAB PO PRN (08:20)
[2022-06-01] MEDS: SENNA 8.6 MG TAB (SENOKOT) PO SCH ×2 (08:20→20:47)
[2022-06-01] MEDS: METOPROLOL TART 25 MG TABLET PO SCH ×3 (08:24→17:47)
[2022-06-01] MEDS: buPROPion 75 MG TAB PO SCH ×2 (09:00→20:47)
[2022-06-01 12:35] LABS: PERCENT SATURATION 10.7 % (13.2-45.0)
[2022-06-01] MEDS: ACETAMINOPHEN 650 MG SUPP PR PRN (13:18)
[2022-06-01] MEDS: cefTRIAXone SOD 2 GM in D5W MINI-BAG PLUS 50 ML IV SCH (17:47)
[2022-06-01] MEDS: MIRTAZAPINE 15 MG TAB PO SCH (20:48)
[2022-06-01] MEDS: ARIPiprazole 2 MG TAB PO SCH (21:00)
[2022-06-02] MEDS: NS 1,000 ML IV SCH ×2 (01:21→14:00)
[2022-06-02 04:19] VITALS: BP 170/84
[2022-06-02] MEDS: ACETAMINOPHEN 650 MG SUPP PR PRN ×2 (04:39→16:35)
[2022-06-02] MEDS ORDERED: METOPROLOL TART 25 MG TABLET PO ONE (04:55)
[2022-06-02] MEDS ORDERED: METOPROLOL TART 50 MG TAB PO ONE (05:00)
[2022-06-02 05:09] LABS: HEMOGLOBIN 8.1 g/dl (12.0-15.5); MEAN CORPUSCULAR HEMOGLOBIN 27.9 pg (27.0-33.0); MEAN CORPUSCULAR HGB CONC 31.2 g/dl (32.0-36.5); MEAN CORPUSCULAR VOLUME 89.7 fl (80.0-96.0); PLATELET COUNT, AUTOMATED 195 10^3/uL (150-450); WHITE BLOOD COUNT 9.6 10^3/uL (4.0-10.0)
[2022-06-02 05:21] LABS: INR 1.52; PROTHROMBIN TIME 18.7 SECONDS (12.7-14.5)
[2022-06-02 05:22] LABS: PARTIAL THROMBOPLASTIN TIME 30.6 SECONDS (25.9-37.0)
[2022-06-02] MEDS: LEVOTHYROXINE 50MCG TABLET (0.05MG) PO SCH (05:30)
[2022-06-02 05:43] LABS: ALBUMIN 2.2 GM/DL (3.2-5.2); BILIRUBIN,TOTAL 0.4 MG/DL (0.2-1.0); CALCIUM LEVEL 8.2 MG/DL (8.8-10.2); CREATININE FOR GFR 1.41 MG/DL (0.55-1.30); GLOMERULAR FILTRATION RATE 37.4 (>32); POTASSIUM SERUM 3.5 MEQ/L (3.5-5.1); TOTAL PROTEIN 6.4 GM/DL (6.4-8.2)
[2022-06-02] MEDS: INSULIN LISPRO (NovoLOG) PER UNIT SC SCH ×5 (05:50→23:55)
[2022-06-02 08:00] VITALS: BP 134/89
[2022-06-02] MEDS: APIXABAN 2.5 MG TAB (ELIQUIS) PO SCH ×2 (09:00→20:53)
[2022-06-02] MEDS: DOCUSATE SODIUM 100MG CAPSULE PO SCH ×2 (09:17→20:50)
[2022-06-02] MEDS: MIRALAX *UNIT DOSE* 17GM PACKET PO SCH (09:17)
[2022-06-02] MEDS: buPROPion 75 MG TAB PO SCH ×2 (09:18→20:53)
[2022-06-02] MEDS: CYANOCOBALAMIN 500 MCG TAB PO SCH (09:18)
[2022-06-02] MEDS: SENNA 8.6 MG TAB (SENOKOT) PO SCH ×2 (09:18→20:53)
[2022-06-02] MEDS: LACTOBACILLUS ACIDOPHILUS CAP (BACID) PO SCH (09:19)
[2022-06-02] MEDS: METOPROLOL TART 25 MG TABLET PO SCH ×2 (09:19→20:53)
[2022-06-02] MEDS: BISACODYL 10 MG SUPP PR SCH ×2 (11:25→20:49)
[2022-06-02] MEDS: cefTRIAXone SOD 2 GM in D5W MINI-BAG PLUS 50 ML IV SCH (15:11)
[2022-06-02 16:00] VITALS: BP 132/97
[2022-06-02 20:00] VITALS: BP 142/81
[2022-06-02] MEDS: ARIPiprazole 2 MG TAB PO SCH (20:49)
[2022-06-02] MEDS: MIRTAZAPINE 15 MG TAB PO SCH (20:50)
[2022-06-02] MEDS ORDERED: COMBIVENT RESPIMAT 100-20MCG INHALER 4GM INH PRN (21:15)
[2022-06-02] MEDS: IPRATROPIUM 0.5MG/ALBUTEROL 2.5MG INH SOL UD 3ML (DUONEB) NEB PRN (23:52)
[2022-06-03] VITALS (7 sets, daily range): BP systolic 131–186; BP diastolic 64–99
[2022-06-03] MEDS: NS 1,000 ML IV SCH (02:55)
[2022-06-03] MEDS: INSULIN LISPRO (NovoLOG) PER UNIT SC SCH (06:00)
[2022-06-03] MEDS: LEVOTHYROXINE 50MCG TABLET (0.05MG) PO SCH ×2 (06:00→06:16)
[2022-06-03] MEDS ORDERED: HALOPERIDOL 5MG/ML VIAL (J1630 PER 1) IV ONE (06:00)
[2022-06-03 06:22] LABS: HEMATOCRIT 25.2 % (36.0-47.0); HEMOGLOBIN 8.1 g/dl (12.0-15.5); MEAN CORPUSCULAR HGB CONC 32.1 g/dl (32.0-36.5); MEAN CORPUSCULAR VOLUME 87.2 fl (80.0-96.0); PLATELET COUNT, AUTOMATED 188 10^3/uL (150-450); RED BLOOD COUNT 2.89 10^6/uL (4.00-5.40); WHITE BLOOD COUNT 8.3 10^3/uL (4.0-10.0)
[2022-06-03 06:35] LABS: INR 1.71; PROTHROMBIN TIME 20.4 SECONDS (12.7-14.5)
[2022-06-03 06:36] LABS: PARTIAL THROMBOPLASTIN TIME 37.2 SECONDS (25.9-37.0)
[2022-06-03 06:51] LABS: ERYTHROCYTE SEDIMENTATION RATE 1236 mm/hr (0-30)
[2022-06-03 07:02] LABS: ALBUMIN 2.2 GM/DL (3.2-5.2); BILIRUBIN,TOTAL 0.5 MG/DL (0.2-1.0); C REACTIVE PROTEIN QUANTITATIV 15.5 MG/DL (0.00-0.30); CALCIUM LEVEL 8.1 MG/DL (8.8-10.2); CREATININE FOR GFR 1.21 MG/DL (0.55-1.30); GLOMERULAR FILTRATION RATE 44.6 (>32); POTASSIUM SERUM 3.7 MEQ/L (3.5-5.1); TOTAL PROTEIN 6.5 GM/DL (6.4-8.2)
[2022-06-03] MEDS: METOPROLOL TART 25 MG TABLET PO SCH ×2 (08:24→20:09)
[2022-06-03] MEDS: LACTOBACILLUS ACIDOPHILUS CAP (BACID) PO SCH (08:25)
[2022-06-03] MEDS: buPROPion 75 MG TAB PO SCH ×2 (08:25→23:39)
[2022-06-03] MEDS: BISACODYL 10 MG SUPP PR SCH ×2 (08:25→20:09)
[2022-06-03] MEDS: CYANOCOBALAMIN 500 MCG TAB PO SCH (08:25)
[2022-06-03] MEDS ORDERED: MIRALAX *UNIT DOSE* 17GM PACKET PO PRN (09:00)
[2022-06-03] MEDS ORDERED: LIDOCAINE 1% MDV 20ML VIAL As Ordered ONE (13:29)
[2022-06-03] MEDS: cefTRIAXone SOD 2 GM in D5W MINI-BAG PLUS 50 ML IV SCH (15:14)
[2022-06-03] MEDS: SODIUM CHLORIDE 0.9% INJ 10 ML SYR IV SCH (17:11)
[2022-06-03] MEDS: MIRTAZAPINE 15 MG TAB PO SCH (20:09)
[2022-06-03] MEDS: ARIPiprazole 2 MG TAB PO SCH (23:39)
[2022-06-04 05:08] VITALS: BP 164/100
[2022-06-04] MEDS: METOPROLOL TART 25 MG TABLET PO SCH ×2 (05:31→19:42)
[2022-06-04] MEDS: LEVOTHYROXINE 50MCG TABLET (0.05MG) PO SCH (05:31)
[2022-06-04] MEDS: SODIUM CHLORIDE 0.9% INJ 10 ML SYR IV SCH ×2 (05:32→16:07)
[2022-06-04 06:27] LABS: HEMOGLOBIN 7.6 g/dl (12.0-15.5); MEAN CORPUSCULAR HEMOGLOBIN 28.7 pg (27.0-33.0); MEAN CORPUSCULAR VOLUME 86.8 fl (80.0-96.0); PLATELET COUNT, AUTOMATED 196 10^3/uL (150-450); RED BLOOD COUNT 2.65 10^6/uL (4.00-5.40)
[2022-06-04 06:31] LABS: INR 1.55
[2022-06-04 06:32] LABS: PARTIAL THROMBOPLASTIN TIME 42.5 SECONDS (25.9-37.0)
[2022-06-04 07:07] LABS: ALBUMIN 2.3 GM/DL (3.2-5.2); BILIRUBIN,TOTAL 0.5 MG/DL (0.2-1.0); CALCIUM LEVEL 8.3 MG/DL (8.8-10.2); CREATININE FOR GFR 1.1 MG/DL (0.55-1.30); GLOMERULAR FILTRATION RATE 49.8 (>32); POTASSIUM SERUM 3.1 MEQ/L (3.5-5.1); TOTAL PROTEIN 6.5 GM/DL (6.4-8.2)
[2022-06-04] MEDS ORDERED: POTASSIUM CHLORIDE 10MEQ SR TABLET PO ONE (09:00)
[2022-06-04] MEDS: LACTOBACILLUS ACIDOPHILUS CAP (BACID) PO SCH (10:03)
[2022-06-04] MEDS: CYANOCOBALAMIN 500 MCG TAB PO SCH (10:03)
[2022-06-04] MEDS: DOCUSATE SODIUM 100MG CAPSULE PO SCH (10:04)
[2022-06-04] MEDS: buPROPion 75 MG TAB PO SCH ×2 (10:04→19:58)
[2022-06-04 10:05] VITALS: BP 165/89
[2022-06-04] MEDS: IRON SUCROSE 200 MG in NS 100 ML IV SCH (10:05)
[2022-06-04] MEDS: BISACODYL 10 MG SUPP PR SCH ×3 (10:47→21:00)
[2022-06-04] MEDS: SODIUM CHLORIDE 0.9% INJ 10 ML SYR IV PRN (11:44)
[2022-06-04 14:00] VITALS: BP 160/76
[2022-06-04] MEDS: cefTRIAXone SOD 2 GM in D5W MINI-BAG PLUS 50 ML IV SCH (15:08)
[2022-06-04] MEDS: ARIPiprazole 2 MG TAB PO SCH (19:58)
[2022-06-04] MEDS: APIXABAN 2.5 MG TAB (ELIQUIS) PO SCH (19:58)
[2022-06-04] MEDS: MIRTAZAPINE 15 MG TAB PO SCH (19:58)
[2022-06-04 22:00] VITALS: BP 160/104
[2022-06-05] VITALS (7 sets, daily range): BP systolic 134–165; BP diastolic 76–105
[2022-06-05] MEDS: LEVOTHYROXINE 50MCG TABLET (0.05MG) PO SCH (05:18)
[2022-06-05] MEDS: SODIUM CHLORIDE 0.9% INJ 10 ML SYR IV SCH ×2 (05:19→16:24)
[2022-06-05 06:09] LABS: HEMATOCRIT 24.3 % (36.0-47.0); HEMOGLOBIN 7.9 g/dl (12.0-15.5); MEAN CORPUSCULAR HEMOGLOBIN 28.7 pg (27.0-33.0); MEAN CORPUSCULAR HGB CONC 32.5 g/dl (32.0-36.5); MEAN CORPUSCULAR VOLUME 88.4 fl (80.0-96.0); PLATELET COUNT, AUTOMATED 217 10^3/uL (150-450); RED BLOOD COUNT 2.75 10^6/uL (4.00-5.40); WHITE BLOOD COUNT 10.6 10^3/uL (4.0-10.0)
[2022-06-05 06:23] LABS: INR 1.67; PROTHROMBIN TIME 20.1 SECONDS (12.7-14.5)
[2022-06-05 06:24] LABS: PARTIAL THROMBOPLASTIN TIME 40.6 SECONDS (25.9-37.0)
[2022-06-05 07:05] LABS: ALBUMIN 2.4 GM/DL (3.2-5.2); ALT/SGPT 35 U/L (12-78); BILIRUBIN,TOTAL 0.5 MG/DL (0.2-1.0); BLOOD UREA NITROGEN 19 MG/DL (7-18); CALCIUM LEVEL 8.4 MG/DL (8.8-10.2); CARBON DIOXIDE LEVEL 19 MEQ/L (21-32); CHLORIDE LEVEL 113 MEQ/L (98-107); CREATININE FOR GFR 0.93 MG/DL (0.55-1.30); GLOMERULAR FILTRATION RATE > 60.0 (>32); GLUCOSE, FASTING 119 MG/DL (70-100); SODIUM LEVEL 142 MEQ/L (136-145); TOTAL PROTEIN 7.2 GM/DL (6.4-8.2)
[2022-06-05] MEDS: IRON SUCROSE 200 MG in NS 100 ML IV SCH (08:55)
[2022-06-05] MEDS: ALPRAZolam 0.25 MG TAB PO SCH (08:55)
[2022-06-05] MEDS: buPROPion 75 MG TAB PO SCH ×2 (08:55→20:16)
[2022-06-05] MEDS: METOPROLOL TART 25 MG TABLET PO SCH ×2 (08:55→20:19)
[2022-06-05] MEDS: CYANOCOBALAMIN 500 MCG TAB PO SCH (08:56)
[2022-06-05] MEDS: LACTOBACILLUS ACIDOPHILUS CAP (BACID) PO SCH (08:56)
[2022-06-05] MEDS: APIXABAN 2.5 MG TAB (ELIQUIS) PO SCH ×2 (08:56→20:16)
[2022-06-05] MEDS: DOCUSATE SODIUM 100MG CAPSULE PO SCH (08:57)
[2022-06-05] MEDS: BISACODYL 10 MG SUPP PR SCH ×2 (08:57→20:16)
[2022-06-05] MEDS: SODIUM CHLORIDE 0.9% INJ 10 ML SYR IV PRN ×2 (11:36→16:23)
[2022-06-05] MEDS: cefTRIAXone SOD 2 GM in D5W MINI-BAG PLUS 50 ML IV SCH (16:23)
[2022-06-05] MEDS: ARIPiprazole 2 MG TAB PO SCH (20:16)
[2022-06-05] MEDS: MIRTAZAPINE 15 MG TAB PO SCH (20:16)
[2022-06-06] MEDS: LEVOTHYROXINE 50MCG TABLET (0.05MG) PO SCH (05:41)
[2022-06-06] MEDS: IPRATROPIUM 0.5MG/ALBUTEROL 2.5MG INH SOL UD 3ML (DUONEB) NEB PRN (05:41)
[2022-06-06] MEDS: SODIUM CHLORIDE 0.9% INJ 10 ML SYR IV SCH ×2 (05:42→17:53)
[2022-06-06 06:00] VITALS: BP 156/94
[2022-06-06 07:19] LABS: HEMATOCRIT 26.5 % (36.0-47.0); HEMOGLOBIN 8.2 g/dl (12.0-15.5); MEAN CORPUSCULAR HEMOGLOBIN 27.8 pg (27.0-33.0); MEAN CORPUSCULAR HGB CONC 30.9 g/dl (32.0-36.5); MEAN CORPUSCULAR VOLUME 89.8 fl (80.0-96.0); PLATELET COUNT, AUTOMATED 214 10^3/uL (150-450); RED BLOOD COUNT 2.95 10^6/uL (4.00-5.40); WHITE BLOOD COUNT 8.6 10^3/uL (4.0-10.0)
[2022-06-06 08:08] LABS: ALBUMIN 2.6 GM/DL (3.2-5.2); ALT/SGPT 29 U/L (12-78); BILIRUBIN,TOTAL 0.5 MG/DL (0.2-1.0); BLOOD UREA NITROGEN 15 MG/DL (7-18); CALCIUM LEVEL 8.9 MG/DL (8.8-10.2); CARBON DIOXIDE LEVEL 22 MEQ/L (21-32); CHLORIDE LEVEL 106 MEQ/L (98-107); CREATININE FOR GFR 0.91 MG/DL (0.55-1.30); GLOMERULAR FILTRATION RATE > 60.0 (>32); GLUCOSE, FASTING 124 MG/DL (70-100); POTASSIUM SERUM 3.7 MEQ/L (3.5-5.1); SODIUM LEVEL 139 MEQ/L (136-145); TOTAL PROTEIN 7.3 GM/DL (6.4-8.2)
[2022-06-06] MEDS: DOCUSATE SODIUM 100MG CAPSULE PO SCH (09:00)
[2022-06-06] MEDS: BISACODYL 10 MG SUPP PR SCH ×2 (09:43→20:53)
[2022-06-06] MEDS: LACTOBACILLUS ACIDOPHILUS CAP (BACID) PO SCH (10:01)
[2022-06-06] MEDS: APIXABAN 2.5 MG TAB (ELIQUIS) PO SCH ×2 (10:02→20:53)
[2022-06-06] MEDS: buPROPion 75 MG TAB PO SCH ×2 (10:02→20:53)
[2022-06-06] MEDS: ALPRAZolam 0.25 MG TAB PO SCH (10:02)
[2022-06-06] MEDS: METOPROLOL TART 25 MG TABLET PO SCH ×2 (10:03→20:54)
[2022-06-06] MEDS: CYANOCOBALAMIN 500 MCG TAB PO SCH (10:04)
[2022-06-06] MEDS: IRON SUCROSE 200 MG in NS 100 ML IV SCH (10:26)
[2022-06-06 10:32] VITALS: BP 137/78
[2022-06-06] MEDS: SODIUM CHLORIDE 0.9% INJ 10 ML SYR IV PRN ×2 (12:16→16:48)
[2022-06-06 14:00] VITALS: BP 162/83
[2022-06-06] MEDS: cefTRIAXone SOD 2 GM in D5W MINI-BAG PLUS 50 ML IV SCH (15:24)
[2022-06-06 16:49] VITALS: BP 166/89
[2022-06-06 18:01] LABS: ABG BASE EXCESS 0.9 (-2.0-2.0); ABG HCO3 23.6 MEQ/L (22.0-26.0); ABG PARTIAL PRESSURE CO2 30.1 mmHg (35.0-45.0); ABG STANDARD HCO3 25.3 MEQ/L (22.0-26.0); ABG TOTAL CO2 24.5 MEQ/L (23.0-31.0); ABG pH (ARTERIAL) 7.512 UNITS (7.350-7.450)
[2022-06-06] MEDS ORDERED: ISOVUE-370 76% 100ML VIAL As Ordered ONE (18:59)
[2022-06-06] MEDS: ARIPiprazole 2 MG TAB PO SCH (20:53)
[2022-06-06] MEDS: MIRTAZAPINE 15 MG TAB PO SCH (20:55)
[2022-06-06] MEDS: traMADol 50 MG TAB PO PRN (20:58)
[2022-06-06 22:41] VITALS: BP 156/83
[2022-06-07 04:30] VITALS: BP 136/80
[2022-06-07] MEDS: LEVOTHYROXINE 50MCG TABLET (0.05MG) PO SCH (05:56)
[2022-06-07] MEDS: SODIUM CHLORIDE 0.9% INJ 10 ML SYR IV SCH ×2 (05:57→19:06)
[2022-06-07 06:22] LABS: HEMATOCRIT 25.5 % (36.0-47.0); HEMOGLOBIN 8.1 g/dl (12.0-15.5); MEAN CORPUSCULAR HEMOGLOBIN 28.3 pg (27.0-33.0); MEAN CORPUSCULAR HGB CONC 31.8 g/dl (32.0-36.5); MEAN CORPUSCULAR VOLUME 89.2 fl (80.0-96.0); PLATELET COUNT, AUTOMATED 184 10^3/uL (150-450); RED BLOOD COUNT 2.86 10^6/uL (4.00-5.40); WHITE BLOOD COUNT 7.2 10^3/uL (4.0-10.0)
[2022-06-07 07:02] LABS: ALBUMIN 2.4 GM/DL (3.2-5.2); ALT/SGPT 25 U/L (12-78); BILIRUBIN,TOTAL 0.4 MG/DL (0.2-1.0); BLOOD UREA NITROGEN 12 MG/DL (7-18); CALCIUM LEVEL 8.5 MG/DL (8.8-10.2); CARBON DIOXIDE LEVEL 24 MEQ/L (21-32); CHLORIDE LEVEL 105 MEQ/L (98-107); CREATININE FOR GFR 0.79 MG/DL (0.55-1.30); GLOMERULAR FILTRATION RATE > 60.0 (>32); GLUCOSE, FASTING 106 MG/DL (70-100); MAGNESIUM LEVEL 1.7 MG/DL (1.8-2.4); POTASSIUM SERUM 3.3 MEQ/L (3.5-5.1); SODIUM LEVEL 139 MEQ/L (136-145); TOTAL PROTEIN 7.1 GM/DL (6.4-8.2)
[2022-06-07] MEDS: DOCUSATE SODIUM 100MG CAPSULE PO SCH (09:00)
[2022-06-07] MEDS: BISACODYL 10 MG SUPP PR SCH ×2 (09:00→20:00)
[2022-06-07] MEDS: LACTOBACILLUS ACIDOPHILUS CAP (BACID) PO SCH (10:11)
[2022-06-07] MEDS: buPROPion 75 MG TAB PO SCH ×2 (10:11→20:00)
[2022-06-07] MEDS: CYANOCOBALAMIN 500 MCG TAB PO SCH (10:12)
[2022-06-07] MEDS: ALPRAZolam 0.25 MG TAB PO SCH (10:12)
[2022-06-07] MEDS: APIXABAN 2.5 MG TAB (ELIQUIS) PO SCH ×2 (10:12→20:00)
[2022-06-07] MEDS: METOPROLOL TART 25 MG TABLET PO SCH ×3 (10:13→20:01)
[2022-06-07 14:00] VITALS: BP 138/72
[2022-06-07] MEDS: cefTRIAXone SOD 2 GM in D5W MINI-BAG PLUS 50 ML IV SCH (15:07)
[2022-06-07] MEDS: SODIUM CHLORIDE 0.9% INJ 10 ML SYR IV PRN (15:37)
[2022-06-07] MEDS ORDERED: POTASSIUM CHLORIDE 10MEQ SR TABLET PO ONE (17:35)
[2022-06-07] MEDS ORDERED: MAG SULF 1GM/100ML (MAG RUN) 1 GM in IV 1 EA IV ONE (17:35)
[2022-06-07] MEDS: MIRTAZAPINE 15 MG TAB PO SCH (19:58)
[2022-06-07] MEDS: ARIPiprazole 2 MG TAB PO SCH (20:00)
[2022-06-07 20:24] VITALS: BP 158/84
[2022-06-08] MEDS: LEVOTHYROXINE 50MCG TABLET (0.05MG) PO SCH (05:21)
[2022-06-08] MEDS: SODIUM CHLORIDE 0.9% INJ 10 ML SYR IV SCH ×2 (05:21→16:30)
[2022-06-08 06:00] VITALS: BP 155/83
[2022-06-08 06:08] LABS: HEMATOCRIT 27.3 % (36.0-47.0); HEMOGLOBIN 8.4 g/dl (12.0-15.5); MEAN CORPUSCULAR HEMOGLOBIN 27.8 pg (27.0-33.0); MEAN CORPUSCULAR HGB CONC 30.8 g/dl (32.0-36.5); MEAN CORPUSCULAR VOLUME 90.4 fl (80.0-96.0); PLATELET COUNT, AUTOMATED 203 10^3/uL (150-450); RED BLOOD COUNT 3.02 10^6/uL (4.00-5.40); WHITE BLOOD COUNT 7.3 10^3/uL (4.0-10.0)
[2022-06-08 06:58] LABS: ALBUMIN 2.4 GM/DL (3.2-5.2); ALT/SGPT 23 U/L (12-78); BILIRUBIN,TOTAL 0.3 MG/DL (0.2-1.0); BLOOD UREA NITROGEN 12 MG/DL (7-18); CALCIUM LEVEL 8.6 MG/DL (8.8-10.2); CARBON DIOXIDE LEVEL 28 MEQ/L (21-32); CHLORIDE LEVEL 104 MEQ/L (98-107); CREATININE FOR GFR 0.85 MG/DL (0.55-1.30); GLOMERULAR FILTRATION RATE > 60.0 (>32); GLUCOSE, FASTING 92 MG/DL (70-100); POTASSIUM SERUM 3.7 MEQ/L (3.5-5.1); SODIUM LEVEL 138 MEQ/L (136-145)
[2022-06-08] MEDS: BISACODYL 10 MG SUPP PR SCH ×2 (09:50→20:03)
[2022-06-08] MEDS: METOPROLOL TART 25 MG TABLET PO SCH ×3 (09:50→20:05)
[2022-06-08] MEDS: APIXABAN 2.5 MG TAB (ELIQUIS) PO SCH ×2 (09:50→20:03)
[2022-06-08] MEDS: ALPRAZolam 0.25 MG TAB PO SCH (09:51)
[2022-06-08] MEDS: ACETAMINOPHEN TAB 650MG DOSE (2X325MG) PO PRN ×2 (09:51→17:36)
[2022-06-08] MEDS: FERROUS SULFATE 325MG TAB PO SCH (09:52)
[2022-06-08] MEDS: LACTOBACILLUS ACIDOPHILUS CAP (BACID) PO SCH (09:52)
[2022-06-08] MEDS: CYANOCOBALAMIN 500 MCG TAB PO SCH (09:52)
[2022-06-08] MEDS: buPROPion 75 MG TAB PO SCH ×2 (09:52→20:03)
[2022-06-08] MEDS: cefTRIAXone SOD 2 GM in D5W MINI-BAG PLUS 50 ML IV SCH (15:52)
[2022-06-08] MEDS: ARIPiprazole 2 MG TAB PO SCH (20:03)
[2022-06-08] MEDS: MIRTAZAPINE 15 MG TAB PO SCH (20:03)
[2022-06-08 22:00] VITALS: BP 154/98
[2022-06-09] MEDS: LEVOTHYROXINE 50MCG TABLET (0.05MG) PO SCH (05:34)
[2022-06-09] MEDS: SODIUM CHLORIDE 0.9% INJ 10 ML SYR IV SCH ×2 (05:35→17:23)
[2022-06-09 06:00] VITALS: BP 156/78
[2022-06-09 06:24] LABS: HEMATOCRIT 27.3 % (36.0-47.0); HEMOGLOBIN 8.5 g/dl (12.0-15.5); MEAN CORPUSCULAR HEMOGLOBIN 28.2 pg (27.0-33.0); MEAN CORPUSCULAR HGB CONC 31.1 g/dl (32.0-36.5); MEAN CORPUSCULAR VOLUME 90.7 fl (80.0-96.0); PLATELET COUNT, AUTOMATED 194 10^3/uL (150-450); RED BLOOD COUNT 3.01 10^6/uL (4.00-5.40)
[2022-06-09 07:18] LABS: ALBUMIN 2.5 GM/DL (3.2-5.2); ALT/SGPT 19 U/L (12-78); BILIRUBIN,TOTAL 0.3 MG/DL (0.2-1.0); BLOOD UREA NITROGEN 13 MG/DL (7-18); CALCIUM LEVEL 8.4 MG/DL (8.8-10.2); CARBON DIOXIDE LEVEL 27 MEQ/L (21-32); CHLORIDE LEVEL 106 MEQ/L (98-107); CREATININE FOR GFR 0.86 MG/DL (0.55-1.30); GLOMERULAR FILTRATION RATE > 60.0 (>32); GLUCOSE, FASTING 95 MG/DL (70-100); MAGNESIUM LEVEL 1.9 MG/DL (1.8-2.4); POTASSIUM SERUM 3.3 MEQ/L (3.5-5.1); SODIUM LEVEL 140 MEQ/L (136-145)
[2022-06-09] MEDS ORDERED: POTASSIUM CHLORIDE 10MEQ SR TABLET PO ONE (09:00)
[2022-06-09] MEDS: ACETAMINOPHEN TAB 650MG DOSE (2X325MG) PO PRN (10:20)
[2022-06-09] MEDS: LACTOBACILLUS ACIDOPHILUS CAP (BACID) PO SCH (10:20)
[2022-06-09] MEDS: FERROUS SULFATE 325MG TAB PO SCH (10:20)
[2022-06-09] MEDS: APIXABAN 2.5 MG TAB (ELIQUIS) PO SCH ×2 (10:21→22:20)
[2022-06-09] MEDS: ALPRAZolam 0.25 MG TAB PO SCH (10:21)
[2022-06-09] MEDS: buPROPion 75 MG TAB PO SCH ×2 (10:21→22:20)
[2022-06-09] MEDS: BISACODYL 10 MG SUPP PR SCH ×2 (10:22→21:00)
[2022-06-09] MEDS: CYANOCOBALAMIN 500 MCG TAB PO SCH (10:22)
[2022-06-09] MEDS: METOPROLOL TART 25 MG TABLET PO SCH ×3 (10:22→22:21)
[2022-06-09 14:00] VITALS: BP 166/89
[2022-06-09] MEDS: cefTRIAXone SOD 2 GM in D5W MINI-BAG PLUS 50 ML IV SCH (15:21)
[2022-06-09] MEDS: SODIUM CHLORIDE 0.9% INJ 10 ML SYR IV PRN (15:27)
[2022-06-09 22:00] VITALS: BP 149/70
[2022-06-09] MEDS: NYSTATIN 100,000 UNITS/GM TOPICAL PWD 15 GM TOP SCH (22:19)
[2022-06-09] MEDS: ARIPiprazole 2 MG TAB PO SCH (22:20)
[2022-06-09] MEDS: MIRTAZAPINE 15 MG TAB PO SCH (22:20)
[2022-06-10 05:41] LABS: HEMATOCRIT 26.9 % (36.0-47.0); HEMOGLOBIN 8.4 g/dl (12.0-15.5); MEAN CORPUSCULAR HEMOGLOBIN 28.3 pg (27.0-33.0); MEAN CORPUSCULAR HGB CONC 31.2 g/dl (32.0-36.5); MEAN CORPUSCULAR VOLUME 90.6 fl (80.0-96.0); PLATELET COUNT, AUTOMATED 214 10^3/uL (150-450); RED BLOOD COUNT 2.97 10^6/uL (4.00-5.40); WHITE BLOOD COUNT 8.5 10^3/uL (4.0-10.0)
[2022-06-10 06:00] VITALS: BP 142/72
[2022-06-10] MEDS: LEVOTHYROXINE 50MCG TABLET (0.05MG) PO SCH (06:07)
[2022-06-10] MEDS: SODIUM CHLORIDE 0.9% INJ 10 ML SYR IV SCH ×2 (06:08→18:14)
[2022-06-10 06:34] LABS: ALBUMIN 2.4 GM/DL (3.2-5.2); BILIRUBIN,TOTAL 0.3 MG/DL (0.2-1.0); CALCIUM LEVEL 8.6 MG/DL (8.8-10.2); CREATININE FOR GFR 0.98 MG/DL (0.55-1.30); GLOMERULAR FILTRATION RATE 56.9 (>32); MAGNESIUM LEVEL 1.9 MG/DL (1.8-2.4); POTASSIUM SERUM 3.6 MEQ/L (3.5-5.1); TOTAL PROTEIN 6.9 GM/DL (6.4-8.2)
[2022-06-10] MEDS: FERROUS SULFATE 325MG TAB PO SCH ×2 (09:00→09:43)
[2022-06-10] MEDS: CYANOCOBALAMIN 500 MCG TAB PO SCH (09:39)
[2022-06-10] MEDS: ALPRAZolam 0.25 MG TAB PO SCH (09:39)
[2022-06-10] MEDS: LACTOBACILLUS ACIDOPHILUS CAP (BACID) PO SCH (09:39)
[2022-06-10] MEDS: APIXABAN 2.5 MG TAB (ELIQUIS) PO SCH ×2 (09:40→21:40)
[2022-06-10] MEDS: BISACODYL 10 MG SUPP PR SCH ×2 (09:42→21:42)
[2022-06-10] MEDS: METOPROLOL TART 25 MG TABLET PO SCH ×3 (09:42→21:42)
[2022-06-10] MEDS: NYSTATIN 100,000 UNITS/GM TOPICAL PWD 15 GM TOP SCH ×2 (09:43→21:42)
[2022-06-10] MEDS: buPROPion 75 MG TAB PO SCH ×2 (09:44→21:39)
[2022-06-10] MEDS: FERROUS SULFATE 300MG/5ML UDC LIQUID PO SCH (13:56)
[2022-06-10 14:00] VITALS: BP 134/79
[2022-06-10] MEDS: cefTRIAXone SOD 2 GM in D5W MINI-BAG PLUS 50 ML IV SCH (15:37)
[2022-06-10 20:00] VITALS: BP 127/80
[2022-06-10] MEDS: ACETAMINOPHEN TAB 650MG DOSE (2X325MG) PO PRN (21:40)
[2022-06-10] MEDS: ARIPiprazole 2 MG TAB PO SCH (21:40)
[2022-06-10] MEDS: MIRTAZAPINE 15 MG TAB PO SCH (21:40)
[2022-06-11] MEDS: LEVOTHYROXINE 50MCG TABLET (0.05MG) PO SCH ×2 (05:36→05:51)
[2022-06-11] MEDS: SODIUM CHLORIDE 0.9% INJ 10 ML SYR IV SCH ×2 (05:37→17:16)
[2022-06-11 06:00] VITALS: BP 138/82
[2022-06-11 08:38] LABS: HEMATOCRIT 27.2 % (36.0-47.0); HEMOGLOBIN 8.5 g/dl (12.0-15.5); MEAN CORPUSCULAR HEMOGLOBIN 28.8 pg (27.0-33.0); MEAN CORPUSCULAR HGB CONC 31.3 g/dl (32.0-36.5); MEAN CORPUSCULAR VOLUME 92.2 fl (80.0-96.0); PLATELET COUNT, AUTOMATED 206 10^3/uL (150-450); RED BLOOD COUNT 2.95 10^6/uL (4.00-5.40); WHITE BLOOD COUNT 8.2 10^3/uL (4.0-10.0)
[2022-06-11 09:00] LABS: ERYTHROCYTE SEDIMENTATION RATE 106 mm/hr (0-30)
[2022-06-11 09:07] LABS: ALBUMIN 2.5 GM/DL (3.2-5.2); ALT/SGPT 19 U/L (12-78); BILIRUBIN,TOTAL 0.3 MG/DL (0.2-1.0); BLOOD UREA NITROGEN 16 MG/DL (7-18); C REACTIVE PROTEIN QUANTITATIV 7.05 MG/DL (0.00-0.30); CALCIUM LEVEL 8.8 MG/DL (8.8-10.2); CARBON DIOXIDE LEVEL 28 MEQ/L (21-32); CHLORIDE LEVEL 103 MEQ/L (98-107); CREATININE FOR GFR 0.93 MG/DL (0.55-1.30); GLOMERULAR FILTRATION RATE > 60.0 (>32); GLUCOSE, FASTING 98 MG/DL (70-100); MAGNESIUM LEVEL 1.9 MG/DL (1.8-2.4); POTASSIUM SERUM 3.7 MEQ/L (3.5-5.1); SODIUM LEVEL 137 MEQ/L (136-145); TOTAL PROTEIN 7.2 GM/DL (6.4-8.2)
[2022-06-11] MEDS: LACTOBACILLUS ACIDOPHILUS CAP (BACID) PO SCH (09:33)
[2022-06-11] MEDS: APIXABAN 2.5 MG TAB (ELIQUIS) PO SCH ×2 (09:33→21:08)
[2022-06-11] MEDS: buPROPion 75 MG TAB PO SCH ×2 (09:33→21:08)
[2022-06-11] MEDS: ALPRAZolam 0.25 MG TAB PO SCH (09:33)
[2022-06-11] MEDS: CYANOCOBALAMIN 500 MCG TAB PO SCH (09:34)
[2022-06-11] MEDS: METOPROLOL TART 25 MG TABLET PO SCH ×3 (09:35→21:22)
[2022-06-11] MEDS: FERROUS SULFATE 300MG/5ML UDC LIQUID PO SCH (09:49)
[2022-06-11] MEDS: BISACODYL 10 MG SUPP PR SCH ×2 (10:03→21:00)
[2022-06-11] MEDS: NYSTATIN 100,000 UNITS/GM TOPICAL PWD 15 GM TOP SCH ×2 (10:04→21:09)
[2022-06-11] MEDS: cefTRIAXone SOD 2 GM in D5W MINI-BAG PLUS 50 ML IV SCH (15:22)
[2022-06-11] MEDS: MIRTAZAPINE 15 MG TAB PO SCH (21:07)
[2022-06-11] MEDS: ARIPiprazole 2 MG TAB PO SCH (21:07)
[2022-06-12] MEDS: LEVOTHYROXINE 50MCG TABLET (0.05MG) PO SCH (05:32)
[2022-06-12] MEDS: SODIUM CHLORIDE 0.9% INJ 10 ML SYR IV SCH (05:33)
[2022-06-12 05:49] VITALS: BP 166/90
[2022-06-12] MEDS: METOPROLOL TART 25 MG TABLET PO SCH (05:49)
[2022-06-12 06:00] VITALS: BP 166/90
[2022-06-12 06:16] LABS: HEMATOCRIT 25.8 % (36.0-47.0); HEMOGLOBIN 7.9 g/dl (12.0-15.5); MEAN CORPUSCULAR HEMOGLOBIN 27.9 pg (27.0-33.0); MEAN CORPUSCULAR HGB CONC 30.6 g/dl (32.0-36.5); MEAN CORPUSCULAR VOLUME 91.2 fl (80.0-96.0); PLATELET COUNT, AUTOMATED 194 10^3/uL (150-450); RED BLOOD COUNT 2.83 10^6/uL (4.00-5.40); WHITE BLOOD COUNT 6.7 10^3/uL (4.0-10.0)
[2022-06-12 06:52] LABS: ALBUMIN 2.5 GM/DL (3.2-5.2); ALT/SGPT 22 U/L (12-78); BILIRUBIN,TOTAL 0.3 MG/DL (0.2-1.0); BLOOD UREA NITROGEN 17 MG/DL (7-18); CALCIUM LEVEL 8.8 MG/DL (8.8-10.2); CARBON DIOXIDE LEVEL 28 MEQ/L (21-32); CHLORIDE LEVEL 102 MEQ/L (98-107); CREATININE FOR GFR 0.86 MG/DL (0.55-1.30); GLOMERULAR FILTRATION RATE > 60.0 (>32); GLUCOSE, FASTING 93 MG/DL (70-100); MAGNESIUM LEVEL 1.8 MG/DL (1.8-2.4); POTASSIUM SERUM 4.1 MEQ/L (3.5-5.1); SODIUM LEVEL 135 MEQ/L (136-145); TOTAL PROTEIN 6.9 GM/DL (6.4-8.2)
[2022-06-12] MEDS: FERROUS SULFATE 300MG/5ML UDC LIQUID PO SCH (08:11)
[2022-06-12] MEDS: CYANOCOBALAMIN 500 MCG TAB PO SCH (08:13)
[2022-06-12] MEDS: ALPRAZolam 0.25 MG TAB PO SCH (08:13)
[2022-06-12] MEDS: buPROPion 75 MG TAB PO SCH (08:13)
[2022-06-12] MEDS: LACTOBACILLUS ACIDOPHILUS CAP (BACID) PO SCH (08:13)
[2022-06-12] MEDS: APIXABAN 2.5 MG TAB (ELIQUIS) PO SCH (08:14)
[2022-06-12] MEDS: BISACODYL 10 MG SUPP PR SCH (08:26)
[2022-06-12] MEDS: NYSTATIN 100,000 UNITS/GM TOPICAL PWD 15 GM TOP SCH (08:27)
[2022-06-12 09:46] LABS: HEMATOCRIT 26.2 % (36.0-47.0); HEMOGLOBIN 8.2 g/dl (12.0-15.5)
[2022-06-12] MEDS ORDERED: FERR5MLUD PO (10:10)
[2022-06-12] MEDS ORDERED: RISATAB3 PO (10:10)
[2022-06-12] MEDS ORDERED: CEFT2INJ4 IV (10:10)
[2022-06-12] MEDS ORDERED: METO75TA PO (10:10)
== END 2022-06-12 11:55 | DRG 871 ==
LOC: M ED 13:33 → M ED INP 18:37 → ENRESERV 05-31 12:26 → M PCU 05-31 14:17 → M MSPAV 06-03 16:05
PROVIDERS: ADMIT Family Medicine; ATTEND Internal Medicine
PROC: B246ZZZ Ultrasonography of Right and Left Heart (ICD-10-PCS; principal; 2022-05-31)
PROC: 02HV33Z Insertion of Infusion Device into Superior Vena Cava, Percutaneous Approach (ICD-10-PCS; 2022-06-03)
DX: A40.9 Streptococcal sepsis, unspecified (principal); G93.41 Metabolic encephalopathy; I33.0 Acute and subacute infective endocarditis; N17.9 Acute kidney failure, unspecified; E87.2 Acidosis; I47.2 Ventricular tachycardia; I48.21 Permanent atrial fibrillation; Z95.810 Presence of automatic (implantable) cardiac defibrillator; Z66 Do not resuscitate; M85.88 Other specified disorders of bone density and structure, other site; H91.90 Unspecified hearing loss, unspecified ear; F03.90 Unspecified dementia, unspecified severity, without behavioral disturbance, psychotic disturbance, mood disturbance, and anxiety; E11.9 Type 2 diabetes mellitus without complications; E03.9 Hypothyroidism, unspecified; I27.20 Pulmonary hypertension, unspecified; E78.5 Hyperlipidemia, unspecified; Z79.01 Long term (current) use of anticoagulants; Z79.890 Hormone replacement therapy; Z87.891 Personal history of nicotine dependence; K59.00 Constipation, unspecified; R31.9 Hematuria, unspecified; D64.9 Anemia, unspecified; S42.301D Unspecified fracture of shaft of humerus, right arm, subsequent encounter for fracture with routine healing

== ENCOUNTER → 2022-06-13 | Outpatient (REF) | payer MEDICARE, MEDICAID ==
[~2022-06-13] MED LIST changes: +ACET500T15 PO; +ALPR0.25 PO; +BUPR75TA5 PO; +CEFT2INJ4 IV; +ERGO500029 PO; +FERR5MLUD PO; +META28.32 PO; +METO75TA PO; +MIRT-60 PO; +PROL60SO SC; +RISATAB3 PO; +SENN8.6T28 PO
[2022-06-13 07:49] LABS: BASO % 0.4 % (0.0-1.0); EOS % 0.7 % (0.0-3.0); HEMATOCRIT 25.9 % (36.0-47.0); LYMPH # 0.7 10^3/uL (1.5-5.0); LYMPH % 12.5 % (24.0-44.0); MEAN CORPUSCULAR HEMOGLOBIN 28.5 pg (27.0-33.0); MEAN CORPUSCULAR HGB CONC 30.9 g/dl (32.0-36.5); MEAN CORPUSCULAR VOLUME 92.2 fl (80.0-96.0); MONO # 0.4 10^3/uL (0.0-0.8); NEUTROPHILS # 4.3 10^3/uL (1.5-8.5); NEUTROPHILS % 77.9 % (36.0-66.0); PLATELET COUNT, AUTOMATED 188 10^3/uL (150-450); RED BLOOD COUNT 2.81 10^6/uL (4.00-5.40); WHITE BLOOD COUNT 5.5 10^3/uL (4.0-10.0)
[2022-06-13 08:27] LABS: ALBUMIN 2.5 GM/DL (3.2-5.2); ALT/SGPT 28 U/L (12-78); BILIRUBIN,TOTAL 0.3 MG/DL (0.2-1.0); BLOOD UREA NITROGEN 17 MG/DL (7-18); CALCIUM LEVEL 8.9 MG/DL (8.8-10.2); CARBON DIOXIDE LEVEL 27 MEQ/L (21-32); CHLORIDE LEVEL 104 MEQ/L (98-107); CREATININE FOR GFR 0.91 MG/DL (0.55-1.30); GLOMERULAR FILTRATION RATE > 60.0 (>32); GLUCOSE, FASTING 102 MG/DL (70-100); POTASSIUM SERUM 3.9 MEQ/L (3.5-5.1); SODIUM LEVEL 136 MEQ/L (136-145); TOTAL PROTEIN 6.9 GM/DL (6.4-8.2)
[2022-06-13 08:45] LABS: C REACTIVE PROTEIN QUANTITATIV 5.71 MG/DL (0.00-0.30)
== END ==
LOC: SKLAB4 07:00
PROVIDERS: ATTEND Nurse Practitioner Family
DX: D64.9 Anemia, unspecified (principal)

== ENCOUNTER → 2022-06-20 | Outpatient (REF) | payer MEDICARE, MEDICAID ==
[2022-06-20 10:55] LABS: BASO % 0.4 % (0.0-1.0); EOS # 0.2 10^3/uL (0.0-0.5); EOS % 2.8 % (0.0-3.0); HEMATOCRIT 29.5 % (36.0-47.0); LYMPH # 0.9 10^3/uL (1.5-5.0); LYMPH % 16.5 % (24.0-44.0); MEAN CORPUSCULAR HEMOGLOBIN 28.8 pg (27.0-33.0); MEAN CORPUSCULAR HGB CONC 30.5 g/dl (32.0-36.5); MEAN CORPUSCULAR VOLUME 94.2 fl (80.0-96.0); MONO # 0.4 10^3/uL (0.0-0.8); MONO % 7.4 % (2.0-8.0); NEUTROPHILS # 4.1 10^3/uL (1.5-8.5); NEUTROPHILS % 71.8 % (36.0-66.0); PLATELET COUNT, AUTOMATED 222 10^3/uL (150-450); RED BLOOD COUNT 3.13 10^6/uL (4.00-5.40); WHITE BLOOD COUNT 5.6 10^3/uL (4.0-10.0)
[2022-06-20 11:42] LABS: BILIRUBIN,TOTAL 0.4 MG/DL (0.2-1.0); CALCIUM LEVEL 8.9 MG/DL (8.8-10.2); CREATININE FOR GFR 1.12 MG/DL (0.55-1.30); GLOMERULAR FILTRATION RATE 48.8 (>32)
== END ==
LOC: SKLAB4 07:00
PROVIDERS: ATTEND Internal Medicine
DX: D64.9 Anemia, unspecified (principal)

== ENCOUNTER → 2022-06-21 | Outpatient (REF) | payer MEDICARE, MEDICAID ==
[2022-06-21 13:34] LABS: APPEARANCE, URINE MANUAL HAZY (CLEAR); BILIRUBIN, URINE MANUAL NEGATIVE (NEGATIVE); BLOOD URINE MANUAL TRACE (NEGATIVE); COLOR, URINE MANUAL YELLOW (YELLOW); GLUCOSE, URINE (UA) MANUAL NEGATIVE (NEGATIVE); KETONE, URINE MANUAL NEGATIVE (NEGATIVE); LEUKOCYTE ESTERASE, URINE MAN POSITIVE (NEGATIVE); NITRITE, URINE MANUAL NEGATIVE (NEGATIVE); PROTEIN, URINE MANUAL TRACE mg/dL (NEGATIVE); UROBILINOGEN, URINE MANUAL NORMAL (NORMAL)
[2022-06-21 13:50] LABS: BACTERIA, URINE LARGE AMOUNT; RENAL EPITHELIAL CELLS, URINE SMALL AMOUNT /hpf; SQUAMOUS EPITHELIAL CELL URINE SMALL AMOUNT /hpf (SMALL AMT); TRANSITIONAL EPI CELLS, URINE SMALL AMOUNT /hpf; WBC, URINE TNTC /hpf (0-3)
[2022-06-21 13:51] LABS: HYALINE CAST, URINE NONE SEEN /lpf (0-1); YEAST, URINE SMALL AMOUNT
== END ==
LOC: SKLAB4 08:58
PROVIDERS: ATTEND Nurse Practitioner Adult Health
DX: R39.89 Other symptoms and signs involving the genitourinary system (principal); R34 Anuria and oliguria

== ENCOUNTER → 2022-06-25 | Outpatient (CLI) | payer MEDICARE, MEDICAID ==
[~2022-06-25] MED LIST changes: +LIDOCAINE 1% MDV 20ML VIAL As Ordered ONE
[2022-06-25 12:00] VITALS: BP 162/78
== END ==
LOC: M IRPRO 10:02
DX: R78.81 Bacteremia (principal); Z53.8 Procedure and treatment not carried out for other reasons
CPT/HCPCS: 36571; 76937; C1751; J1642; J1644

== ENCOUNTER → 2022-06-27 | Outpatient (REF) | payer MEDICARE, MEDICAID ==
[~2022-06-27] MED LIST changes: -LIDOCAINE 1% MDV 20ML VIAL As Ordered ONE
[2022-06-27 10:30] LABS: BASO % 0.2 % (0.0-1.0); EOS # 0.1 10^3/uL (0.0-0.5); EOS % 2.5 % (0.0-3.0); HEMATOCRIT 27.2 % (36.0-47.0); HEMOGLOBIN 8.2 g/dl (12.0-15.5); LYMPH # 0.7 10^3/uL (1.5-5.0); LYMPH % 13.6 % (24.0-44.0); MEAN CORPUSCULAR HEMOGLOBIN 28.2 pg (27.0-33.0); MEAN CORPUSCULAR HGB CONC 30.1 g/dl (32.0-36.5); MEAN CORPUSCULAR VOLUME 93.5 fl (80.0-96.0); MONO # 0.4 10^3/uL (0.0-0.8); MONO % 7.8 % (2.0-8.0); NEUTROPHILS % 75.5 % (36.0-66.0); PLATELET COUNT, AUTOMATED 225 10^3/uL (150-450); RED BLOOD COUNT 2.91 10^6/uL (4.00-5.40); WHITE BLOOD COUNT 5.3 10^3/uL (4.0-10.0)
[2022-06-27 11:13] LABS: ALBUMIN 3.1 GM/DL (3.2-5.2); BILIRUBIN,TOTAL 0.2 MG/DL (0.2-1.0); C REACTIVE PROTEIN QUANTITATIV 2.48 MG/DL (0.00-0.30); CALCIUM LEVEL 8.8 MG/DL (8.8-10.2); CREATININE FOR GFR 0.97 MG/DL (0.55-1.30); GLOMERULAR FILTRATION RATE 57.6 (>32); POTASSIUM SERUM 4.1 MEQ/L (3.5-5.1); TOTAL PROTEIN 7.9 GM/DL (6.4-8.2)
== END ==
LOC: SKLAB4 09:32
PROVIDERS: ATTEND Nurse Practitioner Family
DX: D64.9 Anemia, unspecified (principal)

== ENCOUNTER → 2022-07-25 | Outpatient (REF) | payer MEDICARE, MEDICAID ==
[2022-07-25 12:57] LABS: EOS # 0.2 10^3/uL (0.0-0.5); EOS % 3.5 % (0.0-3.0); HEMATOCRIT 26.9 % (36.0-47.0); HEMOGLOBIN 8.4 g/dl (12.0-15.5); LYMPH # 0.9 10^3/uL (1.5-5.0); LYMPH % 19.8 % (24.0-44.0); MEAN CORPUSCULAR HGB CONC 31.2 g/dl (32.0-36.5); MEAN CORPUSCULAR VOLUME 96.1 fl (80.0-96.0); MONO # 0.4 10^3/uL (0.0-0.8); MONO % 9.2 % (2.0-8.0); NEUTROPHILS # 3.1 10^3/uL (1.5-8.5); NEUTROPHILS % 66.8 % (36.0-66.0); PLATELET COUNT, AUTOMATED 207 10^3/uL (150-450); WHITE BLOOD COUNT 4.6 10^3/uL (4.0-10.0)
[2022-07-25 13:51] LABS: BILIRUBIN,TOTAL 0.2 MG/DL (0.2-1.0); CALCIUM LEVEL 8.5 MG/DL (8.8-10.2); CREATININE FOR GFR 1.08 MG/DL (0.55-1.30); GLOMERULAR FILTRATION RATE 50.9 (>32); PERCENT SATURATION 27.2 % (13.2-45.0); POTASSIUM SERUM 4.5 MEQ/L (3.5-5.1); THYROID STIMULATING HORMONE 4.75 uIU/ML (0.358-3.740); TOTAL PROTEIN 6.5 GM/DL (6.4-8.2)
[2022-07-25 16:26] LABS: HEMOGLOBIN A1c 5.5 %
== END ==
LOC: SKLAB4 12:35
PROVIDERS: ATTEND Nurse Practitioner Adult Health
DX: D64.9 Anemia, unspecified (principal); Z79.899 Other long term (current) drug therapy

== ENCOUNTER → 2022-07-29 | Outpatient (REF) | payer MEDICARE, MEDICAID ==
[2022-07-29 09:51] LABS: CALCIUM LEVEL 8.6 MG/DL (8.8-10.2); CREATININE FOR GFR 1.01 MG/DL (0.55-1.30); GLOMERULAR FILTRATION RATE 54.9 (>32); POTASSIUM SERUM 4.2 MEQ/L (3.5-5.1)
== END ==
LOC: SKLAB4 08:37
PROVIDERS: ATTEND Nurse Practitioner Adult Health
DX: E87.1 Hypo-osmolality and hyponatremia (principal)

== ENCOUNTER → 2022-08-15 | Outpatient (REF) | payer MEDICARE, MEDICAID ==
[2022-08-15 14:41] LABS: HEMATOCRIT 30.2 % (36.0-47.0); HEMOGLOBIN 9.8 g/dl (12.0-15.5); MEAN CORPUSCULAR HEMOGLOBIN 31.1 pg (27.0-33.0); MEAN CORPUSCULAR HGB CONC 32.5 g/dl (32.0-36.5); MEAN CORPUSCULAR VOLUME 95.9 fl (80.0-96.0); PLATELET COUNT, AUTOMATED 214 10^3/uL (150-450); RED BLOOD COUNT 3.15 10^6/uL (4.00-5.40); WHITE BLOOD COUNT 16.8 10^3/uL (4.0-10.0)
[2022-08-15 15:21] LABS: ALBUMIN 3.5 GM/DL (3.2-5.2); BILIRUBIN,TOTAL 0.7 MG/DL (0.2-1.0); CALCIUM LEVEL 8.3 MG/DL (8.8-10.2); CREATININE FOR GFR 1.09 MG/DL (0.55-1.30); GLOMERULAR FILTRATION RATE 50.3 (>32); POTASSIUM SERUM 4.5 MEQ/L (3.5-5.1); TOTAL PROTEIN 6.9 GM/DL (6.4-8.2)
== END ==
LOC: SKLAB4 13:01
PROVIDERS: ATTEND Nurse Practitioner Adult Health
DX: R41.89 Other symptoms and signs involving cognitive functions and awareness (principal); R00.0 Tachycardia, unspecified; I48.91 Unspecified atrial fibrillation; I45.10 Unspecified right bundle-branch block

== ENCOUNTER → 2022-08-19 | Outpatient (REF) | payer MEDICARE, MEDICAID ==
[2022-08-19 11:14] LABS: HEMATOCRIT 28.4 % (36.0-47.0); HEMOGLOBIN 8.8 g/dl (12.0-15.5); MEAN CORPUSCULAR HEMOGLOBIN 30.6 pg (27.0-33.0); MEAN CORPUSCULAR VOLUME 98.6 fl (80.0-96.0); PLATELET COUNT, AUTOMATED 189 10^3/uL (150-450); RED BLOOD COUNT 2.88 10^6/uL (4.00-5.40); WHITE BLOOD COUNT 6.7 10^3/uL (4.0-10.0)
[2022-08-19 11:35] LABS: CALCIUM LEVEL 7.8 MG/DL (8.8-10.2); CREATININE FOR GFR 0.99 MG/DL (0.55-1.30); GLOMERULAR FILTRATION RATE 56.2 (>32); POTASSIUM SERUM 4.4 MEQ/L (3.5-5.1)
== END ==
LOC: SKLAB4 12:33
PROVIDERS: ATTEND Nurse Practitioner Adult Health
DX: D72.829 Elevated white blood cell count, unspecified (principal); N18.9 Chronic kidney disease, unspecified; E87.1 Hypo-osmolality and hyponatremia

== ENCOUNTER → 2022-08-27 | Outpatient (REF) | payer MEDICARE, MEDICAID ==
[2022-08-27 10:52] LABS: BLOOD UREA NITROGEN 20 MG/DL (9-23); CALCIUM LEVEL 8.3 MG/DL (8.3-10.6); CARBON DIOXIDE LEVEL 22 MMOL/L (20-31); CHLORIDE LEVEL 101 MMOL/L (98-107); CREATININE FOR GFR 0.89 MG/DL (0.55-1.30); GLOMERULAR FILTRATION RATE > 60.0 (>32); GLUCOSE, FASTING 130 MG/DL (74-106); POTASSIUM SERUM 4.6 MMOL/L (3.5-5.1); SODIUM LEVEL 135 MMOL/L (136-145)
== END ==
LOC: SKLAB4 09:00
PROVIDERS: ATTEND Nurse Practitioner Adult Health
DX: E87.0 Hyperosmolality and hypernatremia (principal)

== ENCOUNTER → 2022-09-24 | Outpatient (REF) | payer MEDICARE, MEDICAID ==
[~2022-09-24] MED LIST changes: -PAXI20TA29 PO; +PAXI20TA30 PO
== END ==
LOC: SKLAB4 12:08
PROVIDERS: ATTEND Nurse Practitioner Adult Health
DX: M25.561 Pain in right knee (principal); M25.551 Pain in right hip; Z96.641 Presence of right artificial hip joint

== ENCOUNTER → 2022-09-25 | Outpatient (REF) | payer MEDICARE, MEDICAID | LOC: SKLAB5 07:48 | PROVIDERS: ATTEND Nurse Practitioner Adult Health | DX: M25.561 Pain in right knee (principal); Z53.8 Procedure and treatment not carried out for other reasons ==

== ENCOUNTER → 2022-12-02 | Outpatient (REF) | payer MEDICARE, MEDICAID ==
[2022-12-02 14:27] LABS: BLOOD UREA NITROGEN 23 MG/DL (9-23); CALCIUM LEVEL 8.6 MG/DL (8.3-10.6); CARBON DIOXIDE LEVEL 24 MMOL/L (20-31); CHLORIDE LEVEL 98 MMOL/L (98-107); CREATININE FOR GFR 0.81 MG/DL (0.55-1.30); GLOMERULAR FILTRATION RATE > 60.0 (>32); GLUCOSE, FASTING 165 MG/DL (74-106); PHOSPHORUS LEVEL 3.2 MG/DL (2.4-5.1); POTASSIUM SERUM 4.5 MMOL/L (3.5-5.1); PTH INTACT 58.2 PG/ML (18.5-88.0); SODIUM LEVEL 131 MMOL/L (136-145)
[2022-12-02 14:29] LABS: TOTAL 25(OH) VITAMIN D 35.8 NG/ML (20.0-100.0); VITAMIN B12 LEVEL 1812 PG/ML (211-911)
== END ==
LOC: SKLAB4 01:00
PROVIDERS: ATTEND Nurse Practitioner Adult Health
DX: E21.3 Hyperparathyroidism, unspecified (principal); E87.1 Hypo-osmolality and hyponatremia; E53.8 Deficiency of other specified B group vitamins

== ENCOUNTER 2022-12-20 13:17 | Outpatient (CLI) | payer MEDICARE, MEDICAID ==
[~2022-12-20 13:17] MED LIST changes: -BENG1CRE EX; -BENG1CRE TOP; -BENPAD; -BISA10SU27 PR; -ENSULIQ51 PO; -FLEEENE12 PR; -RA S0.65 NARES; -SODI1TAB12 PO; -SODIGEL TOP
[2022-12-20 13:20] VITALS: BP 179/79
[2022-12-20] MEDS ORDERED: SODIGEL TOP (22:36)
[2022-12-20] MEDS ORDERED: FERR5MLUD PO (22:36)
[2022-12-20] MEDS ORDERED: SODI1TAB12 PO ×2 (22:36)
[2022-12-20] MEDS ORDERED: RISATAB3 PO (22:36)
[2022-12-20] MEDS ORDERED: RA S0.65 NARES (22:36)
[2022-12-20] MEDS ORDERED: ENSULIQ51 PO (22:36)
[2022-12-20] MEDS ORDERED: BENG1CRE TOP (22:50)
[2022-12-20] MEDS ORDERED: ACET1TAB55 PO (22:50)
[2022-12-20] MEDS ORDERED: BISA10SU27 PR (22:50)
[2022-12-20] MEDS ORDERED: BENG1CRE EX (22:50)
[2022-12-20] MEDS ORDERED: BENPAD (22:50)
[2022-12-20] MEDS ORDERED: MOM30SS PO (22:50)
[2022-12-20] MEDS ORDERED: FLEEENE12 PR (22:50)
== END 2022-12-20 14:20 | disposition home or self-care (01) ==
LOC: M INFU 13:17
PROVIDERS: ATTEND Nurse Practitioner Adult Health
DX: D64.9 Anemia, unspecified (principal)

== ENCOUNTER 2022-12-20 14:24 | Inpatient (IN) | payer MEDICARE, MEDICAID ==
[~2022-12-20] VITALS: Ht 157.5 cm; Wt 64.1 kg
[2022-12-20] MEDS ORDERED: ACETAMINOPHEN TAB 650MG DOSE (2X325MG) PO ONE (14:45)
[2022-12-20] MEDS ORDERED: ACETAMINOPHEN 1000MG 100ML IV BAG IV ONE (14:50)
[2022-12-20 15:01] LABS: HEMATOCRIT 25.5 % (36.0-47.0); HEMOGLOBIN 7.6 g/dl (12.0-15.5); MEAN CORPUSCULAR HEMOGLOBIN 27.6 pg (27.0-33.0); MEAN CORPUSCULAR HGB CONC 29.8 g/dl (32.0-36.5); MEAN CORPUSCULAR VOLUME 92.7 fl (80.0-96.0); PLATELET COUNT, AUTOMATED 283 10^3/uL (150-450); RED BLOOD COUNT 2.75 10^6/uL (4.00-5.40); WHITE BLOOD COUNT 6.5 10^3/uL (4.0-10.0)
[2022-12-20 15:12] LABS: INR 1.46; PARTIAL THROMBOPLASTIN TIME 33.3 SECONDS (24.8-34.2)
[2022-12-20 15:33] LABS: RSV AMPLIFICATION NEGATIVE (NEGATIVE)
[2022-12-20 15:44] LABS: AMYLASE 42 U/L (30-118); CPK CREATINE PHOSPHOKINASE 199 U/L (34-145)
[2022-12-20 15:51] LABS: EOSINOPHILS 1 % (0-3); LYMPHOCYTES 18 % (16-44); METAMYELOCYTES 2 % (0-0); MONOCYTES 3 % (0-5); MYELOCYTES 2 % (0-0); NEUTROPHILS 57 % (28-66)
[2022-12-20 15:52] LABS: PLATELET ESTIMATE NORMAL (NORMAL); POIKILOCYTOSIS 1+
[2022-12-20 15:53] LABS: ANISOCYTOSIS 2+
[2022-12-20 16:07] LABS: ERYTHROCYTE SEDIMENTATION RATE 76 mm/hr (0-30)
[2022-12-20 16:32] LABS: APPEARANCE, URINE HAZY (CLEAR); BACTERIA, URINE AUTO NEGATIVE (NEGATIVE); BILIRUBIN, URINE AUTO NEGATIVE (NEGATIVE); BLOOD, URINE BLOOD NEGATIVE (NEGATIVE); COLOR, URINE AMBER (YELLOW); GLUCOSE, URINE (UA) AUTO NEGATIVE (NEGATIVE); KETONE, URINE AUTO NEGATIVE (NEGATIVE); LEUKOCYTE ESTERASE, URINE AUTO NEGATIVE (NEGATIVE); MUCUS, URINE SMALL (NEGATIVE); NITRITE, URINE AUTO NEGATIVE (NEGATIVE); PROTEIN, URINE AUTO 3+ mg/dL (NEGATIVE); RBC, URINE AUTO 2 /HPF (0-3); SQUAMOUS EPITHELIAL CELL UR AU 1 /HPF (0-6); WBC, URINE AUTO 3 /HPF (0-3)
[2022-12-20 16:39] LABS: ALKALINE PHOSPHATASE 181 U/L (46-116); ALT/SGPT 30 U/L (7.0-40); AST/SGOT 30 U/L (<34); BILIRUBIN,DIRECT 0.5 MG/DL (<0.4); BILIRUBIN,TOTAL 0.9 MG/DL (0.3-1.2); BLOOD UREA NITROGEN 31 MG/DL (9-23); CALCIUM LEVEL 8.6 MG/DL (8.3-10.6); CARBON DIOXIDE LEVEL 23 MMOL/L (20-31); CHLORIDE LEVEL 103 MMOL/L (98-107); CK-MB VALUE MASS < 1.0 NG/ML (<3.6); CREATININE FOR GFR 0.94 MG/DL (0.55-1.30); GLOMERULAR FILTRATION RATE 59.7 (>32); GLUCOSE, FASTING 163 MG/DL (74-106); POTASSIUM SERUM 4.4 MMOL/L (3.5-5.1); SODIUM LEVEL 137 MMOL/L (136-145)
[2022-12-20] MEDS ORDERED: cefTRIAXone SOD 2 GM in D5W MINI-BAG PLUS 50 ML IV ONE (17:00)
[2022-12-20] MEDS ORDERED: NS 2,000 ML in IV 1 EA IV ONE (17:00)
[2022-12-20] MEDS ORDERED: ISOVUE-370 76% 100ML VIAL As Ordered ONE (17:02)
[2022-12-20 17:34] LABS: TOTAL PROTEIN 7.2 G/DL (5.7-8.2)
[2022-12-20] MEDS ORDERED: D5W/0.9% SODIUM CHLORIDE 1,000 ML IV SCH (20:45)
[2022-12-20] MEDS: ACETAMINOPHEN 650MG SUPP PR PRN (21:40)
[2022-12-20] MEDS: CLINDAMYCIN 600 MG in IV 1 EA IV SCH (21:40)
[2022-12-20] MEDS: IPRATROPIUM 0.5MG/ALBUTEROL 2.5MG INH SOL UD 3ML (DUONEB) NEB PRN (22:02)
[2022-12-20] MEDS ORDERED: NS 500 ML IV ONE (22:15)
[2022-12-20] MEDS ORDERED: GLUCOSE 4GM CHEW TABLET PO PRN (22:35)
[2022-12-20] MEDS ORDERED: GLUCAGON INJ 1MG VIAL SC PRN (22:35)
[2022-12-20] MEDS ORDERED: DEXTROSE 50% 50ML SYRINGE IV PRN (22:35)
[2022-12-20] MEDS ORDERED: SODIGEL TOP (22:36)
[2022-12-20] MEDS ORDERED: RISATAB3 PO (22:36)
[2022-12-20] MEDS ORDERED: FERR5MLUD PO (22:36)
[2022-12-20] MEDS ORDERED: ENSULIQ51 PO (22:36)
[2022-12-20] MEDS ORDERED: SODI1TAB12 PO ×2 (22:36)
[2022-12-20] MEDS ORDERED: RA S0.65 NARES (22:36)
[2022-12-20] MEDS ORDERED: BENG1CRE EX (22:50)
[2022-12-20] MEDS ORDERED: BENPAD (22:50)
[2022-12-20] MEDS ORDERED: MOM30SS PO (22:50)
[2022-12-20] MEDS ORDERED: FLEEENE12 PR (22:50)
[2022-12-20] MEDS ORDERED: BISA10SU27 PR (22:50)
[2022-12-20] MEDS ORDERED: BENG1CRE TOP (22:50)
[2022-12-20] MEDS ORDERED: ACET1TAB55 PO (22:50)
[2022-12-20] MEDS ORDERED: HOME MED LIST COMPLETE! XX SCH (22:55)
[2022-12-20] MEDS ORDERED: METOPROLOL 5 MG/5 ML VIAL IV ONE (22:55)
[2022-12-20] MEDS ORDERED: SODIUM CHLORIDE HYPERTONIC 3% 15ML NEB SOL INH PRN (22:55)
[2022-12-21] VITALS (10 sets, daily range): BP systolic 119–165; BP diastolic 59–100
[2022-12-21] MEDS: METOPROLOL 5 MG/5 ML VIAL IV SCH ×2 (00:50→02:26)
[2022-12-21 02:14] LABS: ABG BASE EXCESS -3.5 (-2.0-2.0); ABG HCO3 20.7 MEQ/L (22.0-26.0); ABG O2 SATURATION 98.3 % (95.0-99.0); ABG PARTIAL PRESSURE CO2 33.5 mmHg (35.0-45.0); ABG STANDARD HCO3 21.5 MEQ/L (22.0-26.0); ABG TOTAL CO2 21.7 MEQ/L (23.0-31.0); ABG pH (ARTERIAL) 7.409 UNITS (7.350-7.450)
[2022-12-21] MEDS ORDERED: MORPHINE 2 MG/ML 1ML VIAL IV PRN ×2 (02:15→18:00)
[2022-12-21 03:35] LABS: MEAN CORPUSCULAR HEMOGLOBIN 27.7 pg (27.0-33.0); MEAN CORPUSCULAR HGB CONC 29.7 g/dl (32.0-36.5); MEAN CORPUSCULAR VOLUME 93.3 fl (80.0-96.0); PLATELET COUNT, AUTOMATED 187 10^3/uL (150-450); RED BLOOD COUNT 2.24 10^6/uL (4.00-5.40); WHITE BLOOD COUNT 6.6 10^3/uL (4.0-10.0)
[2022-12-21 03:38] LABS: HEMATOCRIT 20.9 % (36.0-47.0); HEMOGLOBIN 6.2 g/dl (12.0-15.5)
[2022-12-21 04:11] LABS: ALBUMIN 2.3 G/DL (3.2-5.2); ALKALINE PHOSPHATASE 131 U/L (46-116); ALT/SGPT 21 U/L (7.0-40); AST/SGOT 25 U/L (<34); BILIRUBIN,TOTAL 0.5 MG/DL (0.3-1.2); BLOOD UREA NITROGEN 26 MG/DL (9-23); CALCIUM LEVEL 7.4 MG/DL (8.3-10.6); CARBON DIOXIDE LEVEL 21 MMOL/L (20-31); CHLORIDE LEVEL 109 MMOL/L (98-107); CREATININE FOR GFR 0.81 MG/DL (0.55-1.30); GLOMERULAR FILTRATION RATE > 60.0 (>32); GLUCOSE, FASTING 159 MG/DL (74-106); MAGNESIUM LEVEL 1.7 MG/DL (1.8-2.4); SODIUM LEVEL 139 MMOL/L (136-145); TOTAL PROTEIN 5.8 G/DL (5.7-8.2)
[2022-12-21] MEDS: LEVOTHYROXINE 50MCG TABLET (0.05MG) PO SCH (06:00)
[2022-12-21] MEDS: IPRATROPIUM 0.5MG/ALBUTEROL 2.5MG INH SOL UD 3ML (DUONEB) NEB PRN (06:04)
[2022-12-21 07:01] LABS: HEMATOCRIT 26.5 % (36.0-47.0); HEMOGLOBIN 7.9 g/dl (12.0-15.5)
[2022-12-21] MEDS ORDERED: METOPROLOL 5 MG/5 ML VIAL IV PRN (07:35)
[2022-12-21] MEDS: CLINDAMYCIN 600 MG in IV 1 EA IV SCH (07:48)
[2022-12-21] MEDS ORDERED: FLEET ENEMA PR PRN (07:50)
[2022-12-21] MEDS ORDERED: BISACODYL 10MG SUPP PR PRN (07:50)
[2022-12-21] MEDS ORDERED: METOPROLOL TART 25 MG TABLET PO SCH (09:00)
[2022-12-21] MEDS: rifAMPin 150MG CAPSULE PO SCH ×2 (09:00→22:15)
[2022-12-21] MEDS ORDERED: ALPRAZolam 0.25 MG TAB PO SCH (09:00)
[2022-12-21] MEDS ORDERED: METAMUCIL (PSYLLIUM) PACKET PO SCH (09:00)
[2022-12-21] MEDS: SENNA 8.6 MG TAB (SENOKOT) PO SCH ×2 (09:00→20:19)
[2022-12-21] MEDS: METOPROLOL TART 50 MG TAB PO SCH ×3 (09:00→20:19)
[2022-12-21] MEDS: SODIUM CHLORIDE 0.9% NASAL GEL 15GM (AYR) SCH ×2 (09:00→22:14)
[2022-12-21] MEDS: buPROPion 75 MG TAB PO SCH ×2 (09:00→22:14)
[2022-12-21] MEDS ORDERED: ACETAMINOPHEN 500 MG TAB PO SCH (09:00)
[2022-12-21] MEDS: SODIUM CHLORIDE NASAL 0.65% SPRAY BTL (OCEAN) SCH ×2 (09:00→22:14)
[2022-12-21] MEDS: LACTOBACILLUS ACIDOPHILUS CAP (BACID) PO SCH (09:00)
[2022-12-21 09:22] LABS: ERYTHROCYTE SEDIMENTATION RATE 89 mm/hr (0-30)
[2022-12-21] MEDS: PIPERACILLIN/TAZOBACTAM SOD 3.375 GM in D5W MINI-BAG PLUS 50 ML IV SCH ×3 (11:00→20:18)
[2022-12-21] MEDS ORDERED: VANCOMYCIN HCL 1,000 MG, VIAL MATE ADAPTER 1 EACH in D5W 250 ML IV ONE (11:00)
[2022-12-21] MEDS ORDERED: FUROSEMIDE 20MG/2ML VIAL IV ONE (12:00)
[2022-12-21] MEDS: ACETAMINOPHEN 650MG SUPP PR PRN (14:47)
[2022-12-21 15:07] LABS: HEMATOCRIT 32.4 % (36.0-47.0)
[2022-12-21] MEDS: FERROUS SULFATE 300MG/5ML UDC LIQUID PO SCH (16:00)
[2022-12-21] MEDS ORDERED: cefTRIAXone SOD 1 GM in D5W MINI-BAG PLUS 50 ML IV SCH (18:00)
[2022-12-21] MEDS: D5W/0.9% SODIUM CHLORIDE 1,000 ML IV SCH (18:16)
[2022-12-21] MEDS: MIRTAZAPINE 15 MG TAB PO SCH (20:19)
[2022-12-21] MEDS: ARIPiprazole 2 MG TAB PO SCH (20:19)
[2022-12-21 20:47] LABS: HEMATOCRIT 30.1 % (36.0-47.0); HEMOGLOBIN 9.2 g/dl (12.0-15.5)
[2022-12-21 21:09] LABS: FOLATE 11.51 NG/ML (>5.4)
[2022-12-21] MEDS: VANCOMYCIN HCL 750 MG, VIAL MATE ADAPTER 1 EACH in D5W 250 ML IV SCH (23:07)
[2022-12-22] VITALS (11 sets, daily range): BP systolic 132–178; BP diastolic 78–106
[2022-12-22] MEDS ORDERED: hydrALAZINE 20MG/ML 1ML VIAL IV ONE
[2022-12-22 02:24] LABS: HEMATOCRIT 32.2 % (36.0-47.0); HEMOGLOBIN 9.7 g/dl (12.0-15.5)
[2022-12-22] MEDS: PIPERACILLIN/TAZOBACTAM SOD 3.375 GM in D5W MINI-BAG PLUS 50 ML IV SCH ×4 (03:40→20:01)
[2022-12-22] MEDS: LEVOTHYROXINE 50MCG TABLET (0.05MG) PO SCH (06:20)
[2022-12-22 07:12] LABS: BASO % 0.2 % (0.0-1.0); EOS # 0.1 10^3/uL (0.0-0.5); EOS % 0.6 % (0.0-3.0); HEMATOCRIT 32.1 % (36.0-47.0); HEMOGLOBIN 9.8 g/dl (12.0-15.5); LYMPH # 0.4 10^3/uL (1.5-5.0); LYMPH % 3.9 % (24.0-44.0); MEAN CORPUSCULAR HEMOGLOBIN 28.2 pg (27.0-33.0); MEAN CORPUSCULAR HGB CONC 30.5 g/dl (32.0-36.5); MEAN CORPUSCULAR VOLUME 92.2 fl (80.0-96.0); MONO # 0.5 10^3/uL (0.0-0.8); MONO % 4.9 % (2.0-8.0); NEUTROPHILS # 9.4 10^3/uL (1.5-8.5); NEUTROPHILS % 89.3 % (36.0-66.0); PLATELET COUNT, AUTOMATED 219 10^3/uL (150-450); RED BLOOD COUNT 3.48 10^6/uL (4.00-5.40); WHITE BLOOD COUNT 10.5 10^3/uL (4.0-10.0)
[2022-12-22 07:41] LABS: BLOOD UREA NITROGEN 21 MG/DL (9-23); CALCIUM LEVEL 7.6 MG/DL (8.3-10.6); CARBON DIOXIDE LEVEL 23 MMOL/L (20-31); CHLORIDE LEVEL 109 MMOL/L (98-107); CREATININE FOR GFR 0.78 MG/DL (0.55-1.30); GLOMERULAR FILTRATION RATE > 60.0 (>32); GLUCOSE, FASTING 124 MG/DL (74-106); POTASSIUM SERUM 3.8 MMOL/L (3.5-5.1); SODIUM LEVEL 144 MMOL/L (136-145)
[2022-12-22] MEDS: METOPROLOL TART 50 MG TAB PO SCH ×2 (07:47→14:02)
[2022-12-22 08:04] LABS: MAGNESIUM LEVEL 1.7 MG/DL (1.8-2.4)
[2022-12-22] MEDS ORDERED: METOPROLOL TART 25 MG TABLET PO SCH (09:00)
[2022-12-22] MEDS: LACTOBACILLUS ACIDOPHILUS CAP (BACID) PO SCH (09:18)
[2022-12-22] MEDS: SENNA 8.6 MG TAB (SENOKOT) PO SCH ×2 (09:18→20:01)
[2022-12-22] MEDS: buPROPion 75 MG TAB PO SCH ×2 (09:19→20:01)
[2022-12-22] MEDS: rifAMPin 150MG CAPSULE PO SCH ×2 (09:19→20:01)
[2022-12-22] MEDS: SODIUM CHLORIDE 0.9% NASAL GEL 15GM (AYR) SCH ×2 (09:20→20:02)
[2022-12-22] MEDS: SODIUM CHLORIDE NASAL 0.65% SPRAY BTL (OCEAN) SCH ×2 (09:20→20:02)
[2022-12-22] MEDS: VANCOMYCIN HCL 750 MG, VIAL MATE ADAPTER 1 EACH in D5W 250 ML IV SCH ×2 (11:01→22:51)
[2022-12-22] MEDS ORDERED: ISOVUE-370 76% 100ML VIAL As Ordered ONE (12:49)
[2022-12-22] MEDS: SODIUM CHLORIDE HYPERTONIC 3% 15ML NEB SOL INH SCH ×2 (13:06→20:34)
[2022-12-22] MEDS: LEVALBUTEROL HFA 45MCG/ACT 15GM INHALER INH SCH ×2 (13:06→20:00)
[2022-12-22] MEDS: D5W/0.9% SODIUM CHLORIDE 1,000 ML IV SCH (14:01)
[2022-12-22] MEDS: FERROUS SULFATE 300MG/5ML UDC LIQUID PO SCH (15:04)
[2022-12-22] MEDS: diltiaZEM 125 MG in NS 100 ML IV SCH (17:22)
[2022-12-22] MEDS: ARIPiprazole 2 MG TAB PO SCH (20:01)
[2022-12-22] MEDS: MIRTAZAPINE 15 MG TAB PO SCH (20:01)
[2022-12-23] VITALS (10 sets, daily range): BP systolic 132–178; BP diastolic 62–92
[2022-12-23] MEDS: diltiaZEM 125 MG in NS 100 ML IV SCH ×4 (00:36→22:30)
[2022-12-23] MEDS: SODIUM CHLORIDE HYPERTONIC 3% 15ML NEB SOL INH SCH ×4 (02:28→19:44)
[2022-12-23] MEDS: LEVALBUTEROL 1.25MG 0.5ML CONCENTRATE NEB INH SCH ×4 (02:28→19:44)
[2022-12-23] MEDS: PIPERACILLIN/TAZOBACTAM SOD 3.375 GM in D5W MINI-BAG PLUS 50 ML IV SCH (03:00)
[2022-12-23 05:48] LABS: BASO % 0.1 % (0.0-1.0); EOS # 0.1 10^3/uL (0.0-0.5); EOS % 0.5 % (0.0-3.0); HEMATOCRIT 29.7 % (36.0-47.0); HEMOGLOBIN 9.2 g/dl (12.0-15.5); LYMPH # 0.5 10^3/uL (1.5-5.0); LYMPH % 5.3 % (24.0-44.0); MEAN CORPUSCULAR HEMOGLOBIN 28.5 pg (27.0-33.0); MONO # 0.6 10^3/uL (0.0-0.8); MONO % 6.4 % (2.0-8.0); NEUTROPHILS # 8.5 10^3/uL (1.5-8.5); NEUTROPHILS % 86.2 % (36.0-66.0); PLATELET COUNT, AUTOMATED 210 10^3/uL (150-450); RED BLOOD COUNT 3.23 10^6/uL (4.00-5.40); WHITE BLOOD COUNT 9.9 10^3/uL (4.0-10.0)
[2022-12-23 06:20] LABS: BLOOD UREA NITROGEN 19 MG/DL (9-23); CALCIUM LEVEL 7.4 MG/DL (8.3-10.6); CARBON DIOXIDE LEVEL 22 MMOL/L (20-31); CHLORIDE LEVEL 111 MMOL/L (98-107); CREATININE FOR GFR 0.77 MG/DL (0.55-1.30); GLOMERULAR FILTRATION RATE > 60.0 (>32); GLUCOSE, FASTING 137 MG/DL (74-106); POTASSIUM SERUM 3.2 MMOL/L (3.5-5.1); SODIUM LEVEL 143 MMOL/L (136-145)
[2022-12-23] MEDS: LEVOTHYROXINE 50MCG TABLET (0.05MG) PO SCH (06:35)
[2022-12-23] MEDS: buPROPion 75 MG TAB PO SCH ×2 (09:00→22:06)
[2022-12-23] MEDS ORDERED: POTASSIUM CHLORIDE 10MEQ SR TABLET PO ONE (09:00)
[2022-12-23] MEDS: SENNA 8.6 MG TAB (SENOKOT) PO SCH ×2 (09:00→22:06)
[2022-12-23] MEDS: LACTOBACILLUS ACIDOPHILUS CAP (BACID) PO SCH (09:00)
[2022-12-23] MEDS: D5W/0.9% SODIUM CHLORIDE 1,000 ML IV SCH (09:45)
[2022-12-23] MEDS: AMPICILLIN SOD/SULBACTAM SOD 3 GM in D5W MINI-BAG PLUS 100 ML IV SCH ×3 (09:53→22:05)
[2022-12-23] MEDS ORDERED: E-Z-PAQUE 96% w/w SUSP 176GM BTL As Ordered ONE (10:38)
[2022-12-23] MEDS ORDERED: VARIBAR PUDDING 40% w/v 230ML TUBE As Ordered ONE (10:38)
[2022-12-23] MEDS ORDERED: VARIBAR NECTAR 40% w/v 240ML SUSP BTL As Ordered ONE (10:38)
[2022-12-23] MEDS ORDERED: BARIUM SULFATE 700 MG TABLET (E-Z-DISK) As Ordered ONE (10:38)
[2022-12-23] MEDS: SODIUM CHLORIDE NASAL 0.65% SPRAY BTL (OCEAN) SCH ×2 (10:56→22:07)
[2022-12-23] MEDS: SODIUM CHLORIDE 0.9% NASAL GEL 15GM (AYR) SCH ×2 (10:56→22:07)
[2022-12-23] MEDS: KCL 10MEQ/100ML SWI (KRUN) 10 MEQ in IV 1 EA IV SCH ×4 (11:56→15:32)
[2022-12-23] MEDS: FERROUS SULFATE 300MG/5ML UDC LIQUID PO SCH (16:43)
[2022-12-23] MEDS: INSULIN LISPRO (NovoLOG) PER UNIT SC SCH ×2 (17:15→22:08)
[2022-12-23] MEDS: ENOXAPARIN 40MG/0.4ML SYRINGE (J1650 PER 10MG) SC SCH (22:05)
[2022-12-23] MEDS: MIRALAX *UNIT DOSE* 17GM PACKET PO SCH (22:05)
[2022-12-23] MEDS: MIRTAZAPINE 15 MG TAB PO SCH (22:06)
[2022-12-23] MEDS: ARIPiprazole 2 MG TAB PO SCH (22:06)
[2022-12-24] VITALS (23 sets, daily range): BP systolic 130–180; BP diastolic 42–90; O2SAT 92–98
[2022-12-24] MEDS ORDERED: DIGOXIN INJ 0.5 MG/2 ML AMP IV STA (00:04)
[2022-12-24] MEDS: AMPICILLIN SOD/SULBACTAM SOD 3 GM in D5W MINI-BAG PLUS 100 ML IV SCH ×4 (02:51→20:42)
[2022-12-24] MEDS: SODIUM CHLORIDE HYPERTONIC 3% 15ML NEB SOL INH SCH ×4 (02:53→19:08)
[2022-12-24] MEDS: LEVALBUTEROL 1.25MG 0.5ML CONCENTRATE NEB INH SCH ×4 (02:53→19:08)
[2022-12-24 05:46] LABS: BASO % 0.2 % (0.0-1.0); EOS # 0.1 10^3/uL (0.0-0.5); EOS % 0.6 % (0.0-3.0); HEMATOCRIT 30.7 % (36.0-47.0); HEMOGLOBIN 9.6 g/dl (12.0-15.5); LYMPH # 0.6 10^3/uL (1.5-5.0); LYMPH % 5.3 % (24.0-44.0); MEAN CORPUSCULAR HEMOGLOBIN 28.7 pg (27.0-33.0); MEAN CORPUSCULAR HGB CONC 31.3 g/dl (32.0-36.5); MEAN CORPUSCULAR VOLUME 91.6 fl (80.0-96.0); MONO # 0.8 10^3/uL (0.0-0.8); MONO % 7.8 % (2.0-8.0); NEUTROPHILS # 9.1 10^3/uL (1.5-8.5); NEUTROPHILS % 84.8 % (36.0-66.0); PLATELET COUNT, AUTOMATED 253 10^3/uL (150-450); RED BLOOD COUNT 3.35 10^6/uL (4.00-5.40); WHITE BLOOD COUNT 10.7 10^3/uL (4.0-10.0)
[2022-12-24 06:09] LABS: BLOOD UREA NITROGEN 14 MG/DL (9-23); CALCIUM LEVEL 8.2 MG/DL (8.3-10.6); CARBON DIOXIDE LEVEL 24 MMOL/L (20-31); CHLORIDE LEVEL 111 MMOL/L (98-107); CREATININE FOR GFR 0.67 MG/DL (0.55-1.30); GLOMERULAR FILTRATION RATE > 60.0 (>32); GLUCOSE, FASTING 130 MG/DL (74-106); MAGNESIUM LEVEL 1.7 MG/DL (1.8-2.4); POTASSIUM SERUM 3.4 MMOL/L (3.5-5.1); SODIUM LEVEL 145 MMOL/L (136-145)
[2022-12-24] MEDS: LEVOTHYROXINE 50MCG TABLET (0.05MG) PO SCH (06:49)
[2022-12-24] MEDS: diltiaZEM 125 MG in NS 100 ML IV SCH (06:49)
[2022-12-24] MEDS ORDERED: MAG SULF 1GM/100ML (MAG RUN) 1 GM in IV 1 EA IV ONE (08:00)
[2022-12-24] MEDS: MIRALAX *UNIT DOSE* 17GM PACKET PO SCH ×2 (08:15→20:42)
[2022-12-24] MEDS: INSULIN LISPRO (NovoLOG) PER UNIT SC SCH ×4 (08:15→20:44)
[2022-12-24] MEDS: buPROPion 75 MG TAB PO SCH ×2 (08:16→20:42)
[2022-12-24] MEDS: LACTOBACILLUS ACIDOPHILUS CAP (BACID) PO SCH (08:16)
[2022-12-24] MEDS: ASPIRIN 81MG CHEW TABLET PO SCH (08:16)
[2022-12-24] MEDS: SENNA 8.6 MG TAB (SENOKOT) PO SCH ×2 (08:16→20:42)
[2022-12-24] MEDS: SODIUM CHLORIDE NASAL 0.65% SPRAY BTL (OCEAN) SCH ×2 (08:17→20:43)
[2022-12-24] MEDS: SODIUM CHLORIDE 0.9% NASAL GEL 15GM (AYR) SCH ×2 (08:17→20:43)
[2022-12-24] MEDS ORDERED: LEVOTHYROXINE 100MCG (0.1MG) 5ML SDV PF (SOLUTION FORM) IV SCH (09:00)
[2022-12-24] MEDS: KCL 10MEQ/100ML SWI (KRUN) 10 MEQ in IV 1 EA IV SCH ×4 (09:25→13:33)
[2022-12-24] MEDS: FERROUS SULFATE 300MG/5ML UDC LIQUID PO SCH (17:39)
[2022-12-24] MEDS: ARIPiprazole 2 MG TAB PO SCH (20:42)
[2022-12-24] MEDS: ENOXAPARIN 40MG/0.4ML SYRINGE (J1650 PER 10MG) SC SCH (20:42)
[2022-12-24] MEDS: MIRTAZAPINE 15 MG TAB PO SCH (20:43)
[2022-12-25] VITALS (15 sets, daily range): BP systolic 130–164; BP diastolic 60–72; O2SAT 86–97
[2022-12-25] MEDS: LEVALBUTEROL 1.25MG 0.5ML CONCENTRATE NEB INH SCH ×4 (01:40→20:12)
[2022-12-25] MEDS: SODIUM CHLORIDE HYPERTONIC 3% 15ML NEB SOL INH SCH ×4 (01:41→20:11)
[2022-12-25] MEDS: AMPICILLIN SOD/SULBACTAM SOD 3 GM in D5W MINI-BAG PLUS 100 ML IV SCH ×2 (02:01→10:21)
[2022-12-25 05:34] LABS: BASO % 0.1 % (0.0-1.0); EOS # 0.1 10^3/uL (0.0-0.5); EOS % 1.8 % (0.0-3.0); HEMATOCRIT 31.6 % (36.0-47.0); HEMOGLOBIN 9.6 g/dl (12.0-15.5); LYMPH # 0.5 10^3/uL (1.5-5.0); LYMPH % 6.5 % (24.0-44.0); MEAN CORPUSCULAR HEMOGLOBIN 28.2 pg (27.0-33.0); MEAN CORPUSCULAR HGB CONC 30.4 g/dl (32.0-36.5); MEAN CORPUSCULAR VOLUME 92.7 fl (80.0-96.0); MONO # 0.5 10^3/uL (0.0-0.8); MONO % 6.8 % (2.0-8.0); NEUTROPHILS # 6.6 10^3/uL (1.5-8.5); NEUTROPHILS % 82.7 % (36.0-66.0); PLATELET COUNT, AUTOMATED 230 10^3/uL (150-450); RED BLOOD COUNT 3.41 10^6/uL (4.00-5.40); WHITE BLOOD COUNT 7.9 10^3/uL (4.0-10.0)
[2022-12-25] MEDS: LEVOTHYROXINE 50MCG TABLET (0.05MG) PO SCH (05:57)
[2022-12-25 06:02] LABS: BLOOD UREA NITROGEN 12 MG/DL (9-23); CARBON DIOXIDE LEVEL 25 MMOL/L (20-31); CHLORIDE LEVEL 110 MMOL/L (98-107); CREATININE FOR GFR 0.66 MG/DL (0.55-1.30); GLOMERULAR FILTRATION RATE > 60.0 (>32); GLUCOSE, FASTING 110 MG/DL (74-106); MAGNESIUM LEVEL 1.9 MG/DL (1.8-2.4); POTASSIUM SERUM 4.1 MMOL/L (3.5-5.1); SODIUM LEVEL 143 MMOL/L (136-145)
[2022-12-25] MEDS: INSULIN LISPRO (NovoLOG) PER UNIT SC SCH ×4 (07:30→20:17)
[2022-12-25] MEDS ORDERED: FOLIC ACID 1MG TAB PO SCH (09:00)
[2022-12-25] MEDS: MIRALAX *UNIT DOSE* 17GM PACKET PO SCH ×2 (09:00→21:00)
[2022-12-25] MEDS: SENNA 8.6 MG TAB (SENOKOT) PO SCH ×2 (09:00→21:00)
[2022-12-25] MEDS ORDERED: AUGM500T34 PO (09:04)
[2022-12-25] MEDS ORDERED: DILT30TA PO (09:04)
[2022-12-25] MEDS ORDERED: ASPI81CH8 PO (09:27)
[2022-12-25] MEDS: LACTOBACILLUS ACIDOPHILUS CAP (BACID) PO SCH (09:51)
[2022-12-25] MEDS: buPROPion 75 MG TAB PO SCH ×2 (09:51→21:44)
[2022-12-25] MEDS: ASPIRIN 81MG CHEW TABLET PO SCH (09:51)
[2022-12-25] MEDS: SODIUM CHLORIDE NASAL 0.65% SPRAY BTL (OCEAN) SCH ×2 (09:52→21:45)
[2022-12-25] MEDS: SODIUM CHLORIDE 0.9% NASAL GEL 15GM (AYR) SCH ×2 (09:52→21:45)
[2022-12-25 15:08] LABS: BODY FLUID CULTURE Not indicated. (.); LEGIONELLA ANTIGEN URINE Negative (Negative); ORGANISM ID Not indicated. (.); SPECIMEN SOURCE Urine (.); URINE STREP PNEUMONIAE ANTIGEN Negative (Negative)
[2022-12-25] MEDS: FERROUS SULFATE 300MG/5ML UDC LIQUID PO SCH (17:46)
[2022-12-25] MEDS: AUGMENTIN 875 MG TAB PO SCH (21:44)
[2022-12-25] MEDS: ARIPiprazole 2 MG TAB PO SCH (21:44)
[2022-12-25] MEDS: MIRTAZAPINE 15 MG TAB PO SCH (21:44)
[2022-12-25] MEDS: ENOXAPARIN 40MG/0.4ML SYRINGE (J1650 PER 10MG) SC SCH (21:45)
[2022-12-26 00:26] VITALS: BP 150/74
[2022-12-26] MEDS: SODIUM CHLORIDE HYPERTONIC 3% 15ML NEB SOL INH SCH ×2 (01:39→07:18)
[2022-12-26] MEDS: LEVALBUTEROL 1.25MG 0.5ML CONCENTRATE NEB INH SCH ×2 (01:39→07:18)
[2022-12-26 06:36] VITALS: BP 152/78
[2022-12-26] MEDS: LEVOTHYROXINE 50MCG TABLET (0.05MG) PO SCH (06:36)
[2022-12-26] MEDS: INSULIN LISPRO (NovoLOG) PER UNIT SC SCH (07:30)
[2022-12-26] MEDS: buPROPion 75 MG TAB PO SCH (09:00)
[2022-12-26] MEDS: LACTOBACILLUS ACIDOPHILUS CAP (BACID) PO SCH (09:31)
[2022-12-26] MEDS: ASPIRIN 81MG CHEW TABLET PO SCH (09:31)
[2022-12-26] MEDS: AUGMENTIN 875 MG TAB PO SCH (09:31)
[2022-12-26] MEDS: MIRALAX *UNIT DOSE* 17GM PACKET PO SCH (09:31)
[2022-12-26] MEDS: SODIUM CHLORIDE NASAL 0.65% SPRAY BTL (OCEAN) SCH (09:31)
[2022-12-26] MEDS: SENNA 8.6 MG TAB (SENOKOT) PO SCH (09:31)
[2022-12-26] MEDS: SODIUM CHLORIDE 0.9% NASAL GEL 15GM (AYR) SCH (09:31)
== END 2022-12-26 10:00 | DRG 559 ==
LOC: M ED 16:12 → M ED INP 20:41 → ENRESERV 12-21 13:29 → M PCU 12-21 15:21 → M MS5PR 12-26 08:00
PROVIDERS: ADMIT Internal Medicine; ATTEND Internal Medicine
PROC: 30233N1 Transfusion of Nonautologous Red Blood Cells into Peripheral Vein, Percutaneous Approach (ICD-10-PCS; principal; 2022-12-21)
DX: T84.51XA Infection and inflammatory reaction due to internal right hip prosthesis, initial encounter (principal); A41.9 Sepsis, unspecified organism; J69.0 Pneumonitis due to inhalation of food and vomit; I48.91 Unspecified atrial fibrillation; Z95.0 Presence of cardiac pacemaker; I10 Essential (primary) hypertension; K74.60 Unspecified cirrhosis of liver; F03.C0 Unspecified dementia, severe, without behavioral disturbance, psychotic disturbance, mood disturbance, and anxiety; E11.9 Type 2 diabetes mellitus without complications; E03.9 Hypothyroidism, unspecified; I27.20 Pulmonary hypertension, unspecified; H91.93 Unspecified hearing loss, bilateral; Z66 Do not resuscitate; E78.5 Hyperlipidemia, unspecified; I25.10 Atherosclerotic heart disease of native coronary artery without angina pectoris; J44.9 Chronic obstructive pulmonary disease, unspecified; D50.9 Iron deficiency anemia, unspecified; M10.9 Gout, unspecified; F32.A Depression, unspecified; F41.9 Anxiety disorder, unspecified; M19.90 Unspecified osteoarthritis, unspecified site; K57.90 Diverticulosis of intestine, part unspecified, without perforation or abscess without bleeding; Z98.41 Cataract extraction status, right eye; Z98.42 Cataract extraction status, left eye; Z90.49 Acquired absence of other specified parts of digestive tract; Z79.01 Long term (current) use of anticoagulants; Z79.890 Hormone replacement therapy; Z79.899 Other long term (current) drug therapy

== ENCOUNTER → 2022-12-20 | Outpatient (REF) | payer MEDICARE, MEDICAID ==
[~2022-12-20] MED LIST changes: +BENG1CRE EX; +BENG1CRE TOP; +BENPAD; +BISA10SU27 PR; +ENSULIQ51 PO; +FLEEENE12 PR; +RA S0.65 NARES; +SODI1TAB12 PO; +SODIGEL TOP
== END ==
LOC: SKLAB4 11:12
PROVIDERS: ATTEND Nurse Practitioner Adult Health
DX: D64.9 Anemia, unspecified (principal)

== ENCOUNTER → 2022-12-20 | Outpatient (REF) | payer MEDICARE, MEDICAID ==
[2022-12-20 08:46] LABS: HEMATOCRIT 25.4 % (36.0-47.0); HEMOGLOBIN 7.4 g/dl (12.0-15.5); MEAN CORPUSCULAR HEMOGLOBIN 27.3 pg (27.0-33.0); MEAN CORPUSCULAR HGB CONC 29.1 g/dl (32.0-36.5); MEAN CORPUSCULAR VOLUME 93.7 fl (80.0-96.0); PLATELET COUNT, AUTOMATED 271 10^3/uL (150-450); RED BLOOD COUNT 2.71 10^6/uL (4.00-5.40); WHITE BLOOD COUNT 4.4 10^3/uL (4.0-10.0)
[2022-12-20 09:11] LABS: BLOOD UREA NITROGEN 29 MG/DL (9-23); CALCIUM LEVEL 8.7 MG/DL (8.3-10.6); CARBON DIOXIDE LEVEL 25 MMOL/L (20-31); CHLORIDE LEVEL 105 MMOL/L (98-107); CREATININE FOR GFR 0.93 MG/DL (0.55-1.30); GLOMERULAR FILTRATION RATE > 60.0 (>32); GLUCOSE, FASTING 120 MG/DL (74-106); POTASSIUM SERUM 3.9 MMOL/L (3.5-5.1); SODIUM LEVEL 139 MMOL/L (136-145)
== END ==
LOC: SKLAB4 08:27
PROVIDERS: ATTEND Nurse Practitioner Adult Health
DX: E87.1 Hypo-osmolality and hyponatremia (principal)

== ENCOUNTER → 2022-12-23 | Outpatient (REF) | payer MEDICARE, MEDICAID ==
[~2022-12-23] MED LIST changes: +BENG1CRE EX; +BENG1CRE TOP; +BENPAD; +BISA10SU27 PR; +ENSULIQ51 PO; +FLEEENE12 PR; +RA S0.65 NARES; +SODI1TAB12 PO; +SODIGEL TOP
== END ==
LOC: SKLAB4 08:16
PROVIDERS: ATTEND Nurse Practitioner Adult Health
DX: E87.1 Hypo-osmolality and hyponatremia (principal); Z53.8 Procedure and treatment not carried out for other reasons

== ENCOUNTER → 2023-01-02 | Outpatient (REF) | payer MEDICARE, MEDICAID ==
[~2023-01-02] MED LIST changes: +ASPI81CH8 PO; +AUGM500T34 PO; +DILT30TA PO
[2023-01-02 10:02] LABS: HEMATOCRIT 36.7 % (36.0-47.0); MEAN CORPUSCULAR HEMOGLOBIN 28.1 pg (27.0-33.0); MEAN CORPUSCULAR VOLUME 93.6 fl (80.0-96.0); PLATELET COUNT, AUTOMATED 374 10^3/uL (150-450); RED BLOOD COUNT 3.92 10^6/uL (4.00-5.40); WHITE BLOOD COUNT 5.6 10^3/uL (4.0-10.0)
[2023-01-02 10:20] LABS: CALCIUM LEVEL 8.9 MG/DL (8.3-10.6); CREATININE FOR GFR 0.97 MG/DL (0.55-1.30); GLOMERULAR FILTRATION RATE 57.6 (>32)
[2023-01-02 10:29] LABS: PTH INTACT 66.1 PG/ML (18.5-88.0)
== END ==
LOC: SKLAB4 08:48
PROVIDERS: ATTEND Nurse Practitioner Adult Health
DX: N18.9 Chronic kidney disease, unspecified (principal); N25.81 Secondary hyperparathyroidism of renal origin

== ENCOUNTER → 2023-01-24 | Outpatient (REF) | payer MEDICARE, MEDICAID ==
[2023-01-24 09:34] LABS: HEMATOCRIT 33.5 % (36.0-47.0); HEMOGLOBIN 10.6 g/dl (12.0-15.5); MEAN CORPUSCULAR HEMOGLOBIN 29.3 pg (27.0-33.0); MEAN CORPUSCULAR HGB CONC 31.6 g/dl (32.0-36.5); MEAN CORPUSCULAR VOLUME 92.5 fl (80.0-96.0); PLATELET COUNT, AUTOMATED 261 10^3/uL (150-450); RED BLOOD COUNT 3.62 10^6/uL (4.00-5.40); WHITE BLOOD COUNT 6.2 10^3/uL (4.0-10.0)
[2023-01-24 09:57] LABS: CALCIUM LEVEL 9.3 MG/DL (8.3-10.6); CREATININE FOR GFR 0.96 MG/DL (0.55-1.30); GLOMERULAR FILTRATION RATE 58.3 (>32); POTASSIUM SERUM 4.5 MMOL/L (3.5-5.1)
== END ==
LOC: SKLAB4 13:52
PROVIDERS: ATTEND Nurse Practitioner Adult Health
DX: R04.0 Epistaxis (principal)

== ENCOUNTER → 2023-02-03 | Outpatient (CLI) | payer MEDICARE, MEDICAID | LOC: M RAD 12:02 | PROVIDERS: ATTEND Internal Medicine | DX: M25.551 Pain in right hip (principal) ==

== ENCOUNTER → 2023-02-03 | Outpatient (REF) | payer MEDICARE, MEDICAID | LOC: SKLAB4 11:27 | PROVIDERS: ATTEND Internal Medicine | DX: M25.551 Pain in right hip (principal); Z53.8 Procedure and treatment not carried out for other reasons ==

== ENCOUNTER → 2023-02-09 | Outpatient (REF) | payer MEDICARE, MEDICAID ==
[2023-02-09 17:06] LABS: BASO % 0.1 % (0.0-1.0); EOS % 0.4 % (0.0-3.0); HEMATOCRIT 33.6 % (36.0-47.0); LYMPH # 0.7 10^3/uL (1.5-5.0); LYMPH % 6.3 % (24.0-44.0); MEAN CORPUSCULAR HEMOGLOBIN 30.2 pg (27.0-33.0); MEAN CORPUSCULAR HGB CONC 32.7 g/dl (32.0-36.5); MEAN CORPUSCULAR VOLUME 92.3 fl (80.0-96.0); MONO # 1.2 10^3/uL (0.0-0.8); MONO % 11.3 % (2.0-8.0); NEUTROPHILS # 8.7 10^3/uL (1.5-8.5); NEUTROPHILS % 81.2 % (36.0-66.0); PLATELET COUNT, AUTOMATED 272 10^3/uL (150-450); RED BLOOD COUNT 3.64 10^6/uL (4.00-5.40); WHITE BLOOD COUNT 10.8 10^3/uL (4.0-10.0)
[2023-02-09 17:31] LABS: CALCIUM LEVEL 8.9 MG/DL (8.3-10.6); CREATININE FOR GFR 0.95 MG/DL (0.55-1.30); POTASSIUM SERUM 4.5 MMOL/L (3.5-5.1)
== END ==
LOC: SKLAB4 14:30
PROVIDERS: ATTEND Internal Medicine
DX: R50.9 Fever, unspecified (principal); J98.4 Other disorders of lung; I51.7 Cardiomegaly; I77.810 Thoracic aortic ectasia; S42.291D Other displaced fracture of upper end of right humerus, subsequent encounter for fracture with routine healing; S22.050D Wedge compression fracture of T5-T6 vertebra, subsequent encounter for fracture with routine healing; S22.070D Wedge compression fracture of T9-T10 vertebra, subsequent encounter for fracture with routine healing; Z95.0 Presence of cardiac pacemaker